=== PATIENT | female | born 1935 | race Caucasian/White ===

== ENCOUNTER → 2016-10-20 | Outpatient (CLI) | payer MEDICARE ==
[~2016-10-20] MED LIST: /WARF25TA PO; ACET50TA PO; ALEN70TA39 PO; ASPI1TAB PO; ASPIRIN PO; AZAT5TAB PO; BACT800T5 PO; BISA5TAB7 PO; CALC25TA PO; DOCU100C PO; ELIQ5TAB PO; FOLI1TAB2 PO; FURO40TA2 PO; METH2.5TA PO; METO25TAB PO; METOPROLOL PO; MILKSUS PO; PANT40TA2 PO; PERCOCET PO; POTA10CA PO; PRED20TA PO; PRED5TA PO; SIMV20TA2 PO; TYLE325T5 PO; VITA400T2 PO; VITAMIN D PO
--- NOTE | 2016-10-20 15:25 | REPMRS ---
Patient History The patient states she has not had a clinical breast exam in over a year. Patient is postmenopausal and has history of squamous cells skin cancer at age 74. Family history of ovarian cancer in sister at age 50 or over and breast cancer in mother at age 50 or over. Benign excisional biopsy of both breasts. Digital Woman Screen Mammo: October 20, 2016 - Exam #: [id number] Bilateral CC and MLO view(s) were taken. Technologist: Sarah Obsorne, Technologist Prior study comparison: February 17, 2015, digital woman screen mammo performed at [facility]. January 11, 2014, digital woman screen mammo performed at [facility]. FINDINGS: There are scattered fibroglandular densities. There has been no change in the appearance of the mammogram from the prior studies. There is a mild amount of residual fibroglandular tissue which is fairly symmetric. There is no interval development of dominant mass, architectural distortion, or clustered microcalcification suggestive of malignancy. There are bilateral benign arterial calcifications noted. Scattered lymph nodes are seen in the axillae. There are scattered, small, benign calcifications of doubtful clinical significance. No significant changes when compared with prior studies. ASSESSMENT: BI-RADS/ACR category 2 mammogram. Benign finding(s). Recommendation Routine screening mammogram in 1 year (for women over age 40). This mammogram was interpreted with the aid of an FDA-approved computer-aided dectection system. A. Negative x-ray reports should not delay biopsy if a dominant or clinically suspicious mass is present. B. Four to eight percent of cancers are not identified by mammography. C. Adenosis and dense breast may obscure an underlying neoplasm. Electronically Signed By: Carlyle Yost MD 10/20/16 [id number]
== END ==
LOC: M WHC 14:28
PROVIDERS: ATTEND Nurse Practitioner Family
DX: Z12.31 Encounter for screening mammogram for malignant neoplasm of breast (principal); Z78.0 Asymptomatic menopausal state; R92.8 Other abnormal and inconclusive findings on diagnostic imaging of breast

== ENCOUNTER 2017-02-22 09:49 | Inpatient (IN) | payer MEDICARE ==
[~2017-02-22] VITALS: Ht 172.7 cm; Wt 100.5 kg
[2017-02-22] MEDS: predniSONE 5 MG TAB NG SCH (09:00)
[2017-02-22] MEDS: azaTHIOprine 50 MG TAB (J7500) PO SCH (09:00)
[~2017-02-22 09:49] MED LIST changes: +AZAT50TA2 PO; -AZAT5TAB PO; -DOCU100C PO; +DOCU100C16 PO; -FOLI1TAB2 PO; +FOLI1TAB4 PO; +FUROSEMIDE 20 MG TAB PO SCH
[2017-02-22] MEDS ORDERED: FURO20TA2 PO (10:10)
[2017-02-22] MEDS ORDERED: PRED5TA PO (10:10)
[2017-02-22] MEDS ORDERED: HYDR200T3 PO (10:10)
[2017-02-22 11:00] LABS: BASO % 0.2 % (0.0-1.0); EOS # 0.1 K/mm3 (0.0-0.50); EOS % 0.4 % (0.0-3.0); LARGE UNSTAINED CELL # 0.1 K/mm3 (0.0-0.4); LARGE UNSTAINED CELL % 0.5 % (0.0-4.0); LYMPH # 0.3 K/mm3 (1.5-4.5); LYMPH % 1.4 % (24.0-44.0); MEAN CORPUSCULAR HEMOGLOBIN 27.1 pg (27.0-33.0); MEAN CORPUSCULAR HGB CONC 32.3 g/dl (32.0-36.5); MEAN CORPUSCULAR VOLUME 83.9 fl (80.0-96.0); MONO # 0.7 K/mm3 (0.0-0.8); MONO % 3.9 % (0.0-5.0); NEUTROPHILS # 15.7 K/mm3 (1.8-7.7); NEUTROPHILS % 93.5 % (36.0-66.0); PLATELET COUNT, AUTOMATED 432 k/mm3 (150-450); RED CELL DISTRIBUTION WIDTH 14.8 % (11.5-14.5); WHITE BLOOD COUNT 16.8 K/mm3 (4.0-10.0)
[2017-02-22] MEDS ORDERED: MORPHINE 2 MG/ML 1ML SYRINGE IV ONE (11:00)
[2017-02-22] MEDS ORDERED: ONDANSETRON 4MG/2ML VIAL (J2405) IV ONE (11:00)
[2017-02-22 11:02] LABS: INR 1.18
[2017-02-22] MEDS ORDERED: SODIUM CHLORIDE 0.9% 1000 ML IV ONE (11:15)
[2017-02-22 11:29] LABS: ALBUMIN 3.5 GM/DL (3.2-5.2); ALBUMIN/GLOBULIN RATIO 0.95 (1.00-1.93); ALKALINE PHOSPHATASE 58 U/L (45-117); ALT/SGPT 16 U/L (12-78); ANION GAP 17 MEQ/L (8-16); AST/SGOT 16 U/L (15-37); BILIRUBIN,DIRECT 0.2 MG/DL (0.0-0.2); BILIRUBIN,TOTAL 0.9 MG/DL (0.2-1.0); BLOOD UREA NITROGEN 25 MG/DL (7-18); CALCIUM LEVEL 9.3 MG/DL (8.8-10.2); CARBON DIOXIDE LEVEL 21 MEQ/L (21-32); CHLORIDE LEVEL 100 MEQ/L (98-107); CREATININE FOR GFR 1.56 MG/DL (0.55-1.02); GLOMERULAR FILTRATION RATE 33.7 (>32); GLUCOSE, FASTING 282 MG/DL (83-110); POTASSIUM SERUM 3.9 MEQ/L (3.5-5.1); SODIUM LEVEL 138 MEQ/L (136-145); TOTAL PROTEIN 7.2 GM/DL (6.4-8.2)
--- NOTE | 2017-02-22 11:37 | REP ---
AP PORTABLE CHEST: 02/22/2017 COMPARISON: 10/28/2015, 10/22/2015 chest x-ray. CLINICAL HISTORY: Chest pain. Lungs are hypoinflated compared to previous studies. There is some minor subsegmental atelectatic change and linear atelectasis in the bases. No effusion, gross infiltrate, cardiomegaly or edema. The aorta is tortuous, ectatic and that exaggerated by portable technique and low level of inflation but grossly unchanged. Allowing for this factors, airway intact. There is no abnormal widening the mediastinum. Bones show degenerative changes shoulders and spine. There is no free air under the diaphragms. IMPRESSION: 1. Hypoinflated chest with some basilar subsegmental atelectatic change and underlying fibrosis with COPD and pulmonary artery hypertension. 2. Tortuous calcified aorta and some degenerative changes of the spine and shoulders. Signed by Carlyle Yost MD 02/22/2017 06:58 P
--- NOTE | 2017-02-22 12:37 | REP ---
ABDOMEN, FLAT UPRIGHT PA CHEST, THREE VIEWS: HISTORY: Bowel obstruction. Air is present in small and large intestine. There are several dilated loops of intestine. Several air fluid levels are present. There is no pneumoperitoneum. An increase in interstitial markings is present in the lower lobes consistent with chronic interstitial change. The heart is upper limits of normal in size. IMPRESSION: Findings consistent with ileus or small bowel obstruction. A repeat examination is recommended for further evaluation. Signed by Zaki Hernandez MD 02/22/2017 12:47 P
[2017-02-22] MEDS ORDERED: NS 1,000 ML IV SCH (12:55)
--- NOTE | 2017-02-22 13:23 | REP ---
CT ABDOMEN PELVIS WITHOUT CONTRAST: 02/22/2017 CLINICAL HISTORY: Pain and bloating, ileus versus small bowel obstruction on radiographs today. COMPARISON: Acute abdominal series today, CT abdomen pelvis 12/30/2011. TECHNIQUE. Noncontrast exam with coronal and sagittal reconstructions after scanning through the abdomen and pelvis. FINDINGS: CT ABDOMEN: There is minor dependent atelectatic changes, deep sulcus right lower lung zone without definite effusion, infiltrate, nodule or mass. The heart size mildly prominent with left atrial enlargement. No pericardial thickening or effusion. I see no definite hiatal hernia. No hepatosplenomegaly but there is ascites about the liver and spleen coursing into the peroneal gutters into the pelvis. It is mild to moderate in overall volume. It also enters and/or leaves the mesentery and bowel loops in the mid abdomen. There is a noncalcified gallstone visible in the gallbladder up to 2.1 cm. There are dilated small bowel loops fluid-filled and with air-fluid levels. Transition in the mid to abdomen upper pelvis region of the distal and mid ileum of more normal caliber or collapsed. There is stool and gas scattered in the right transverse colon with the left colon collapsed and small caliber. No inflammatory changes are seen about those loops. Lung window review of all CT slices shows no perforation or free air. There are a few air-fluid levels in some of these dilated loops. Bone windows show degenerative disc and facet changes lower lumbar spine without compression deformity. The visualized ribs are grossly intact. CT PELVIS: Bony hips show degenerative changes in the pelvis, SI joints, sacrum, ischia and lumbosacral junction show mild degenerative change without destructive lesion. Kidneys show no stone, hydronephrosis or solid mass on the left. There is an upper pole cyst at 2.6 cm on the left. The right kidney shows nephrolithiasis with stones in the lower pole and multiple stones of pelvis with a length up to 3 cm. This does not cause hydronephrosis and there is no hydroureter or ureteral stone on either side. Bladder partially filled. There is no wall thickening, stone or mass. Uterus diminutive and without mass. Small amount of free fluid in the posterior cul-de-sac in deep pelvis. Terminal ileum is collapsed and I do not see inflammatory changes about the cecum but a loop of the terminal ileum does show inflammatory change along its distal course before the cecum. It is narrowed in caliber. The aorta has atherosclerotic calcifications as do the iliac vessels. No ventral or inguinal hernia nor pathologic inguinal adenopathy. IMPRESSION: 1. Evidence of small bowel obstruction mid to distal small bowel involving least to the mid ileum by CT. The distal ileum and terminal ileum do show some inflammatory change, mostly about terminal ileum but not into the ileocecal valve. This may reflect some ileitis. 2. The gallbladder shows noncalcified stone, up to 2.1 cm. No abnormality of the solid organs in the upper abdomen. 3. Small amount of ascites diffusely throughout the abdomen and pelvis. 4. Nephrolithiasis in the right kidney without hydronephrosis or hydroureter on either side and no left-sided stones. No bladder stone. Signed by Carlyle Yost MD 02/22/2017 07:00 P
[2017-02-22] MEDS ORDERED: CALC600T31 PO (13:37)
[2017-02-22] MEDS ORDERED: ELIQ5TAB PO (13:37)
[2017-02-22] MEDS ORDERED: PANT40TA2 PO (13:37)
[2017-02-22] MEDS ORDERED: CYAN1000VL IM (13:37)
[2017-02-22] MEDS ORDERED: AZAT50TA2 PO (13:37)
[2017-02-22] MEDS ORDERED: METO25TA4 PO (13:37)
[2017-02-22] MEDS ORDERED: NS 1,000 ML IV ONE (14:15)
[2017-02-22] MEDS ORDERED: HEPARIN DRIP 25,000 UNITS in APPROPRIATE DILUENT 1 EA IV SCH (14:29)
[2017-02-22] MEDS ORDERED: HEPARIN SOD (PORCINE) 5000 UNITS/ML VIAL IV PRN (14:30)
[2017-02-22] MEDS ORDERED: METOPROLOL 5 MG/5 ML VIAL IV SCH (15:00)
--- NOTE | 2017-02-22 15:14 | CR.PDOC ---
[facility] Consultation Consultation CONSULTATION REPORT FOR: Dr Mills REASON FOR CONSULTATION: Medical Management DATE OF VISIT: 02/22/17 ATTENDING: Dr. Reyes PCP: Dr Ham HPI: 80year old F with a past medical history significant for PE, HTN, HLD, inflammatory myopathy who states she has had a 1 week h/o abdominal pain and distention. Decreased po intake, no BM for past 1 week, gradual worsening pain, Nausea and vomiting since last PM. States has felt chilled, no known fever. Denies any Headache, Chest Pain, Shortness of breath, cough, palpitations. Pt was found to have SBO in ED, Dr Mills managing. Medical service consulted to assist with medical management. PMHx: inflammatory myopathy. Follows in [facility] Croft HTN HLD H/O PE on Eliquis. GERD Vitamin B12 deficiency Osteoporosis PSHX: Rt TKA ESWL hammertoe surgeries skin lesion excision SOCHX: Resides in: [place] lives with Marital Status: Kids: 7 Employment: retired Tobacco use: denies ETOH: denies Illicit Drugs: Denies Advanced directives: Pt states DNR. No copy available at this time. FAMHX: Mother: Breast CA Father: dementia Siblings: 1 sister Cancer Children: Alive, well Unexpected deaths due to medical reasons: None. ROS: As noted in HPI, otherwise 11pt ROS of systems reviewed and remarkable for dysuria. No frequency, urgency, hematuria. PE: GEN: 82yoF, appears stated age. Pt reports pain with movement on stretcher, appears in pain. NGT in place. Alert and oriented x 3. HEENT: Normocephalic, atraumatic. Pupils are equal, round, and reactive to light. Extraocular movements are intact. No nystagmus appreciated. Sclera are nonicteric. Conjunctiva without injection. Nose midline. Nasal turbinates without bogginess. EACs both patent BL. No facial asymmetry.Dry mucous membranes. Pharynx dry appearing. Neck supple, trachea midline. No lymphadenopathy or thyromegaly appreciated. CHEST: Regular rate and rhythm, +S1, +S2 LUNGS: Decreased BS bilaterally. No wheezes, rales, or rhonchi appreciated. Breathing appears symmetric and easy. Patient is speaking in full sentences. No accessory muscle use. ABD: Round, firm and distended, TTP most pronounced RUQ but is diffusely TTP, Bowel sounds hypoactive throughout. EXT: Pulses 2+ bilaterally dorsalis pedis and radial. No lower extremity edema appreciated. SKIN: [place], dry, warm. Capillary refill <2sec. No rashes. NEURO: Alert and oriented x 3. Cranial nerves III-XII are intact. No focal deficits appreciated. CXR 1. Hypoinflated chest with some basilar subsegmental atelectatic change and underlying fibrosis with COPD and pulmonary artery hypertension. 2. Tortuous calcified aorta and some degenerative changes of the spine and shoulders. AXR Findings consistent with ileus or small bowel obstruction. A repeat examination is recommended for further evaluation. CT A/P 1. Evidence of small bowel obstruction mid to distal small bowel involving least to the mid ileum by CT. The distal ileum and terminal ileum do show some inflammatory change, mostly about terminal ileum but not into the ileocecal valve. This may reflect some ileitis. 2. The gallbladder shows noncalcified stone, up to 2.1 cm. No abnormality of the solid organs in the upper abdomen. 3. Small amount of ascites diffusely throughout the abdomen and pelvis. 4. Nephrolithiasis in the right kidney without hydronephrosis or hydroureter on either side and no left-sided stones. No bladder stone. A&P: 80year old F with a past medical history significant for PE, HTN, HLD, inflammatory myopathy who states she has had a 1 week h/o abdominal pain and distention. Decreased po intake, no BM for past 1 week, gradual worsening pain, Nausea and vomiting since last PM. States has felt chilled, no known fever. Pt is discussed with Dr Krause and will be followed by Dr Reyes 1. Abdominal pain/SBO. NPO/NGT in place. Management as per Dr Mills. LA noted to be 6.0. Repeat in 4 hours. IVF as per General Surgery. Pain control/antibiotics as per General surgery. 2. NYLA. Baseline noted to be 0.75-0.80. SCr noted to be 1.56. IVF bolus x 2 liters in ED and cont'd at 100cc/hr. Monitor labs. 3. HTN. Hold po meds. IV Lopressor 5 mg Q6 ordered with hold parameters for BP and HR. Lasix po on hold. ASA 81 mg on hold. 4. HLD. Pt NPO. No meds as outpt. 5. Inflammatory myopathy. Imuran/Plaquenil on hold. Continue with po prednisone via NGT. 6. H/O PE. Hold Eliquis. Last dose last PM confirmed with Pt. Initiate Heparin Gtt at 1300 units per hour then per protocol. Monitor PTT. PLt WNL. 7. GERD. Continue IV Protonix. 8. Vitamin B 12 def. Supplement weekly. 9. osteoporosis. Fosamax weekly. DVT prophylaxis. as above Pt states she is DNR, and affirms this today. Copy not available at this time and is requested. Thank you for your consultation. We will continue to follow along with you. Vital Signs/I&O Vital Signs Date Time Temp Pulse Resp B/P (MAP) Pulse Ox O2 Delivery O2 Flow Rate FiO2 02/22/17 13:44 163/89 (113) 02/22/17 13:34 138 92 02/22/17 11:53 20 02/22/17 10:02 96.2 Room Air Laboratory Data Labs 24H Laboratory Tests 2 02/22/17 10:41: White Blood Count 16.8H, Red Blood Count 5.17, Hemoglobin 14.0, Hematocrit 43.4 , Mean Corpuscular Volume 83.9, Mean Corpuscular Hemoglobin 27.1, Mean Corpuscular Hemoglobin Concent 32.3, Red Cell Distribution Width 14.8H, Platelet Count 432, Neutrophils (%) (Auto) 93.5H, Lymphocytes (%) (Auto) 1.4L, Monocytes (%) (Auto) 3.9, Eosinophils (%) (Auto) 0.4, Basophils (%) (Auto) 0.2, Neutrophils # (Auto) 15.7H, Lymphocytes # (Auto) 0.3L, Monocytes # (Auto) 0.7, Eosinophils # (Auto) 0.1, Basophils # (Auto) 0.0, Large Unclassified Cells % 0.5 , Large Unclassified Cells # 0.1, Prothrombin Time 15.2H, Prothromb Time International Ratio 1.18, Anion Gap 17H, Glomerular Filtration Rate 33.7, Calcium Level 9.3, Aspartate Amino Transf (AST/SGOT) 16, Alanine Aminotransferase (ALT/SGPT) 16, Alkaline Phosphatase 58, Total Bilirubin 0.9, Direct Bilirubin 0.2, Total Creatine Kinase 41, Creatine Kinase MB 1.0, Creatine Kinase MB Relative Index 2.43, Troponin I < 0.02, B-Type Natriuretic Peptide 370H, Total Protein 7.2, Albumin 3.5, Albumin/Globulin Ratio 0.95L, Lipase 116, Thyroid Stimulating Hormone (TSH) 4.860H 02/22/17 13:19: Lactic Acid Level 6.0*H CBC/BMP Laboratory Tests 02/22/17 10:41 Red Blood Count 5.17, Mean Corpuscular Volume 83.9, Mean Corpuscular Hemoglobin 27.1, Mean Corpuscular Hemoglobin Concent 32.3, Red Cell Distribution Width 14.8 H, Neutrophils (%) (Auto) 93.5 H, Lymphocytes (%) (Auto) 1.4 L, Monocytes ( %) (Auto) 3.9, Eosinophils (%) (Auto) 0.4, Basophils (%) (Auto) 0.2, Neutrophils # (Auto) 15.7 H, Lymphocytes # (Auto) 0.3 L, Monocytes # (Auto) 0.7 , Eosinophils # (Auto) 0.1, Basophils # (Auto) 0.0 Allergies Coded Allergies: No Known Allergies (Unverified , 03/22/13) Home Medications Scheduled Alendronate Sodium (Alendronate Sodium) 70 Mg Tab, 70 MG PO QWEEK, (Reported) FRIDAYS Apixaban Base (Eliquis) 5 Mg Tab, 5 MG PO BID, (Reported) Aspirin (Aspirin 81) 81 Mg Tab, 81 MG PO DAILY, (Reported) Azathioprine (Azathioprine) 50 Mg Tab, 100 MG PO DAILY, (Reported) Calcium (Calcium) 600 Mg Tab, 600 MG PO BID, (Reported) Cholecalciferol (Vitamin D) 400 Unit Tab, 400 UNIT PO DAILY, (Reported) Cyanocobalamin (Cyanocobalamin) 1,000 Mcg/1 Ml Inj, 1,000 MCG IM QWEEK, ( Reported) FILLED 01/27/17. DIRECTIONS ARE 1QD FOR 1 WEEK, THEN QWEEK FOR 1 MONTH, THEN QMONTH Furosemide (Furosemide) 20 Mg Tab, 20 MG PO DAILY, (Reported) Hydroxychloroquine Sulfate (Hydroxychloroquine Sulfat) 200 Mg Tab, 200 MG PO BID , (Reported) Metoprolol Tartrate (Metoprolol Tartrate) 25 Mg Tab, 25 MG PO DAILY, (Reported) Pantoprazole Sodium (Pantoprazole Sodium) 40 Mg Tab, 40 MG PO DAILY, (Reported) Prednisone (Prednisone) 5 Mg Tab, 5 MG PO DAILY, (Reported) Scheduled PRN Acetaminophen (Tylenol) 325 Mg Tab, 650 MG PO Q4H PRN for PAIN / FEVER, ( Reported) Milk Of Magnesia (Milk of Magnesia) 1,200 Mg/15 Ml Jada, 30 ML PO DAILY PRN for CONSTIPATION, (Reported) Seda Langford Feb 22, 2017 15:14
[2017-02-22] MEDS ORDERED: LevoFLOXacin IV 500 MG in APPROPRIATE DILUENT 1 EA IV SCH (15:45)
[2017-02-22] MEDS ORDERED: PIPERACILLIN/TAZOBACTAM SOD 3.375 GM in D5W MINI-BAG PLUS 50 ML IV SCH (15:45)
[2017-02-22] MEDS ORDERED: LevoFLOXacin IV 750 MG in APPROPRIATE DILUENT 1 EA IV SCH (16:00)
[2017-02-22] MEDS: PIPERACILLIN/TAZOBACTAM SOD 2.25 GM in D5W MINI-BAG PLUS 50 ML IV SCH ×2 (17:00→22:36)
[2017-02-22] MEDS ORDERED: BUPIVACAINE/EPIN 0.25% 30 ML VIAL As Ordered ONE (18:31)
[2017-02-22] MEDS ORDERED: KETOROLAC 30 MG/ML VIAL (J1885) IV PRN (19:00)
[2017-02-22] MEDS ORDERED: MOM 30ML SUSPENSION UDC PO PRN (19:00)
[2017-02-22] MEDS ORDERED: MORPHINE 2 MG/ML 1ML SYRINGE IV PRN (19:00)
[2017-02-22] MEDS ORDERED: SUCCINYLCHOLINE 100 MG/5 ML SYRINGE (J0330) As Ordered ONE (19:37)
[2017-02-22] MEDS ORDERED: ETOMIDATE INJ 20MG/10ML VIAL As Ordered ONE (19:37)
[2017-02-22] MEDS ORDERED: fentaNYL 250 MCG/5 ML INJECTION (J3010) As Ordered ONE (19:37)
[2017-02-22] MEDS ORDERED: HYDROCORTISONE 100 MG/2 ML VIAL (J1720) As Ordered ONE (19:37)
[2017-02-22] MEDS ORDERED: VECURONIUM BROMIDE 10 MG VIAL As Ordered ONE ×2 (19:37→19:38)
[2017-02-22] MEDS ORDERED: NEOSTIGMINE 1MG/ML 5 ML SYRINGE (J2710) As Ordered ONE (19:38)
[2017-02-22] MEDS ORDERED: LIDOCAINE 2% INJ 100 MG/5 ML SDV (FOR ANES.) As Ordered ONE (19:38)
[2017-02-22] MEDS ORDERED: PHENYLephrine HCL 500 MCG/5 ML (100MCG/ML) SYRINGE (J2370) As Ordered ONE (19:38)
[2017-02-22] MEDS ORDERED: GLYCOPYRROLATE INJ 0.2 MG/ML 2 ML VIAL As Ordered ONE (19:38)
[2017-02-22] MEDS ORDERED: PROPOFOL 200 MG/20 ML VIAL As Ordered ONE (19:38)
[2017-02-22] MEDS ORDERED: ONDANSETRON 4MG/2ML VIAL (J2405) As Ordered ONE ×2 (19:57→21:06)
[2017-02-22] MEDS ORDERED: SEVOFLURANE INHAL SOLN 250 ML BTL As Ordered ONE (20:20)
[2017-02-22] MEDS: HYDROXYCHLOROQUINE 200 MG TAB PO SCH (21:00)
[2017-02-22] MEDS: SENOKOT S TAB PO SCH (21:00)
[2017-02-22] MEDS ORDERED: KETOROLAC 30 MG/ML VIAL (J1885) As Ordered ONE (21:11)
[2017-02-22] MEDS ORDERED: HEPARIN SOD (PORCINE) 5000 UNITS/ML VIAL SQ SCH (21:15)
[2017-02-22] MEDS ORDERED: HYDROmorphone HCL 1 MG/ML SYRINGE (J1170) IV PRN (21:30)
[2017-02-22] MEDS ORDERED: ONDANSETRON 4MG/2ML VIAL (J2405) IV PRN (21:30)
[2017-02-22] MEDS ORDERED: LR 1,000 ML IV SCH (21:30)
[2017-02-22] MEDS ORDERED: METOCLOPRAMIDE INJ 10MG/2ML VIAL (J2765) IV PRN (21:30)
[2017-02-22] MEDS: fentaNYL 100 MCG/2 ML INJECTION (J3010) IV PRN ×2 (21:34→21:40)
[2017-02-22] MEDS ORDERED: fentaNYL 100 MCG/2 ML INJECTION (J3010) As Ordered ONE (21:35)
[2017-02-22 21:45] VITALS: BP 147/77
[2017-02-22 21:51] VITALS: BP 139/70
[2017-02-22 21:56] VITALS: BP 149/67
[2017-02-22 22:01] VITALS: BP 135/63
[2017-02-22] MEDS: PANTOPRAZOLE 40MG INJ (PROTONIX) (C9113) IV SCH (22:34)
[2017-02-22] MEDS: LR 1,000 ML IV SCH (22:34)
[2017-02-22 23:00] VITALS: BP 144/64
[2017-02-22] MEDS ORDERED: HEPARIN SOD (PORCINE) 5000 UNITS/ML VIAL SQ ONE (23:00)
[2017-02-22 23:44] VITALS: O2SAT 99
[2017-02-23] VITALS (7 sets, daily range): BP systolic 113–134; BP diastolic 56–88
[2017-02-23] MEDS: PIPERACILLIN/TAZOBACTAM SOD 2.25 GM in D5W MINI-BAG PLUS 50 ML IV SCH ×3 (04:43→17:56)
[2017-02-23 05:11] LABS: BASO % 0.1 % (0.0-1.0); EOS % 0.3 % (0.0-3.0); LARGE UNSTAINED CELL # 0.2 K/mm3 (0.0-0.4); LARGE UNSTAINED CELL % 1.3 % (0.0-4.0); LYMPH # 0.5 K/mm3 (1.5-4.5); LYMPH % 2.7 % (24.0-44.0); MEAN CORPUSCULAR HEMOGLOBIN 26.7 pg (27.0-33.0); MEAN CORPUSCULAR HGB CONC 31.4 g/dl (32.0-36.5); MONO # 0.5 K/mm3 (0.0-0.8); MONO % 4.1 % (0.0-5.0); NEUTROPHILS # 12.2 K/mm3 (1.8-7.7); NEUTROPHILS % 91.5 % (36.0-66.0); RED CELL DISTRIBUTION WIDTH 14.9 % (11.5-14.5); WHITE BLOOD COUNT 13.4 K/mm3 (4.0-10.0)
[2017-02-23 05:29] LABS: PLATELET COUNT, AUTOMATED 326 k/mm3 (150-450)
[2017-02-23 05:41] LABS: ALBUMIN/GLOBULIN RATIO 0.77 (1.00-1.93); BILIRUBIN,TOTAL 1.2 MG/DL (0.2-1.0); CREATININE FOR GFR 1.32 MG/DL (0.55-1.02); GLOMERULAR FILTRATION RATE 40.9 (>32); POTASSIUM SERUM 4.4 MEQ/L (3.5-5.1)
[2017-02-23 06:05] LABS: ALBUMIN 2.4 GM/DL (3.2-5.2); CALCIUM LEVEL 7.8 MG/DL (8.8-10.2); TOTAL PROTEIN 5.5 GM/DL (6.4-8.2)
[2017-02-23] MEDS: LR 1,000 ML IV SCH (06:10)
[2017-02-23] MEDS: D5W/0.45% SODIUM CHLORIDE 1,000 ML IV SCH ×2 (09:06→17:56)
[2017-02-23] MEDS: PANTOPRAZOLE 40MG INJ (PROTONIX) (C9113) IV SCH ×2 (09:06→20:52)
[2017-02-23] MEDS: APIXABAN 5 MG TAB (ELIQUIS) PO SCH ×2 (09:07→20:51)
[2017-02-23] MEDS: predniSONE 5 MG TAB NG SCH (09:07)
[2017-02-23] MEDS: SENOKOT S TAB PO SCH ×2 (09:08→20:51)
[2017-02-23] MEDS: HYDROXYCHLOROQUINE 200 MG TAB PO SCH ×2 (09:08→20:51)
[2017-02-23] MEDS: azaTHIOprine 50 MG TAB (J7500) PO SCH (09:08)
[2017-02-23] MEDS: METOPROLOL TART 25 MG TABLET PO SCH (09:27)
--- NOTE | 2017-02-23 11:40 | HPE ---
DATE OF ADMISSION: 02/22/2017 CHIEF COMPLAINT: Abdominal pain. HISTORY OF PRESENT ILLNESS: The patient is a 82-year-old female who presents with 3-day history of increasing lower abdominal pains. She had nausea and vomiting at home and has been unable to tolerate any food for the last 24 hours. She cannot remember her last bowel movement but thinks it has been over a week and denies any recent flatus. Her abdominal pain has been getting worse for the past 3 days. She is also becoming more distended. She is at the point where even touching the bed causes her significant tenderness. She denies any chest pain. No headache or fevers. She does have a significant history of PE, hypertension, hyperlipidemia, inflammatory myopathy for which she is taking care of outpatient. No other acute problems at this time. PAST MEDICAL HISTORY: Inflammatory myopathy, hypertension, hyperlipidemia, PE, gastroesophageal reflux disease, vitamin B12 deficiency, osteoporosis, aortic regurgitation. PAST SURGICAL HISTORY: Right total knee replacement, multiple hammertoe surgeries, skin lesion excisions and tubal ligation, appendectomy and bilateral breast biopsies. ALLERGIES: None. HOME MEDICATIONS: Please see medical record, including Eliquis. SOCIAL HISTORY: Denies drug, alcohol, tobacco abuse. FAMILY HISTORY: Noncontributory. REVIEW OF SYSTEMS: Per positives and negatives as stated in history of present illness. PHYSICAL EXAMINATION: GENERAL: The patient is awake and alert. Appears to be in significant abdominal pain. VITAL SIGNS: Temperature 96.2, pulse 120s to 150s, respirations 20, blood pressure 157/93, pulse oximetry 98% on room air. HEENT: Pupils are equal, round and reactive to light and accommodation. HEART: S1, S2. Tachycardic. LUNGS: Clear to auscultation bilaterally. ABDOMEN: Soft, distended, extremely tender to palpation with generalized guarding and rebound. EXTREMITIES: No clubbing, cyanosis or edema. LABORATORY DATA: White count 16.8, hemoglobin 14, platelets 432, potassium 3.9, creatinine 1.56, lactic acid is 6 and repeat was 2.2. Total bilirubin 0.9, BNP 370, TSH 4.86. IMAGING: CT of the abdomen and pelvis shows small bowel obstruction, mid to distal small bowel involving the mid ileum, distal ileum, and terminal ileum do show some inflammatory changes but it does not appear to be involving the ileocecal valve. Gallbladder does show a noncalcified stone up to 2.1 cm, diffuse ascites throughout the abdomen and pelvis. ASSESSMENT AND PLAN: The patient is an 82-year-old female with signs and symptoms consistent with acute abdomen, likely secondary to internal hernia resulting in a small bowel obstruction. Recommendation at this time is to proceed with diagnostic laparoscopy and likely laparotomy with a small bowel resection. Risks and benefits of procedure not limited to but including bleeding, infection, hernia formation, damage to surrounding structures, possible need for small bowel resection were all discussed in detail with the patient and the patient's . Informed consent was obtained and she will be taken to the operating room urgently for procedure. Postoperatively, she will continue with IV fluid, antibiotics, nasogastric tube, and Logan catheter. Once she has signs of return of bowel function, the nasogastric tube will be removed. Once her urine output is adequate, her Logan catheter will be removed. She will be up ambulating immediately after surgery. Once she is tolerating diet and having bowel movements, she will be discharged home, likely within the next 5-7 days.
--- NOTE | 2017-02-23 12:14 | IPNPDOC ---
Text Note Date of Service The patient was seen on 02/23/17. NOTE Subjective: Patient seen and examined at bedside. No acute event overnight. Patient is still in atrial fibrillation. Patient denies any flatus. Admits to feeling tired sitting and wants to lay down. Admits to thirsty. Admits to abdominal pain from surgery. Admits to burping and nauseous. Denies any chest pain, sob, vomiting, diarrhea, blood in urine or stool. Denies any other current new complaints. Objective: Vitals: (See below) General: Patient is a pleasant elderly female, sitting up comfortably in chair, AAOx3, not in apparent distress, with head elevated at 90 degrees HEENT: Normal cephalic atraumatic, extraocular motion intact, pupil equal round and reactive to light, mucosal membrane moist, neck supple, no neck lymphadenopathy Cardio: Irregularly irregular, No murmur/rubs/gallops Pulm: Clear to auscultations bilaterally, no wheezing, rales, or rhonchi. Abdomen: hypoactive bowel sound, soft, none tender, none distended, no peritoneal signs, no ecchymosis, no masses that were palpable, dressing were dry clean and intact, LETICIA drain in place produced sanguineous drainage. Ext: No edema, clubbing, or cyanosis Skin: Warm and dry Neuro: Cranial Nerve 2 through 12 intact, No focal neurological deficit Labs ( See below) Most significantly: Hgb 10.8 from 14, Cr. 1.3 Images/Procedures: No new images Assessment and Plan: 1. Abdominal pain/SBO s/p lap convert to open small bowel resection and reanastomosis with Dr. Mills POD #1 - Bowel regimen per surgery - CLD, NGT to clamp - IVF D5 NS 100 mlh - abx Zosyn - Pain control per surgery - Restarted patient on PO meds, if unable to tolerate will consider to switch to IV 2. Afib and PE - On Eliquis - Hold ASA for now, patient still has moderate LETICIA drain 3. NYLA. - Improved with IVF 4. Anemia - Likely related to surgery and dilution from fluid - Monitor LETICIA drain and H/H 5. HTN. - Restarted PO meds Metoprolol Tartrate 25 mg with hold parameters - Hold ASA for now 6. HLD. - Not on statin at home, unclear why, no acute reason for statin at this point 7. Inflammatory myopathy with dermatomyositis. -Imuran/Plaquenil on hold. -Continue PO prednisone 7. GERD. Continue IV Protonix. 8. Vitamin B 12 def. Supplement weekly. 9. Osteoporosis. Fosamax weekly. DVT prophylaxis. On Eliquis Fluid, Electrolytes, Nutrition: D5 NS, CLD Code: DNR, however patient will need to bring paperwork from home Disposition: Following surgery. VS,Fishbone, I+O VS, Fishbone, I+O Laboratory Tests 02/23/17 04:49 Red Blood Count 4.06, Mean Corpuscular Volume 85.0, Mean Corpuscular Hemoglobin 26.7 L, Mean Corpuscular Hemoglobin Concent 31.4 L, Red Cell Distribution Width 14.9 H, Neutrophils (%) (Auto) 91.5 H, Lymphocytes (%) (Auto) 2.7 L, Monocytes ( %) (Auto) 4.1, Eosinophils (%) (Auto) 0.3, Basophils (%) (Auto) 0.1, Neutrophils # (Auto) 12.2 H, Lymphocytes # (Auto) 0.5 L, Monocytes # (Auto) 0.5 , Eosinophils # (Auto) 0.0, Basophils # (Auto) 0.0, Calcium Level 7.8 #L, Aspartate Amino Transf (AST/SGOT) 10 L, Alanine Aminotransferase (ALT/SGPT) 11 L , Alkaline Phosphatase 52, Total Bilirubin 1.2 H, Total Protein 5.5 #L, Albumin 2.4 #L Vital Signs Date Time Temp Pulse Resp B/P (MAP) Pulse Ox O2 Delivery O2 Flow Rate FiO2 02/23/17 09:27 132 134/58 02/23/17 09:09 26 95 Room Air 02/23/17 08:00 98.8 02/23/17 04:00 1.0 I&O- Last 24 Hours up to 6 AM 02/23/17 06:00 Intake Total 4250 ml Output Total 1080 ml Balance 3170 ml GME ATTESTATION GME ATTESTATION My preceptor for this patient encounter was physically present in the building during the encounter and was fully available. As needed, all aspects of the patient interview, examination, medical decision making process, and medical care plan development were reviewed and approved by the preceptor. Preceptor is aware and concurs with the plan as stated in the body of this note and will attest to such by his/her cosignature. ATTENDING NOTE I, Yael Marrero, have both independently examined this patient as well as reviewed the documentation. I have discussed in detail with the resident the findings and plan of treatment as documented in the residents documentation. I will continue to follow the patient and offer further guidance to the patients care as necessary during this hospital stay. ANTHONY CORNEJO DO Feb 23, 2017 12:14 YAEL MARRERO MD Feb 26, 2017 17:31
--- NOTE | 2017-02-23 19:52 | RO ---
DATE OF PROCEDURE: 02/22/2017 PREOPERATIVE DIAGNOSIS: Acute abdomen. POSTOPERATIVE DIAGNOSIS: Acute abdomen with internal hernia and gangrenous small bowel, secondary to adhesions. PROCEDURE: Diagnostic laparoscopy converted to exploratory laparotomy with release of internal hernia, small bowel resection and primary anastomosis with abdominal washout. SURGEON: Dr. Mills [employer]OCK CR[employer] MACHINE OPERATOR: Dr. Butler ANESTHESIA: General ESTIMATED BLOOD LOSS: 10. COMPLICATIONS: None. INDICATIONS FOR PROCEDURE: The patient 82-year-old female presents with 3-day history of increasing abdominal pain. She had lactic acidosis upon admission as well as a leukocytosis and severe signs of peritonitis. Recommendation was to proceed with diagnostic laparoscopy and possible laparotomy. Risks and procedure not limited but including bleeding, infection, hernia formation, damage to surrounding structures, possible bowel resection or ostomy formation and possible need for further surgery. Risks and benefits were discussed in detail with the patient and the patient's . Informed stent was obtained and procedure was planned urgently. PROCEDURE: The patient brought back to operating room three after sufficient sedation. The abdomen was sterilely prepped and draped. A Logan catheter was placed. Next, time-out was done to confirm proper patient, proper procedure. Following that 5 mm incision made in left upper quadrant Veress needle was inserted and was insufflated 15 mmHg. Next, a Veress needle was removed 5 mm Optiview port was used to gain access to the abdomen. Once the abdomen was entered, there is a necrotic bowel identified in the lower midabdomen. Her previous midline laparotomy incision was completely free of any adhesions. Therefore, the camera was removed and the procedure was converted over to open. Her previous midline laparotomy incision was reopened using a 15 blade scalpel followed by electrocautery. Once the abdomen was entered the omentum was elevated up towards to the superior abdomen. There is a loop of small bowel that was all necrotic and gangrenous no perforation yet. But this was all twisted underneath a tight band. The band was easily released and the bowel was delivered out of the abdomen. The segment of small intestine that was necrotic had a sharp demarcation on both ends. Next, electrocautery was used to create a wound on the mesentery at the both ends were there was healthy bowel. This was resected using a RAYMOND 100 stapler. Once both of the end of the bowel were transected the mesentery was transected using the LigaSure. Once all the small necrotic bowel was removed the two ends of the small bowel were brought back together. The side to side anastomosis was then created, 3-0 silk sutures were placed about 6 cm apart to hold the two loops of intestine next to each other. Small enterotomies were then created where the staple lines were RAYMOND 100 stapler was then used to create a [id number]-[id number] anastomosis. Once that was done the two enterotomies were created were also excised using the RAYMOND 100 stapler. Anastomosis was oversewn and using #3-0 silk sutures and the abdomen was then irrigated. The mesentery was brought back together with #0 Vicryl running suture, a #19-[place] drain was then placed in over top of the anastomosis and brought out through this incision and the right lower quadrant, tied in place with silk suture. The abdomen was irrigated one more time. A running looped PDS was then used to close the fascia and the peritoneum. Once this was completed the skin was brought together with jarocho. The abdomen was cleaned and dried, 4x4s and tape were applied thus ending procedure. The patient tolerated procedure well. No problems with vitals throughout the case she was able to be extubated in the case was sent to postanesthesia care unit (PACU) in stable condition.
[2017-02-23] MEDS: ACETAMINOPHEN TAB 650MG DOSE (2X325MG) PO PRN (20:57)
[2017-02-24] VITALS (7 sets, daily range): BP systolic 103–152; BP diastolic 58–96
[2017-02-24] MEDS: PIPERACILLIN/TAZOBACTAM SOD 2.25 GM in D5W MINI-BAG PLUS 50 ML IV SCH ×5 (00:15→22:55)
[2017-02-24] MEDS: D5W/0.45% SODIUM CHLORIDE 1,000 ML IV SCH (04:31)
[2017-02-24 05:34] LABS: BASO % 0.2 % (0.0-1.0); EOS % 0.4 % (0.0-3.0); LARGE UNSTAINED CELL # 0.1 K/mm3 (0.0-0.4); LARGE UNSTAINED CELL % 0.7 % (0.0-4.0); LYMPH # 0.5 K/mm3 (1.5-4.5); MEAN CORPUSCULAR HEMOGLOBIN 27.3 pg (27.0-33.0); MEAN CORPUSCULAR HGB CONC 32.8 g/dl (32.0-36.5); MEAN CORPUSCULAR VOLUME 83.2 fl (80.0-96.0); MONO # 0.3 K/mm3 (0.0-0.8); MONO % 3.7 % (0.0-5.0); NEUTROPHILS # 7.7 K/mm3 (1.8-7.7); PLATELET COUNT, AUTOMATED 311 k/mm3 (150-450); RED CELL DISTRIBUTION WIDTH 14.8 % (11.5-14.5); WHITE BLOOD COUNT 8.6 K/mm3 (4.0-10.0)
[2017-02-24 05:52] LABS: ALBUMIN 2.2 GM/DL (3.2-5.2); ALBUMIN/GLOBULIN RATIO 0.63 (1.00-1.93); ALKALINE PHOSPHATASE 48 U/L (45-117); ALT/SGPT 11 U/L (12-78); ANION GAP 8 MEQ/L (8-16); AST/SGOT 9 U/L (15-37); BILIRUBIN,TOTAL 0.9 MG/DL (0.2-1.0); BLOOD UREA NITROGEN 17 MG/DL (7-18); CARBON DIOXIDE LEVEL 26 MEQ/L (21-32); CHLORIDE LEVEL 105 MEQ/L (98-107); CREATININE FOR GFR 0.92 MG/DL (0.55-1.02); GLOMERULAR FILTRATION RATE > 60.0 (>32); GLUCOSE, FASTING 133 MG/DL (83-110); MAGNESIUM LEVEL 2.1 MG/DL (1.8-2.4); POTASSIUM SERUM 3.6 MEQ/L (3.5-5.1); SODIUM LEVEL 139 MEQ/L (136-145); TOTAL PROTEIN 5.7 GM/DL (6.4-8.2)
[2017-02-24] MEDS: PANTOPRAZOLE 40MG INJ (PROTONIX) (C9113) IV SCH ×2 (08:24→21:43)
[2017-02-24] MEDS: azaTHIOprine 50 MG TAB (J7500) PO SCH (08:25)
[2017-02-24] MEDS: ACETAMINOPHEN TAB 650MG DOSE (2X325MG) PO PRN (08:25)
[2017-02-24] MEDS: APIXABAN 5 MG TAB (ELIQUIS) PO SCH ×2 (08:25→21:43)
[2017-02-24] MEDS: HYDROXYCHLOROQUINE 200 MG TAB PO SCH ×2 (08:25→21:43)
[2017-02-24] MEDS: SENOKOT S TAB PO SCH ×2 (08:25→21:43)
[2017-02-24] MEDS: predniSONE 5 MG TAB PO SCH (08:26)
[2017-02-24] MEDS: METOPROLOL TART 25 MG TABLET PO SCH (08:26)
[2017-02-24] MEDS ORDERED: POTASSIUM CHLORIDE 10 MEQ SR TABLET PO ONE (09:15)
--- NOTE | 2017-02-24 11:25 | IPNPDOC ---
Text Note Date of Service The patient was seen on 02/24/17. NOTE Subjective: Patient seen and examined at bedside in ICU. No acute event overnight. Patient is still in atrial fibrillation. Admits to less pain in abdomen and feeling more comfortable. However, still has not passed flatus. Denies any chest pain, sob, vomiting, diarrhea, blood in urine or stool. Denies any other current new complaints. Objective: Vitals: (See below) General: Patient is a pleasant elderly female, sitting up comfortably in bed, AAOx3, not in apparent distress, with head elevated at 30degrees HEENT: Normal cephalic atraumatic, extraocular motion intact, pupil equal round and reactive to light, mucosal membrane moist, neck supple, no neck lymphadenopathy Cardio: Irregularly irregular, No murmur/rubs/gallops Pulm: Clear to auscultations bilaterally, no wheezing, rales, or rhonchi. Abdomen: hypoactive bowel sound, soft, milder tenderness in lower quadrants b/l , none distended, no peritoneal signs, no ecchymosis, no masses that were palpable, dressing were dry clean and intact, LETICIA drain in place produced sanguineous drainage. Ext: No edema, clubbing, or cyanosis Skin: Warm and dry Neuro: Cranial Nerve 2 through 12 intact, No focal neurological deficit Labs ( See below) Most significantly: Hgb 9.5 continue to trend down. Images/Procedures: No new images Assessment and Plan: 1. Abdominal pain/SBO s/p lap convert to open small bowel resection and reanastomosis with Dr. Mills POD #2 - Bowel regimen per surgery - CLD, NGT to clamp, GS considering removing NGT today. - IVF DC'd - abx Zosyn - Pain control per surgery - Restarted patient on PO meds, if unable to tolerate will consider to switch to IV 2. Afib and PE - On Eliquis - Hold ASA for now, patient still has moderate LETICIA drain 3. NYLA. - Improved with IVF 4. Anemia - Likely related to surgery and dilution from fluid - Monitor LETICIA drain and H/H 5. HTN. - Restarted PO meds Metoprolol Tartrate 25 mg with hold parameters - Hold ASA for now 6. HLD. - Not on statin at home, unclear why, no acute reason for statin at this point 7. Inflammatory myopathy with dermatomyositis. -Imuran/Plaquenil on hold. -Continue PO prednisone 7. GERD. Continue IV Protonix. 8. Vitamin B 12 def. Supplement weekly. 9. Osteoporosis. Fosamax weekly. DVT prophylaxis. On Eliquis Fluid, Electrolytes, Nutrition: CLD Code: DNR, however patient will need to bring paperwork from home Disposition: Following surgery. VS,Fishbone, I+O VS, Fishbone, I+O Laboratory Tests 02/24/17 05:12 Red Blood Count 3.49 L, Mean Corpuscular Volume 83.2, Mean Corpuscular Hemoglobin 27.3, Mean Corpuscular Hemoglobin Concent 32.8, Red Cell Distribution Width 14.8 H, Neutrophils (%) (Auto) 90.0 H, Lymphocytes (%) (Auto ) 5.0 L, Monocytes (%) (Auto) 3.7, Eosinophils (%) (Auto) 0.4, Basophils (%) ( Auto) 0.2, Neutrophils # (Auto) 7.7, Lymphocytes # (Auto) 0.5 L, Monocytes # ( Auto) 0.3, Eosinophils # (Auto) 0.0, Basophils # (Auto) 0.0, Calcium Level 8.0 L , Aspartate Amino Transf (AST/SGOT) 9 L, Alanine Aminotransferase (ALT/SGPT) 11 L, Alkaline Phosphatase 48, Total Bilirubin 0.9, Total Protein 5.7 L, Albumin 2.2 L Vital Signs Date Time Temp Pulse Resp B/P (MAP) Pulse Ox O2 Delivery O2 Flow Rate FiO2 02/24/17 08:26 102 131/64 02/24/17 08:00 97.2 20 95 Room Air 02/23/17 04:00 1.0 I&O- Last 24 Hours up to 6 AM 02/24/17 06:00 Intake Total 4660 ml Output Total 3075 ml Balance 1585 ml GME ATTESTATION GME ATTESTATION My preceptor for this patient encounter was physically present in the building during the encounter and was fully available. As needed, all aspects of the patient interview, examination, medical decision making process, and medical care plan development were reviewed and approved by the preceptor. Preceptor is aware and concurs with the plan as stated in the body of this note and will attest to such by his/her cosignature. ATTENDING NOTE I, Yael Marrero, have both independently examined this patient as well as reviewed the documentation. I have discussed in detail with the resident the findings and plan of treatment as documented in the residents documentation. I will continue to follow the patient and offer further guidance to the patients care as necessary during this hospital stay. ANTHONY CORNEJO DO Feb 24, 2017 11:25 YAEL MARRERO MD Feb 26, 2017 17:33
[2017-02-24] MEDS: ONDANSETRON 4MG/2ML VIAL (J2405) IV PRN (19:31)
--- NOTE | 2017-02-24 21:23 | ECGEPIP ---
Stationary ECG Study 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
[2017-02-25] VITALS: BP 151/77
[2017-02-25] MEDS ORDERED: METOPROLOL TART 12.5 MG PER 1/2 TAB PO ONE (01:15)
[2017-02-25 04:00] VITALS: BP 132/65
[2017-02-25 04:24] LABS: BASO % 0.2 % (0.0-1.0); EOS # 0.1 K/mm3 (0.0-0.50); EOS % 0.6 % (0.0-3.0); LARGE UNSTAINED CELL # 0.1 K/mm3 (0.0-0.4); LARGE UNSTAINED CELL % 1.1 % (0.0-4.0); LYMPH # 0.6 K/mm3 (1.5-4.5); LYMPH % 4.5 % (24.0-44.0); MEAN CORPUSCULAR HEMOGLOBIN 26.3 pg (27.0-33.0); MEAN CORPUSCULAR HGB CONC 31.6 g/dl (32.0-36.5); MEAN CORPUSCULAR VOLUME 83.1 fl (80.0-96.0); MONO # 0.4 K/mm3 (0.0-0.8); MONO % 3.9 % (0.0-5.0); NEUTROPHILS % 89.7 % (36.0-66.0); RED CELL DISTRIBUTION WIDTH 14.8 % (11.5-14.5)
[2017-02-25 04:44] LABS: ALBUMIN 2.3 GM/DL (3.2-5.2); ALBUMIN/GLOBULIN RATIO 0.72 (1.00-1.93); ALKALINE PHOSPHATASE 52 U/L (45-117); ALT/SGPT 10 U/L (12-78); ANION GAP 7 MEQ/L (8-16); AST/SGOT 9 U/L (15-37); BILIRUBIN,TOTAL 0.8 MG/DL (0.2-1.0); BLOOD UREA NITROGEN 15 MG/DL (7-18); CALCIUM LEVEL 8.1 MG/DL (8.8-10.2); CARBON DIOXIDE LEVEL 26 MEQ/L (21-32); CHLORIDE LEVEL 104 MEQ/L (98-107); CREATININE FOR GFR 0.78 MG/DL (0.55-1.02); GLOMERULAR FILTRATION RATE > 60.0 (>32); GLUCOSE, FASTING 142 MG/DL (83-110); MAGNESIUM LEVEL 2.2 MG/DL (1.8-2.4); POTASSIUM SERUM 4.3 MEQ/L (3.5-5.1); SODIUM LEVEL 137 MEQ/L (136-145); TOTAL PROTEIN 5.5 GM/DL (6.4-8.2)
[2017-02-25 05:00] LABS: PLATELET COUNT, AUTOMATED 439 k/mm3 (150-450)
[2017-02-25] MEDS: PIPERACILLIN/TAZOBACTAM SOD 2.25 GM in D5W MINI-BAG PLUS 50 ML IV SCH ×4 (05:01→22:05)
[2017-02-25] MEDS: METOPROLOL TART 25 MG TABLET PO SCH ×4 (06:00→23:14)
[2017-02-25 08:00] VITALS: BP 124/67
[2017-02-25] MEDS: ACETAMINOPHEN TAB 650MG DOSE (2X325MG) PO PRN (08:22)
[2017-02-25] MEDS: ONDANSETRON 4MG/2ML VIAL (J2405) IV PRN (08:22)
[2017-02-25] MEDS: HYDROXYCHLOROQUINE 200 MG TAB PO SCH ×2 (09:28→20:23)
[2017-02-25] MEDS: APIXABAN 5 MG TAB (ELIQUIS) PO SCH ×2 (09:28→20:23)
[2017-02-25] MEDS: azaTHIOprine 50 MG TAB (J7500) PO SCH (09:28)
[2017-02-25] MEDS: PANTOPRAZOLE 40MG INJ (PROTONIX) (C9113) IV SCH ×2 (09:28→20:22)
[2017-02-25] MEDS: predniSONE 5 MG TAB PO SCH (09:29)
[2017-02-25] MEDS: SENOKOT S TAB PO SCH ×2 (09:29→20:22)
[2017-02-25] MEDS: METOCLOPRAMIDE 5 MG TAB PO SCH ×3 (11:14→23:14)
[2017-02-25 11:52] VITALS: BP 119/87
[2017-02-25] MEDS: NORCO, ANEXSIA 5/325MG TABLET (HYDROcodone/ACETAMINOPHEN) PO PRN (14:21)
--- NOTE | 2017-02-25 14:51 | IPNPDOC ---
Text Note Date of Service The patient was seen on 02/25/17. NOTE Subjective: Patient seen and examined at bedside in ICU. No acute event overnight. Patient is still in atrial fibrillation had RVR overnight. Admits to less pain in abdomen and feeling more comfortable. Denies flatus or BM. Denies any chest pain , sob, vomiting, diarrhea, blood in urine or stool. Denies any other current new complaints. Objective: Vitals: (See below) General: Patient is a pleasant elderly female, sitting up comfortably in bed, AAOx3, not in apparent distress, with head elevated at 30degrees HEENT: Normal cephalic atraumatic, extraocular motion intact, pupil equal round and reactive to light, mucosal membrane moist, neck supple, no neck lymphadenopathy Cardio: Irregularly irregular, No murmur/rubs/gallops Pulm: Clear to auscultations bilaterally, no wheezing, rales, or rhonchi. Abdomen: hypoactive bowel sound, soft, moderate tenderness to palpation more on the LLQ, none distended, no peritoneal signs, no ecchymosis, no masses that were palpable, dressing were dry clean and intact, LETICIA drain in place produced serous drainage. Ext: No edema, clubbing, or cyanosis Skin: Warm and dry Neuro: Cranial Nerve 2 through 12 intact, No focal neurological deficit Labs ( See below) Most significantly: Images/Procedures: No new images Assessment and Plan: 1. Abdominal pain/SBO s/p lap convert to open small bowel resection and reanastomosis with Dr. Mills POD #3 - Bowel regimen per surgery - CLD, NGT to clamp, GS considering removing NGT today. - IVF DC'd - abx Zosyn day 4 - Pain control per surgery 2. Afib and PE - On Eliquis - Hold ASA for now, patient still has moderate LETICIA drain 3. NYLA. - resolved 4. Anemia - Likely related to surgery and dilution from fluid - Monitor LETICIA drain and H/H 5. HTN. - Restarted PO meds Metoprolol Tartrate 25 mg q6H with hold parameters - Hold ASA for now 6. HLD. - Not on statin at home, unclear why, no acute reason for statin at this point 7. Inflammatory myopathy with dermatomyositis. -Imuran/Plaquenil on hold. -Continue PO prednisone 7. GERD. Continue IV Protonix. 8. Vitamin B 12 def. Supplement weekly. 9. Osteoporosis. Fosamax weekly. DVT prophylaxis. On Eliquis Fluid, Electrolytes, Nutrition: CLD Code: DNR, however patient will need to bring paperwork from home Disposition: Following surgery. VS,Fishbone, I+O VS, Fishbone, I+O Laboratory Tests 02/25/17 04:12 Red Blood Count 4.00, Mean Corpuscular Volume 83.1, Mean Corpuscular Hemoglobin 26.3 L, Mean Corpuscular Hemoglobin Concent 31.6 L, Red Cell Distribution Width 14.8 H, Neutrophils (%) (Auto) 89.7 H, Lymphocytes (%) (Auto) 4.5 L, Monocytes ( %) (Auto) 3.9, Eosinophils (%) (Auto) 0.6, Basophils (%) (Auto) 0.2, Neutrophils # (Auto) 9.0 H, Lymphocytes # (Auto) 0.6 L, Monocytes # (Auto) 0.4, Eosinophils # (Auto) 0.1, Basophils # (Auto) 0.0, Calcium Level 8.1 L, Aspartate Amino Transf (AST/SGOT) 9 L, Alanine Aminotransferase (ALT/SGPT) 10 L , Alkaline Phosphatase 52, Total Bilirubin 0.8, Total Protein 5.5 L, Albumin 2.3 L Vital Signs Date Time Temp Pulse Resp B/P (MAP) Pulse Ox O2 Delivery O2 Flow Rate FiO2 02/25/17 14:21 103 20 97 Room Air 02/25/17 11:52 97.5 119/87 (98) 02/23/17 04:00 1.0 I&O- Last 24 Hours up to 6 AM 02/25/17 06:00 Intake Total 1220 ml Output Total 2175 ml Balance -955 ml GME ATTESTATION GME ATTESTATION My preceptor for this patient encounter was physically present in the building during the encounter and was fully available. As needed, all aspects of the patient interview, examination, medical decision making process, and medical care plan development were reviewed and approved by the preceptor. Preceptor is aware and concurs with the plan as stated in the body of this note and will attest to such by his/her cosignature. ATTENDING NOTE I, Yael Marrero, have both independently examined this patient as well as reviewed the documentation. I have discussed in detail with the resident the findings and plan of treatment as documented in the residents documentation. I will continue to follow the patient and offer further guidance to the patients care as necessary during this hospital stay. ANTHONY CORNEJO DO Feb 25, 2017 14:51 YAEL MARRERO MD Feb 26, 2017 17:36
[2017-02-25 16:00] VITALS: BP 137/60
[2017-02-25 20:00] VITALS: BP 124/58
[2017-02-26] VITALS: BP 115/67
[2017-02-26] MEDS: NORCO, ANEXSIA 5/325MG TABLET (HYDROcodone/ACETAMINOPHEN) PO PRN ×2 (02:43→20:28)
[2017-02-26 04:00] VITALS: BP 116/56
[2017-02-26] MEDS: PIPERACILLIN/TAZOBACTAM SOD 2.25 GM in D5W MINI-BAG PLUS 50 ML IV SCH ×4 (04:18→22:58)
[2017-02-26 04:50] LABS: BASO % 0.2 % (0.0-1.0); EOS % 0.4 % (0.0-3.0); LARGE UNSTAINED CELL # 0.2 K/mm3 (0.0-0.4); LARGE UNSTAINED CELL % 1.9 % (0.0-4.0); LYMPH # 0.5 K/mm3 (1.5-4.5); LYMPH % 5.3 % (24.0-44.0); MEAN CORPUSCULAR HEMOGLOBIN 26.8 pg (27.0-33.0); MEAN CORPUSCULAR HGB CONC 31.7 g/dl (32.0-36.5); MEAN CORPUSCULAR VOLUME 84.4 fl (80.0-96.0); MONO # 0.5 K/mm3 (0.0-0.8); MONO % 5.2 % (0.0-5.0); NEUTROPHILS # 8.2 K/mm3 (1.8-7.7); PLATELET COUNT, AUTOMATED 477 k/mm3 (150-450); RED CELL DISTRIBUTION WIDTH 14.7 % (11.5-14.5); WHITE BLOOD COUNT 9.4 K/mm3 (4.0-10.0)
[2017-02-26 05:08] LABS: ALBUMIN 2.2 GM/DL (3.2-5.2); ALBUMIN/GLOBULIN RATIO 0.73 (1.00-1.93); ALKALINE PHOSPHATASE 46 U/L (45-117); ALT/SGPT 9 U/L (12-78); ANION GAP 11 MEQ/L (8-16); AST/SGOT 10 U/L (15-37); BILIRUBIN,TOTAL 0.7 MG/DL (0.2-1.0); BLOOD UREA NITROGEN 17 MG/DL (7-18); CALCIUM LEVEL 8.1 MG/DL (8.8-10.2); CARBON DIOXIDE LEVEL 25 MEQ/L (21-32); CHLORIDE LEVEL 103 MEQ/L (98-107); CREATININE FOR GFR 0.77 MG/DL (0.55-1.02); GLOMERULAR FILTRATION RATE > 60.0 (>32); GLUCOSE, FASTING 118 MG/DL (83-110); MAGNESIUM LEVEL 2.4 MG/DL (1.8-2.4); POTASSIUM SERUM 4.3 MEQ/L (3.5-5.1); SODIUM LEVEL 139 MEQ/L (136-145); TOTAL PROTEIN 5.2 GM/DL (6.4-8.2)
[2017-02-26] MEDS: METOCLOPRAMIDE 5 MG TAB PO SCH ×4 (05:26→23:01)
[2017-02-26] MEDS: METOPROLOL TART 25 MG TABLET PO SCH ×4 (05:28→23:01)
[2017-02-26 08:00] VITALS: BP 130/71
[2017-02-26] MEDS: PANTOPRAZOLE 40MG INJ (PROTONIX) (C9113) IV SCH ×2 (08:35→20:26)
[2017-02-26] MEDS: SENOKOT S TAB PO SCH ×2 (08:35→20:26)
[2017-02-26] MEDS: predniSONE 5 MG TAB PO SCH (08:35)
[2017-02-26] MEDS: HYDROXYCHLOROQUINE 200 MG TAB PO SCH ×2 (08:36→20:26)
[2017-02-26] MEDS: APIXABAN 5 MG TAB (ELIQUIS) PO SCH ×2 (08:36→20:26)
[2017-02-26] MEDS: azaTHIOprine 50 MG TAB (J7500) PO SCH (08:36)
--- NOTE | 2017-02-26 10:45 | REP ---
CHEST PA AND LATERAL: 02/26/2017. Comparison: AP supine chest 02/22/2017, portable chest 10/28/2015, two-view chest 10/22/2015. Clinical history: Abnormal breath sounds. Findings: Lungs slightly better inflated than on the supine exam. There is bibasilar fibrotic change with some minor blunting posterior CP angles similar to the 2013 study. This suggest some scarring. There is underlying COPD with pulmonary artery hypertension. No dense consolidation or gross effusion. Tortuous calcified aorta, unchanged. Airway intact. Mediastinal hilar contours stable. I see no dense consolidation with air bronchograms. There is no pneumothorax. Colon and small bowel loops with gas throughout the upper abdomen. Impression: 1. Bibasilar fibrotic changes. Some superimposed concurrent subsegmental atelectasis or infiltrate would be difficult to exclude, but no dense consolidation with air bronchograms or visible effusion. The minor blunting of CP angles posteriorly is unchanged since a prior chest x-ray in 2016 suggesting some scar. 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 3. No gross cardiomegaly or temi edema. 4. Tortuous calcified aorta, unchanged. Signed by Carlyle Yost MD 02/26/2017 07:54 P
[2017-02-26] MEDS: NS 1,000 ML IV SCH (11:41)
[2017-02-26 11:49] VITALS: BP 134/68
--- NOTE | 2017-02-26 12:16 | IPNPDOC ---
Text Note Date of Service The patient was seen on 02/26/17. NOTE Subjective: Patient seen and examined at bedside in ICU. No acute event overnight. Admits to less pain in abdomen and feeling more comfortable. Denies flatus or BM. Denies any chest pain, sob, vomiting, diarrhea, blood in urine or stool. Denies any other current new complaints. Objective: Vitals: (See below) General: Patient is a pleasant elderly female, sitting up comfortably in bed, AAOx3, not in apparent distress, with head elevated at 30degrees HEENT: Normal cephalic atraumatic, extraocular motion intact, pupil equal round and reactive to light, mucosal membrane moist, neck supple, no neck lymphadenopathy Cardio: Irregularly irregular, No murmur/rubs/gallops Pulm: slight rales b/l Abdomen: hypoactive bowel sound, soft, moderate tenderness to palpation more on the LLQ, none distended, no peritoneal signs, no ecchymosis, no masses that were palpable, dressing were dry clean and intact, LETICIA drain in place produced serous drainage. Ext: No edema, clubbing, or cyanosis Skin: Warm and dry Neuro: Cranial Nerve 2 through 12 intact, No focal neurological deficit Labs ( See below) Most significantly: Images/Procedures: No new images Assessment and Plan: 1. Abdominal pain/SBO s/p lap convert to open small bowel resection and reanastomosis with Dr. Mills POD #4 - Bowel regimen per surgery - CLD - IVF restarted at 60 mlh due to patient has not had a BM - abx Zosyn day 5 - Pain control per surgery 2. Atelectasis on CXR - Encouraged incentive spirometry 3. Afib and PE - On Eliquis - Hold ASA for now 4. NYLA. - resolved 5. Anemia - Likely related to surgery and dilution from fluid - Monitor LETICIA drain and H/H 6. HTN. - Restarted PO meds Metoprolol Tartrate 25 mg q6H with hold parameters - Hold ASA for now 7. HLD. - Not on statin at home, unclear why, no acute reason for statin at this point 8. Inflammatory myopathy with dermatomyositis. -Imuran/Plaquenil on hold. -Continue PO prednisone 9. GERD. Continue IV Protonix consider to switch to PO once patient diet advanced 10. Vitamin B 12 def. Supplement weekly. 11. Osteoporosis. Fosamax weekly. DVT prophylaxis. On Eliquis Fluid, Electrolytes, Nutrition: NS 60 mlh, CLD Code: DNR, however patient will need to bring paperwork from home Disposition: Following surgery. VS,Fishbone, I+O VS, Fishbone, I+O Laboratory Tests 02/26/17 04:22 Red Blood Count 3.78 L, Mean Corpuscular Volume 84.4, Mean Corpuscular Hemoglobin 26.8 L, Mean Corpuscular Hemoglobin Concent 31.7 L, Red Cell Distribution Width 14.7 H, Neutrophils (%) (Auto) 87.0 H, Lymphocytes (%) (Auto ) 5.3 L, Monocytes (%) (Auto) 5.2 H, Eosinophils (%) (Auto) 0.4, Basophils (%) ( Auto) 0.2, Neutrophils # (Auto) 8.2 H, Lymphocytes # (Auto) 0.5 L, Monocytes # ( Auto) 0.5, Eosinophils # (Auto) 0.0, Basophils # (Auto) 0.0, Calcium Level 8.1 L , Aspartate Amino Transf (AST/SGOT) 10 L, Alanine Aminotransferase (ALT/SGPT) 9 L, Alkaline Phosphatase 46, Total Bilirubin 0.7, Total Protein 5.2 L, Albumin 2.2 L Vital Signs Date Time Temp Pulse Resp B/P (MAP) Pulse Ox O2 Delivery O2 Flow Rate FiO2 02/26/17 11:49 98.5 78 14 134/68 (90) 96 Room Air 02/23/17 04:00 1.0 I&O- Last 24 Hours up to 6 AM 02/26/17 06:00 Intake Total 960 ml Output Total 2660 ml Balance -1700 ml GME ATTESTATION E ATTESTATION My preceptor for this patient encounter was physically present in the building during the encounter and was fully available. As needed, all aspects of the patient interview, examination, medical decision making process, and medical care plan development were reviewed and approved by the preceptor. Preceptor is aware and concurs with the plan as stated in the body of this note and will attest to such by his/her cosignature. ATTENDING NOTE I, Yael Marrero, have both independently examined this patient as well as reviewed the documentation. I have discussed in detail with the resident the findings and plan of treatment as documented in the residents documentation. I will continue to follow the patient and offer further guidance to the patients care as necessary during this hospital stay. ANTHONY CORNEJO DO Feb 26, 2017 12:16 YAEL MARRERO MD Feb 26, 2017 17:37
[2017-02-26 16:10] VITALS: BP 128/68
[2017-02-26 20:00] VITALS: BP 131/68
[2017-02-27] VITALS: BP 119/58
[2017-02-27 04:00] VITALS: BP 96/54
[2017-02-27] MEDS: PIPERACILLIN/TAZOBACTAM SOD 2.25 GM in D5W MINI-BAG PLUS 50 ML IV SCH ×4 (04:11→23:01)
[2017-02-27] MEDS: NS 1,000 ML IV SCH (04:13)
[2017-02-27] MEDS: NORCO, ANEXSIA 5/325MG TABLET (HYDROcodone/ACETAMINOPHEN) PO PRN (04:17)
[2017-02-27 04:49] LABS: BASO % 0.3 % (0.0-1.0); EOS # 0.1 K/mm3 (0.0-0.50); EOS % 1.3 % (0.0-3.0); LARGE UNSTAINED CELL # 0.2 K/mm3 (0.0-0.4); LARGE UNSTAINED CELL % 2.1 % (0.0-4.0); LYMPH # 0.9 K/mm3 (1.5-4.5); LYMPH % 10.3 % (24.0-44.0); MEAN CORPUSCULAR HEMOGLOBIN 26.3 pg (27.0-33.0); MEAN CORPUSCULAR HGB CONC 31.2 g/dl (32.0-36.5); MEAN CORPUSCULAR VOLUME 84.4 fl (80.0-96.0); MONO # 0.5 K/mm3 (0.0-0.8); MONO % 6.7 % (0.0-5.0); NEUTROPHILS # 5.9 K/mm3 (1.8-7.7); NEUTROPHILS % 79.2 % (36.0-66.0); PLATELET COUNT, AUTOMATED 521 k/mm3 (150-450); WHITE BLOOD COUNT 7.4 K/mm3 (4.0-10.0)
[2017-02-27 05:10] LABS: ALBUMIN 2.3 GM/DL (3.2-5.2); ALBUMIN/GLOBULIN RATIO 0.82 (1.00-1.93); ALKALINE PHOSPHATASE 42 U/L (45-117); ALT/SGPT 10 U/L (12-78); ANION GAP 8 MEQ/L (8-16); AST/SGOT 10 U/L (15-37); BILIRUBIN,TOTAL 0.7 MG/DL (0.2-1.0); BLOOD UREA NITROGEN 15 MG/DL (7-18); CALCIUM LEVEL 7.9 MG/DL (8.8-10.2); CARBON DIOXIDE LEVEL 27 MEQ/L (21-32); CHLORIDE LEVEL 104 MEQ/L (98-107); GLOMERULAR FILTRATION RATE > 60.0 (>32); GLUCOSE, FASTING 109 MG/DL (83-110); MAGNESIUM LEVEL 2.2 MG/DL (1.8-2.4); SODIUM LEVEL 139 MEQ/L (136-145); TOTAL PROTEIN 5.1 GM/DL (6.4-8.2)
[2017-02-27] MEDS: METOPROLOL TART 25 MG TABLET PO SCH ×2 (05:26→12:43)
[2017-02-27] MEDS: METOCLOPRAMIDE 5 MG TAB PO SCH ×3 (05:26→17:56)
[2017-02-27 08:17] VITALS: BP 114/55
[2017-02-27] MEDS: predniSONE 5 MG TAB PO SCH (09:27)
[2017-02-27] MEDS: SENOKOT S TAB PO SCH ×2 (09:27→20:26)
[2017-02-27] MEDS: azaTHIOprine 50 MG TAB (J7500) PO SCH (09:27)
[2017-02-27] MEDS: APIXABAN 5 MG TAB (ELIQUIS) PO SCH ×2 (09:27→20:27)
[2017-02-27] MEDS: PANTOPRAZOLE 40MG INJ (PROTONIX) (C9113) IV SCH (09:27)
[2017-02-27] MEDS: HYDROXYCHLOROQUINE 200 MG TAB PO SCH ×2 (09:27→20:27)
[2017-02-27 10:25] VITALS: BP 133/60
--- NOTE | 2017-02-27 12:41 | IPNPDOC ---
Text Note Date of Service The patient was seen on 02/27/17. NOTE Subjective: Patient is an 82 year old female with a PMHx of Inflammatory myopathy , HTN, DLP, Hx of PE / DVT, B12 deficiency, Osteoporosis, AR and GERD who presented to the ER with complaints of abdominal pain. She was found to have a SBO on imaging and taken to the OR that night. Patient was seen and examined at the bedside. She notes that there is mild abdominal pain. No nausea and vomiting. She does note that she has passed flatus , but no bowel movements. Objective: Vitals (See below) General: Lying in bed, no acute distress, comfortable, AAOx3 HEENT: NC, AT CVS: RRR, +S1S2 Lungs: Fair air entry b/l, -w/r/r Abdomen: Soft, ND, Mild tenderness at R and LLQ, +BSx4 Extremities: - Edema, - Calf tenderness Assessment and plan: 1. s/p Abdominal pain 2/2 small bowel obstruction - s/p Exploratory laparotomy and removal of adhesions and small bowel resection - POD#5 - She notes improvement in abdominal pain and passing flatus - Physical with bowel sounds present - s/p NG tube - Diet has been advanced - c/w Zosyn (Day #6); s/p IV fluids - Pain control and Diet as per surgery 2. Atelectasis - CXR 8/5: bibasilar fibrotic changes and superimposed concurrent atelectasis - c/w Incentive spirometry 3. Atrial fibrillation - Has had episodes of uncontrolled atrial fibrillation throughout hospitalization - Rate control with metoprolol tartrate has been adjusted; will switch to metoprolol succinate BID - c/w Anticoagulation with Eliquis 4. Hx of PE 5. s/p NYLA 6. Normocytic anemia - Hg remains stable 7. HTN - BP well controlled - c/w Metoprolol; will adjust today 8. DLP - Not currently on medications 9. Inflammatory myopathy and dermatomyositis - c/w Prednisone 5mg PO - Imuran / Plaquenil on hold; will restart as an outpatient 10. Vitamin B12 deficiency - c/w supplement 11. Osteoporosis 12. GERD - c/w Protonix; will switch to PO 13. DVT prophylaxis - on full anticoagulation with Eliquis Disposition: - Will start physical therapy - c/w advancing diet as per surgery - Downgrade to medical surgical floor Alexa AVENDAÑO, I+O VS, Fishbone, I+O Laboratory Tests 02/27/17 04:21 Red Blood Count 3.75 L, Mean Corpuscular Volume 84.4, Mean Corpuscular Hemoglobin 26.3 L, Mean Corpuscular Hemoglobin Concent 31.2 L, Red Cell Distribution Width 15.0 H, Neutrophils (%) (Auto) 79.2 H, Lymphocytes (%) (Auto ) 10.3 L, Monocytes (%) (Auto) 6.7 H, Eosinophils (%) (Auto) 1.3, Basophils (%) (Auto) 0.3, Neutrophils # (Auto) 5.9, Lymphocytes # (Auto) 0.9 L, Monocytes # ( Auto) 0.5, Eosinophils # (Auto) 0.1, Basophils # (Auto) 0.0, Calcium Level 7.9 L , Aspartate Amino Transf (AST/SGOT) 10 L, Alanine Aminotransferase (ALT/SGPT) 10 L, Alkaline Phosphatase 42 L, Total Bilirubin 0.7, Total Protein 5.1 L, Albumin 2.3 L Vital Signs Date Time Temp Pulse Resp B/P (MAP) Pulse Ox O2 Delivery O2 Flow Rate FiO2 02/27/17 10:25 97.6 75 18 133/60 (84) 99 Room Air 02/27/17 04:17 1.0 I&O- Last 24 Hours up to 6 AM 02/27/17 06:00 Intake Total 1809 ml Output Total 2640 ml Balance -831 ml TANISHA MARRERO MD Feb 27, 2017 12:41
[2017-02-27 14:00] VITALS: BP 113/57
[2017-02-27] MEDS ORDERED: METOPROLOL TART 25 MG TABLET PO ONE ×2 (14:00→16:00)
[2017-02-27] MEDS: METOPROLOL SUCC (TopROL XL) 50MG **XL** TAB PO SCH (20:27)
[2017-02-27 22:00] VITALS: BP 124/58
[2017-02-28] MEDS: METOCLOPRAMIDE 5 MG TAB PO SCH ×5 (00:33→23:59)
[2017-02-28 06:00] VITALS: BP 135/60
[2017-02-28 06:15] LABS: BASO % 0.3 % (0.0-1.0); EOS # 0.1 K/mm3 (0.0-0.50); LARGE UNSTAINED CELL # 0.1 K/mm3 (0.0-0.4); LYMPH # 0.7 K/mm3 (1.5-4.5); LYMPH % 8.8 % (24.0-44.0); MEAN CORPUSCULAR HEMOGLOBIN 26.1 pg (27.0-33.0); MEAN CORPUSCULAR HGB CONC 31.3 g/dl (32.0-36.5); MEAN CORPUSCULAR VOLUME 83.4 fl (80.0-96.0); MONO # 0.5 K/mm3 (0.0-0.8); MONO % 7.8 % (0.0-5.0); NEUTROPHILS # 5.5 K/mm3 (1.8-7.7); NEUTROPHILS % 81.1 % (36.0-66.0); PLATELET COUNT, AUTOMATED 463 k/mm3 (150-450); RED CELL DISTRIBUTION WIDTH 15.1 % (11.5-14.5); WHITE BLOOD COUNT 6.8 K/mm3 (4.0-10.0)
[2017-02-28 06:18] LABS: ALBUMIN 2.2 GM/DL (3.2-5.2); ALBUMIN/GLOBULIN RATIO 0.81 (1.00-1.93); ALKALINE PHOSPHATASE 37 U/L (45-117); ALT/SGPT 11 U/L (12-78); ANION GAP 10 MEQ/L (8-16); AST/SGOT 12 U/L (15-37); BILIRUBIN,TOTAL 0.6 MG/DL (0.2-1.0); BLOOD UREA NITROGEN 14 MG/DL (7-18); CALCIUM LEVEL 8.2 MG/DL (8.8-10.2); CARBON DIOXIDE LEVEL 26 MEQ/L (21-32); CHLORIDE LEVEL 104 MEQ/L (98-107); CREATININE FOR GFR 0.79 MG/DL (0.55-1.02); GLOMERULAR FILTRATION RATE > 60.0 (>32); GLUCOSE, FASTING 107 MG/DL (83-110); MAGNESIUM LEVEL 2.1 MG/DL (1.8-2.4); POTASSIUM SERUM 3.7 MEQ/L (3.5-5.1); SODIUM LEVEL 140 MEQ/L (136-145); TOTAL PROTEIN 4.9 GM/DL (6.4-8.2)
[2017-02-28] MEDS: PIPERACILLIN/TAZOBACTAM SOD 2.25 GM in D5W MINI-BAG PLUS 50 ML IV SCH ×2 (06:20→10:25)
[2017-02-28] MEDS: HYDROXYCHLOROQUINE 200 MG TAB PO SCH ×2 (10:20→20:18)
[2017-02-28] MEDS: predniSONE 5 MG TAB PO SCH (10:21)
[2017-02-28] MEDS: APIXABAN 5 MG TAB (ELIQUIS) PO SCH ×2 (10:21→20:18)
[2017-02-28] MEDS: azaTHIOprine 50 MG TAB (J7500) PO SCH (10:21)
[2017-02-28] MEDS: PANTOPRAZOLE 40MG TAB (PROTONIX) PO SCH (10:21)
[2017-02-28] MEDS: SENOKOT S TAB PO SCH ×2 (10:21→20:18)
[2017-02-28] MEDS: METOPROLOL SUCC (TopROL XL) 50MG **XL** TAB PO SCH ×2 (10:26→20:18)
--- NOTE | 2017-02-28 13:00 | IPNPDOC ---
Text Note Date of Service The patient was seen on 02/28/17. NOTE Subjective: Patient is an 82 year old female with a PMHx of Inflammatory myopathy , HTN, DLP, Hx of PE / DVT, B12 deficiency, Osteoporosis, AR and GERD who presented to the ER with complaints of abdominal pain. She was found to have a SBO on imaging and taken to the OR that night. Patient was seen and examined at the bedside. She is now outside the ICU / PCU. She is on medical surgical floor. She continues to work with physical therapy. She notes that she has passed flatus, still no bowel movements. Objective: Vitals (See below) General: Lying in bed, no acute distress, comfortable, AAOx3 HEENT: NC, AT CVS: RRR, +S1S2 Lungs: Fair air entry b/l, -w/r/r Abdomen: Soft, ND, Mild tenderness at R and LLQ, +BSx4 Extremities: - Edema, - Calf tenderness Assessment and plan: 1. s/p Abdominal pain 2/2 small bowel obstruction - s/p Exploratory laparotomy and removal of adhesions and small bowel resection - POD#5 - She notes improvement in abdominal pain and passing flatus - Physical with bowel sounds present - s/p NG tube - Diet has been advanced - s/p Zosyn (Completed 7 days of antibiotics; End 02/28/17); - s/p IV fluids - Diet fully advanced to Regular - Pain control as per surgery 2. Atelectasis - CXR 8/: bibasilar fibrotic changes and superimposed concurrent atelectasis - c/w Incentive spirometry 3. Atrial fibrillation - Has had episodes of uncontrolled atrial fibrillation throughout hospitalization - c/w rate control with Metoprolol succinate 50 BID - c/w Anticoagulation with Eliquis 4. Hx of PE 5. s/p NYLA 6. Normocytic anemia - Hg remains stable 7. HTN - BP well controlled - c/w Metoprolol succinate 8. DLP - Not currently on medications 9. Inflammatory myopathy and dermatomyositis - c/w Prednisone 5mg PO - Imuran / Plaquenil on hold; will restart as an outpatient 10. Vitamin B12 deficiency - c/w supplement 11. Osteoporosis 12. GERD - c/w Protonix; will switch to PO 13. DVT prophylaxis - on full anticoagulation with Eliquis Disposition: - c/w Physical therapy; noted to be safe with previous situation; home with services - Diet fully advance; awaiting surgical clearance for discharge VS,Fishbone, I+O VS, Fishbone, I+O Laboratory Tests 02/28/17 05:41 Red Blood Count 3.44 L, Mean Corpuscular Volume 83.4, Mean Corpuscular Hemoglobin 26.1 L, Mean Corpuscular Hemoglobin Concent 31.3 L, Red Cell Distribution Width 15.1 H, Neutrophils (%) (Auto) 81.1 H, Lymphocytes (%) (Auto ) 8.8 L, Monocytes (%) (Auto) 7.8 H, Eosinophils (%) (Auto) 1.0, Basophils (%) ( Auto) 0.3, Neutrophils # (Auto) 5.5, Lymphocytes # (Auto) 0.7 L, Monocytes # ( Auto) 0.5, Eosinophils # (Auto) 0.1, Basophils # (Auto) 0.0, Calcium Level 8.2 L , Aspartate Amino Transf (AST/SGOT) 12 L, Alanine Aminotransferase (ALT/SGPT) 11 L, Alkaline Phosphatase 37 L, Total Bilirubin 0.6, Total Protein 4.9 L, Albumin 2.2 L Vital Signs Date Time Temp Pulse Resp B/P (MAP) Pulse Ox O2 Delivery O2 Flow Rate FiO2 02/28/17 10:26 88 118/63 02/28/17 06:00 98.1 17 97 Room Air 02/27/17 04:17 1.0 I&O- Last 24 Hours up to 6 AM 02/28/17 06:00 Intake Total 1730 ml Output Total 3385 ml Balance -1655 ml TANISHA MARRERO MD Feb 28, 2017 13:00
[2017-02-28 13:33] LABS: MEAN CORPUSCULAR HEMOGLOBIN 25.7 pg (27.0-33.0); MEAN CORPUSCULAR HGB CONC 30.6 g/dl (32.0-36.5); MEAN CORPUSCULAR VOLUME 84.1 fl (80.0-96.0); RED CELL DISTRIBUTION WIDTH 15.1 % (11.5-14.5); WHITE BLOOD COUNT 8.7 K/mm3 (4.0-10.0)
[2017-02-28 14:00] VITALS: BP 122/71
[2017-02-28 22:00] VITALS: BP 113/56
[2017-03-01] MEDS: METOCLOPRAMIDE 5 MG TAB PO SCH (05:42)
[2017-03-01 06:00] VITALS: BP 109/60
[2017-03-01 06:41] LABS: BASO % 0.5 % (0.0-1.0); EOS # 0.1 K/mm3 (0.0-0.50); EOS % 1.3 % (0.0-3.0); LARGE UNSTAINED CELL # 0.1 K/mm3 (0.0-0.4); LARGE UNSTAINED CELL % 1.1 % (0.0-4.0); LYMPH # 0.7 K/mm3 (1.5-4.5); LYMPH % 10.3 % (24.0-44.0); MEAN CORPUSCULAR HEMOGLOBIN 26.5 pg (27.0-33.0); MEAN CORPUSCULAR HGB CONC 31.6 g/dl (32.0-36.5); MEAN CORPUSCULAR VOLUME 83.8 fl (80.0-96.0); MONO # 0.5 K/mm3 (0.0-0.8); MONO % 7.7 % (0.0-5.0); NEUTROPHILS # 4.6 K/mm3 (1.8-7.7); NEUTROPHILS % 78.9 % (36.0-66.0); PLATELET COUNT, AUTOMATED 472 k/mm3 (150-450); RED CELL DISTRIBUTION WIDTH 15.3 % (11.5-14.5); WHITE BLOOD COUNT 5.8 K/mm3 (4.0-10.0)
[2017-03-01 06:49] LABS: ALBUMIN 2.2 GM/DL (3.2-5.2); ALBUMIN/GLOBULIN RATIO 0.79 (1.00-1.93); ALKALINE PHOSPHATASE 41 U/L (45-117); ALT/SGPT 13 U/L (12-78); ANION GAP 5 MEQ/L (8-16); AST/SGOT 12 U/L (15-37); BILIRUBIN,TOTAL 0.5 MG/DL (0.2-1.0); BLOOD UREA NITROGEN 12 MG/DL (7-18); CALCIUM LEVEL 8.2 MG/DL (8.8-10.2); CARBON DIOXIDE LEVEL 28 MEQ/L (21-32); CHLORIDE LEVEL 105 MEQ/L (98-107); GLOMERULAR FILTRATION RATE > 60.0 (>32); GLUCOSE, FASTING 108 MG/DL (83-110); POTASSIUM SERUM 3.7 MEQ/L (3.5-5.1); SODIUM LEVEL 138 MEQ/L (136-145)
[2017-03-01] MEDS ORDERED: MOM 30ML SUSPENSION UDC PO SCH (09:00)
[2017-03-01] MEDS: PANTOPRAZOLE 40MG TAB (PROTONIX) PO SCH (09:06)
[2017-03-01] MEDS: APIXABAN 5 MG TAB (ELIQUIS) PO SCH (09:06)
[2017-03-01 09:07] VITALS: BP 115/64
[2017-03-01] MEDS: HYDROXYCHLOROQUINE 200 MG TAB PO SCH (09:07)
[2017-03-01] MEDS: METOPROLOL SUCC (TopROL XL) 50MG **XL** TAB PO SCH (09:07)
[2017-03-01] MEDS: SENOKOT S TAB PO SCH (09:07)
[2017-03-01] MEDS: azaTHIOprine 50 MG TAB (J7500) PO SCH (09:07)
[2017-03-01] MEDS: predniSONE 5 MG TAB PO SCH (09:07)
[2017-03-01] MEDS ORDERED: MAGNESIUM CITRATE 300 ML BTL PO ONE (13:00)
[2017-03-01 14:00] VITALS: BP 109/57
--- NOTE | 2017-03-03 19:13 | DSES ---
DATE OF ADMISSION: 02/22/2017 DATE OF DISCHARGE: 03/01/2017 ADMISSION DIAGNOSIS: Small bowel obstruction. DISCHARGE DIAGNOSIS: Small bowel obstruction. HOSPITAL COURSE: The patient is a 82-year-old female presented on 02/22/2017 with sharp abdominal pains and abdominal distension. She had signs of bowel obstruction in the emergency room. However, on exam she also had elevated lactic acid leukocytosis and peritoneal abdomen. There is concern for strangulated possible ischemic bowel. Therefore, recommendation was to take her to the operating room for urgent surgery. She was brought to OR, she had a diagnostic laparoscopy completed, which did confirm the diagnosis of ischemic bowel, which was then converted to a small exploratory laparotomy with release of an internal hernia and small bowel resection. She has tolerated procedure well. She was kept in the ICU for cardiac monitoring for the next 48 hours due to tachycardia, but it was all supraventricular tachycardia. She improved slowly from a bowel standpoint. She was passing flatus, had the NG tube removed right away, was tolerating a diet by postop day #3, however, it took her awhile to have a bowel movement. Her labs were abdomen vitals were stable throughout her admission. No problems with fevers, chest pain, shortness of breath, by the afternoon of March 01, she finally had to large bowel movements and she felt well enough to be discharged home. Physical therapy worked with her throughout her stay and agreed that she was stable to return home so in the afternoon of the she was discharged home. She did not have any more pain, so she was not sent home with any new medications. She did have jarocho in place and will follow up me in the office in 2 weeks to have those jarocho removed. Otherwise, she is discharged home and will call my office if she has any problems or questions once leaving the facility.
[2017-05-23] MEDS ORDERED: TYLE325C PO (11:27)
== END 2017-03-01 17:28 | disposition home or self-care (01) | DRG 329 ==
LOC: EDBD 09:49 → M ED 11:08 → M ED INP 18:15 → M ICU 21:48 → M MSPAV 02-27 10:26
PROVIDERS: ADMIT Surgery; ATTEND Surgery
PROC: 0DN80ZZ Release Small Intestine, Open Approach (ICD-10-PCS; 2017-02-22)
PROC: 0DB80ZZ Excision of Small Intestine, Open Approach (ICD-10-PCS; principal; 2017-02-22 18:15)
DX: K55.059 Acute (reversible) ischemia of intestine, part and extent unspecified (principal); K65.9 Peritonitis, unspecified; K45.1 Other specified abdominal hernia with gangrene; N17.9 Acute kidney failure, unspecified; I47.1 Supraventricular tachycardia; Q25.46 Tortuous aortic arch; R18.8 Other ascites; E87.2 Acidosis; Z86.711 Personal history of pulmonary embolism; K21.9 Gastro-esophageal reflux disease without esophagitis; E53.8 Deficiency of other specified B group vitamins; M81.0 Age-related osteoporosis without current pathological fracture; G72.49 Other inflammatory and immune myopathies, not elsewhere classified; J44.9 Chronic obstructive pulmonary disease, unspecified; J84.10 Pulmonary fibrosis, unspecified; I27.2 Other secondary pulmonary hypertension; K80.20 Calculus of gallbladder without cholecystitis without obstruction; N20.0 Calculus of kidney; E78.5 Hyperlipidemia, unspecified; I35.0 Nonrheumatic aortic (valve) stenosis; I48.91 Unspecified atrial fibrillation; Z79.01 Long term (current) use of anticoagulants; D64.9 Anemia, unspecified; Z53.31 Laparoscopic surgical procedure converted to open procedure

== ENCOUNTER 2017-04-21 15:40 | Inpatient (IN) | payer MEDICARE ==
[~2017-04-21] VITALS: Ht 172.7 cm; Wt 92.3 kg
[~2017-04-21 15:40] MED LIST changes: +CALC600T31 PO; +CYAN1000VL IM; +FURO20TA2 PO; -FUROSEMIDE 20 MG TAB PO SCH; +HYDR200T3 PO; +METO25TA4 PO
[2017-04-21] MEDS ORDERED: METO-346 (15:52)
[2017-04-21] MEDS ORDERED: MORPHINE 2 MG/ML 1ML SYRINGE IV ONE (17:15)
[2017-04-21] MEDS ORDERED: NS 500 ML IV ONE (17:15)
[2017-04-21 17:27] LABS: MEAN CORPUSCULAR HEMOGLOBIN 22.4 pg (27.0-33.0); MEAN CORPUSCULAR HGB CONC 29.5 g/dl (32.0-36.5); PLATELET COUNT, AUTOMATED 364 10^3/uL (150-450); RED CELL DISTRIBUTION WIDTH 16.4 % (11.5-14.5); WHITE BLOOD COUNT 3.6 10^3/uL (4.0-10.0)
[2017-04-21 17:33] LABS: ADD MANUAL DIFFER YES; DIFF SLIDE NUMBER 319
[2017-04-21 17:34] LABS: ALBUMIN 3.8 GM/DL (3.2-5.2); ALBUMIN/GLOBULIN RATIO 1.27 (1.00-1.93); ALKALINE PHOSPHATASE 47 U/L (45-117); ALT/SGPT 13 U/L (12-78); ANION GAP 9 MEQ/L (8-16); AST/SGOT 10 U/L (15-37); BILIRUBIN,DIRECT 0.2 MG/DL (0.0-0.2); BILIRUBIN,TOTAL 0.7 MG/DL (0.2-1.0); BLOOD UREA NITROGEN 20 MG/DL (7-18); CALCIUM LEVEL 9.5 MG/DL (8.8-10.2); CARBON DIOXIDE LEVEL 23 MEQ/L (21-32); CHLORIDE LEVEL 106 MEQ/L (98-107); CREATININE FOR GFR 1.14 MG/DL (0.55-1.02); GLOMERULAR FILTRATION RATE 48.5 (>32); GLUCOSE, FASTING 128 MG/DL (83-110); POTASSIUM SERUM 4.2 MEQ/L (3.5-5.1); SODIUM LEVEL 138 MEQ/L (136-145); TOTAL PROTEIN 6.8 GM/DL (6.4-8.2)
[2017-04-21 17:42] LABS: INR 1.2
[2017-04-21 18:02] LABS: ERYTHROCYTE SEDIMENTATION RATE 34 mm/hr (0-30)
[2017-04-21 18:56] LABS: BASOPHILS 1 % (0-4); HYPOCHROMASIA 1+; POIKILOCYTOSIS 1+; POLYCHROMASIA 1+
[2017-04-21 18:57] LABS: OVALOCYTES 1+; PLATELET CLUMPS SMALL AMT
[2017-04-21] MEDS ORDERED: APIXABAN 5 MG TAB (ELIQUIS) PO SCH (21:00)
[2017-04-21] MEDS ORDERED: ALEV220T26 PO (21:38)
[2017-04-21] MEDS ORDERED: ASPI81TAEC PO (21:39)
[2017-04-21] MEDS ORDERED: MOM 30ML SUSPENSION UDC PO PRN (22:30)
[2017-04-21] MEDS ORDERED: ACETAMINOPHEN TAB 650MG DOSE (2X325MG) PO PRN (22:45)
[2017-04-21] MEDS ORDERED: ONDANSETRON 4MG/2ML VIAL (J2405) IV PRN (22:45)
[2017-04-21] MEDS ORDERED: MORPHINE 2 MG/ML 1ML SYRINGE IV PRN (22:45)
[2017-04-21] MEDS ORDERED: PERCOCET 5MG/325MG TAB PO PRN (22:45)
[2017-04-21 22:53] LABS: REASON FOR REVIEW COMPREHENSIVE REVIEW; RETIC HEMOGLOBIN EQUIVALENT 20.7 pg (24-36); RETICULOCYTE % 1.7 % (0.5-1.5)
[2017-04-21 23:08] LABS: PERCENT SATURATION 4.4 % (13.2-45.0)
[2017-04-21 23:13] LABS: FOLATE 11.7 NG/ML (>5.4)
[2017-04-22] VITALS (15 sets, daily range): BP systolic 100–136; BP diastolic 48–70
--- NOTE | 2017-04-22 03:03 | HPE ---
DATE OF ADMISSION: 04/21/2017 PRIMARY CARE PROVIDER: Dr. Bhandari. GENERAL SURGERY: Dr. Mills. MARINE FIRE FIGHTER: Dr. Otto. CHIEF COMPLAINT: Shortness of breath, dyspnea on exertion, and back pain. HISTORY OF PRESENT ILLNESS: This is an 82-year-old female patient with underlying medical history of pulmonary embolism 2 years ago requiring lifelong anticoagulation given patient has inflammatory myopathy, hypertension, dyslipidemia, inflammatory myopathy, was seen February 2017 with incarcerated small bowel obstruction secondary to incarcerated internal hernia with small bowel resection. Patient was subsequently discharged. Ever since discharge, patient has reported that she has been having thoracic and lumbar back pain that is sharp, initially was intermittent then gradually became persistent. Over the last 4 days has been persistent, about 8/10, worsening with movement, improved with rest. Patient also developed for the past 2-3 weeks with progressively worsening dyspnea on exertion. Denies any lower extremity swelling and also reported generalized weakness, fatigue. Patient denies any melena, nausea, vomiting. Does make about 2-3 stools, is on stool softeners, 2-3 bowel movements a day. Denies any melena or any bowel changes. Denies any abdominal pain, chest pain, pressure or discomfort. Denies any change in urination. Patient has never had a colonoscopy. ALLERGIES: No known drug allergies. PAST MEDICAL HISTORY: 1. Inflammatory myopathy. 2. Hypertension. 3. Dyslipidemia. 4. History of pulmonary embolism (PE) on Eliquis. 5. Gastroesophageal reflux disease (GERD). 6. Vitamin B12 deficiency. 7. Osteoporosis. PAST SURGICAL HISTORY: 1. Right total knee replacement. 2. Hammer toe surgery. 3. Skin excision. 4. Appendectomy. 5. Recently had incarcerated internal hernia with small bowel resection. SOCIAL HISTORY: Patient lives with in [place]. Denies smoking or illicit drug use or alcohol drinking. Is currently retired. FAMILY HISTORY: Mother with breast cancer and sister with multiple other types of cancer. REVIEW OF SYSTEMS: Reported dyspnea on exertion, thoracic and lumbar back pain, generalized weakness, poor oral intake. All other review of systems are negative. HOME MEDICATIONS: - alendronate 70 mg on Tuesday - Eliquis 5 mg by mouth twice a day - aspirin 81 mg by mouth daily - azathioprine 100 mg by mouth daily - calcium 600 mg by mouth twice a day - vitamin D 400 units by mouth daily - vitamin B12 1000 mcg intramuscularly (IM) once a month - Lasix 20 mg by mouth daily - hydroxychloroquine 200 mg by mouth twice a day - metformin 25 mg by mouth daily - milk of magnesia 30 mL by mouth daily as needed - naproxen 440 mg by mouth twice a day as needed - Protonix 40 mg by mouth daily - prednisone 2.5 mg by mouth daily PHYSICAL EXAMINATION: VITAL SIGNS: Temperature 98.6, pulse 58, respirations 16, blood pressure 111/57, pulse oximetry 98% on room air. GENERAL: Patient alert and oriented times three in no acute distress. HEENT: Normocephalic, atraumatic. PULMONARY: Bilaterally clear to auscultation. CARDIAC: Regular rate and rhythm. Normal S1, S2. No murmurs detected. BACK: No point tenderness. No radiculopathy. ABDOMEN: Soft, nontender. Positive bowel sounds. Fecal occult positive, brown stool. EXTREMITIES: No edema bilateral lower extremities. NEUROLOGIC: No focal deficits. LABORATORY: WBC 3.6, hemoglobin and hematocrit 7.2/24.4, platelets 364. Chemistry: Sodium 138, potassium 4.2, chloride 106, bicarbonate 23, BUN 20, creatinine 1.14, lactic acid 2.2. Cardiac enzymes negative times one. EKG is atrial fibrillation with no ST segment changes. ASSESSMENT AND PLAN: This is an 82-year-old female patient with underlying medical history of pulmonary embolism on Eliquis, hypertension, dyslipidemia, inflammatory myopathy, recently operated for incarcerated small bowel obstruction secondary to incarcerated internal hernia with small bowel resection by Dr. Mills presented with progressively worsening dyspnea on exertion and also worsening back pain, thoracic and lumbar since the surgery. Patient stated that she never had back pain prior to the surgery. 1. Dyspnea on exertion. Likely secondary to anemia with symptomatic anemia secondary to gastrointestinal (GI) bleed, likely slow bleed. Patient currently is hemodynamically stable. Followup orthostatic vital signs. Intravenous (IV) fluids. Transfuse packed red blood cells (PRBCs). Fecal occult positive. Will consult surgery in the morning. Protonix twice a day. Patient does require anticoagulation given patient needs lifelong anticoagulation for pulmonary embolism (PE) secondary to underlying rheumatologic inflammatory disease. If patient's condition worsens, will consider putting the patient on heparin drip instead of Eliquis. Holding aspirin. Transfuse as needed. Monitor patient's hemoglobin and hematocrit. Anemia workup as ordered. 2. Elevation of creatinine. Patient mildly dehydrated. Likely secondary to GI bleed versus poor oral intake. IV fluids for hydration. Followup blood urea nitrogen (BUN), creatinine. Holding Lasix. 3. Back pain. Patient reported has no numbness or tingling sensation, no radiculopathy. Will get MRI of thoracic and lumbar spine given patient's CT scan has been negative. 4. Hypertension. Patient currently is normotensive. Lasix has been on hold. Continue beta blockers. 5. Dyslipidemia. Outpatient followup. 6. Gastroesophageal reflux disease (GERD). Continue proton pump inhibitor (PPI). 7. Osteoporosis. Outpatient followup. 8. Inflammatory myopathy. Outpatient followup with rheumatology. Patient on chronic steroids, prednisone 2.5, as well as azathioprine and hydroxychloroquine, which were also continued. 9. Recently operated for internal hernia with incarcerated small bowel with resection. Patient reported not doing well after surgery. Will consult general surgery in the morning for further recommendations. CT scan of the abdomen appreciated with some focal small bowel wall thickening. Will place the patient on clear liquid diet for now until evaluated by general surgery. 10. Deep venous thrombosis (DVT) prophylaxis. Continue Eliquis. If patient's hemoglobin and hematocrit worsens, will switch it to heparin drip. Serial hemoglobin and hematocrit. DISPOSITION: Pending workup for dyspnea on exertion and anemia and surgical consultation and workup for back pain. Pain regimen as ordered. Patient reported pain much better after morphine has been given.
[2017-04-22 03:35] LABS: MEAN CORPUSCULAR HEMOGLOBIN 23.1 pg (27.0-33.0); MEAN CORPUSCULAR HGB CONC 29.6 g/dl (32.0-36.5); MEAN CORPUSCULAR VOLUME 78.2 fl (80.0-96.0); RED CELL DISTRIBUTION WIDTH 16.3 % (11.5-14.5); WHITE BLOOD COUNT 3.6 10^3/uL (4.0-10.0)
[2017-04-22 03:39] LABS: INR 1.4
[2017-04-22 03:43] LABS: ANION GAP 8 MEQ/L (8-16); BLOOD UREA NITROGEN 20 MG/DL (7-18); CALCIUM LEVEL 8.5 MG/DL (8.8-10.2); CARBON DIOXIDE LEVEL 25 MEQ/L (21-32); CHLORIDE LEVEL 108 MEQ/L (98-107); CREATININE FOR GFR 0.84 MG/DL (0.55-1.02); GLOMERULAR FILTRATION RATE > 60.0 (>32); GLUCOSE, FASTING 97 MG/DL (83-110); MAGNESIUM LEVEL 2.3 MG/DL (1.8-2.4); POTASSIUM SERUM 3.8 MEQ/L (3.5-5.1); SODIUM LEVEL 141 MEQ/L (136-145)
--- NOTE | 2017-04-22 04:47 | IPNPDOC ---
Text Note Date of Service The patient was seen on 04/22/17. NOTE Informed by nursing staff patient hgb did not respond to transfusion. no further episode of bleed reported overnight. orthostatic neg. given PE years ago and patient's hgb did not improve with transfusion, would hold Eliquis temporarily in anticipation of possible endoscopy. But patient would need to be back on anticoagulation as soon as possible given history of PE with underlying chronic inflammatory condition. Restart anticoagulation once, hh stable. VS,Fishbone, I+O VS, Fishbone, I+O Laboratory Tests 04/21/17 16:14 Red Blood Count 3.21 L, Mean Corpuscular Volume 76.0 L, Mean Corpuscular Hemoglobin 22.4 L, Mean Corpuscular Hemoglobin Concent 29.5 L, Red Cell Distribution Width 16.4 H, Lymphocytes # (Auto) 04/22/17 03:02 Red Blood Count 3.07 L, Mean Corpuscular Volume 78.2 L, Mean Corpuscular Hemoglobin 23.1 L, Mean Corpuscular Hemoglobin Concent 29.6 L, Red Cell Distribution Width 16.3 H, Calcium Level 8.5 L Vital Signs Date Time Temp Pulse Resp B/P (MAP) Pulse Ox O2 Delivery O2 Flow Rate FiO2 04/22/17 03:00 59 115/65 (82) 04/22/17 02:00 96.9 18 97 Room Air CHRIS CASTRO MD Apr 22, 2017 04:47
[2017-04-22] MEDS ORDERED: ISOVUE-370 76% 100ML VIAL (Q9967) ONE (07:39)
[2017-04-22] MEDS: PANTOPRAZOLE 40MG INJ (PROTONIX) (C9113) IV SCH ×2 (09:00→21:10)
[2017-04-22] MEDS: METOPROLOL TART 25 MG TABLET PO SCH (09:00)
[2017-04-22] MEDS: predniSONE 2.5 MG TAB PO SCH (09:46)
[2017-04-22] MEDS: SENOKOT S TAB PO SCH ×2 (09:46→21:10)
[2017-04-22] MEDS: azaTHIOprine 50 MG TAB (J7500) PO SCH (09:46)
[2017-04-22] MEDS: HYDROXYCHLOROQUINE 200 MG TAB PO SCH ×2 (09:46→21:10)
[2017-04-22] MEDS: VITAMIN D (CHOLECALCIFEROL) 400 INTERNATIONAL UNITS TAB PO SCH (09:46)
[2017-04-22] MEDS ORDERED: PROTHROMBIN COMPLEX CONCEN IV ONE (10:15)
[2017-04-22] MEDS ORDERED: FLUID PLACE HOLDER IV ONE (10:15)
[2017-04-22] MEDS ORDERED: BUPIVACAINE HCL 0.5% 30 ML VIAL As Ordered ONE (10:48)
[2017-04-22] MEDS ORDERED: LIDOCAINE 1% SDV INJ 30 ML VIAL As Ordered ONE (10:48)
[2017-04-22] MEDS ORDERED: ISOVUE-300 61% 50ML VIAL (Q9967) As Ordered ONE (10:48)
[2017-04-22] MEDS ORDERED: HEPARIN SOD (PORCINE) 5000 UNITS/ML VIAL As Ordered ONE (10:48)
--- NOTE | 2017-04-22 11:13 | REP ---
Bilateral lower extremity Duplex Doppler venous ultrasound: Real time compression and duplex Doppler interrogation of the bilateral lower extremity deep venous system is performed. Bilaterally, the common femoral, superficial femoral and popliteal veins are fully compressible with transducer pressure and demonstrate normal spontaneous and phasic flow, without evidence of deep venous thrombosis. Impression: No evidence of deep venous thrombosis of the bilateral lower extremity femoral popliteal venous system. Signed by Nba Reed MD 04/22/2017 11:04 A
[2017-04-22] MEDS ORDERED: LIDOCAINE 2% INJ 100 MG/5 ML SDV (FOR ANES.) As Ordered ONE (11:32)
[2017-04-22] MEDS ORDERED: PROPOFOL 200 MG/20 ML VIAL As Ordered ONE (11:32)
[2017-04-22] MEDS ORDERED: LR 1,000 ML IV SCH (12:15)
[2017-04-22] MEDS ORDERED: NORCO, ANEXSIA 5/325MG TABLET (HYDROcodone/ACETAMINOPHEN) PO PRN (12:15)
[2017-04-22] MEDS ORDERED: ONDANSETRON 4MG/2ML VIAL (J2405) IV PRN (12:15)
--- NOTE | 2017-04-22 16:47 | REPUSA ---
CLINICAL HISTORY: Central back pain. TECHNIQUE: Multiple axial, coronal, sagittal CT images were obtained through the abdomen and pelvis with IV contrast material. FINDINGS: The liver is of uniform attenuation without mass or defect. The gallbladder contains what appears to be a large cluster of gallstones measuring approximately 1.5 cm. Correlation with a right upper lakisha drant ultrasound is recommended. The gallbladder is underdistended. There is no intrahepatic or ext rahepatic biliary ductal dilatation. The spleen is normal. The pancreas is of normal contour and at tenuation characteristics. There is no evidence of adrenal mass. Note is made of numerous calculi in the right renal pelvis, 30 to 40 small calculi are present, most of which measure between 2 and 3 mm, but some measure up to 5 to 6 mm. There is mild right hydronephrosis present. Several cysts are present in the left kidney, the largest measures 2.5 cm, located in the superior pole. Note is made of fluid-filled, mildly thick-walled loops of jejunum compatible with jejunitis. Infect ious and inflammatory etiologies are considered. There is evidence of surgical anastomosis in the di stal ileum. No evidence for small or large bowel obstruction. There is no evidence of abdominal asc ites or lymphadenopathy. The appendix is not identified with certainty. The uterus and ovaries appear atrophic. There is no evidence of intrinsic or extrinsic bladder mass. There is no pelvic ascites or lymphaden opathy. The bony structures are free of lytic or blastic lesions. IMPRESSION: The gallbladder contains what appears to be a large cluster of gallstones measuring approximately 1.5 cm. Correlation with a right upper quadrant ultrasound is recommended. Note is made of numerous calculi in the right renal pelvis, 30 to 40 small calculi are present, most of which measure between 2 and 3 mm, but some measure up to 5 to 6 mm. There is mild right hydronephr osis present. Several cysts are present in the left kidney, the largest measures 2.5 cm, located in the superior po le. Note is made of fluid-filled, mildly thick-walled loops of jejunum compatible with jejunitis. Infec tious and inflammatory etiologies are considered. There is evidence of surgical anastomosis in the d istal ileum. Thank you for your kind referral of this patient. We appreciate the opportunity to participate in thi s patient's care.
--- NOTE | 2017-04-22 16:51 | REPUSA ---
CLINICAL HISTORY: Central back pain. TECHNIQUE: Multiple axial, coronal, sagittal CT images were obtained through the chest with IV contr ast material. FINDINGS: There is no evidence of pleural or parenchymal mass. There are no pleural effusions. There is no ev idence of hilar or mediastinal lymphadenopathy. Specifically, there is no evidence for paratracheal and supraclavicular adenopathy. There is no evidence for a chest or abdominal wall nodule or mass. The heart is moderately enlarged. There are increased peripheral interstitial lung markings with bib asilar predominance, compatible with early pulmonary fibrosis. Note is made of several small bilateral thyroid lobe nodules. Correlation with thyroid ultrasound is recommended The bony structures are free of lytic or blastic lesions. IMPRESSION: 1. The heart is moderately enlarged. 2. There are increased peripheral interstitial lung markings with bibasilar predominance, compatible with early pulmonary fibrosis. 3. Note is made of several small bilateral thyroid lobe nodules. Correlation with thyroid ultrasoun d is recommended. Thank you for your kind referral of this patient. We appreciate the opportunity to participate in thi s patient's care.
--- NOTE | 2017-04-22 17:32 | CR.PDOC ---
[facility] Consultation Consultation DATE OF CONSULTATION: Apr 21, 2017 at 15:40 DATE OF CONSULTATION: Apr 21, 2017 at 15:40 PRIMARY CARE PHYSICIAN: Dr. Bhandari REFERRING PROVIDER: Dr. Holder ATTENDING PHYSICIAN: Dr. Kitchen REASON FOR CONSULTATION/CHIEF COMPLAINT: GI bleed. HISTORY OF PRESENT ILLNESS: This is an 82-year-old female patient with underlying medical history of pulmonary embolism 2 years ago requiring lifelong anticoagulation given patient has inflammatory myopathy, hypertension, dyslipidemia, inflammatory myopathy, was seen February 2017 with incarcerated small bowel obstruction secondary to incarcerated internal hernia with small bowel resection. Patient presents to the ED because of recently worsened back pain, with dyspnea on exertion. Lab work revealed that patient was severely anemic, fecal occult was positive for blood. Patient denies any melena, bright red bloody stool. Patient denies vomiting blood. Patient admits to lightheadedness, dizziness but denies syncope. Patient denies any change in urination. Patient's last bowel movement was 10 PM the night before and she remembers a normal brown in color ALLERGIES: Please see below. HOME MEDICATIONS: Please see below. PAST MEDICAL HISTORY: 1. Inflammatory myopathy. 2. Hypertension. 3. Dyslipidemia. 4. History of pulmonary embolism (PE) on Eliquis. 5. Gastroesophageal reflux disease (GERD). 6. Vitamin B12 deficiency. 7. Osteoporosis. PAST SURGICAL HISTORY: 1. Right total knee replacement. 2. Hammer toe surgery. 3. Skin excision. 4. Appendectomy. 5. Recently had incarcerated internal hernia with small bowel resection SOCIAL HISTORY: Patient lives with in [place]. Denies smoking or illicit drug use or alcohol drinking. Is currently retired. FAMILY HISTORY: Mother with breast cancer and sister with multiple other types of cancer. REVIEW OF SYSTEMS: CONSTITUTIONAL: Denies fevers, denies chills, admits to dizziness, admits to lightheadedness, admits to being pale CARDIOVASCULAR: Chest palpitation, denies tachycardia,. RESPIRATORY: Denies difficulty breathing, denies any shortness of breath. GENITOURINARY: Denies any blood in the urine,. MUSCULOSKELETAL: Denies any muscular skeletal pain. GASTROINTESTINAL: Denies bright red blood in stool, denies melena, denies coughing up blood. SKIN: No rashes. NEUROLOGICAL: No numbness or tingling. HEMATOLOGIC/LYMPHATIC: Denies any recent bleeding episodes PHYSICAL EXAMINATION: VITAL SIGNS: Please see below. GENERAL APPEARANCE: Alert female, resting comfortably in bed, RESPIRATORY: Lungs are clear to auscultate anterior, and bilateral. CARDIOVASCULAR: S1 and S2 present no murmurs rubs or gallops. ABDOMEN: Soft, no organomegaly noted, no tenderness to palpation. EXTREMITIES: No edema noted no deformities. LABORATORY DATA: Please see below. ASSESSMENT/PLAN: An 82-year-old woman who presents to the ED with back pain, CBC showed the patient was severely anemic. A subsequent fecal occult was positive. Patient was given 2 units of packed red blood cells.There is a possibility that patient has some type of gastritis, which could be caused by medication, or an ulcer, or perhaps her jejunal anastomosis from previous surgery. My recommendation is to stop patient's blood thinner until source in identified and treated. An EGD could be performed to look for patient's source of bleeding, but only if patient is off her eliquis two days prior to the study. A colonoscopy is also possible to look for a source of lower GI bleed. A small bowel follow-through could be performed if patient is still anemic on Tuesday. I am not concerned that patient is actively bleeding at this moment. I wait to see how patient responds to blood transfusion before initiating any studies. I would also recommend a work up for other possible causes of anemia. Vital Signs/I&O Vital Signs Date Time Temp Pulse Resp B/P (MAP) Pulse Ox O2 Delivery O2 Flow Rate FiO2 04/22/17 16:00 98.2 63 20 118/62 (80) 04/22/17 14:00 99 Room Air I&O- Last 24 Hours up to 6 AM 04/23/17 06:00 Intake Total 660 ml Output Total 320 ml Balance 340 ml Laboratory Data Labs 24H Laboratory Tests 2 04/21/17 17:29: Urine Appearance HAZY, Urine Color YELLOW, Urine pH 8.0, Urine Specific [place] 1.017, Urine Protein 1+H, Urine Glucose (UA) NEGATIVE, Urine Ketones NEGATIVE, Urine Urobilinogen 2.0H, Urine Bilirubin NEGATIVE, Urine Leukocyte Esterase NEGATIVE, Urine Blood NEGATIVE, Urine Nitrite NEGATIVE, Urine WBC (Auto) 3, Urine RBC (Auto) 4H, Urine Hyaline Casts (Auto) 0, Urine Bacteria (Auto) NEGATIVE, Urine Squamous Epithelial Cells 1, Urine Mucus (Auto) SMALL, Urine Sperm (Auto) 04/21/17 17:49: Total Creatine Kinase 109, Creatine Kinase MB 3.0, Creatine Kinase MB Relative Index 2.75, Troponin I < 0.02 04/21/17 23:55: Total Creatine Kinase 82, Creatine Kinase MB 2.9, Creatine Kinase MB Relative Index 3.53, Troponin I < 0.02 04/22/17 03:02: Prothrombin Time 17.5H, Prothromb Time International Ratio 1.40, Anion Gap 8, Glomerular Filtration Rate > 60.0, Blood Urea Nitrogen 20H, Creatinine 0.84, Sodium Level 141, Potassium Level 3.8, Chloride Level 108H, Carbon Dioxide Level 25, Calcium Level 8.5L, Magnesium Level 2.3 CBC/BMP Laboratory Tests 04/22/17 03:02 Red Blood Count 3.07 L, Mean Corpuscular Volume 78.2 L, Mean Corpuscular Hemoglobin 23.1 L, Mean Corpuscular Hemoglobin Concent 29.6 L, Red Cell Distribution Width 16.3 H, Calcium Level 8.5 L 04/22/17 08:54 04/22/17 16:06 Microbiology Microbiology 04/21/17 Urine Culture - Final, Complete Allergies Coded Allergies: No Known Allergies (Unverified , 03/22/13) Home Medications Scheduled Alendronate Sodium (Alendronate Sodium) 70 Mg Tab, 70 MG PO ASDIRECTED, ( Reported) TAKES ON TUESDAY MORNINGS Apixaban Base (Eliquis) 5 Mg Tab, 5 MG PO BID, (Reported) Aspirin (Aspirin EC) 81 Mg Tabec, 81 MG PO DAILY, (Reported) Azathioprine (Azathioprine) 50 Mg Tab, 100 MG PO DAILY, (Reported) Calcium (Calcium) 600 Mg Tab, 600 MG PO BID, (Reported) Cholecalciferol (Vitamin D) 400 Unit Tab, 400 UNIT PO DAILY, (Reported) Cyanocobalamin (Cyanocobalamin) 1,000 Mcg/1 Ml Inj, 1,000 MCG IM ASDIRECTED, ( Reported) TAKES ONCE A MONTH TYPICALLY AROUND THE Furosemide (Furosemide) 20 Mg Tab, 20 MG PO DAILY, (Reported) Hydroxychloroquine Sulfate (Hydroxychloroquine Sulfat) 200 Mg Tab, 200 MG PO BID , (Reported) Metoprolol Tartrate (Metoprolol Tartrate) 25 Mg Tab, 25 MG PO DAILY, (Reported) Pantoprazole Sodium (Pantoprazole Sodium) 40 Mg Tab, 40 MG PO DAILY, (Reported) Prednisone (Prednisone) 5 Mg Tab, 2.5 MG PO DAILY, (Reported) Scheduled PRN Milk Of Magnesia (Milk of Magnesia) 1,200 Mg/15 Ml Jada, 30 ML PO DAILY PRN for CONSTIPATION, (Reported) Naproxen Sodium (Aleve) 220 Mg Tab, 440 MG PO BID PRN for PAIN, (Reported) GME ATTESTATION GME ATTESTATION My preceptor for this patient encounter was physically present in the building during the encounter and was fully available. As needed, all aspects of the patient interview, examination, medical decision making process, and medical care plan development were reviewed and approved by the preceptor. Preceptor is aware and concurs with the plan as stated in the body of this note and will attest to such by his/her cosignature. ANTONIO HOLMAN DO Apr 22, 2017 17:32
[2017-04-22] MEDS: SUCRALFATE 1 GM TAB PO SCH ×2 (17:37→21:10)
--- NOTE | 2017-04-22 18:08 | IPNPDOC ---
Date Seen The patient was seen on 04/22/17. Progress Note SUBJECTIVE: Patient is a 82-year-old female admitted last evening for abdominal pain and symptomatic anemia. She is resting comfortably. Denies chest pain, palpitations, shortness of breath, productive sputum or cough. No abdominal pain. States she's not had a bowel movement since her admission last evening. We did repeat a rectal exam in the room to be sure to confirm guaiac positive findings, due to the fact we're unable to find any formal documentation. OBJECTIVE PHYSICAL EXAMINATION: VITAL SIGNS: Please see below. GENERAL: [No acute distress, alert, oriented, pleasant] HEENT: [PERRLA. Throat clear. Neck supple] CARDIOVASCULAR: [Regular rate and rhythm]. RESPIRATORY: [GERD auscultation bilaterally]. ABDOMINAL: [Soft, anteroseptal positive bowel sounds. Good rectal tone and guaiac positive Examination.] EXTREMITIES: [No edema, no calf tenderness] NEUROLOGICAL: [Grossly intact] PSYCHOLOGICAL: [Negative] LABORATORY DATA: Please see below. Duplex ultrasound bilateral lower extremities:No evidence of deep venous thrombosis of the bilateral lower extremity femoral popliteal venous system. DVT prophylaxis ordered?: [Yes] ASSESSMENT AND PLAN: This is a 82-year-old female with some somatic anemia seeping a third blood transfusion and history of pulmonary embolism with chronic anticoagulation with Eliquis (which is been placed on hold). PROBLEMS: 1. Symptomatic anemia with Dyspnea on exertion. Patient is receiving transfusion with third unit of packed red blood cells. Eliquis and aspirin is currently on hold. She has not responded as expected to the previous 2 units of packed red blood cells. If she should develop bleeding issues or the H&H not respond appropriately. We may want to consider Kcentra to reverse effects of eliquis. For now, she is hemodynamically stable. We'll plan on repeating H&H after third unit of packed red blood cells been given 2. Acute kidney injury with elevated creatinine Elevation of creatinine. Holding Lasix. 3. Back pain. Consider MRI of thoracic and lumbar spine given patient's CT scan has been negative. 4. Hypertension. Patient currently is normotensive. Lasix has been on hold. Continue beta blockers with hold parameters. 5. Dyslipidemia. Outpatient followup. 6. Gastroesophageal reflux disease (GERD). Continue proton pump inhibitor (PPI). 7. Osteoporosis. Outpatient followup. 8. Inflammatory myopathy. Outpatient followup with rheumatology. Patient on chronic steroids, prednisone 2.5, as well as azathioprine and hydroxychloroquine , which were also continued. 9. Recently operated for internal hernia with incarcerated small bowel with resection. Patient reported not doing well after surgery. Will consult general surgery in the morning for further recommendations. CT scan of the abdomen appreciated with some focal small bowel wall thickening. Will place the patient on clear liquid diet for now until evaluated by general surgery. 10. Deep venous thrombosis (DVT) prophylaxis. Teds and sequentials for now I' d like to wait another 24 hours before deciding to continue with any anticoagulation. In the meantime requested vascular surgery to see the patient is agreeable to place an IVC filter. Ultrasound of lower extremities is negative for DVT. DISPOSITION: [Anticipate that she'll be here greater than 2 midnights. Appreciate input from vascular surgery and Gen. surgery]. VS, I&O, 24H, Fishbone Vital Signs/I&O Vital Signs Date Time Temp Pulse Resp B/P (MAP) Pulse Ox O2 Delivery O2 Flow Rate FiO2 04/22/17 16:00 98.2 63 20 118/62 (80) 04/22/17 14:00 99 Room Air I&O- Last 24 Hours up to 6 AM 04/23/17 06:00 Intake Total 1060 ml Output Total 320 ml Balance 740 ml Laboratory Data 24H LABS Laboratory Tests 2 04/21/17 23:55: Total Creatine Kinase 82, Creatine Kinase MB 2.9, Creatine Kinase MB Relative Index 3.53, Troponin I < 0.02 04/22/17 03:02: Prothrombin Time 17.5H, Prothromb Time International Ratio 1.40, Anion Gap 8, Glomerular Filtration Rate > 60.0, Blood Urea Nitrogen 20H, Creatinine 0.84, Sodium Level 141, Potassium Level 3.8, Chloride Level 108H, Carbon Dioxide Level 25, Calcium Level 8.5L, Magnesium Level 2.3 CBC/BMP Laboratory Tests 04/22/17 03:02 Red Blood Count 3.07 L, Mean Corpuscular Volume 78.2 L, Mean Corpuscular Hemoglobin 23.1 L, Mean Corpuscular Hemoglobin Concent 29.6 L, Red Cell Distribution Width 16.3 H, Calcium Level 8.5 L 04/22/17 08:54 04/22/17 16:06 Microbiology Microbiology 04/21/17 Urine Culture - Final, Complete SAMSON FRASER DO Apr 22, 2017 18:08
[2017-04-23] VITALS (8 sets, daily range): BP systolic 107–134; BP diastolic 54–64
[2017-04-23 05:11] LABS: MEAN CORPUSCULAR HEMOGLOBIN 24.1 pg (27.0-33.0); MEAN CORPUSCULAR VOLUME 77.9 fl (80.0-96.0); RED CELL DISTRIBUTION WIDTH 16.3 % (11.5-14.5); WHITE BLOOD COUNT 3.6 10^3/uL (4.0-10.0)
[2017-04-23 05:20] LABS: INR 1.15
[2017-04-23 05:29] LABS: ANION GAP 7 MEQ/L (8-16); BLOOD UREA NITROGEN 15 MG/DL (7-18); CALCIUM LEVEL 8.3 MG/DL (8.8-10.2); CARBON DIOXIDE LEVEL 25 MEQ/L (21-32); CHLORIDE LEVEL 109 MEQ/L (98-107); CREATININE FOR GFR 0.78 MG/DL (0.55-1.02); GLOMERULAR FILTRATION RATE > 60.0 (>32); GLUCOSE, FASTING 104 MG/DL (83-110); MAGNESIUM LEVEL 2.1 MG/DL (1.8-2.4); POTASSIUM SERUM 3.8 MEQ/L (3.5-5.1); SODIUM LEVEL 141 MEQ/L (136-145)
--- NOTE | 2017-04-23 07:58 | ECGEPIP ---
Stationary ECG Study [facility] - ED Test Date: 2017-04-21 Pat Name: PEDRO DE LA O Department: Room: - Gender: F Director Of Instructional Technology: : 1935 Requested By: SAMSON TELLO PA-C. Order Number: [id number] Reading MD: Vernon Fields Measurements Intervals [place] Rate: 71 P: [place]: 0 QRS: 12 QRSD: 93 T: 17 QT: 454 QTc: 495 Interpretive Statements ATRIAL FIBRILLATION PROLONGED QT INTERVAL NSTTW ABNORMALITIES RATE CHANGE COMPARED TO 02/22/17 Electronically Signed On 04-23-2017 7:58:16 EDT by Vernon Fields
[2017-04-23] MEDS: PANTOPRAZOLE 40MG INJ (PROTONIX) (C9113) IV SCH ×2 (08:02→20:44)
[2017-04-23] MEDS: SENOKOT S TAB PO SCH ×2 (08:02→20:43)
[2017-04-23] MEDS: azaTHIOprine 50 MG TAB (J7500) PO SCH (08:02)
[2017-04-23] MEDS: HYDROXYCHLOROQUINE 200 MG TAB PO SCH ×2 (08:02→20:44)
[2017-04-23] MEDS: VITAMIN D (CHOLECALCIFEROL) 400 INTERNATIONAL UNITS TAB PO SCH (08:02)
[2017-04-23] MEDS: predniSONE 2.5 MG TAB PO SCH (08:02)
[2017-04-23] MEDS: SUCRALFATE 1 GM TAB PO SCH ×4 (08:03→20:44)
[2017-04-23] MEDS: METOPROLOL TART 25 MG TABLET PO SCH (08:03)
--- NOTE | 2017-04-23 10:11 | IPNPDOC ---
Date Seen The patient was seen on 04/23/17. Progress Note SUBJECTIVE: Patient is a 82-year-old female seen at bedside, resting comfortably , eating breakfast. She denies lightheadedness, dizziness, shortness of breath, chest pain, palpitations, nausea, vomiting and she's not noticed any blood in her stool. OBJECTIVE PHYSICAL EXAMINATION: VITAL SIGNS: Please see below. GENERAL: No acute distress, alert, oriented 3 and pleasant HEENT: PERRLA. Throat clear. Neck supple, no adenopathy CARDIOVASCULAR: Regular rate and rhythm. RESPIRATORY: Clear to auscultation bilaterally. ABDOMINAL: Soft, nontender, nondistended positive bowel sounds, masses or rebound EXTREMITIES: No edema, no calf tenderness NEUROLOGICAL: Cranial nerves II 12 grossly intact PSYCHOLOGICAL: Negative LABORATORY DATA: Please see below. DVT prophylaxis ordered?: Yes ASSESSMENT AND PLAN: This is a 82-year-old female resting comfortably. Her H&H appears to be stable for the time being. She's not required any further blood transfusions.. PROBLEMS: 1. Symptomatic anemia with Dyspnea on exertion. H&H currently stable, does not appear to have bright red blood per rectum. Is not required any further blood transfusions. Eliquis, currently on hold. Appreciate input from Gen. surgery since this is likely bleeding from a GI source. 2. Acute kidney injury with elevated creatinine Elevation of creatinine on admission which is since resolved. We'll likely resume Lasix tomorrow. 3. Back pain. MRI of the thoracic lumbar spine is pending. 4. Hypertension. Patient currently is normotensive. Lasix has been on hold until tomorrow. Continue beta blockers with hold parameters. 5. Dyslipidemia. Outpatient followup. 6. Gastroesophageal reflux disease (GERD). Continue proton pump inhibitor (PPI). 7. Osteoporosis. Outpatient followup. 8. Inflammatory myopathy. Outpatient followup with rheumatology. Patient on chronic steroids, prednisone 2.5, as well as azathioprine and hydroxychloroquine , which were also continued. 9. Recently operated for internal hernia with incarcerated small bowel with resection. Patient reported not doing well after surgery. Will consult general surgery in the morning for further recommendations. CT scan of the abdomen appreciated with some focal small bowel wall thickening. She's doing better today and her diet has been advanced. 10. Deep venous thrombosis (DVT) prophylaxis. Teds and sequentials for now I' d like to wait another 24 hours before deciding to continue with any anticoagulation. In the meantime requested vascular surgery to see the patient is agreeable to place an IVC filter. Ultrasound of lower extremities is negative for DVT. DISPOSITION: Anticipate that she'll be here greater than 2 midnights. Appreciate input from vascular surgery and Gen. surgery. VS, I&O, 24H, Fishbone Vital Signs/I&O Vital Signs Date Time Temp Pulse Resp B/P (MAP) Pulse Ox O2 Delivery O2 Flow Rate FiO2 04/23/17 08:03 59 107/57 04/23/17 08:00 Room Air 04/23/17 08:00 98.4 18 98 I&O- Last 24 Hours up to 6 AM 04/24/17 05:59 Intake Total 240 ml Balance 240 ml Laboratory Data 24H LABS Laboratory Tests 2 04/23/17 05:00: Prothrombin Time 14.9H, Prothromb Time International Ratio 1.15, Anion Gap 7L, Glomerular Filtration Rate > 60.0, Blood Urea Nitrogen 15, Creatinine 0.78, Sodium Level 141, Potassium Level 3.8, Chloride Level 109H, Carbon Dioxide Level 25, Calcium Level 8.3L, Magnesium Level 2.1 CBC/BMP Laboratory Tests 04/22/17 16:06 04/22/17 19:46 04/23/17 02:49 04/23/17 05:00 Red Blood Count 3.44 L, Mean Corpuscular Volume 77.9 L, Mean Corpuscular Hemoglobin 24.1 L, Mean Corpuscular Hemoglobin Concent 31.0 L, Red Cell Distribution Width 16.3 H, Calcium Level 8.3 L 04/23/17 08:23 Microbiology Microbiology 04/21/17 Urine Culture - Final, Complete SAMSON FRASER DO Apr 23, 2017 10:11
--- NOTE | 2017-04-23 13:43 | REP ---
MRI THORACIC SPINE WITHOUT CONTRAST: HISTORY: Back pain. A small central disc protrusion is present at the T3-4 level. There is minimal effacement of the thecal sac without spinal cord compression. The T3 neural foramen are patent. A small right paracentral disc protrusion is present at the T7-8 level. There is minimal effacement of the thecal sac without spinal cord compression. The T7 neural foramina are patent. There is no other disc bulge or herniation. The remaining neural foramina are patent. The spinal cord is normal in signal intensity. There is loss of height of several mid and lower thoracic intervertebral discs consistent with disc degeneration. Increased signal intensity on T2-weighted images is present in the end plates of several mid and lower thoracic vertebral bodies. This represents degenerative change. Impression: Small disc protrusions at the T3-4 and T7-8 levels without spinal cord compression. Signed by Zaki Hernandez MD 04/23/2017 03:09 P
[2017-04-24] VITALS: BP 110/54
[2017-04-24 04:00] VITALS: BP 124/58
[2017-04-24 05:05] LABS: MEAN CORPUSCULAR HEMOGLOBIN 24.4 pg (27.0-33.0); MEAN CORPUSCULAR HGB CONC 30.5 g/dl (32.0-36.5); MEAN CORPUSCULAR VOLUME 79.9 fl (80.0-96.0); RED CELL DISTRIBUTION WIDTH 16.9 % (11.5-14.5); WHITE BLOOD COUNT 3.9 10^3/uL (4.0-10.0)
[2017-04-24 05:23] LABS: INR 1.07
[2017-04-24 05:34] LABS: ANION GAP 7 MEQ/L (8-16); BLOOD UREA NITROGEN 17 MG/DL (7-18); CALCIUM LEVEL 8.3 MG/DL (8.8-10.2); CARBON DIOXIDE LEVEL 25 MEQ/L (21-32); CHLORIDE LEVEL 110 MEQ/L (98-107); CREATININE FOR GFR 0.82 MG/DL (0.55-1.02); GLOMERULAR FILTRATION RATE > 60.0 (>32); GLUCOSE, FASTING 105 MG/DL (83-110); MAGNESIUM LEVEL 2.3 MG/DL (1.8-2.4); POTASSIUM SERUM 3.7 MEQ/L (3.5-5.1); SODIUM LEVEL 142 MEQ/L (136-145)
[2017-04-24 08:00] VITALS: BP 111/59
[2017-04-24] MEDS: SUCRALFATE 1 GM TAB PO SCH ×4 (08:20→21:49)
[2017-04-24] MEDS: VITAMIN D (CHOLECALCIFEROL) 400 INTERNATIONAL UNITS TAB PO SCH (08:20)
[2017-04-24] MEDS: HYDROXYCHLOROQUINE 200 MG TAB PO SCH ×2 (08:20→21:49)
[2017-04-24] MEDS: PANTOPRAZOLE 40MG INJ (PROTONIX) (C9113) IV SCH ×2 (08:20→21:49)
[2017-04-24] MEDS: azaTHIOprine 50 MG TAB (J7500) PO SCH (08:20)
[2017-04-24] MEDS: SENOKOT S TAB PO SCH ×2 (08:20→21:49)
[2017-04-24] MEDS: predniSONE 2.5 MG TAB PO SCH (08:20)
[2017-04-24] MEDS: METOPROLOL TART 25 MG TABLET PO SCH (08:21)
--- NOTE | 2017-04-24 08:50 | REP ---
MR LUMBAR SPINE WITHOUT CONTRAST: HISTORY: Back pain. A rudimentary disc is present at the S1-2 level. Decreased signal intensity on T2-weighted images is present in the lumbar intervertebral discs. The L3-4 through L5-S1 intervertebral discs are decreased in height. These findings are consistent with disc degeneration. A small central disc protrusion is present at the L1-2 level. There is minimal compression of the thecal sac. The L1 nerves exit the neural foramina without compression. There is no disc bulge or herniation at the L2-3 level. There is hypertrophy of the posterior articulating facets. The L2 nerves exit the neural foramina without compression. A diffuse disc bulge is present at the L3-4 level. There is hypertrophy of the ligamenta flava and posterior articulating facets. These findings produce minimal central canal stenosis. The L3 nerves exit the neural foramina without compression. A diffuse disc bulge is present at the L4-5 level. There is hypertrophy of the ligamenta flava and posterior articulating facets. There are 4 mm of grade 1 spondylolisthesis of L4 on 5. These findings produce moderate central canal stenosis. The L4 nerves exit the neural foramina without compression. A diffuse disc bulge is present at the L5-S1 level. There is hypertrophy of the ligamenta flava and posterior articulating facets. These findings produce minimal central canal stenosis. The L5 nerves exit the neural foramina without compression. The conus medullaris is normal in appearance terminating at the level of the L1-2 intervertebral disc. Normal signal intensity is present in the lumbar vertebral bodies. IMPRESSION: 1. Small central disc protrusion at the L1-2 level with minimal thecal sac compression. 2. Minimal central canal stenosis at the L3-4 and L5-S1 levels secondary to disc bulge, ligamentous and facet hypertrophy. 3. Moderate central canal stenosis at the L4-5 level secondary to disc bulge, ligamentous and facet hypertrophy and grade 1 spondylolisthesis. Signed by Zaki Hernandez MD 04/24/2017 09:06 A
[2017-04-24 11:45] VITALS: BP 139/65
[2017-04-24] MEDS ORDERED: SLF 3 ML SYR IV PRN (11:45)
[2017-04-24 14:00] VITALS: BP 112/68
--- NOTE | 2017-04-24 14:46 | IPNPDOC ---
Date Seen The patient was seen on 04/24/17. Progress Note SUBJECTIVE: Patient is a 82-year-old female seen at bedside, resting comfortably , eating breakfast. She denies lightheadedness, dizziness, shortness of breath, chest pain, palpitations, nausea, vomiting and she's not noticed any blood in her stool. OBJECTIVE PHYSICAL EXAMINATION: VITAL SIGNS: Please see below. GENERAL: No acute distress, alert, oriented 3 and pleasant HEENT: PERRLA. Throat clear. Neck supple, no adenopathy CARDIOVASCULAR: Regular rate and rhythm. RESPIRATORY: Clear to auscultation bilaterally. ABDOMINAL: Soft, nontender, nondistended positive bowel sounds, masses or rebound EXTREMITIES: No edema, no calf tenderness NEUROLOGICAL: Cranial nerves II 12 grossly intact PSYCHOLOGICAL: Negative ASSESSMENT AND PLAN: AND PLAN: This is a 82-year-old female resting comfortably. Her H&H appears to be stable for the time being. She's not required any further blood transfusions. PROBLEMS: 1. Symptomatic anemia with Dyspnea on exertion. H&H currently stable, does not appear to have bright red blood per rectum. Is not required any further blood transfusions. Kiara, currently on hold. Appreciate input from Gen. surgery since this is likely bleeding from a GI source. 2. Acute kidney injury with elevated creatinine Elevation of creatinine on admission which is since resolved. ok to resume lasix. 3. Back pain. MRI LUMBAR spine: 1. Small central disc protrusion at the L1-2 level with minimal thecal sac compression. 2. Minimal central canal stenosis at the L3-4 and L5-S1 levels secondary to disc bulge, ligamentous and facet hypertrophy. 3. Moderate central canal stenosis at the L4-5 level secondary to disc bulge , ligamentous and facet hypertrophy and grade 1 spondylolisthesis. MRI THORACIC SPINE: Small disc protrusions at the T3-4 and T7-8 levels without spinal cord compression. continue with symptomatic therapy and outpatient follow up. 4. Hypertension. Patient currently is normotensive. Resume Lasix. Continue beta blockers with hold parameters.5. Dyslipidemia. Outpatient followup. 6. Gastroesophageal reflux disease (GERD). Continue proton pump inhibitor (PPI). 7. Osteoporosis. Outpatient followup. 8. Inflammatory myopathy. Outpatient followup with rheumatology. Patient on chronic steroids, prednisone 2.5, as well as azathioprine and hydroxychloroquine , which were also continued. 9. Recently operated for internal hernia with incarcerated small bowel with resection. Patient reported not doing well after surgery. Will consult general surgery in the morning for further recommendations. CT scan of the abdomen appreciated with some focal small bowel wall thickening. She's doing better today and her diet has been advanced. 10. Deep venous thrombosis (DVT) prophylaxis. Teds and sequentials for now I' d like to wait another 24 hours before deciding to continue with any anticoagulation. In the meantime requested vascular surgery to see the patient is agreeable to place an IVC filter. Ultrasound of lower extremities is negative for DVT. DISPOSITION: Anticipate that she'll be here greater than 2 midnights. Appreciate input Gen. surgery. VS, I&O, 24H, Fishbone Vital Signs/I&O Vital Signs Date Time Temp Pulse Resp B/P (MAP) Pulse Ox O2 Delivery O2 Flow Rate FiO2 04/24/17 11:45 97.9 59 16 139/65 (89) 97 Room Air I&O- Last 24 Hours up to 6 AM 04/25/17 06:00 Intake Total 360 ml Output Total 725 ml Balance -365 ml Laboratory Data 24H LABS Laboratory Tests 2 04/24/17 04:57: Prothrombin Time 14.0, Prothromb Time International Ratio 1.07, Anion Gap 7L, Glomerular Filtration Rate > 60.0, Blood Urea Nitrogen 17, Creatinine 0.82, Sodium Level 142, Potassium Level 3.7, Chloride Level 110H, Carbon Dioxide Level 25, Calcium Level 8.3L, Magnesium Level 2.3 CBC/BMP Laboratory Tests 04/23/17 20:01 04/24/17 02:31 04/24/17 04:57 Red Blood Count 3.49 L, Mean Corpuscular Volume 79.9 L, Mean Corpuscular Hemoglobin 24.4 L, Mean Corpuscular Hemoglobin Concent 30.5 L, Red Cell Distribution Width 16.9 H, Calcium Level 8.3 L 04/24/17 07:30 Microbiology Microbiology 04/21/17 Urine Culture - Final, Complete SAMSON FRASER DO Apr 24, 2017 14:45
[2017-04-24] MEDS: SLF 3 ML SYR IV SCH ×2 (16:08→21:50)
[2017-04-24] MEDS: FUROSEMIDE 20 MG TAB PO SCH (16:08)
[2017-04-24 22:00] VITALS: BP 132/63
[2017-04-25] MEDS: SLF 3 ML SYR IV SCH ×3 (05:46→20:56)
[2017-04-25 06:00] VITALS: BP_SYST 117; BP_SYST 121; BP_SYST 124; BP_SYST 125; BP_DIAS 56; BP_DIAS 59; BP_DIAS 62
[2017-04-25 07:24] LABS: MEAN CORPUSCULAR HEMOGLOBIN 24.2 pg (27.0-33.0); MEAN CORPUSCULAR HGB CONC 29.7 g/dl (32.0-36.5); MEAN CORPUSCULAR VOLUME 81.6 fl (80.0-96.0)
[2017-04-25 07:45] LABS: ANION GAP 6 MEQ/L (8-16); BLOOD UREA NITROGEN 15 MG/DL (7-18); CALCIUM LEVEL 8.8 MG/DL (8.8-10.2); CARBON DIOXIDE LEVEL 29 MEQ/L (21-32); CHLORIDE LEVEL 107 MEQ/L (98-107); CREATININE FOR GFR 0.86 MG/DL (0.55-1.02); GLOMERULAR FILTRATION RATE > 60.0 (>32); GLUCOSE, FASTING 99 MG/DL (83-110); MAGNESIUM LEVEL 2.3 MG/DL (1.8-2.4); POTASSIUM SERUM 3.7 MEQ/L (3.5-5.1); SODIUM LEVEL 142 MEQ/L (136-145)
[2017-04-25] MEDS: VITAMIN D (CHOLECALCIFEROL) 400 INTERNATIONAL UNITS TAB PO SCH (08:07)
[2017-04-25] MEDS: PANTOPRAZOLE 40MG INJ (PROTONIX) (C9113) IV SCH ×2 (08:07→20:55)
[2017-04-25] MEDS: azaTHIOprine 50 MG TAB (J7500) PO SCH (08:07)
[2017-04-25] MEDS: SENOKOT S TAB PO SCH ×2 (08:08→20:55)
[2017-04-25] MEDS: predniSONE 2.5 MG TAB PO SCH (08:08)
[2017-04-25] MEDS: SUCRALFATE 1 GM TAB PO SCH ×4 (08:08→20:55)
[2017-04-25] MEDS: HYDROXYCHLOROQUINE 200 MG TAB PO SCH ×2 (08:08→20:55)
[2017-04-25] MEDS: FUROSEMIDE 20 MG TAB PO SCH (08:10)
[2017-04-25] MEDS: METOPROLOL TART 25 MG TABLET PO SCH (08:10)
[2017-04-25 08:22] LABS: INR 1.02
--- NOTE | 2017-04-25 11:24 | IPNPDOC ---
Date Seen The patient was seen on 04/25/17. Progress Note SUBJECTIVE: This is an 82-year-old female patient with underlying medical history of pulmonary embolism 2 years ago requiring lifelong anticoagulation given patient has inflammatory myopathy, hypertension, dyslipidemia, inflammatory myopathy, was seen February 2017 with incarcerated small bowel obstruction secondary to incarcerated internal hernia with small bowel resection. Patient presents to the ED because of recently worsened back pain, with dyspnea on exertion. Lab work revealed that patient was severely anemic, fecal occult was positive for blood. Patient denies any melena, bright red bloody stool. Patient denies vomiting blood. Patient admits to lightheadedness, dizziness but denies syncope. Patient denies any change in urination. Patient's last bowel movement was 10 PM the night before and she remembers a normal brown in color. Pt received 2 units of blood on Tuesday. Since then her H&H has improved. Patient had an IVC filter placed on Tuesday. Patient did well over the weekend. Currently patient denies dizziness, lightheadedness, syncopal episode. Patient is on regular diet. Patient has no pain. She admits to bowel movements without any blood in the stool. Patient is ambulatory in her room OBJECTIVE PHYSICAL EXAMINATION: VITAL SIGNS: Please see below. GENERAL APPEARANCE: Alert female, resting comfortably in chair, reading book. Her color has improved initial presentation RESPIRATORY: Lungs are clear to auscultate anterior, and bilateral. CARDIOVASCULAR: S1 and S2 present no murmurs rubs or gallops. ABDOMEN: Soft, no organomegaly noted, no tenderness to palpation. EXTREMITIES: No edema noted no deformities. LABORATORY DATA: Please see below. LABORATORY DATA: Please see below. MICROBIOLOGY: Please see below. ASSESSMENT AND PLAN: An 82-year-old woman who presents to the ED with back pain , CBC showed the patient was severely anemic. A subsequent fecal occult was positive. Patient was given 3 units of packed red blood cells on Tuesday. Since then patient's labs have improved, and she does not appear as pale as she was on initial presentation. Management of the patient is up to 3 options, all of which were presented to her medicine team. Option 1: Make the patient nothing by mouth for the next 4-6 hours then do an upper GI study to identify the source of bleeding. Option 2: discharge the patient, and treat her empirically for an upper GI bleed. Option 3: Keep the patient overnight, make her nothing by mouth tomorrow morning, and she can be added onto the schedule for an upper GI study by surgery. All of these options were explained to medicine. Currently awaiting their plan. VS, I&O, 24H, Fishbone Vital Signs/I&O Vital Signs Date Time Temp Pulse Resp B/P (MAP) Pulse Ox O2 Delivery O2 Flow Rate FiO2 04/25/17 08:10 60 130/60 04/25/17 06:00 98.8 17 99 Room Air I&O- Last 24 Hours up to 6 AM 04/26/17 05:59 Intake Total 480 ml Balance 480 ml Laboratory Data 24H LABS Laboratory Tests 2 04/25/17 06:48: Prothrombin Time 13.5, Prothromb Time International Ratio 1.02, Anion Gap 6L, Glomerular Filtration Rate > 60.0, Blood Urea Nitrogen 15, Creatinine 0.86, Sodium Level 142, Potassium Level 3.7, Chloride Level 107, Carbon Dioxide Level 29, Calcium Level 8.8, Magnesium Level 2.3 CBC/BMP Laboratory Tests 04/25/17 06:48 Red Blood Count 3.80 L, Mean Corpuscular Volume 81.6, Mean Corpuscular Hemoglobin 24.2 L, Mean Corpuscular Hemoglobin Concent 29.7 L, Red Cell Distribution Width 18.0 H, Calcium Level 8.8 Microbiology Microbiology 04/21/17 Urine Culture - Final, Complete GME ATTESTATION GME ATTESTATION My preceptor for this patient encounter was physically present in the building during the encounter and was fully available. As needed, all aspects of the patient interview, examination, medical decision making process, and medical care plan development were reviewed and approved by the preceptor. Preceptor is aware and concurs with the plan as stated in the body of this note and will attest to such by his/her cosignature. ANTONIO HOLMAN DO Apr 25, 2017 11:24
[2017-04-25 14:53] VITALS: BP_SYST 108; BP_SYST 115; BP_SYST 117; BP_DIAS 56; BP_DIAS 58
--- NOTE | 2017-04-25 15:24 | IPN ---
DATE: 04/25/2017 ATTENDING PHYSICIAN: Dr. David Rojas has had no further rectal bleeding. Her INR is down. Plan is for an upper and lower endoscopy tomorrow. No abdominal pain. No rectal bleeding. Her hemoglobin has been stable. PHYSICAL EXAMINATION: 115/58, pulse is 63, respiratory rate 18, 97% oxygen saturation. GENERAL APPEARANCE: She is resting comfortably, no distress. No jugular venous distention (JVD). LUNGS: Fibrotic rales. HEART: Regular rhythm, 1/6 systolic ejection murmur. ABDOMEN: Soft, nontender. EXTREMITIES: No peripheral edema. LABORATORY DATA: INR is 1.0. Electrolytes unremarkable. Hemoglobin is stable at 9.2. IMPRESSION: 1. Anemia, probably GI source. Eliquis is on hold. Hemoglobin and hematocrit are stable. Has been seen by Dr. Holder's resident. The plan is for endoscopy tomorrow. 2. Acute kidney injury, creatinine is at baseline. 3. Back pain. This is improved today. 4. Hypertension. Blood pressure is well controlled. The rest of her medical problems are stable, as listed yesterday on Dr. Hernandez's note. Dr. Balderas will assume her care in the morning.
[2017-04-25 22:00] VITALS: BP 127/62
[2017-04-26] MEDS: SLF 3 ML SYR IV SCH ×3 (05:19→21:27)
[2017-04-26 06:00] VITALS: BP 111/56
[2017-04-26 07:29] LABS: MEAN CORPUSCULAR HEMOGLOBIN 24.4 pg (27.0-33.0); MEAN CORPUSCULAR HGB CONC 29.9 g/dl (32.0-36.5); MEAN CORPUSCULAR VOLUME 81.4 fl (80.0-96.0); RED CELL DISTRIBUTION WIDTH 18.7 % (11.5-14.5); WHITE BLOOD COUNT 4.1 10^3/uL (4.0-10.0)
[2017-04-26 07:31] LABS: INR 0.95
--- NOTE | 2017-04-26 07:56 | IPNPDOC ---
Date Seen The patient was seen on 04/26/17. Progress Note SUBJECTIVE: This is an 82-year-old female patient with underlying medical history of pulmonary embolism 2 years ago requiring lifelong anticoagulation given patient has inflammatory myopathy, hypertension, dyslipidemia, inflammatory myopathy, was seen February 2017 with incarcerated small bowel obstruction secondary to incarcerated internal hernia with small bowel resection. Patient presents to the ED because of recently worsened back pain, with dyspnea on exertion. Lab work revealed that patient was severely anemic, fecal occult was positive for blood. Patient denies any melena, bright red bloody stool. Patient denies vomiting blood. Patient admits to lightheadedness, dizziness but denies syncope. Patient denies any change in urination. Patient's last bowel movement was 10 PM the night before and she remembers a normal brown in color. This morning pt is doing well. She had no issues overnight. She denies dizziness , lightheadedness, syncopal episode. She was made NPO after midnight with anticipation for her upcoming upper EGD today to discover her source of bleeding. OBJECTIVE PHYSICAL EXAMINATION: VITAL SIGNS: Please see below. GENERAL APPEARANCE: Alert female, resting comfortably in chair, RESPIRATORY: Lungs are clear to auscultate anterior, and bilateral. CARDIOVASCULAR: S1 and S2 present no murmurs rubs or gallops. ABDOMEN: Soft, no organomegaly noted, no tenderness to palpation. EXTREMITIES: No edema noted no deformities. LABORATORY DATA: Please see below. LABORATORY DATA: Please see below. MICROBIOLOGY: Please see below. ASSESSMENT AND PLAN: An 82-year-old woman who presents to the ED with back pain , CBC showed the patient was severely anemic. A subsequent fecal occult was positive. Patient was given 3 units of packed red blood cells on Tuesday. Since then her H and H have stabilized. She denies any more episodes of bleeding. She denies dizziness, lightheadedness and syncope or near syncopal episodes. Her blood thinners will be restarted today and she will be monitored for 24 hrs to ensure that she is not going to have any additional bleeding episodes. After that she will be discharge with instructions to follow up with Dr. Holder in one week for an out patient EGD. VS, I&O, 24H, Fishbone Vital Signs/I&O Vital Signs Date Time Temp Pulse Resp B/P (MAP) Pulse Ox O2 Delivery O2 Flow Rate FiO2 04/26/17 06:00 98.7 81 17 111/56 (74) 98 Room Air Laboratory Data 24H LABS Laboratory Tests 2 04/26/17 07:15: Prothrombin Time 12.8, Prothromb Time International Ratio 0.95 CBC/BMP Laboratory Tests 04/26/17 07:15 Red Blood Count 3.61 L, Mean Corpuscular Volume 81.4, Mean Corpuscular Hemoglobin 24.4 L, Mean Corpuscular Hemoglobin Concent 29.9 L, Red Cell Distribution Width 18.7 H Microbiology Microbiology 04/21/17 Urine Culture - Final, Complete GME ATTESTATION GME ATTESTATION My preceptor for this patient encounter was physically present in the building during the encounter and was fully available. As needed, all aspects of the patient interview, examination, medical decision making process, and medical care plan development were reviewed and approved by the preceptor. Preceptor is aware and concurs with the plan as stated in the body of this note and will attest to such by his/her cosignature. ANTONIO HOLMAN DO Apr 26, 2017 07:56
[2017-04-26] MEDS: SUCRALFATE 1 GM TAB PO SCH ×4 (07:57→20:18)
[2017-04-26 07:59] LABS: ANION GAP 4 MEQ/L (8-16); BLOOD UREA NITROGEN 20 MG/DL (7-18); CALCIUM LEVEL 8.7 MG/DL (8.8-10.2); CARBON DIOXIDE LEVEL 30 MEQ/L (21-32); CHLORIDE LEVEL 107 MEQ/L (98-107); CREATININE FOR GFR 0.86 MG/DL (0.55-1.02); GLOMERULAR FILTRATION RATE > 60.0 (>32); GLUCOSE, FASTING 102 MG/DL (83-110); MAGNESIUM LEVEL 2.3 MG/DL (1.8-2.4); POTASSIUM SERUM 3.7 MEQ/L (3.5-5.1); SODIUM LEVEL 141 MEQ/L (136-145)
[2017-04-26 08:26] VITALS: BP 130/78
[2017-04-26] MEDS: METOPROLOL TART 25 MG TABLET PO SCH (09:00)
[2017-04-26] MEDS: VITAMIN D (CHOLECALCIFEROL) 400 INTERNATIONAL UNITS TAB PO SCH (09:32)
[2017-04-26] MEDS: FUROSEMIDE 20 MG TAB PO SCH (09:33)
[2017-04-26] MEDS: azaTHIOprine 50 MG TAB (J7500) PO SCH (09:33)
[2017-04-26] MEDS: predniSONE 2.5 MG TAB PO SCH (09:33)
[2017-04-26] MEDS: PANTOPRAZOLE 40MG INJ (PROTONIX) (C9113) IV SCH ×2 (09:33→20:18)
[2017-04-26] MEDS: HYDROXYCHLOROQUINE 200 MG TAB PO SCH ×2 (09:33→20:18)
[2017-04-26] MEDS: SENOKOT S TAB PO SCH ×2 (09:33→20:17)
[2017-04-26] MEDS: APIXABAN 5 MG TAB (ELIQUIS) PO SCH ×2 (12:39→20:18)
[2017-04-26 14:30] VITALS: BP 126/60
--- NOTE | 2017-04-26 15:26 | IPNPDOC ---
Subjective Date Seen The patient was seen on 04/26/17. Subjective Chief Complaint/HPI Patient seen and examined at the bedside. States that she is feeling well today , denies any acute complaints of chest pain, shortness of breath, abdominal pain , or any episodes of bright red blood per rectum or dark colored stools. Objective Physical Examination General Exam: Positive: Alert, Cooperative, No Acute Distress ENT Exam: Positive: Atraumatic, Mucous membr. moist/pink Neck Exam: Negative: JVD Chest Exam: Positive: Clear to auscultation, Normal air movement Heart Exam: Positive: Rate Normal, Normal S1, Normal S2 Abdomen Exam: Positive: Soft, Negative: Tenderness Extremity Exam: Negative: Tenderness, Swelling Psych Exam: Positive: Oriented x 3 Assessment /Plan Plan/VTE VTE Prophylaxis Ordered?: Yes Plan Symptomatic Anemia with Dyspnea on exertion Likely 2/2 Occult GI Bleeding s/p Blood Transfusion of 3 Units on 04/22 Hgb has since remained stable No episodes of blood per rectum, dark colored stools The patient's Eliquis has been restarted We did discuss the need for an EGD at some point with the patient, and Surgery-- who has recommended that the patient follow up as an outpatient for an EGD We will monitor the patient for another 24 hrs, as she has been restarted on AC therapy--risks, benefits, and alternative options discussed regarding restarting AC Peripheral Smear, Iron Studies notable Iron Deficiency--the patient has been started on Ferrous Sulfate We will cont to monitor CBC Acute kidney injury 2/2 above, resolved s/p Blood Transfusion, IVF Hydration Hypertension, stable Cont Current Regimen Gastroesophageal reflux disease (GERD) Continue PPI, Carafate Inflammatory myopathy Cont prednisone 2.5, as well as azathioprine and hydroxychloroquine, Outpatient followup with rheumatology Recent Internal hernia with Incarcerated Small Bowel with Resection. Gen Surgery on board--input appreciated Deep venous thrombosis (DVT) prophylaxis Eliquis restarted DISPOSITION: Anticipate D/C in the AM if hemodynamically stable following restart of AC therapy. VS, I&O, 24H, Fishbone Vital Signs/I&O Vital Signs Date Time Temp Pulse Resp B/P (MAP) Pulse Ox O2 Delivery O2 Flow Rate FiO2 04/26/17 14:30 97.5 64 18 126/60 (82) 96 Room Air I&O- Last 24 Hours up to 6 AM 04/27/17 06:00 Intake Total 300 ml Balance 300 ml Laboratory Data 24H LABS Laboratory Tests 2 04/26/17 07:15: Prothrombin Time 12.8, Prothromb Time International Ratio 0.95, Anion Gap 4L, Glomerular Filtration Rate > 60.0, Blood Urea Nitrogen 20H, Creatinine 0.86, Sodium Level 141, Potassium Level 3.7, Chloride Level 107, Carbon Dioxide Level 30, Calcium Level 8.7L, Magnesium Level 2.3 CBC/BMP Laboratory Tests 04/26/17 07:15 Red Blood Count 3.61 L, Mean Corpuscular Volume 81.4, Mean Corpuscular Hemoglobin 24.4 L, Mean Corpuscular Hemoglobin Concent 29.9 L, Red Cell Distribution Width 18.7 H, Calcium Level 8.7 L Microbiology Microbiology 04/21/17 Urine Culture - Final, Complete TIMOTEO HOUSER MD Apr 26, 2017 15:26
[2017-04-26] MEDS: FERROUS SULFATE 325MG TAB PO SCH (15:59)
[2017-04-26 22:00] VITALS: BP 118/61
[2017-04-27] MEDS: SLF 3 ML SYR IV SCH (05:11)
[2017-04-27 06:00] VITALS: BP 105/54
[2017-04-27 06:22] LABS: MEAN CORPUSCULAR HEMOGLOBIN 24.6 pg (27.0-33.0); MEAN CORPUSCULAR HGB CONC 30.6 g/dl (32.0-36.5); MEAN CORPUSCULAR VOLUME 80.4 fl (80.0-96.0); RED CELL DISTRIBUTION WIDTH 19.1 % (11.5-14.5); WHITE BLOOD COUNT 3.8 10^3/uL (4.0-10.0)
[2017-04-27 06:34] LABS: INR 1.28
[2017-04-27 06:37] LABS: ANION GAP 5 MEQ/L (8-16); BLOOD UREA NITROGEN 19 MG/DL (7-18); CARBON DIOXIDE LEVEL 28 MEQ/L (21-32); CHLORIDE LEVEL 108 MEQ/L (98-107); CREATININE FOR GFR 0.71 MG/DL (0.55-1.02); GLOMERULAR FILTRATION RATE > 60.0 (>32); GLUCOSE, FASTING 96 MG/DL (83-110); MAGNESIUM LEVEL 2.3 MG/DL (1.8-2.4); POTASSIUM SERUM 3.6 MEQ/L (3.5-5.1); SODIUM LEVEL 141 MEQ/L (136-145)
[2017-04-27] MEDS: SUCRALFATE 1 GM TAB PO SCH ×2 (08:29→12:02)
[2017-04-27 08:51] VITALS: BP 120/55
[2017-04-27] MEDS ORDERED: PANTOPRAZOLE 40MG TAB (PROTONIX) PO SCH (09:00)
[2017-04-27 10:53] VITALS: BP 120/55
[2017-04-27] MEDS: VITAMIN D (CHOLECALCIFEROL) 400 INTERNATIONAL UNITS TAB PO SCH (10:53)
[2017-04-27] MEDS: azaTHIOprine 50 MG TAB (J7500) PO SCH (10:53)
[2017-04-27] MEDS: METOPROLOL TART 25 MG TABLET PO SCH (10:53)
[2017-04-27] MEDS: FERROUS SULFATE 325MG TAB PO SCH (10:54)
[2017-04-27] MEDS: APIXABAN 5 MG TAB (ELIQUIS) PO SCH (10:54)
[2017-04-27] MEDS: HYDROXYCHLOROQUINE 200 MG TAB PO SCH (10:54)
[2017-04-27] MEDS: FUROSEMIDE 20 MG TAB PO SCH (10:54)
[2017-04-27] MEDS: SENOKOT S TAB PO SCH (10:54)
[2017-04-27] MEDS: predniSONE 2.5 MG TAB PO SCH (10:54)
[2017-04-27] MEDS ORDERED: SUCR1TA PO (11:48)
[2017-04-27] MEDS ORDERED: PANT40TA2 PO (11:48)
[2017-04-27] MEDS ORDERED: FERR1TAB8 PO (11:48)
--- NOTE | 2017-05-01 13:02 | DS.PDOC ---
Discharge Summary General Date of Admission Apr 21, 2017 at 22:35 Date of Discharge 04/27/17 Specialist/Consultants Involve: Gallo Singh,Lisandro Becerra Discharge Summary PROCEDURES PERFORMED DURING STAY: None. ADMITTING/DISCHARGE DIAGNOSES: 1. . Symptomatic anemia 2/2 Occult GI Bleed 2. . Hypertension 3. . History of Inflammatory myopathy COMPLICATIONS/CHIEF COMPLAINT: Gi Bleed,Low Back Pain. HISTORY OF PRESENT ILLNESS: . 82-year-old female with past medical history of pulmonary embolism 2 years prior requiring lifelong anticoagulation given underlying inflammatory myopathy , hypertension, dyslipidemia, GERD, and osteoporosis presented to the ER with a chief complaint of progressively worsening dyspnea on exertion over the previous 2-3 weeks. Patient denied any fevers, chills, chest pain, palpitations , melena, abdominal pain, or any nausea/vomiting/diarrhea. She reported a generalized weakness, that has been progressively worsening. In the ER, the patient was noted to have a hemoglobin of 7.2. Her baseline appears to be closer to 9-10. The patient was otherwise noted to be hemodynamically stable. The patient was admitted to the hospital service for further evaluation and management. During hospitalization, the patient was provided with 3 units of packed red blood cell transfusion. Given the patient's recent operation for internal hernia with incarcerated small bowel with resection, surgery was consulted. There were no recommendations made for any acute intervention by surgery. The patient's hemoglobin remained stable. The patient did not have any episodes of blood per rectum or dark color stools. We did discuss the need for an EGD at some point with the patient. Surgery has recommended that the patient follow up as an outpatient for an EGD as she has remained stable her. The patient was restarted on Elqiuis for PE/DVT prophylaxis given her history. The risks, benefits, and alternative options were discussed regarding restarting antibiotics with the patient. She verbalized understanding of the same. The patient was monitored for 24 hours after restarting anticoagulation. The patient 's hemoglobin and hemodynamic status remained stable. At this time, the patient states that she is feeling well and is eager to return home. I've advised the patient to follow-up with her PCP within 7 days. In addition, the patient has been advised to follow-up with surgery as an outpatient for an EGD. I have consulted the patient to return to the ER for any acute emergencies, including dark color stools, bright red blood per rectum, or worsening of symptoms. DISCHARGE MEDICATIONS: Please see below. ALLERGIES: Please see below. PHYSICAL EXAMINATION ON DISCHARGE: VITAL SIGNS: Please see below. General Exam: Positive: Alert, Cooperative, No Acute Distress ENT Exam: Positive: Atraumatic, Mucous membr. moist/pink Neck Exam: Negative: JVD Chest Exam: Positive: Clear to auscultation, Normal air movement Heart Exam: Positive: Rate Normal, Normal S1, Normal S2 Abdomen Exam: Positive: Soft, Negative: Tenderness Extremity Exam: Negative: Tenderness, Swelling Psych Exam: Positive: Oriented x 3 LABORATORY DATA: Please see below. IMAGING: CLINICAL HISTORY: Central back pain. TECHNIQUE: Multiple axial, coronal, sagittal CT images were obtained through the chest with IV contrast material. FINDINGS: There is no evidence of pleural or parenchymal mass. There are no pleural effusions. There is no evidence of hilar or mediastinal lymphadenopathy. Specifically, there is no evidence for paratracheal and supraclavicular adenopathy. There is no evidence for a chest or abdominal wall nodule or mass. The heart is moderately enlarged. There are increased peripheral interstitial lung markings with bibasilar predominance, compatible with early pulmonary fibrosis. Note is made of several small bilateral thyroid lobe nodules. Correlation with thyroid ultrasound is recommended The bony structures are free of lytic or blastic lesions. IMPRESSION: 1. The heart is moderately enlarged. 2. There are increased peripheral interstitial lung markings with bibasilar predominance, compatible with early pulmonary fibrosis. 3. Note is made of several small bilateral thyroid lobe nodules. Correlation with thyroid ultrasound is recommended. MR LUMBAR SPINE WITHOUT CONTRAST: HISTORY: Back pain. A rudimentary disc is present at the S1-2 level. Decreased signal intensity on T2-weighted images is present in the lumbar intervertebral discs. The L3-4 through L5-S1 intervertebral discs are decreased in height. These findings are consistent with disc degeneration. A small central disc protrusion is present at the L1-2 level. There is minimal compression of the thecal sac. The L1 nerves exit the neural foramina without compression. There is no disc bulge or herniation at the L2-3 level. There is hypertrophy of the posterior articulating facets. The L2 nerves exit the neural foramina without compression. A diffuse disc bulge is present at the L3-4 level. There is hypertrophy of the ligamenta flava and posterior articulating facets. These findings produce minimal central canal stenosis. The L3 nerves exit the neural foramina without compression. A diffuse disc bulge is present at the L4-5 level. There is hypertrophy of the ligamenta flava and posterior articulating facets. There are 4 mm of grade 1 spondylolisthesis of L4 on 5. These findings produce moderate central canal stenosis. The L4 nerves exit the neural foramina without compression. A diffuse disc bulge is present at the L5-S1 level. There is hypertrophy of the ligamenta flava and posterior articulating facets. These findings produce minimal central canal stenosis. The L5 nerves exit the neural foramina without compression. The conus medullaris is normal in appearance terminating at the level of the L1- 2 intervertebral disc. Normal signal intensity is present in the lumbar vertebral bodies. IMPRESSION: 1. Small central disc protrusion at the L1-2 level with minimal thecal sac compression. 2. Minimal central canal stenosis at the L3-4 and L5-S1 levels secondary to disc bulge, ligamentous and facet hypertrophy. 3. Moderate central canal stenosis at the L4-5 level secondary to disc bulge, ligamentous and facet hypertrophy and grade 1 spondylolisthesis. MRI THORACIC SPINE WITHOUT CONTRAST: HISTORY: Back pain. A small central disc protrusion is present at the T3-4 level. There is minimal effacement of the thecal sac without spinal cord compression. The T3 neural foramen are patent. A small right paracentral disc protrusion is present at the T7-8 level. There is minimal effacement of the thecal sac without spinal cord compression. The T7 neural foramina are patent. There is no other disc bulge or herniation. The remaining neural foramina are patent. The spinal cord is normal in signal intensity. There is loss of height of several mid and lower thoracic intervertebral discs consistent with disc degeneration. Increased signal intensity on T2-weighted images is present in the end plates of several mid and lower thoracic vertebral bodies. This represents degenerative change. Impression: Small disc protrusions at the T3-4 and T7-8 levels without spinal cord compression. Bilateral lower extremity Duplex Doppler venous ultrasound: Real time compression and duplex Doppler interrogation of the bilateral lower extremity deep venous system is performed. Bilaterally, the common femoral, superficial femoral and popliteal veins are fully compressible with transducer pressure and demonstrate normal spontaneous and phasic flow, without evidence of deep venous thrombosis. Impression: No evidence of deep venous thrombosis of the bilateral lower extremity femoral popliteal venous system. CLINICAL HISTORY: Central back pain. TECHNIQUE: Multiple axial, coronal, sagittal CT images were obtained through the abdomen and pelvis with IV contrast material. FINDINGS: The liver is of uniform attenuation without mass or defect. The gallbladder contains what appears to be a large cluster of gallstones measuring approximately 1.5 cm. Correlation with a right upper quadrant ultrasound is recommended. The gallbladder is underdistended. There is no intrahepatic or extrahepatic biliary ductal dilatation. The spleen is normal. The pancreas is of normal contour and attenuation characteristics. There is no evidence of adrenal mass. Note is made of numerous calculi in the right renal pelvis, 30 to 40 small calculi are present, most of which measure between 2 and 3 mm, but some measure up to 5 to 6 mm. There is mild right hydronephrosis present. Several cysts are present in the left kidney, the largest measures 2.5 cm, located in the superior pole. Note is made of fluid-filled, mildly thick-walled loops of jejunum compatible with jejunitis. Infectious and inflammatory etiologies are considered. There is evidence of surgical anastomosis in the distal ileum. No evidence for small or large bowel obstruction. There is no evidence of abdominal ascites or lymphadenopathy. The appendix is not identified with certainty. The uterus and ovaries appear atrophic. There is no evidence of intrinsic or extrinsic bladder mass. There is no pelvic ascites or lymphadenopathy. The bony structures are free of lytic or blastic lesions. IMPRESSION: The gallbladder contains what appears to be a large cluster of gallstones measuring approximately 1.5 cm. Correlation with a right upper quadrant ultrasound is recommended. Note is made of numerous calculi in the right renal pelvis, 30 to 40 small calculi are present, most of which measure between 2 and 3 mm, but some measure up to 5 to 6 mm. There is mild right hydronephrosis present. Several cysts are present in the left kidney, the largest measures 2.5 cm, located in the superior pole. Note is made of fluid-filled, mildly thick-walled loops of jejunum compatible with jejunitis. Infectious and inflammatory etiologies are considered. There is evidence of surgical anastomosis in the distal ileum. PROGNOSIS: ACTIVITY: As tolerated. DIET: . 2 g sodium diet DISCHARGE PLAN: DISPOSITION: 01 Home, Self-Care. DISCHARGE INSTRUCTIONS: 1. . Follow with PCP within 7 days 2. . Follow-up with surgery as an outpatient to obtain EGD 3. . Return to the ER for any acute emergencies ITEMS TO FOLLOWUP ON ON OUTPATIENT: Several small bilateral thyroid lobe nodules noted on Imaging. F/U as an outpatient for thyroid ultrasound recommended DISCHARGE CONDITION: Stable. TIME SPENT ON DISCHARGE: Greater than 30 minutes. Vital Signs/I&Os Vital Signs Date Time Temp Pulse Resp B/P (MAP) Pulse Ox O2 Delivery O2 Flow Rate FiO2 04/27/17 10:53 65 120/55 04/27/17 08:51 95.5 17 100 Room Air Microbiology Microbiology 04/21/17 Urine Culture - Final, Complete Discharge Medications Scheduled Alendronate Sodium (Alendronate Sodium) 70 Mg Tab, 70 MG PO ASDIRECTED, ( Reported) TAKES ON TUESDAY MORNINGS Apixaban Base (Eliquis) 5 Mg Tab, 5 MG PO BID, (Reported) Aspirin (Aspirin EC) 81 Mg Tabec, 81 MG PO DAILY, (Reported) Azathioprine (Azathioprine) 50 Mg Tab, 100 MG PO DAILY, (Reported) Calcium (Calcium) 600 Mg Tab, 600 MG PO BID, (Reported) Cholecalciferol (Vitamin D) 400 Unit Tab, 400 UNIT PO DAILY, (Reported) Cyanocobalamin (Cyanocobalamin) 1,000 Mcg/1 Ml Inj, 1,000 MCG IM ASDIRECTED, ( Reported) TAKES ONCE A MONTH TYPICALLY AROUND THE 15 Ferrous Sulfate (Ferrous Sulfate) 325 Mg Tab, 325 MG PO DAILY Furosemide (Furosemide) 20 Mg Tab, 20 MG PO DAILY, (Reported) Hydroxychloroquine Sulfate (Hydroxychloroquine Sulfat) 200 Mg Tab, 200 MG PO BID , (Reported) Metoprolol Tartrate (Metoprolol Tartrate) 25 Mg Tab, 25 MG PO DAILY, (Reported) Pantoprazole Sodium (Pantoprazole Sodium) 40 Mg Tab, 40 MG PO BID Prednisone (Prednisone) 5 Mg Tab, 2.5 MG PO DAILY, (Reported) Sucralfate (Carafate) 1 Gm Tab, 1 GM PO ACHS Scheduled PRN Milk Of Magnesia (Milk of Magnesia) 1,200 Mg/15 Ml Jada, 30 ML PO DAILY PRN for CONSTIPATION, (Reported) Allergies Coded Allergies: No Known Allergies (Unverified , 03/22/13) TIMOTEO HOUSER MD May 01, 2017 13:01
--- NOTE | 2017-05-04 10:08 | REPKIM ---
DATE OF PROCEDURE: 04/22/2017 PREPROCEDURE DIAGNOSES: Gastrointestinal bleeding. History of pulmonary embolus. Small bowel obstruction. POSTPROCEDURE DIAGNOSES: Gastrointestinal bleeding. History of pulmonary embolus. Small bowel obstruction. PROCEDURE: Ultrasound and fluoroscopic guided inferior vena cava filter placement. SURGEON: Dr. Facundo Wu. MILL ROLL REWINDER: ANESTHESIA: Local MAC. ESTIMATED BLOOD LOSS: 10 mL. IV FLUID: 200 mL. FLUOR TIME: 45 seconds. CONTRAST: None. COMPLICATIONS None. DRAINS: None. SPECIMENS: None. IMPLANTS: Rock inferior vena cava filter. INDICATION: The patient is an 82-year-old female with a previous history of pulmonary embolus who was on anticoagulation and has developed a gastrointestinal bleed and needs to cease use of her anticoagulation and is at high risk for recurrent deep venous thrombosis and pulmonary embolus. The patient will undergo placement of an inferior vena cava filter. Risks, benefits and alternative treatment options were discussed with the patient. DESCRIPTION OF PROCEDURE: The patient was taken to the operating room and placed supine on the operating room table and then prepped and draped in the standard surgical fashion. Ultrasound was used to guide cannulation of the right common femoral vein after anesthetizing the overlying field with 1% lidocaine. Real-time concurrent ultrasound visualization of the entry of the needle into the right common femoral vein was performed with a hard copy image preserve. The micropuncture wire was then advanced into the micropuncture sheath which was upsized to a micropuncture sheath. A sheath was then placed in the inferior vena cava selectively after which the filter ws deployed at the lumbar 3/lumbar 4 level with no venogram performed due to the patient's renal status and risk for renal contrast nephropathy. The sheath was removed and manual compression applied at the right femoral entry site. Dressings were then applied. The patient tolerated the procedure well. All instrument sponge and needle counts were correct at the end of the case. There were no complications. Dr. Wu ws present for and directed the entire case. TE patient was transferred to the recovery room and subsequently to the floor in stable condition. RADIOLOGIC SUPERVISION INTERPRETATION: Ultrasound was used to cannulate the right common femoral vein, which was easily compressible, widely patent and free of thrombus. A hard copy image was preserved with real-time concurrent visualization of the entry of the needle into the right common femoral vein. The filter was then placed at the lumbar 3/lumbar 4 level under fluoroscopic guidance with no venogram performed due to concerns for contrast nephropathy.
[2017-05-08] MEDS ORDERED: CYANOCOBALAMIN 1,000 MCG/ML VIAL (J3420) IM SCH (09:00)
[2017-05-23] MEDS ORDERED: TYLE325C PO (11:27)
== END 2017-04-27 12:26 | disposition home or self-care (01) | DRG 357 ==
LOC: M ED 15:40 → M ED INP 22:35 → M ICU 04-22 12:20 → M MSPAV 04-24 11:44
PROVIDERS: ADMIT Hospitalist; ATTEND Internal Medicine
PROC: 30233N1 Transfusion of Nonautologous Red Blood Cells into Peripheral Vein, Percutaneous Approach (ICD-10-PCS; 2017-04-22)
PROC: 06V03DZ Restriction of Inferior Vena Cava with Intraluminal Device, Percutaneous Approach (ICD-10-PCS; principal; 2017-04-22 10:10)
DX: K92.2 Gastrointestinal hemorrhage, unspecified (principal); N17.9 Acute kidney failure, unspecified; I10 Essential (primary) hypertension; Z86.711 Personal history of pulmonary embolism; Z79.01 Long term (current) use of anticoagulants; K21.9 Gastro-esophageal reflux disease without esophagitis; E78.5 Hyperlipidemia, unspecified; G72.49 Other inflammatory and immune myopathies, not elsewhere classified; M54.5 Low back pain; E04.1 Nontoxic single thyroid nodule; J84.10 Pulmonary fibrosis, unspecified; K80.20 Calculus of gallbladder without cholecystitis without obstruction; Z79.82 Long term (current) use of aspirin; Z79.899 Other long term (current) drug therapy; E86.0 Dehydration; M81.0 Age-related osteoporosis without current pathological fracture; Z96.651 Presence of right artificial knee joint; E53.8 Deficiency of other specified B group vitamins; D64.9 Anemia, unspecified

== ENCOUNTER 2019-11-19 19:16 | Inpatient (IN) | payer MEDICARE ==
[~2019-11-19] VITALS: Ht 172.7 cm; Wt 101.2 kg
[~2019-11-19 19:16] MED LIST changes: -/WARF25TA PO; -ACET50TA PO; -ALEN70TA39 PO; +ALEN70TA74 PO; +ALEV220T26 PO; -ASPI1TAB PO; +ASPI81TA26 PO; +ASPI81TAEC PO; +COUM1TAB18 PO; +FERR1TAB8 PO; +FOLI1TAB11 PO; -FOLI1TAB4 PO; +KLOR10TA76 PO; +MAPA500T17 PO; +METH2.5T48 PO; -METH2.5TA PO; +METO-346; +METO1TAB63 PO; -METO25TAB PO; +MILK120011 PO; -MILKSUS PO; +OXYC1TAB23 PO; -PANT40TA2 PO; +PANT40TA3 PO; -PERCOCET PO; -POTA10CA PO; +SUCR1TA PO; +TYLE325C PO
[2019-11-19] MEDS ORDERED: MORPHINE 2 MG/ML 1ML VIAL (J2270) IV ONE (19:30)
--- NOTE | 2019-11-19 19:52 | REPVR ---
PROCEDURE INFORMATION: Exam: CT Cervical Spine Without Contrast Exam date and time: 11/19/2019 7:44 PM Age: 84 years old Clinical indication: Injury or trauma; Fall; Initial encounter; Blunt trauma; Additional info: Fall injury; On thinners TECHNIQUE: Imaging protocol: Computed tomography images of the cervical spine without contrast. Radiation optimization: All CT scans at this facility use at least one of these dose optimization techniques: automated exposure control; mA and/or kV adjustment per patient size (includes targeted exams where dose is matched to clinical indication); or iterative reconstruction. COMPARISON: No relevant prior studies available. FINDINGS: No traumatic segmental malalignment of cervical spine or craniocervical junction. Vertebral body height is maintained at all levels. No acute fracture. No destructive or blastic cervical spine osseous lesion. Intervertebral disc height is decreased at multiple levels, with typical degenerative pattern and associated endplate, articular pillar and uncovertebral spurs. Prevertebral soft tissues demonstrate no asymmetry. No concerning abnormality of the imaged lung apices. IMPRESSION: No acute fracture or traumatic subluxation of the cervical spine. Multilevel degenerative disc and articular pillar arthropathy without high-grade osseous spinal canal stenosis. Electronically signed by: John Yu On 11/19/2019 19:52:07 PM
--- NOTE | 2019-11-19 19:54 | REPVR ---
PROCEDURE INFORMATION: Exam: CT Head Without Contrast Exam date and time: 11/19/2019 7:44 PM Age: 84 years old Clinical indication: Pain; Headache; Additional info: Fall injury; On thinners TECHNIQUE: Imaging protocol: Computed tomography of the head without contrast. Radiation optimization: All CT scans at this facility use at least one of these dose optimization techniques: automated exposure control; mA and/or kV adjustment per patient size (includes targeted exams where dose is matched to clinical indication); or iterative reconstruction. COMPARISON: CT Head without contrast 11/13/2015 9:04 AM FINDINGS: Brain: No intracranial mass, focal mass effect or midline shift. No acute intracranial hemorrhage. Mild decreased attenuation in periventricular/centrum semiovale white matter. No focal effacement of cortical sulci to indicate acute cortical infarct. Ventricles: Prominent ventricles and CSF spaces suggest parenchymal volume loss. Bones/joints: No calvarial fracture or destructive process. Sinuses: Frontal, sphenoid and ethmoid sinus opacification. No obvious fracture Mastoid air cells: Mastoid air cells are normally aerated. Orbits: Visualized globes and orbits are unremarkable. Soft tissues: No focal extracranial soft tissue swelling. IMPRESSION: 1. No acute intracranial abnormality. 2. Atrophy and chronic microangiopathic change in supratentorial white matter. 3. Paranasal sinus opacification without evidence of acute facial fracture Electronically signed by: John Yu On 11/19/2019 19:53:58 PM
[2019-11-19 20:36] LABS: BASO % 0.5 % (0.0-1.0); EOS % 0.2 % (0.0-3.0); HEMATOCRIT 41.9 % (36.0-47.0); HEMOGLOBIN 13.8 g/dl (12.0-15.5); LYMPH # 0.3 10^3/uL (1.5-5.0); LYMPH % 5.2 % (24.0-44.0); MEAN CORPUSCULAR HEMOGLOBIN 31.9 pg (27.0-33.0); MEAN CORPUSCULAR HGB CONC 32.9 g/dl (32.0-36.5); MEAN CORPUSCULAR VOLUME 96.8 fl (80.0-96.0); MONO # 0.5 10^3/uL (0.0-0.8); NEUTROPHILS # 5.5 10^3/uL (1.5-8.5); NEUTROPHILS % 84.6 % (36.0-66.0); PLATELET COUNT, AUTOMATED 226 10^3/uL (150-450); RED BLOOD COUNT 4.33 10^6/uL (4.00-5.40); WHITE BLOOD COUNT 6.5 10^3/uL (4.0-10.0)
[2019-11-19] MEDS: MORPHINE 4 MG/ML 1ML VIAL/SYRINGE (J2270) IV PRN ×2 (20:41→22:27)
[2019-11-19 20:46] LABS: INR 1.46; PROTHROMBIN TIME 17.4 SECONDS (11.8-14.0)
[2019-11-19 20:47] LABS: PARTIAL THROMBOPLASTIN TIME 28.3 SECONDS (25.0-38.4)
[2019-11-19] MEDS: AMIODARONE 200 MG TAB (PACERONE) PO SCH (21:00)
[2019-11-19] MEDS: diltiaZEM **CD** 180 MG CAP PO SCH (21:00)
[2019-11-19 21:09] LABS: CALCIUM LEVEL 9.2 MG/DL (8.8-10.2); CK-MB VALUE MASS 5.9 NG/ML (<3.6); CREATININE FOR GFR 0.99 MG/DL (0.55-1.30); GLOMERULAR FILTRATION RATE 56.8 (>32); MB/CK RELATIVE INDEX 3.49 (< OR =4); POTASSIUM SERUM 4.1 MEQ/L (3.5-5.1); TROPONIN I 0.02 NG/ML (< 0.10)
[2019-11-19] MEDS ORDERED: ACETAMINOPHEN *IV* 1,000 MG in IV 1 EA IV ONE (21:30)
[2019-11-19] MEDS ORDERED: CALCTAB6 PO (22:08)
[2019-11-19] MEDS ORDERED: FERR325T3 PO (22:09)
[2019-11-19] MEDS ORDERED: METO1TAB32 PO (22:12)
[2019-11-19] MEDS ORDERED: PANT20TA2 PO (22:13)
[2019-11-19] MEDS ORDERED: VITA-158 PO (22:14)
[2019-11-19] MEDS ORDERED: VITA250T4 PO (22:18)
[2019-11-19] MEDS ORDERED: LEVO50TA45 PO (22:18)
[2019-11-19] MEDS ORDERED: DILT180C43 PO (22:18)
[2019-11-19] MEDS ORDERED: AMIO200T PO (22:18)
[2019-11-19] MEDS ORDERED: POTA10TA17 PO (22:18)
--- NOTE | 2019-11-19 22:31 | ECGEPIP ---
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
--- NOTE | 2019-11-19 23:07 | HPEPDOC ---
General Date of Admission Nov 19, 2019 at 20:43 Date of Service: Nov 19, 2019 Primary Care Physician: Meg Ham Attending Physician: KATELIN AGARWAL MD Chief Complaint The patient is a 84-year-old female admitted with a reason for visit of Hip Fracture,Left. History of Present Illness HPI: This is an 84-year-old female with extensive past medical history as listed below, chronically on Eliquis for paroxysmal A. fib and history of PE, presenting after sustaining a mechanical fall. She reports she was reaching for the door but overshot and lost her balance; denies any other symptoms prior to the fall. She hit the left side of her head and body on the floor. Denies any loss of consciousness or any bleeding. Her only complaint is severe pain in the left hip, which was found to have intertrochanteric fracture on imaging. Remaining imaging was negative for any other fracture or dislocation or bleed. She is otherwise hemodynamically stable and will be admitted for medical management and ultimate surgical repair for fracture. ER has spoken with orthopedic surgeon Dr. Holden who plans to take her to the OR after withholding her Eliquis for a few days. PMH: Paroxysmal A. 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 Admits pain left hip from fall Neurologic: Denies new numbness/tingling PHYSICAL: General exam: A&O x3, NAD, resting comfortably HEENT: NCAT, EOMI, supple neck, MMM Cardiac: regular rhythm, slow rate, normal S1 & S2, 2/6 systolic murmur, trace LE edema b/l Respiratory: CTAB, good air exchange, no w/r/r Abdomen: soft, NT, ND, normoactive bowel sounds, healed scar Extremity: 2+ radial pulses, no calf tenderness Skin: [place], warm, dry, no visible rash Msk: strength 5/5 x3, minimal mvmt in LLE due to hip pain, left leg shorter by few inches Neuro: normal speech, no focal deficits, sensation intact throughout Psych: Normal mood and affect LABORATORY DATA, MICROBIOLOGY: Please see below. ASSESSMENT AND PLAN: 84-yo F chronically on Eliquis for PAF & PE presenting after a mechanical fall when she overreached for the door and lost balance, found to have a left hip fracture. Hemodynamically stable and pending surgical repair later this week. 1. Left hip fracture - s/p mechanical fall - Ortho Constulted, Dr. Holden to take pt to OR in few days after withholding Eliquis - pain control, bedrest, fall risk precautions. Eliquis on hold - PT/OT when able 2. Bradycardia - noted to be in 40s-50s, asymptomatic - monitor as she receives narcotics. On tele - hold parameters on home meds 3. Elevated BNP - in 900s, trace edema on exam, otherwise appears euvolemic - no documented hx of CHF - monitor vol status, echo pending For the remainder of her chronic medical conditions listed above, home meds are resumed except Eliquis pending surgery. DVT prophylaxis: mechanical CODE STATUS: discussed in depth, pt unsure and would like time to consider. In the event that she is unable to make decisions, she would like her to. DISPOSITION: admit to hospital, pending Ortho eval, surgery later in the week. Home Medications Scheduled Alendronate Sodium (Alendronate Sodium) 70 Mg Tab, 70 MG PO ASDIRECTED, (Reported) TAKES ON TUESDAY MORNINGS Amiodarone HCl (Amiodarone HCl) 200 Mg Tablet, 200 MG PO BID, (Reported) Apixaban (Eliquis) 5 Mg Tab, 5 MG PO BID, (Reported) Ascorbic Acid (Vitamin C) 250 Mg Tablet, 250 MG PO QPM, (Reported) Azathioprine (Azathioprine) 50 Mg Tab, 100 MG PO DAILY, (Reported) Calcium Carbonate/Vitamin D3 (Calcium 600-Vit D3 400 Tablet) 1 Each Tablet, 1 TAB PO BID, (Reported) Diltiazem HCl (Diltiazem 24Hr ER) 180 Mg Cap.er.24h, 180 MG PO QPM, (Reported) Ferrous Sulfate (Ferrous Sulfate) 325 Mg Tablet.dr, 325 MG PO DAILY, (Reported) Furosemide (Furosemide) 20 Mg Tab, 20 MG PO DAILY, (Reported) Hydroxychloroquine Sulfate (Hydroxychloroquine Sulfate) 200 Mg Tab, 200 MG PO BID, (Reported) Levothyroxine Sodium (Levoxyl) 50 Mcg Tablet, 50 MCG PO DAILY, (Reported) Metoprolol Succinate (Metoprolol Succinate) 25 Mg Tab.er.24h, 25 MG PO DAILY, (Reported) Pantoprazole Sodium (Pantoprazole Sodium) 20 Mg Tablet.dr, 20 MG PO DAILY, (Reported) Potassium Chloride (Potassium Chloride) 10 Meq Tab.er.prt, 10 MEQ PO DAILY, (Reported) Prednisone (Prednisone) 5 Mg Tab, 2.5 MG PO DAILY, (Reported) Allergies Coded Allergies: No Known Allergies (Unverified , 03/22/13) A-FIB/CHADSVASC A-FIB History Current/History of A-Fib/PAF?: Yes Current PO Anticoag Therapy: Yes Vital Signs Vital Signs Date Time Temp Pulse Resp B/P (MAP) Pulse Ox O2 Delivery O2 Flow Rate FiO2 11/19/19 22:27 18 97 Room Air 11/19/19 22:00 47 131/57 (81) 11/19/19 19:37 96.8 Laboratory Data Labs 24H Laboratory Tests 2 11/19/19 20:29: Immature Granulocyte % (Auto) 1.5, Neutrophils (%) (Auto) 84.6H, Lymphocytes (%) (Auto) 5.2L, Monocytes (%) (Auto) 8.0H, Eosinophils (%) (Auto) 0.2, Basophils (%) (Auto) 0.5, Neutrophils # (Auto) 5.5, Lymphocytes # (Auto) 0.3L, Monocytes # (Auto) 0.5, Eosinophils # (Auto) 0.0, Basophils # (Auto) 0.0, Nucleated Red Blood Cells % (auto) 0.0, Prothrombin Time 17.4H, Prothromb Time International Ratio 1.46, Activated Partial Thromboplast Time 28.3, Anion Gap 7L, Glomerular Filtration Rate 56.8, Calcium Level 9.2, Total Creatine Kinase 169, Creatine Kinase MB 5.9H, Creatine Kinase MB Relative Index 3.49, Troponin I 0.02, SE-Fyw-V-Type Natriuretic Peptide 901H CBC/BMP Laboratory Tests 11/19/19 20:29 Plan / VTE VTE Prophylaxis Ordered?: Yes GME ATTESTATION GME ATTESTATION My faculty preceptor for this patient encounter was physically present during the encounter and was fully available. All aspects of the patient interview, examination, medical decision making process, and medical care plan development were reviewed and approved by the faculty preceptor. The faculty preceptor is aware and concurs with the plan as stated in the body of this note and will attest to such by his/her cosignature. ATTENDING NOTE TIME OF SERVICE 905PM I reviewed 's H&P and agree with the findings with the following additions: CC: Fall Ms Puentes is a w a PMH of Chronic HTN, dyslipidemia, dermatomyositis, SBO requiring resection, PE, GERD, B12 Deficiency and osteoporosis who is admitted for management of a left hip fx. 1. Fall The patient reports feeling weaker than usual being less active this winter and didnt have her cane when she had the fall. Its possible that the fall was due to deconditioning. It is less likely that it was due to dermatomyositis flare bc she denies having any muscle pain. Other possible causes include: arrhythmia, or orthostats. Plan: Admit to medical floor/ fall precautions / PT eval 2. Left hip Fracture in a patient with pre-existing Osteoporosis Her risk factors for osteoporosis include age >60, and chronic steroid use She developed this fx despite chronically taking Alendronate Plan: f/u w for surgery in a few days / pain meds / PT consult / since she has had what appears to be alendronate failure? she will a repeat DEXA Scan, and will likely need to be upgraded to a RANKL inhibitor such as denosumab, if her T score is < -3 she will also need to be started on Terapiratide; the day time team can call Endocrinology in the morning to discuss the timing of the new DEXA scan, and whether the patient should follow up with them office on an outpatient basis / in the meanwhile we will check her TSH to ensure that her levothyroxine is optimally dosed, her magnesium because low levels of Mg inhibit optimal calcium absorption and vitamin D / we will c/w her current dose of Oscal-D 3. Preoperative Assessment Plan: Her revised Cardiac Index to asses risk of MACE from surgery score is 0, because she is >65 yrs of age we also checked her pro-BNP which was 901 therefore the only other perioperative testing she will need is to be on telemetry and have her troponin checked daily. Otherwise it is reasonable to proceed with surgery. We will hold her apixaban for at least 24-36 hours prior to surgery. / Her alendronate should be held only on the morning of surgery. / Since she is on low dose prednisone (<10 mg/d), stress dosing of glucocorticoids is not required and it is ok for her to take her usual glucocorticoid dose on the morning of surgery. / There is no need to withhold hydroxychloroquine prior to surgery because it is a non-biologic DMARD. / We will ask the day time team to consult Rheumatology at [facility] to discuss whether the patients azathioprine should be held (because it is also an immunomodulating medication and can affect wound he aling) and if so, for how many days prior to her procedure. 4. Asymptomatic bradycardia likely 2/2 CCB - Plan: telemetry & f/u TSH 5. Paroxysmal A. fib. EKG showed a fib w Hr of 53, and SV PACs - Plan: telemetry / c/w diltiazem & amiodarone / Eliquis on hold 6. History of PEs - Plan: Eliqus on hold / SCDs 7. Dermatomyositis / Inflammatory Myopathy - Plan: Plaquenil & prednisone w PPI 8. Hypothyroidism Plan: Levothyroxine 9. Chronic HTN Plan: diltiazem, furosemide, metoprolol DISPO: will likely need more than 2 midnight's stay prior to transfer to ARU for rehab TICO DEE DO Nov 19, 2019 23:07 KATELIN AGARWAL MD Nov 20, 2019 00:38
[2019-11-19 23:57] VITALS: BP 107/71
[2019-11-20] MEDS: CALCIUM/VITAMIN D 500 MG TAB PO SCH ×3 (00:12→21:17)
[2019-11-20] MEDS: LIDOCAINE 5% (LIDODERM) PATCH TD SCH ×2 (00:12→21:17)
[2019-11-20] MEDS: MORPHINE 2 MG/ML 1ML VIAL (J2270) IV PRN ×7 (00:12→22:30)
[2019-11-20 00:59] LABS: THYROID STIMULATING HORMONE 6.72 uIU/ML (0.358-3.740)
[2019-11-20] MEDS: HYDROXYCHLOROQUINE 200 MG TAB PO SCH ×3 (01:25→21:17)
[2019-11-20] MEDS: ASCORBIC ACID 250 MG TAB PO SCH ×2 (01:26→21:17)
--- NOTE | 2019-11-20 04:28 | REP ---
Clinical: Preoperative assessment. Hip fracture . Comparison: 02/26/2017 . Findings: The mediastinum and cardiac silhouette are stable and within normal limits for portable technique. The lung simon are clear without acute consolidation, effusion, or pneumothorax. Skeletal structures are intact. Impression: No acute cardiopulmonary process appreciated. Electronically Signed by Dexter Stiles MD 11/20/2019 04:19 A
--- NOTE | 2019-11-20 04:30 | REP ---
Clinical: Fall. Technique: AP and cross-table lateral views of the left hip. Findings: There is a displaced angulated intertrochanteric fracture of the left proximal femur/hip. Overlying soft tissue swelling. Impression: Intertrochanteric fracture of the left proximal femur. Electronically Signed by Dexter Stiles MD 11/20/2019 04:21 A
[2019-11-20] MEDS: LEVOTHYROXINE 50MCG TABLET (0.05MG) PO SCH (05:30)
[2019-11-20 06:00] VITALS: BP 112/70
[2019-11-20 06:46] LABS: ALBUMIN 3.1 GM/DL (3.2-5.2); ALT/SGPT 18 U/L (12-78); BILIRUBIN,TOTAL 0.9 MG/DL (0.2-1.0); BLOOD UREA NITROGEN 23 MG/DL (7-18); CALCIUM LEVEL 8.2 MG/DL (8.8-10.2); CARBON DIOXIDE LEVEL 28 MEQ/L (21-32); CHLORIDE LEVEL 106 MEQ/L (98-107); CREATININE FOR GFR 0.87 MG/DL (0.55-1.30); GLOMERULAR FILTRATION RATE > 60.0 (>32); GLUCOSE, FASTING 118 MG/DL (70-100); MAGNESIUM LEVEL 2.3 MG/DL (1.8-2.4); POTASSIUM SERUM 4.3 MEQ/L (3.5-5.1); SODIUM LEVEL 138 MEQ/L (136-145)
[2019-11-20 06:50] LABS: CK-MB VALUE MASS 4.2 NG/ML (<3.6); CPK CREATINE PHOSPHOKINASE 135 U/L (26-192); MB/CK RELATIVE INDEX 3.11 (< OR =4); TROPONIN I < 0.02 NG/ML (< 0.10)
[2019-11-20 07:08] LABS: HEMATOCRIT 36.3 % (36.0-47.0); HEMOGLOBIN 12.3 g/dl (12.0-15.5); MEAN CORPUSCULAR HEMOGLOBIN 33.1 pg (27.0-33.0); MEAN CORPUSCULAR HGB CONC 33.9 g/dl (32.0-36.5); MEAN CORPUSCULAR VOLUME 97.6 fl (80.0-96.0); PLATELET COUNT, AUTOMATED 186 10^3/uL (150-450); RED BLOOD COUNT 3.72 10^6/uL (4.00-5.40); WHITE BLOOD COUNT 7.2 10^3/uL (4.0-10.0)
[2019-11-20] MEDS: AMIODARONE 200 MG TAB (PACERONE) PO SCH ×2 (09:00→21:18)
[2019-11-20] MEDS ORDERED: predniSONE 2.5 MG TAB PO SCH (09:00)
[2019-11-20] MEDS: METOPROLOL SUCC *XL* 25MG TAB (TopROL *XL*) PO SCH (09:00)
[2019-11-20 09:05] LABS: TOTAL 25(OH) VITAMIN D 29.9 NG/ML (30.0-100.0)
[2019-11-20] MEDS: PANTOPRAZOLE 20 MG TAB PO SCH (09:38)
[2019-11-20] MEDS: POTASSIUM CHLORIDE 10 MEQ SR TABLET PO SCH (09:38)
[2019-11-20] MEDS: FERROUS SULFATE 325MG TAB PO SCH (09:38)
[2019-11-20] MEDS: FUROSEMIDE 20 MG TAB PO SCH (09:38)
[2019-11-20] MEDS: **NOTE PATIENT COMMENT** MISC XX SCH (09:39)
[2019-11-20] MEDS: MOM 30ML SUSPENSION UDC PO SCH (09:40)
[2019-11-20] MEDS: MIRALAX *UNIT DOSE* 17GM PACKET PO SCH (09:40)
[2019-11-20 12:38] LABS: FREE T4 1.94 NG/DL (0.76-1.46)
[2019-11-20] MEDS: ACETAMINOPHEN 650MG ER TAB (TYLENOL ARTHRITIS) PO PRN ×2 (12:58→21:28)
[2019-11-20] MEDS ORDERED: ANEXSIA, NORCO 7.5MG/325MG TABLET(HYDROCODONE/APAP) PO ONE (13:30)
--- NOTE | 2019-11-20 13:34 | IPNPDOC ---
Date Seen The patient was seen on 11/20/19. Progress Note Preoperative Medical Clearance: -Due to chronic prednisone use, will need to assess Hypothalamus-Pituitary- Adrenal [place] by stopping prednisone for 24hrs, and checking AM serum cortisol: if<5 impaired and will need perioperative HC, if>10 No impairment, no need for perioperative HC, 5-10, empiric HC or corticotrophin (ACTH stimulation) test if time permits.If am cortisol is 5-10, pt is to take usual morning steroid dose. Give 50 mg hydrocortisone intravenously just before the procedure and 25 mg of hydrocortisone every eight hours for 24 hours. Resume usual dose thereafter. -Due to h/o RA, r/o atlanto-axial instability. CT cervical spine was negative. VS, I&O, 24H, Fishbone Vital Signs/I&O Vital Signs Date Time Temp Pulse Resp B/P (MAP) Pulse Ox O2 Delivery O2 Flow Rate FiO2 11/20/19 13:08 16 99 Room Air 11/20/19 12:58 98.5 53 112/70 I&O- Last 24 Hours up to 6 AM 11/20/19 05:59 Intake Total 200 ml Output Total 0 ml Balance 200 ml Laboratory Data 24H LABS Laboratory Tests 2 11/19/19 20:29: Immature Granulocyte % (Auto) 1.5, Neutrophils (%) (Auto) 84.6H, Lymphocytes (%) (Auto) 5.2L, Monocytes (%) (Auto) 8.0H, Eosinophils (%) (Auto) 0.2, Basophils (%) (Auto) 0.5, Neutrophils # (Auto) 5.5, Lymphocytes # (Auto) 0.3L, Monocytes # (Auto) 0.5, Eosinophils # (Auto) 0.0, Basophils # (Auto) 0.0, Nucleated Red Blood Cells % (auto) 0.0, Prothrombin Time 17.4H, Prothromb Time International Ratio 1.46, Activated Partial Thromboplast Time 28.3, Anion Gap 7L, Glomerular Filtration Rate 56.8, Calcium Level 9.2, Magnesium Level 2.0, Total Creatine Kinase 169, Creatine Kinase MB 5.9H, Creatine Kinase MB Relative Index 3.49, Troponin I 0.02, HU-Bdi-G-Type Natriuretic Peptide 901H, 25-Hydroxy Vitamin D Total 29.9L, Thyroid Stimulating Hormone (TSH) 6.720H, Free Thyroxine 1.94H 11/20/19 05:57: Nucleated Red Blood Cells % (auto) 0.0, Anion Gap 4L, Glomerular Filtration Rate > 60.0, Calcium Level 8.2L, Magnesium Level 2.3, Total Creatine Kinase 135, Creatine Kinase MB 4.2H, Creatine Kinase MB Relative Index 3.11, Troponin I < 0.02, Total Bilirubin 0.9, Aspartate Amino Transf (AST/SGOT) 15, Alanine Aminotransferase (ALT/SGPT) 18, Alkaline Phosphatase 52, Total Protein 6.0L, Albumin 3.1L, Albumin/Globulin Ratio 1.07 CBC/BMP Laboratory Tests 11/19/19 20:29 11/20/19 05:57 MARYAM WYATT MD Nov 20, 2019 13:34
[2019-11-20 14:00] VITALS: BP 135/59
--- NOTE | 2019-11-20 14:41 | HPE ---
DATE: 11/19/2019 CHIEF COMPLAINT: Left intertrochanteric hip fracture. HISTORY OF PRESENT ILLNESS: This is an 84-year-old female who was at home. She sustained a slip and fall, ground-level fall on the left hip fracture. She is seen at [facility] by the emergency department and consulted to myself. She is admitted under the hospitalist service. She is pending an echocardiogram to rule out congestive heart failure. She is on she states rivaroxaban for paroxysmal atrial fibrillation (AFib) as well as history of pulmonary embolism (PE). However, the chart the chart in consult from Dr. Choudhury states the patient on Eliquis. Regardless, the patient had stated that she did not take her evening dose of her anticoagulant on 11/19/2019. PAST MEDICAL HISTORY: 1. Paroxysmal atrial fibrillation. 2. History of PE. 3. Rheumatoid arthritis. 4. Iron deficiency anemia. 5. Hypothyroidism. 6. Hypertension. 7. Gastroesophageal reflux disease (GERD). 8. Osteoporosis. 9. Gangrenous small bowel and abdominal adhesions, as well as history of kidney stones. PAST SURGICAL HISTORY: 1. Appendectomy. 2. Tubal ligation. 4. Right knee replacement. 5. Ex lap with release of internal hernia, small bowel resection and anastomosis 2016. 6. Extracorporeal shock wave lithotripsy (ESWL) and J stent for kidney stones. MEDICATIONS: - alendronate - amiodarone - apixaban - Xarelto - vitamin C - azathioprine - calcium/vitamin D - diltiazem - ferrous sulfate - furosemide - hydroxychloroquine - levothyroxine - metoprolol - pantoprazole - potassium chloride - prednisone NO KNOWN DRUG ALLERGIES. SOCIAL HISTORY: Denies alcohol, drugs or tobacco. Lives at home with her . PHYSICAL EXAMINATION: Vital Signs: 99% on room air. Respiratory rate 16. Blood pressure 112/70. Pulse rate 53 on room air. She is alert and times three. She has a pleasant affect. She is in bit of pain currently, but they are administering her pain medications. Left lower extremity is intact. Pain at her left hip and groin area. No obvious abrasions or open injuries. She is able can wiggle her toes, dorsiflex, plantarflex the foot. Normal sensation throughout the foot in the superficial and deep peroneal nerves as well as saphenous, sural and tibial. The foot is warm and well-perfused with tibialis posterior pulse. Laboratory examination reveals hemoglobin 12.3, down from 13.8 on admission. INR is 1.46, PT 17.4, and APTT 28.3. Radiographic examination reveals a reverse oblique intertrochanteric fracture of the left hip. ASSESSMENT AND PLAN: This 84-year-old female with rheumatoid arthritis, on anticoagulation, has a left hip intertrochanteric fracture. This could be a atypical femur fracture given the fact that she is on bisphosphonate medication. She has been seen and assessed by the hospitalist service. We are awaiting an echocardiogram to help decide on the specific type of anesthetic. The anticoagulant should likely be held for least 36-48 hours before proceeding with surgery and up to 72 hours before receiving a spinal anesthetic. So for now, the patient will be ALYSSA pending the echocardiogram. Likely, I plan to perform her surgery Tuesday as I am on-call that day. We discussed the pros, cons, risks, and benefits of both nonsurgical management as well as surgical fixation in the form of open reduction, internal fixation (intramedullary nailing). Specific risks of nonoperative care include ulcers, blood clots, pneumonia, , and other risks. Specific surgical risks include but are not limited to infection pain, stiffness bleeding, neurovascular injury, delayed mal or nonunion, which may be increased due to her history of bisphosphonate use and possible atypical femur fracture, as well as damage to surrounding structures, anesthetic risks, venous thromboembolism (VTE)/blood and and other risks. She wished to go ahead, signed the consent form for surgery as well as possible need for blood products. Risk of transfusion include but are not limited to infection with bacteria viruses as well as fever and transfusion related reactions. She signed the consent form to go ahead with that as well.
--- NOTE | 2019-11-20 17:06 | IPN ---
DATE: 11/20/2019 The patient has no new complaints. Complains of hip pain 3/10 while she is sitting down, comfortable, receives pain medications, does not want any additional. No nausea or vomiting. No overt bleeding. Patient has ecchymosis left upper arm. No other issues per nursing. Temperature 98.5, pulse 53, respiratory rate 18, blood pressure 112/70, 99% on room air. Generally, awake, alert, oriented times three, answering questions appropriately. No jugular venous distention (JVD). No thyromegaly. Lungs are clear to auscultation. No wheezing, rales or rhonchi. Heart: S1, S2, irregularly irregular. Abdomen is soft, nontender, nondistended. Positive bowel sounds. Extremities: No cyanosis, clubbing. Trace pitting edema. Patient has left lower extremity slightly shorter than the right. Laboratory data, microbiology have been reviewed, imaging studies. ASSESSMENT AND PLAN: An 84-year-old with history of chronic atrial fibrillation, on Eliquis, had mechanical fall sustaining a left hip fracture. CURRENT ISSUES: Left hip fracture. Eliquis has been held.Pain management.Bowel regimen. Orthopedic surgery has been consulted, not cleared for surgery today due to recent Eliquis use and will need to optimize for surgery. in light of chronic prednisone use, will need to check HPA axis by withholding prednisone for 24hrs,and checking AM cortisol. may need empiric HC perioperatively. Asymptomatic bradycardia on telemetry. Holding parameters on her home medications. History of pulmonary embolism (PE), on chronic Eliquis. Eliquis held for surgery. will check LE for DVT. Due to increased risk of PE, may need IVC filter placed if positive. Rheumatoid arthritis. No acute decompensation. Hypothyroidism, on Synthroid. Hypertension, stable, with blood pressure 112/70. Currently on metoprolol 25 mg daily with holding parameters for bradycardia and hypotension. MTDD
[2019-11-20] MEDS: diltiaZEM **CD** 180 MG CAP PO SCH (21:18)
[2019-11-20 22:00] VITALS: BP 132/61
--- NOTE | 2019-11-20 22:50 | ECHO ---
DATE OF PROCEDURE: 11/20/2019 REFERRING PHYSICIAN: Dr. Izzy Pederson INDICATION: Heart murmur, unspecified. HEIGHT: 173 cm WEIGHT: 92 kg 2D MEASUREMENTS: Left atrium: 4.7 cm Aortic root: 3.7 cm Ventricular septum: 1.18 cm Posterior wall: 1.20 cm Left ventricle diastole: 2.8 cm Aortic annulus: 2.2 cm DOPPLER MEASUREMENTS: Mild aortic regurgitation. No aortic stenosis. Aortic valve velocity: 166 cm/s LVOT velocity: 124 cm/s LVOT VTI: 27.3 cm Mild mitral regurgitation. No mitral stenosis. Mitral E velocity: 75.0 cm/s Mitral A velocity: 84.4 cm/s Mitral deceleration time: 140 ms Very mild tricuspid regurgitation. Estimated right ventricle systolic pressure: 37-32 mmHg, assuming a right atrial pressure of 5-10 mmHg Pulmonary valve assessment technically difficult. MITRAL ANNULAR TISSUE DOPPLER: E prime septal: 5.0 cm/s E prime lateral: 6.2 cm/s DESCRIPTION: Rhythm was sinus. This was a technically difficult echocardiogram. No subcostal views available. The study was performed with the patient supine because of hip fracture. No pericardial effusion. CONCLUSIONS: 1. Moderate aortic valve sclerosis of a three-cuspid aortic valve. No aortic stenosis. Mild aortic regurgitation. 2. Severe mitral annular calcification. Mild mitral regurgitation. No mitral stenosis. 3. Normal left ventricle internal dimensions. Normal regional left ventricle (LV) wall motion and wall thickening. Normal LV systolic function. Left ventricular ejection fraction (LVEF) 65-70% by visual estimate. Grade 1 LV diastolic dysfunction. Presence of mitral inflow L-wave suggestive of elevated mean left atrial pressure. 4. Severe left atrial dilatation. 5. Technically difficult echocardiogram.
[2019-11-21] MEDS: LEVOTHYROXINE 50MCG TABLET (0.05MG) PO SCH (05:29)
[2019-11-21 06:00] VITALS: BP 134/63
[2019-11-21] MEDS: MORPHINE 2 MG/ML 1ML VIAL (J2270) IV PRN ×3 (06:21→12:02)
[2019-11-21] MEDS: MIRALAX *UNIT DOSE* 17GM PACKET PO SCH (09:43)
[2019-11-21] MEDS: MOM 30ML SUSPENSION UDC PO SCH (09:43)
[2019-11-21] MEDS: POTASSIUM CHLORIDE 10 MEQ SR TABLET PO SCH (09:44)
[2019-11-21] MEDS: CALCIUM/VITAMIN D 500 MG TAB PO SCH (09:44)
[2019-11-21] MEDS: azaTHIOprine 50 MG TAB (J7500) PO SCH (09:44)
[2019-11-21] MEDS: FERROUS SULFATE 325MG TAB PO SCH (09:44)
[2019-11-21] MEDS: PANTOPRAZOLE 20 MG TAB PO SCH (09:44)
[2019-11-21] MEDS: FUROSEMIDE 20 MG TAB PO SCH (09:44)
[2019-11-21] MEDS: HYDROXYCHLOROQUINE 200 MG TAB PO SCH (09:44)
[2019-11-21] MEDS: METOPROLOL SUCC *XL* 25MG TAB (TopROL *XL*) PO SCH (09:45)
[2019-11-21] MEDS: **NOTE PATIENT COMMENT** MISC XX SCH (09:45)
[2019-11-21] MEDS: AMIODARONE 200 MG TAB (PACERONE) PO SCH (09:45)
[2019-11-21] MEDS: D5W/0.45% SODIUM CHLORIDE 1,000 ML IV SCH (11:08)
[2019-11-21] MEDS: ACETAMINOPHEN 650MG ER TAB (TYLENOL ARTHRITIS) PO PRN (11:09)
[2019-11-21 14:00] VITALS: BP 134/59
--- NOTE | 2019-11-21 15:57 | IPNPDOC ---
Subjective Date Seen The patient was seen on 11/21/19. Subjective Chief Complaint/HPI Patient complaining of pain at the left hip, scheduled for surgery tomorrow General: Denies: ROS Unobtainable, Chills, Night Sweats, Fatigue, Malaise, Normal Appetite, Other Symptoms Constitutional: Denies: Chills, Fever, Malaise, Night Sweats, Weakness, Fatigue, Weight Loss, Lethargy, Other Cardiovascular: Denies: Chest Pain, Palpitations, Orthopnea, Paroxysmal Noc. Dyspnea, Edema, Lt Headedness, Other Symptoms Gastrointestinal: Denies: Nausea, Vomiting, Abdominal Pain, Diarrhea, Constipation, Melena, Hematochezia, Other Symptoms Genitourinary: Denies: Dysuria, Frequency, Incontinence, Hematuria, Retention, Other Symptoms Hematologic: Denies: Bruising, Bleeding Excessively, Petecchia, Purpura, Enlarged Lymph Nodes, Other Hematologic Musculoskeletal: Reports: Other Symptoms (left leg pain) Neurological: Denies: Weakness, Numbness, Incoordination, Change in speech, Confusion, Seizures, Other Symptoms Objective Physical Examination General Exam: Positive: Alert, Cooperative Eye Exam: Positive: PERRLA, Conjunctiva & lids normal Neck Exam: Positive: Supple, JVD Chest Exam: Positive: Clear to auscultation, Normal air movement Heart Exam: Positive: Rate Normal, Normal S1, Normal S2 Abdomen Exam: Positive: Normal bowel sounds Extremity Exam: Positive: Other (. Positive tenderness at the left hip on palpation. Distal pulses equal bilaterally) Skin Exam: Positive: Nl turgor and temperature Assessment /Plan Problems (1) Hip fracture, left Status: Acute Problem Text: Patient admitted with left hip fracture scheduled for ORIF for surgery tomorrow morning Anticoagulation with eliquiss has been stopped Patient also has been ordered to receive Solu-Medrol 125 mg IV push 1 hour before surgery as a stress dose Continue pain management with morphine sulfate Further, as per orthopedics Plan/VTE VTE Prophylaxis Ordered?: Yes VS, I&O, 24H, [place] Vital Signs/I&O Vital Signs Date Time Temp Pulse Resp B/P (MAP) Pulse Ox O2 Delivery O2 Flow Rate FiO2 11/21/19 14:00 98.8 61 17 134/59 (84) 98 Room Air I&O- Last 24 Hours up to 6 AM 11/21/19 05:59 Intake Total 650 ml Output Total 850 ml Balance -200 ml Laboratory Data 24H LABS Laboratory Tests 2 11/21/19 05:35: Cortisol AM Sample 5.5 NITIN MOORE MD Nov 21, 2019 15:57
[2019-11-21] MEDS ORDERED: LIDOCAINE 2% 100MG/5ML SDV (FOR ANES.) As Ordered ONE (16:20)
[2019-11-21] MEDS ORDERED: propofoL 200 MG/20 ML VIAL As Ordered ONE (16:20)
[2019-11-21] MEDS ORDERED: fentaNYL 100 MCG/2 ML INJECTION (J3010) As Ordered ONE (16:29)
[2019-11-21] MEDS ORDERED: methylPREDNISolone INJ 125 MG/2 ML VIAL (J2930) IV ONE (16:30)
[2019-11-21] MEDS ORDERED: dexameTHASONE 4 MG/ML 1ML VIAL (J1100 PER 1MG) As Ordered ONE (16:30)
[2019-11-21] MEDS ORDERED: ONDANSETRON 4MG/2ML VIAL As Ordered ONE ×2 (16:30→20:49)
[2019-11-21] MEDS ORDERED: ceFAZolin 2 GM/D5W 50 ML IV BAG (J0690 PER 500MG) As Ordered ONE (17:39)
[2019-11-21] MEDS ORDERED: ROCURONIUM BROMIDE 50 MG/5 ML VIAL As Ordered ONE (17:49)
[2019-11-21] MEDS ORDERED: ACETAMINOPHEN 1000MG 100ML IV BTL (OFIRMEV) (J0131 PER 10MG) As Ordered ONE (19:09)
[2019-11-21] MEDS ORDERED: SUGAMMADEX SODIUM 500 MG/5 ML VIAL (BRIDION) As Ordered ONE (19:21)
[2019-11-21] MEDS ORDERED: ONDANSETRON 4MG/2ML VIAL IV PRN (20:15)
[2019-11-21] MEDS ORDERED: fentaNYL 100 MCG/2 ML INJECTION (J3010) IV PRN (20:15)
[2019-11-21] MEDS ORDERED: oxyCODONE 5MG TAB PO PRN (20:15)
[2019-11-21] MEDS ORDERED: LR 1,000 ML IV SCH (20:15)
[2019-11-21] MEDS: diltiaZEM **CD** 180 MG CAP PO SCH (21:00)
[2019-11-21] MEDS ORDERED: oxyCODONE 5MG TAB As Ordered ONE (21:18)
[2019-11-21 21:30] VITALS: BP 138/61
[2019-11-21 22:00] VITALS: BP 137/61
[2019-11-21 22:30] VITALS: BP 134/63
--- NOTE | 2019-11-21 22:44 | REP ---
LEFT FEMUR, SEVEN VIEWS: HISTORY: Intraoperative imaging. 2 minutes 27 seconds of fluoroscopy time is reported. FINDINGS: A sequence of seven last image hold fluoroscopically obtained spot radiographs of the femur document open reduction, internal fixation procedure. Electronically Signed by Serafin Nieto MD 11/22/2019 07:04 A
[2019-11-22] VITALS (7 sets, daily range): BP systolic 120–132; BP diastolic 54–65
[2019-11-22] MEDS: HYDROXYCHLOROQUINE 200 MG TAB PO SCH ×3 (00:46→20:25)
[2019-11-22] MEDS: CALCIUM/VITAMIN D 500 MG TAB PO SCH ×3 (00:46→20:25)
[2019-11-22] MEDS: ASCORBIC ACID 250 MG TAB PO SCH ×2 (00:46→20:25)
[2019-11-22] MEDS: AMIODARONE 200 MG TAB (PACERONE) PO SCH ×3 (00:47→20:25)
[2019-11-22] MEDS: ceFAZolin SOD 1 GM in D5W MINI-BAG PLUS 50 ML IV SCH ×3 (01:33→18:01)
[2019-11-22] MEDS: D5W/0.45% SODIUM CHLORIDE 1,000 ML IV SCH ×3 (01:34→20:24)
[2019-11-22] MEDS: LIDOCAINE 5% (LIDODERM) PATCH TD SCH ×2 (01:40→20:24)
--- NOTE | 2019-11-22 02:35 | RO ---
DATE OF PROCEDURE: 11/21/2019 PREOPERATIVE DIAGNOSIS: Left intertrochanteric reverse obliquity femur fracture. POSTOPERATIVE DIAGNOSIS: Left intertrochanteric reverse obliquity femur fracture. PROCEDURE: Left intramedullary nailing of the femur with open reduction, internal fixation. SURGEON: Bertram Schwarz MD SCANNING COORDINATOR: None. ANESTHESIA: General. INDICATIONS: 84-year-old female that had a fall and suffered an unstable left hip fracture. We discussed operative versus nonoperative intervention and the risks and benefits of both, including, but not limited to, infection, damage to surrounding structures, incomplete relief, malunion, nonunion, and need for further surgery, and patient wished to proceed with operative intervention. Due to the patient being on Eliquis, she was delayed by 2 days in order to decrease her perioperative risk. BLOOD LOSS: 200 mL. COMPLICATIONS: None. IMPLANTS: TFN Synthes 380 nail with 85 mm helical blade with one distal interlocking screw. OPERATIVE DESCRIPTION: Patient was brought back to the operating room (OR) in the supine position. Underwent general anesthesia, at which point they were placed onto the traction table. We then had time-out, confirming site, side, and surgery. Once all in agreement, we took preoperative x-rays under initial traction. We were happy with our preliminary reduction. We then prepped and draped the left hip in the usual fashion and had a repeat time-out, confirming site, side, and surgery. We then made a stab incision just proximal to the greater trochanter. We established our starting point and used our entry reamer and passed our guidewire, at which point we then made an incision just distal to the vastus ridge and carefully dissected down to the iliotibial (IT) band. Split the IT band in line with its fibers and did a subvastus approach to the proximal femur, at which point we then used an alligator to create a path both from the superficial and deep portions of the femur and passed cerclage wires around the fracture site and tensioned them down in order to improve our reduction. At this point, we were happy with this. We locked it in tension. We then sequentially reamed the femur up to a 12.5 and placed a 380, 11 mm nail down the femur, at which point we then placed our K wire for our helical blade. We were happy with our center-center position in subchondral bone. Measured it to be 85 mm with helical blade. We then drilled and placed the helical blade in place and removed the K wire. Confirmed on AP and lateral positioning. We then locked the nail in place proximally, at which point we then crimped our cerclage wire and cut off the end. We then did perfect [place] technique of the distal femur and placed one cortical screw in static mode, at which point we took our final films in AP and lateral. We were happy with our fracture reduction and fixation. We irrigated the wounds thoroughly. Closed the IT band with #0 Vicryl, subcutaneous tissue with #2-0 Vicryl, and jarocho for the skin. Placed a dressing of gauze, Tegaderm overtop, at which point patient was awakened and taken to postanesthesia care unit (PACU) in stable condition. POSTOPERATIVE PLAN: Patient will be given Surgical Care Improvement Project (SCIP) antibiotic prophylaxis, be started weightbearing as tolerated, and be started on her Eliquis postoperative day #1.
[2019-11-22] MEDS ORDERED: ceFAZolin SOD 2 GM in IV 1 EA IV ONE (06:00)
[2019-11-22] MEDS: LEVOTHYROXINE 50MCG TABLET (0.05MG) PO SCH (06:30)
[2019-11-22] MEDS ORDERED: methylPREDNISolone INJ 125 MG/2 ML VIAL (J2930) IV ONE (07:00)
[2019-11-22] MEDS: FUROSEMIDE 20 MG TAB PO SCH (09:00)
[2019-11-22] MEDS: METOPROLOL SUCC *XL* 25MG TAB (TopROL *XL*) PO SCH (09:00)
[2019-11-22] MEDS: MIRALAX *UNIT DOSE* 17GM PACKET PO SCH (09:07)
[2019-11-22] MEDS: MOM 30ML SUSPENSION UDC PO SCH (09:10)
[2019-11-22] MEDS: azaTHIOprine 50 MG TAB (J7500) PO SCH (09:11)
[2019-11-22] MEDS: POTASSIUM CHLORIDE 10 MEQ SR TABLET PO SCH (09:11)
[2019-11-22] MEDS: APIXABAN 5 MG TAB (ELIQUIS) PO SCH ×2 (09:11→20:25)
[2019-11-22] MEDS: predniSONE 2.5 MG TAB PO SCH (09:11)
[2019-11-22] MEDS: PANTOPRAZOLE 20 MG TAB PO SCH (09:11)
[2019-11-22] MEDS: FERROUS SULFATE 325MG TAB PO SCH (09:12)
[2019-11-22] MEDS: **NOTE PATIENT COMMENT** MISC XX SCH (09:14)
--- NOTE | 2019-11-22 10:56 | IPNPDOC ---
Subjective Date Seen The patient was seen on 11/22/19. Subjective Chief Complaint/HPI Patient is pain-free comfortable, status post ORIF surgery last night General: Denies: ROS Unobtainable, Chills, Night Sweats, Fatigue, Malaise, Normal Appetite, Other Symptoms Constitutional: Denies: Chills, Fever, Malaise, Night Sweats, Weakness, Fatigue, Weight Loss, Lethargy, Other Skin: Denies: Rash, Lesions, Jaundice, Bruising, Itching, Dry, Breakdown, Nail Changes, Other Pulmonary: Denies: Dyspnea, Cough, Pleuritic Chest Pain, Other Symptoms Cardiovascular: Denies: Chest Pain, Palpitations, Orthopnea, Paroxysmal Noc. Dyspnea, Edema, Lt Headedness, Other Symptoms Gastrointestinal: Denies: Nausea, Vomiting, Abdominal Pain, Diarrhea, Constipation, Melena, Hematochezia, Other Symptoms Genitourinary: Denies: Dysuria, Frequency, Incontinence, Hematuria, Retention, Other Symptoms Musculoskeletal: Denies: Neck Pain, Back Pain, Shoulder Pain, Arm Pain, Hand Pain, Leg Pain, Foot Pain, Joint Pain, Muscle Pain, Spasms, Other Symptoms Neurological: Denies: Weakness, Numbness, Incoordination, Change in speech, Confusion, Seizures, Other Symptoms Objective Physical Examination General Exam: Positive: Alert, Cooperative Eye Exam: Positive: PERRLA, Conjunctiva & lids normal Neck Exam: Positive: Supple, JVD Chest Exam: Positive: Clear to auscultation, Normal air movement Heart Exam: Positive: Rate Normal, Normal S1, Normal S2 Abdomen Exam: Positive: Normal bowel sounds Extremity Exam: Positive: Other (. Positive tenderness at the left hip on palpation. Distal pulses equal bilaterally) Skin Exam: Positive: Nl turgor and temperature Assessment /Plan Problems (1) Hip fracture, left Status: Acute Problem Text: Status post ORIF of left hip done last night Pain is under well control Physical therapy has been called Patient will possibly need placement and rehabilitation facility Continue home meds Further, as per orthopedics Plan/VTE VTE Prophylaxis Ordered?: Yes VS, I&O, 24H, Fishbone Vital Signs/I&O Vital Signs Date Time Temp Pulse Resp B/P (MAP) Pulse Ox O2 Delivery O2 Flow Rate FiO2 11/22/19 09:00 68 92/62 11/22/19 06:00 97.8 18 96 Nasal Cannula 2.0 I&O- Last 24 Hours up to 6 AM 11/22/19 06:00 Intake Total 1611 ml Output Total 1650 ml Balance -39 ml NITIN MOORE MD Nov 22, 2019 10:56
[2019-11-22] MEDS: diltiaZEM **CD** 180 MG CAP PO SCH (20:28)
[2019-11-22] MEDS: oxyCODONE 5MG TAB PO PRN (23:01)
[2019-11-23 02:00] VITALS: BP 115/50
[2019-11-23] MEDS: LEVOTHYROXINE 50MCG TABLET (0.05MG) PO SCH (05:53)
[2019-11-23 06:00] VITALS: BP 130/55
[2019-11-23] MEDS: oxyCODONE 5MG TAB PO PRN ×2 (06:27→20:05)
[2019-11-23 08:16] LABS: BASO % 0.1 % (0.0-1.0); EOS % 0.1 % (0.0-3.0); HEMATOCRIT 26.2 % (36.0-47.0); HEMOGLOBIN 8.5 g/dl (12.0-15.5); LYMPH # 0.4 10^3/uL (1.5-5.0); MEAN CORPUSCULAR HEMOGLOBIN 32.3 pg (27.0-33.0); MEAN CORPUSCULAR HGB CONC 32.4 g/dl (32.0-36.5); MEAN CORPUSCULAR VOLUME 99.6 fl (80.0-96.0); MONO # 1.4 10^3/uL (0.0-0.8); MONO % 14.1 % (0.0-5.0); NEUTROPHILS # 7.6 10^3/uL (1.5-8.5); NEUTROPHILS % 79.4 % (36.0-66.0); PLATELET COUNT, AUTOMATED 192 10^3/uL (150-450); RED BLOOD COUNT 2.63 10^6/uL (4.00-5.40); WHITE BLOOD COUNT 9.6 10^3/uL (4.0-10.0)
[2019-11-23 08:48] LABS: ALBUMIN 2.8 GM/DL (3.2-5.2); ALT/SGPT 18 U/L (12-78); BILIRUBIN,TOTAL 0.9 MG/DL (0.2-1.0); BLOOD UREA NITROGEN 22 MG/DL (7-18); CALCIUM LEVEL 7.8 MG/DL (8.8-10.2); CARBON DIOXIDE LEVEL 28 MEQ/L (21-32); CHLORIDE LEVEL 101 MEQ/L (98-107); CREATININE FOR GFR 0.93 MG/DL (0.55-1.30); GLOMERULAR FILTRATION RATE > 60.0 (>32); GLUCOSE, FASTING 141 MG/DL (70-100); POTASSIUM SERUM 4.8 MEQ/L (3.5-5.1); SODIUM LEVEL 135 MEQ/L (136-145); TOTAL PROTEIN 5.6 GM/DL (6.4-8.2)
[2019-11-23] MEDS: **NOTE PATIENT COMMENT** MISC XX SCH (09:27)
[2019-11-23] MEDS: predniSONE 2.5 MG TAB PO SCH (09:27)
[2019-11-23] MEDS: METOPROLOL SUCC *XL* 25MG TAB (TopROL *XL*) PO SCH (09:28)
[2019-11-23] MEDS: HYDROXYCHLOROQUINE 200 MG TAB PO SCH ×2 (09:28→20:04)
[2019-11-23] MEDS: POTASSIUM CHLORIDE 10 MEQ SR TABLET PO SCH (09:28)
[2019-11-23] MEDS: PANTOPRAZOLE 20 MG TAB PO SCH (09:28)
[2019-11-23] MEDS: APIXABAN 5 MG TAB (ELIQUIS) PO SCH ×2 (09:28→20:03)
[2019-11-23] MEDS: FERROUS SULFATE 325MG TAB PO SCH (09:28)
[2019-11-23] MEDS: FUROSEMIDE 20 MG TAB PO SCH (09:28)
[2019-11-23] MEDS: CALCIUM/VITAMIN D 500 MG TAB PO SCH ×2 (09:28→20:03)
[2019-11-23] MEDS: AMIODARONE 200 MG TAB (PACERONE) PO SCH ×2 (09:28→20:05)
[2019-11-23] MEDS: azaTHIOprine 50 MG TAB (J7500) PO SCH (09:29)
[2019-11-23] MEDS: MOM 30ML SUSPENSION UDC PO SCH (09:29)
[2019-11-23] MEDS: MIRALAX *UNIT DOSE* 17GM PACKET PO SCH (09:29)
--- NOTE | 2019-11-23 11:39 | IPNPDOC ---
Subjective Date Seen The patient was seen on 11/23/19. Subjective Chief Complaint/HPI Patient is comfortable in no distress. He is a little gloomy today, but otherwise no medical complaints. General: Denies: ROS Unobtainable, Chills, Night Sweats, Fatigue, Malaise, Normal Appetite, Other Symptoms Constitutional: Denies: Chills, Fever, Malaise, Night Sweats, Weakness, Fatigue, Weight Loss, Lethargy, Other Pulmonary: Denies: Dyspnea, Cough, Pleuritic Chest Pain, Other Symptoms Cardiovascular: Denies: Chest Pain, Palpitations, Orthopnea, Paroxysmal Noc. Dyspnea, Edema, Lt Headedness, Other Symptoms Gastrointestinal: Denies: Nausea, Vomiting, Abdominal Pain, Diarrhea, Constipation, Melena, Hematochezia, Other Symptoms Hematologic: Denies: Bruising, Bleeding Excessively, Petecchia, Purpura, Enl arged Lymph Nodes, Other Hematologic Endocrine: Denies: Polydipsia, Polyphagia, Polyuria, Heat Intolerance, Cold Intolerance, Other Endocrine Sx Musculoskeletal: Denies: Neck Pain, Back Pain, Shoulder Pain, Arm Pain, Hand Pain, Leg Pain, Foot Pain, Joint Pain, Muscle Pain, Spasms, Other Symptoms Neurological: Denies: Weakness, Numbness, Incoordination, Change in speech, Confusion, Seizures, Other Symptoms Objective Physical Examination General Exam: Positive: Alert, Cooperative Eye Exam: Positive: PERRLA, Conjunctiva & lids normal Neck Exam: Positive: Supple, JVD Chest Exam: Positive: Clear to auscultation, Normal air movement Heart Exam: Positive: Rate Normal, Normal S1, Normal S2 Abdomen Exam: Positive: Normal bowel sounds Extremity Exam: Positive: Other (. Mild tenderness at left hip) Skin Exam: Positive: Nl turgor and temperature Assessment /Plan Problems (1) Hip fracture, left Status: Acute Problem Text: Status post ORIF of left hip done last night Pain is under well control with current medications Is ago therapy is in progress Awaiting placement in a rehabilitation facility Continue home meds 's charge planning as per orthopedic Plan/VTE VTE Prophylaxis Ordered?: Yes VS, I&O, 24H, Fishbone Vital Signs/I&O Vital Signs Date Time Temp Pulse Resp B/P (MAP) Pulse Ox O2 Delivery O2 Flow Rate FiO2 11/23/19 09:28 69 131/56 11/23/19 06:57 18 95 Room Air 11/23/19 06:00 98.7 11/22/19 14:00 2.0 I&O- Last 24 Hours up to 6 AM 11/23/19 06:00 Intake Total 2570 ml Output Total 1250 ml Balance 1320 ml Laboratory Data 24H LABS Laboratory Tests 2 11/23/19 07:31: Anion Gap 6L, Glomerular Filtration Rate > 60.0, Calcium Level 7.8L, Total Bilirubin 0.9, Aspartate Amino Transf (AST/SGOT) 11, Alanine Aminotransferase (ALT/SGPT) 18, Alkaline Phosphatase 48, Total Protein 5.6L, Albumin 2.8L, Albumin/Globulin Ratio 1.00 11/23/19 07:32: Immature Granulocyte % (Auto) 2.3, Neutrophils (%) (Auto) 79.4H, Lymphocytes (%) (Auto) 4.0L, Monocytes (%) (Auto) 14.1H, Eosinophils (%) (Auto) 0.1, Basophils (%) (Auto) 0.1, Neutrophils # (Auto) 7.6, Lymphocytes # (Auto) 0.4L, Monocytes # (Auto) 1.4H, Eosinophils # (Auto) 0.0, Basophils # (Auto) 0.0, Nucleated Red Blood Cells % (auto) 1.0H CBC/BMP Laboratory Tests 11/23/19 07:31 11/23/19 07:32 NITIN MOORE MD November 23, 2019 11:39
[2019-11-23] MEDS: D5W/0.45% SODIUM CHLORIDE 1,000 ML IV SCH ×2 (13:38→20:05)
[2019-11-23 14:00] VITALS: BP 132/53
[2019-11-23] MEDS ORDERED: ONDANSETRON 4MG/2ML VIAL IV PRN (18:00)
[2019-11-23] MEDS ORDERED: ONDANSETRON 4MG/2ML VIAL As Ordered ONE (18:02)
[2019-11-23] MEDS: ASCORBIC ACID 250 MG TAB PO SCH (20:04)
[2019-11-23] MEDS: diltiaZEM **CD** 180 MG CAP PO SCH (20:05)
[2019-11-23] MEDS: LIDOCAINE 5% (LIDODERM) PATCH TD SCH (20:05)
[2019-11-23 22:00] VITALS: BP 139/54
[2019-11-24] VITALS (9 sets, daily range): BP systolic 117–124; BP diastolic 47–62
[2019-11-24] MEDS: LEVOTHYROXINE 50MCG TABLET (0.05MG) PO SCH (05:29)
[2019-11-24 06:55] LABS: BASO % 0.3 % (0.0-1.0); EOS # 0.1 10^3/uL (0.0-0.5); EOS % 0.7 % (0.0-3.0); HEMOGLOBIN 7.3 g/dl (12.0-15.5); LYMPH # 0.6 10^3/uL (1.5-5.0); LYMPH % 8.1 % (24.0-44.0); MEAN CORPUSCULAR HGB CONC 31.7 g/dl (32.0-36.5); MEAN CORPUSCULAR VOLUME 100.9 fl (80.0-96.0); MONO # 0.9 10^3/uL (0.0-0.8); MONO % 12.8 % (0.0-5.0); NEUTROPHILS # 5.6 10^3/uL (1.5-8.5); NEUTROPHILS % 75.9 % (36.0-66.0); PLATELET COUNT, AUTOMATED 175 10^3/uL (150-450); RED BLOOD COUNT 2.28 10^6/uL (4.00-5.40); WHITE BLOOD COUNT 7.3 10^3/uL (4.0-10.0)
[2019-11-24 07:12] LABS: ALBUMIN 2.4 GM/DL (3.2-5.2); ALT/SGPT 12 U/L (12-78); BILIRUBIN,TOTAL 1.2 MG/DL (0.2-1.0); BLOOD UREA NITROGEN 20 MG/DL (7-18); CALCIUM LEVEL 7.7 MG/DL (8.8-10.2); CARBON DIOXIDE LEVEL 27 MEQ/L (21-32); CHLORIDE LEVEL 101 MEQ/L (98-107); CREATININE FOR GFR 0.81 MG/DL (0.55-1.30); GLOMERULAR FILTRATION RATE > 60.0 (>32); GLUCOSE, FASTING 113 MG/DL (70-100); POTASSIUM SERUM 4.6 MEQ/L (3.5-5.1); SODIUM LEVEL 133 MEQ/L (136-145); TOTAL PROTEIN 5.3 GM/DL (6.4-8.2)
[2019-11-24] MEDS: azaTHIOprine 50 MG TAB (J7500) PO SCH (10:48)
[2019-11-24] MEDS: MOM 30ML SUSPENSION UDC PO SCH (10:48)
[2019-11-24] MEDS: HYDROXYCHLOROQUINE 200 MG TAB PO SCH ×2 (10:48→21:55)
[2019-11-24] MEDS: MIRALAX *UNIT DOSE* 17GM PACKET PO SCH (10:48)
[2019-11-24] MEDS: PANTOPRAZOLE 20 MG TAB PO SCH (10:48)
[2019-11-24] MEDS: APIXABAN 5 MG TAB (ELIQUIS) PO SCH ×2 (10:48→21:54)
[2019-11-24] MEDS: predniSONE 2.5 MG TAB PO SCH (10:48)
[2019-11-24] MEDS: D5W/0.45% SODIUM CHLORIDE 1,000 ML IV SCH (10:49)
[2019-11-24] MEDS: CALCIUM/VITAMIN D 500 MG TAB PO SCH ×2 (10:49→21:54)
[2019-11-24] MEDS: POTASSIUM CHLORIDE 10 MEQ SR TABLET PO SCH (10:49)
[2019-11-24] MEDS: FERROUS SULFATE 325MG TAB PO SCH (10:49)
[2019-11-24] MEDS: FUROSEMIDE 20 MG TAB PO SCH (10:49)
[2019-11-24] MEDS: METOPROLOL SUCC *XL* 25MG TAB (TopROL *XL*) PO SCH (10:51)
[2019-11-24] MEDS: AMIODARONE 200 MG TAB (PACERONE) PO SCH ×2 (10:51→21:54)
[2019-11-24] MEDS: **NOTE PATIENT COMMENT** MISC XX SCH (10:52)
--- NOTE | 2019-11-24 11:23 | IPNPDOC ---
Subjective Date Seen The patient was seen on 11/24/19. Subjective Chief Complaint/HPI Patient is comfortable in no distress. Offers no new complaints. Pain is much under control General: Denies: ROS Unobtainable, Chills, Night Sweats, Fatigue, Malaise, Normal Appetite, Other Symptoms Skin: Denies: Rash, Lesions, Jaundice, Bruising, Itching, Dry, Breakdown, Nail Changes, Other Pulmonary: Denies: Dyspnea, Cough, Pleuritic Chest Pain, Other Symptoms Cardiovascular: Denies: Chest Pain, Palpitations, Orthopnea, Paroxysmal Noc. Dyspnea, Edema, Lt Headedness, Other Symptoms Gastrointestinal: Denies: Nausea, Vomiting, Abdominal Pain, Diarrhea, Constipation, Melena, Hematochezia, Other Symptoms Hematologic: Denies: Bruising, Bleeding Excessively, Petecchia, Purpura, Enlarged Lymph Nodes, Other Hematologic Endocrine: Denies: Polydipsia, Polyphagia, Polyuria, Heat Intolerance, Cold Intolerance, Other Endocrine Sx Musculoskeletal: Reports: Leg Pain Objective Physical Examination Neck Exam: Positive: Supple, JVD Chest Exam: Positive: Clear to auscultation, Normal air movement Heart Exam: Positive: Rate Normal, Normal S1, Normal S2 Abdomen Exam: Positive: Normal bowel sounds Extremity Exam: Positive: Other (. Mild tenderness at left hip) Skin Exam: Positive: Nl turgor and temperature Assessment /Plan Problems (1) Hip fracture, left Status: Acute Problem Text: Status post ORIF of left hip done last night Pain is under well control with current medications Physical therapy is in the progress Possible discharge to rehabilitation unit Continue home meds Possible discharged to acute rehabilitation unit in a.m. (2) Acute blood loss anemia Status: Acute Problem Text: Most likely postsurgical blood loss Patient's hemoglobin today is 7.3 and hematocrit 23 , We'll transfuse 1 unit of PRBC today and monitor H&H Lab work is within normal limit tomorrow, then can be discharged to acute rehabilitation unit Plan/VTE VTE Prophylaxis Ordered?: Yes VS, I&O, 24H, Fishbone Vital Signs/I&O Vital Signs Date Time Temp Pulse Resp B/P (MAP) Pulse Ox O2 Delivery O2 Flow Rate FiO2 11/24/19 10:51 67 130/49 11/24/19 06:00 99.3 17 95 Room Air 11/22/19 14:00 2.0 I&O- Last 24 Hours up to 6 AM0 11/24/19 06:00 Intake Total 2020 ml Output Total 650 ml Balance 1370 ml Laboratory Data 24H LABS Laboratory Tests 2 11/24/19 05:52: Immature Granulocyte % (Auto) 2.2, Neutrophils (%) (Auto) 75.9H, Lymphocytes (%) (Auto) 8.1L, Monocytes (%) (Auto) 12.8H, Eosinophils (%) (Auto) 0.7, Basophils (%) (Auto) 0.3, Neutrophils # (Auto) 5.6, Lymphocytes # (Auto) 0.6L, Monocytes # (Auto) 0.9H, Eosinophils # (Auto) 0.1, Basophils # (Auto) 0.0, Nucleated Red Blood Cells % (auto) 1.8H, Anion Gap 5L, Glomerular Filtration Rate > 60.0, Calcium Level 7.7L, Total Bilirubin 1.2H, Aspartate Amino Transf (AST/SGOT) 9, Alanine Aminotransferase (ALT/SGPT) 12, Alkaline Phosphatase 45, Total Protein 5.3L, Albumin 2.4L, Albumin/Globulin Ratio 0.83L CBC/BMP Laboratory Tests 11/24/19 05:52 NITIN MOORE MD November 24, 2019 11:23
[2019-11-24] MEDS: oxyCODONE 5MG TAB PO PRN (16:47)
[2019-11-24] MEDS: ASCORBIC ACID 250 MG TAB PO SCH (21:54)
[2019-11-24] MEDS: diltiaZEM **CD** 180 MG CAP PO SCH (21:55)
[2019-11-24] MEDS: LIDOCAINE 5% (LIDODERM) PATCH TD SCH (21:55)
[2019-11-25] MEDS: LEVOTHYROXINE 50MCG TABLET (0.05MG) PO SCH (05:12)
[2019-11-25] MEDS: D5W/0.45% SODIUM CHLORIDE 1,000 ML IV SCH (05:12)
[2019-11-25 05:38] VITALS: BP 116/54
[2019-11-25 06:12] LABS: HEMOGLOBIN 8.3 g/dl (12.0-15.5); MEAN CORPUSCULAR HEMOGLOBIN 33.1 pg (27.0-33.0); MEAN CORPUSCULAR HGB CONC 33.2 g/dl (32.0-36.5); MEAN CORPUSCULAR VOLUME 99.6 fl (80.0-96.0); PLATELET COUNT, AUTOMATED 171 10^3/uL (150-450); RED BLOOD COUNT 2.51 10^6/uL (4.00-5.40); WHITE BLOOD COUNT 6.5 10^3/uL (4.0-10.0)
[2019-11-25] MEDS: APIXABAN 5 MG TAB (ELIQUIS) PO SCH (07:45)
[2019-11-25] MEDS: MOM 30ML SUSPENSION UDC PO SCH (07:45)
[2019-11-25] MEDS: HYDROXYCHLOROQUINE 200 MG TAB PO SCH (07:45)
[2019-11-25] MEDS: MIRALAX *UNIT DOSE* 17GM PACKET PO SCH (07:45)
[2019-11-25] MEDS: FERROUS SULFATE 325MG TAB PO SCH (07:46)
[2019-11-25] MEDS: AMIODARONE 200 MG TAB (PACERONE) PO SCH (07:47)
[2019-11-25] MEDS: oxyCODONE 5MG TAB PO PRN ×2 (07:47→14:13)
[2019-11-25] MEDS: CALCIUM/VITAMIN D 500 MG TAB PO SCH (07:47)
[2019-11-25 07:48] VITALS: BP 116/54
[2019-11-25] MEDS: METOPROLOL SUCC *XL* 25MG TAB (TopROL *XL*) PO SCH (07:48)
[2019-11-25] MEDS: POTASSIUM CHLORIDE 10 MEQ SR TABLET PO SCH (07:48)
[2019-11-25] MEDS: PANTOPRAZOLE 20 MG TAB PO SCH (07:48)
[2019-11-25] MEDS: predniSONE 2.5 MG TAB PO SCH (07:48)
[2019-11-25] MEDS: FUROSEMIDE 20 MG TAB PO SCH (07:48)
[2019-11-25] MEDS: azaTHIOprine 50 MG TAB (J7500) PO SCH (07:49)
[2019-11-25] MEDS: **NOTE PATIENT COMMENT** MISC XX SCH (07:49)
[2019-11-25 11:28] LABS: BLOOD UREA NITROGEN 16 MG/DL (7-18); CALCIUM LEVEL 7.8 MG/DL (8.8-10.2); CARBON DIOXIDE LEVEL 26 MEQ/L (21-32); CHLORIDE LEVEL 105 MEQ/L (98-107); CREATININE FOR GFR 0.73 MG/DL (0.55-1.30); GLOMERULAR FILTRATION RATE > 60.0 (>32); GLUCOSE, FASTING 108 MG/DL (70-100); POTASSIUM SERUM 4.4 MEQ/L (3.5-5.1); SODIUM LEVEL 138 MEQ/L (136-145)
[2019-11-25] MEDS ORDERED: PEG1POW PO (12:49)
[2019-11-25] MEDS ORDERED: LIDO5TD TD (12:49)
[2019-11-25] MEDS ORDERED: MOM30SS2 PO (12:49)
[2019-11-25] MEDS ORDERED: ACE65ERTAB PO (12:49)
[2019-11-25] MEDS ORDERED: OXYC-517 PO (12:49)
--- NOTE | 2019-11-25 12:56 | DS.PDOC ---
Discharge Summary General Date of Admission Nov 19, 2019 at 20:43 Date of Discharge 11/25/19 Discharge Summary PROCEDURES PERFORMED DURING STAY: None. ADMITTING DIAGNOSES: 1. Left hip fracture. DISCHARGE DIAGNOSES: 1. Left hip fracture, status post ORIF left hip, acute blood loss anemia secondary to surgery. COMPLICATIONS/CHIEF COMPLAINT: Hip Fracture,Left. HISTORY OF PRESENT ILLNESS: This is an 84-year-old female with extensive past medical history as listed below, chronically on Eliquis for paroxysmal A. fib and history of PE, presenting after sustaining a mechanical fall. She reports she was reaching for the door but overshot and lost her balance; denies any other symptoms prior to the fall. She hit the left side of her head and body on the floor. Denies any loss of consciousness or any bleeding. Her only complaint is severe pain in the left hip, which was found to have intertrochanteric fracture on imaging. Remaining imaging was negative for any other fracture or dislocation or bleed. She is otherwise hemodynamically stable and will be admitted for medical management and ultimate surgical repair for fracture. ER has spoken with orthopedic surgeon Dr. Holden who plans to take her to the OR after withholding her Eliquis for a few days.. HOSPITAL COURSE: This lady 84 years old white female was admitted with the diagnoses of left a fracture. Patient was admitted to medical floor, started on pain management as well as kept nothing by mouth. Patient was seen by Dr. Holden and admitted for surgical intervention. Patient had a ORIF of left hip done without any complications . She was continued on pain management and physical therapy was started. Patient was found to have a hemoglobin of 7.3, up. Hence, she received transfusion of 1 unit of PRBC and she maintained her hemoglobin after worse and no more further transfusion was needed. Patient will be restarted on her home medication including eliquis. Patient will be transferred to acute rehabilitation unit for physical therapy and then possibly will go home. Advised to follow-up with orthopedic surgery in 1 week. Further, as per the ARU pre sales technical consultant . DISCHARGE MEDICATIONS: Please see below. ALLERGIES: Please see below. PHYSICAL EXAMINATION ON DISCHARGE: VITAL SIGNS: Please see below. GENERAL: Within normal limits HEENT: Nichelle extraocular muscles intact NECK: [Supple CARDIOVASCULAR EXAMINATION: , S1, S2, regular RESPIRATORY EXAMINATION: Clear to A&P ABDOMINAL EXAMINATION: Benign EXTREMITIES: No clubbing, cyanosis, edema SKIN: Normal NEUROLOGICAL EXAMINATION: . No focal motor sensory deficit PSYCHIATRIC EXAMINATION: Normal LABORATORY DATA: Please see below. IMAGING: Left hip (X-ray:Impression: Intertrochanteric fracture of the left proximal femur. PROGNOSIS: Good ACTIVITY: As tolerated. DIET: As tolerated DISCHARGE PLAN: Discharged to acute rehabilitation unit DISPOSITION: . Discharged to acute rehabilitation unit DISCHARGE INSTRUCTIONS: 1. As per discharge instructions. ITEMS TO FOLLOWUP ON ON OUTPATIENT: 1. Follow with also in one week. DISCHARGE CONDITION: Stable. TIME SPENT ON DISCHARGE: 34 minutes. Vital Signs/I&Os Vital Signs Date Time Temp Pulse Resp B/P (MAP) Pulse Ox O2 Delivery O2 Flow Rate FiO2 11/25/19 08:17 18 Room Air 11/25/19 07:48 61 116/54 11/25/19 05:38 98.5 98 11/24/19 12:52 91.0 I&O- Last 24 Hours up to 6 AM 11/25/19 06:00 Intake Total 2112 ml Output Total 2000 ml Balance 112 ml Laboratory Data Labs 24H Laboratory Tests 2 11/25/19 05:57: Nucleated Red Blood Cells % (auto) 2.8H, Anion Gap 7L, Glomerular Filtration Rate > 60.0, Calcium Level 7.8L CBC/BMP Laboratory Tests 11/25/19 05:57 Discharge Medications Scheduled Alendronate Sodium (Alendronate Sodium) 70 Mg Tab, 70 MG PO ASDIRECTED, (Reported) TAKES ON TUESDAY MORNINGS Amiodarone HCl (Amiodarone HCl) 200 Mg Tablet, 200 MG PO BID, (Reported) Apixaban (Eliquis) 5 Mg Tab, 5 MG PO BID, (Reported) Ascorbic Acid (Vitamin C) 250 Mg Tablet, 250 MG PO QPM, (Reported) Azathioprine (Azathioprine) 50 Mg Tab, 100 MG PO DAILY, (Reported) Calcium Carbonate/Vitamin D3 (Calcium 600-Vit D3 400 Tablet) 1 Each Tablet, 1 TAB PO BID, (Reported) Diltiazem HCl (Diltiazem 24Hr ER) 180 Mg Cap.er.24h, 180 MG PO QPM, (Reported) Ferrous Sulfate (Ferrous Sulfate) 325 Mg Tablet.dr, 325 MG PO DAILY, (Reported) Furosemide (Furosemide) 20 Mg Tab, 20 MG PO DAILY, (Reported) Hydroxychloroquine Sulfate (Hydroxychloroquine Sulfate) 200 Mg Tab, 200 MG PO BID, (Reported) Levothyroxine Sodium (Levoxyl) 50 Mcg Tablet, 50 MCG PO DAILY, (Reported) Lidocaine (Lidocaine) 5% Adh..patch, 2 PATCH TD DAILY@2100 Magnesium Hydroxide (Milk of Magnesia) 400 Mg/5 Ml Oral.susp, 30 ML PO DAILY Metoprolol Succinate (Metoprolol Succinate) 25 Mg Tab.er.24h, 25 MG PO DAILY, (Reported) Pantoprazole Sodium (Pantoprazole Sodium) 20 Mg Tablet.dr, 20 MG PO DAILY, (Reported) Polyethylene Glycol 3350 (Polyethylene Glycol 3350) 17 Gm Powd.pack, 1 PKT PO DAILY Potassium Chloride (Potassium Chloride) 10 Meq Tab.er.prt, 10 MEQ PO DAILY, (R eported) Prednisone (Prednisone) 5 Mg Tab, 2.5 MG PO DAILY, (Reported) Scheduled PRN Acetaminophen (Acetaminophen ER) 650 Mg Tablet.er, 1,300 MG PO Q8HP PRN for PAIN Oxycodone HCl (Oxycodone HCl) 5 Mg Tablet, 10 MG PO Q6HP PRN for SEVERE PAIN (PS 8-10) Allergies Coded Allergies: No Known Allergies (Unverified , 03/22/13) NITIN MOORE MD November 25, 2019 12:56
[2019-11-25 14:00] VITALS: BP 109/50
== END 2019-11-25 15:50 | disposition home or self-care (01) | DRG 481 ==
LOC: EDBD 19:16 → M ED 19:16 → M ED INP 20:43 → ENRESERV 21:22 → M MSPAV 23:52 → M MS5PR 11-24 14:40
PROVIDERS: ADMIT Internal Medicine; ATTEND Internal Medicine
PROC: 0QS706Z Reposition Left Upper Femur with Intramedullary Internal Fixation Device, Open Approach (ICD-10-PCS; principal; 2019-11-21 16:35)
PROC: 30233N1 Transfusion of Nonautologous Red Blood Cells into Peripheral Vein, Percutaneous Approach (ICD-10-PCS; 2019-11-24)
DX: S72.142A Displaced intertrochanteric fracture of left femur, initial encounter for closed fracture (principal); D62 Acute posthemorrhagic anemia; I48.0 Paroxysmal atrial fibrillation; I10 Essential (primary) hypertension; Z79.01 Long term (current) use of anticoagulants; Z86.711 Personal history of pulmonary embolism; Z79.899 Other long term (current) drug therapy; K21.9 Gastro-esophageal reflux disease without esophagitis; E03.9 Hypothyroidism, unspecified; D50.9 Iron deficiency anemia, unspecified; M81.0 Age-related osteoporosis without current pathological fracture; M06.9 Rheumatoid arthritis, unspecified; Z96.651 Presence of right artificial knee joint; W18.30XA Fall on same level, unspecified, initial encounter; Y92.009 Unspecified place in unspecified non-institutional (private) residence as the place of occurrence of the external cause

== ENCOUNTER 2019-11-23 16:56 | Inpatient (IN) | payer MEDICARE ==
[~2019-11-23] VITALS: Ht 172.7 cm; Wt 94.5 kg
[~2019-11-23 16:56] MED LIST changes: +AMIO200T PO; +CALCTAB6 PO; +DILT180C43 PO; +FERR325T3 PO; +LEVO50TA45 PO; +METO1TAB32 PO; +PANT20TA2 PO; +POTA10TA17 PO; +VITA-158 PO; +VITA250T4 PO
[2019-11-23] MEDS ORDERED: BISACODYL 10 MG SUPP PR PRN (17:15)
[2019-11-23] MEDS: **NOTE PATIENT COMMENT** MISC XX SCH (21:00)
[2019-11-25] MEDS ORDERED: FERROUS SULFATE 325MG TAB PO SCH (09:00)
[2019-11-25] MEDS ORDERED: FUROSEMIDE 20 MG TAB PO SCH (09:00)
[2019-11-25] MEDS ORDERED: azaTHIOprine 50 MG TAB (J7500) PO SCH (09:00)
[2019-11-25] MEDS ORDERED: ACE65ERTAB PO (12:49)
[2019-11-25] MEDS ORDERED: LIDO5TD TD (12:49)
[2019-11-25] MEDS ORDERED: PEG1POW PO (12:49)
[2019-11-25] MEDS ORDERED: OXYC-517 PO (12:49)
[2019-11-25] MEDS ORDERED: MOM30SS2 PO (12:49)
[2019-11-25 17:10] VITALS: BP 103/53
[2019-11-25 20:00] VITALS: BP 151/68
[2019-11-25] MEDS: diltiaZEM **CD** 180 MG CAP PO SCH (21:22)
[2019-11-25] MEDS: CALCIUM/VITAMIN D 500 MG TAB PO SCH (21:22)
[2019-11-25] MEDS: APIXABAN 5 MG TAB (ELIQUIS) PO SCH (21:23)
[2019-11-25] MEDS: PANTOPRAZOLE 40MG TAB (PROTONIX) PO SCH (21:23)
[2019-11-25] MEDS: ACETAMINOPHEN 500 MG TAB PO SCH (21:23)
[2019-11-25] MEDS: DOCUSATE SODIUM 100 MG CAP PO SCH (21:23)
[2019-11-25] MEDS: AMIODARONE 200 MG TAB (PACERONE) PO SCH (21:24)
[2019-11-25] MEDS: ASCORBIC ACID 250 MG TAB PO SCH (21:24)
[2019-11-25] MEDS: SENNA 8.6 MG TAB (SENOKOT) PO SCH (21:24)
[2019-11-25] MEDS: HYDROXYCHLOROQUINE 200 MG TAB PO SCH (21:39)
[2019-11-25] MEDS: REMEDY PHYTOPLEX Z-GUARD PASTE 113GM TUBE (FROM STOREROOM PRODUCT) TOP SCH (21:39)
[2019-11-26] VITALS (9 sets, daily range): BP systolic 118–138; BP diastolic 58–65
[2019-11-26 06:42] LABS: BASO % 0.3 % (0.0-1.0); EOS % 0.1 % (0.0-3.0); HEMATOCRIT 26.6 % (36.0-47.0); HEMOGLOBIN 8.7 g/dl (12.0-15.5); LYMPH # 0.4 10^3/uL (1.5-5.0); LYMPH % 6.5 % (24.0-44.0); MEAN CORPUSCULAR HEMOGLOBIN 32.8 pg (27.0-33.0); MEAN CORPUSCULAR HGB CONC 32.7 g/dl (32.0-36.5); MEAN CORPUSCULAR VOLUME 100.4 fl (80.0-96.0); MONO # 0.8 10^3/uL (0.0-0.8); MONO % 11.3 % (0.0-5.0); NEUTROPHILS # 5.3 10^3/uL (1.5-8.5); PLATELET COUNT, AUTOMATED 199 10^3/uL (150-450); RED BLOOD COUNT 2.65 10^6/uL (4.00-5.40); WHITE BLOOD COUNT 6.7 10^3/uL (4.0-10.0)
[2019-11-26] MEDS: LEVOTHYROXINE 50MCG TABLET (0.05MG) PO SCH (06:46)
[2019-11-26 07:16] LABS: ALBUMIN 2.5 GM/DL (3.2-5.2); ALT/SGPT 10 U/L (12-78); BILIRUBIN,TOTAL 2.2 MG/DL (0.2-1.0); BLOOD UREA NITROGEN 19 MG/DL (7-18); CALCIUM LEVEL 7.6 MG/DL (8.8-10.2); CARBON DIOXIDE LEVEL 27 MEQ/L (21-32); CHLORIDE LEVEL 104 MEQ/L (98-107); CREATININE FOR GFR 0.89 MG/DL (0.55-1.30); GLOMERULAR FILTRATION RATE > 60.0 (>32); GLUCOSE, FASTING 107 MG/DL (70-100); POTASSIUM SERUM 4.6 MEQ/L (3.5-5.1); SODIUM LEVEL 138 MEQ/L (136-145); TOTAL PROTEIN 5.2 GM/DL (6.4-8.2)
[2019-11-26] MEDS: PANTOPRAZOLE 40MG TAB (PROTONIX) PO SCH ×6 (07:20→21:09)
[2019-11-26] MEDS: AMIODARONE 200 MG TAB (PACERONE) PO SCH ×6 (07:20→21:10)
[2019-11-26] MEDS: CALCIUM/VITAMIN D 500 MG TAB PO SCH ×6 (07:20→21:10)
[2019-11-26] MEDS: DOCUSATE SODIUM 100 MG CAP PO SCH ×6 (07:20→21:10)
[2019-11-26] MEDS: APIXABAN 5 MG TAB (ELIQUIS) PO SCH ×6 (07:20→21:09)
[2019-11-26] MEDS: ASCORBIC ACID 250 MG TAB PO SCH ×3 (07:21→21:10)
[2019-11-26] MEDS: REMEDY PHYTOPLEX Z-GUARD PASTE 113GM TUBE (FROM STOREROOM PRODUCT) TOP SCH ×9 (07:21→21:11)
[2019-11-26] MEDS: ACETAMINOPHEN 500 MG TAB PO SCH ×9 (07:21→21:09)
[2019-11-26] MEDS: diltiaZEM **CD** 180 MG CAP PO SCH ×3 (07:21→21:00)
[2019-11-26] MEDS: SENNA 8.6 MG TAB (SENOKOT) PO SCH ×3 (07:21→21:09)
[2019-11-26] MEDS: **NOTE PATIENT COMMENT** MISC XX SCH ×3 (07:22→21:00)
[2019-11-26] MEDS: predniSONE 2.5 MG TAB PO SCH (07:41)
[2019-11-26] MEDS: METOPROLOL SUCC *XL* 25MG TAB (TopROL *XL*) PO SCH (07:41)
[2019-11-26] MEDS: FUROSEMIDE 20 MG TAB PO SCH (07:41)
[2019-11-26] MEDS: azaTHIOprine 50 MG TAB (J7500) PO SCH (07:41)
[2019-11-26] MEDS: FERROUS SULFATE 325MG TAB PO SCH (07:42)
[2019-11-26] MEDS: POTASSIUM CHLORIDE 10 MEQ SR TABLET PO SCH (07:42)
[2019-11-26] MEDS: HYDROXYCHLOROQUINE 200 MG TAB PO SCH ×2 (07:42→21:09)
[2019-11-26] MEDS: LIDOCAINE 5% (LIDODERM) PATCH TD SCH (07:43)
[2019-11-26] MEDS: ONDANSETRON 4 MG ORAL DISINTEGRATING TAB PO PRN (10:31)
[2019-11-26] MEDS ORDERED: oxyCODONE 5MG TAB PO ONE (11:15)
--- NOTE | 2019-11-26 12:24 | HPEPDOC ---
Sign Writer Hand Note DATE OF ADMISSION:11-25-19 DATE OF SERVICE: 11-26-19 TIME OF ADMISSION: Please refer to physician's admission order. SOURCE OF ADMISSION INFORMATION: [facility] record and patient CHIEF COMPLAINT: hip fracture HISTORY OF PRESENT ILLNESS: 84F pmh Afib on eliquis, hx of PE, RA, hypothyroidism, iron deficiency anemia, kidney stones, GERD who had a mechanical fall at home without pre-syncopal symptoms and presented to [facility] ED on 2o with difficulty walking and left hip pain. Xrays showed, Intertrochanteric fracture of the left proximal femur. Cer vical Xray did not show any fractures or traumatic subluxation. ECHO was ordered revealing Left ventricular ejection fraction (LVEF) 65-70% by visual estimate. Grade 1 LV diastolic dysfunction. She was evaluated by orthopedics who performed an ORIF on 11-22-19 following temporary discontinuation of Eliquis with post-op anemia requiring one blood transfusion. She was made WBAT, evaluated by therapy where she was noted to have impairments in mobility and ADLs and deemed medically appropriate for discharge to ARU on 11-25-19. REVIEW OF SYSTEMS: The following is a completed review of systems and has been reviewed. Review of systems otherwise unremarkable. PAIN: Patient self reports left hip pain EYES: No recent vision changes EARS, NOSE, & THROAT: No throat pain, or dysphagia, or rhinorrhea CARDIOVASCULAR: Denies chest pain or palpitations PULMONARY: Denies shortness of breath GASTROINTESTINAL: Denies constipation/diarrhea GENITOURINARY: denies dysuria MUSCULOSKELETAL: left hip fracture NEUROLOGICAL:denies paresthesias or tremor HEMATOLOGICAL: +easy bruising SKIN: left hip incision PSYCHIATRIC: Unremarkable All other review of systems found to be negative. PAST MEDICAL HISTORY: as per HPI PAST SURGICAL HISTORY: Appendectomy, tubal ligation, right TKR, ex-lap with internal hernia release and small bowel resection 2017, extracorporeal shock wave lithotripsy and J stent for kidney stones, gangrenous small bowel with abdominal adhesions ALLERGIES: Please see below. MEDICATIONS: Please see below. FAMILY HISTORY: Stroke, cancer SOCIAL HISTORY: No etoh/smoking/illicit drugs DIET:regular, fluid restrict PHYSICAL EXAMINATION: VITAL SIGNS: Please see below. GENERAL: Pleasant and cooperative. No acute distress. HEENT: PERRL. Extraocular movements intact. Clear conjunctiva CARDIOVASCULAR: Regular rate and rhythm. No murmurs, rubs, or gallops LUNGS: Clear to auscultation bilaterally. No wheezes. No rhonchi ABDOMEN: Soft, nontender, nondistended. Positive bowel sounds. Normal active [place] wel sounds NEUROLOGICAL: Alert and oriented times three. Cranial nerves II through XII grossly intact. Sensation grossly intact to light touch throughout all 4limbs including EXTREMITIES: 5\5 strength bilateral upper extremities. 5\5 strength right lower extremity 5/5 strength in left lower ankle DF/PF/EHL (limited due to recent surgery. no notable edema bilat SKIN: sacrum without erythema, left hip incision with serous drainage and dimitris- incision ecchymosis LABORATORY DATA: Please see below. IMAGING:Imaging documentation personally reviewed by record FUNCTIONAL STATUS: Premorbid: Modified Independent with all activities of daily life as well as mobility On Admission: Min-Total assist for bed mobility, functional transfers, ambulation, toileting, dressing GOALS: Mod-I for functional transfers, ambulating household distances, dressing, toileting, bathing ASSESSMENT:84-year-old F with past medical history of Afib and PE who presents status post left hip fracture PLAN: 1. Rehab- PT/OT advance gait an ADL training, strengthen/stretch/maintain ROM all 4 limbs 2. Neuro: no known hx 3. Cardiac: chronic diastolic CHF, c/u fluid restriction, Lasix, daily weights, monitor for fluid overload -Afib and hx of PE on eliquis, c/u diltiazem, amiodarone, metoprolol- medicine consulted to assist in overall management 4. Resp: encourage incentive spirometry, monitor for infection 5. Rheum: rheumatoid arthritis, c/u Plaquenil, prednisone, and Imuran 6. Heme: post-op anemia s/p 1 transfusion on acute care, will transfuse one more unit today given fatigue and poor endurance, repeat H/H tomorrow -oral iron 7. Ortho: s/p left hip fracture WBAT, ortho consulted -Oscal for osteoporosis 8. Endo: hypothyroidism c/u Synthroid 9. GI ppx: Protonix, will order FOBT 10. DVT ppx: teds and on eliquis 11. : monitor PVRs 12. Pain: Tylenol, oxycodone prn, Lidoderm patch to left hip 13. Dispo: TBD POST ADMISSION PHYSICIAN EVALUATION: Medical and functional status: Description of medical status, medical assessment: As above. Rehabilitation diagnosis and current and prior cold morbid medical conditions as above. Risk of complications and plans to mitigate them as above. Description of functional status current status is as above. Prior status as above. Status compared to preadmission: There are no clinically significant differences between the patient's current status and the information described on the preadmission screening document. Treatment plan anticipated: Treatment plan is as described above. Required disciplines including physical therapy, occupational therapy, others as noted above. Intensity of services: 3 hours a day, 6 days a week. Special considerations: There are no specific special or safety considerations that would likely preclude immediate implementation of an intensive rehabilitation program or subsequently influence the plan of care. ATTESTATION: Considering all the information above, it is my best judgment that this patient requires intensive rehabilitation therapy as described above and an inpatient hospital environment due to the complexity of nursing, medical, and rehabilitation needs required by the patient. Furthermore, this patient can reasonably be expected to participate in an benefit from an inpatient rehabilitation stay with an interdisciplinary team approach to the delivery of rehabilitation care under the direction and supervision of rehabilitation physician. PROGNOSIS: good ESTIMATED LENGTH OF STAY:18-21 days. PROJECTED DISCHARGE DESTINATION: Home with family support and any durable medical equipment required to increase functional safety and mobility. TIME SPENT COUNSELING AND COORDINATING INITIAL CARE: Greater than 70 minutes. Vital Signs Vital Sign - Last 24 Hours 11/25/19 11/25/19 11/25/19 11/25/19 17:10 18:12 20:00 21:22 Temp 98.8 98.2 Pulse 59 68 68 Resp 18 20 22 B/P (MAP) 103/53 (70) 151/68 (95) 153/68 Pulse Ox 99 99 O2 Delivery Room Air Room Air Room Air 11/26/19 11/26/19 11/26/19 06:00 07:41 11:41 Temp 98.1 Pulse 57 66 Resp 18 18 B/P (MAP) 124/59 (80) 118/67 Pulse Ox 95 O2 Delivery Room Air Laboratory Data CBC/BMP Laboratory Tests 11/26/19 05:57 Labs 24H Laboratory Tests 2 11/26/19 05:57: Immature Granulocyte % (Auto) 2.8, Neutrophils (%) (Auto) 79.0H, Lymphocytes (%) (Auto) 6.5L, Monocytes (%) (Auto) 11.3H, Eosinophils (%) (Auto) 0.1, Basophils (%) (Auto) 0.3, Neutrophils # (Auto) 5.3, Lymphocytes # (Auto) 0.4L, Monocytes # (Auto) 0.8, Eosinophils # (Auto) 0.0, Basophils # (Auto) 0.0, Nucleated Red Blood Cells % (auto) 1.8H, Anion Gap 7L, Glomerular Filtration Rate > 60.0, Calcium Level 7.6L, Total Bilirubin 2.2#H, Aspartate Amino Transf (AST/SGOT) 15, Alanine Aminotransferase (ALT/SGPT) 10L, Alkaline Phosphatase 55, Total Protein 5.2L, Albumin 2.5L, Albumin/Globulin Ratio 0.93L Home Medications Scheduled Alendronate Sodium (Alendronate Sodium) 70 Mg Tab, 70 MG PO ASDIRECTED, (Reported) TAKES ON TUESDAY MORNINGS Amiodarone HCl (Amiodarone HCl) 200 Mg Tablet, 200 MG PO BID, (Reported) Apixaban (Eliquis) 5 Mg Tab, 5 MG PO BID, (Reported) Ascorbic Acid (Vitamin C) 250 Mg Tablet, 250 MG PO QPM, (Reported) Azathioprine (Azathioprine) 50 Mg Tab, 100 MG PO DAILY, (Reported) Calcium Carbonate/Vitamin D3 (Calcium 600-Vit D3 400 Tablet) 1 Each Tablet, 1 TAB PO BID, (Reported) Diltiazem HCl (Diltiazem 24Hr ER) 180 Mg Cap.er.24h, 180 MG PO QPM, (Reported) Ferrous Sulfate (Ferrous Sulfate) 325 Mg Tablet.dr, 325 MG PO DAILY, (Reported) Furosemide (Furosemide) 20 Mg Tab, 20 MG PO DAILY, (Reported) Hydroxychloroquine Sulfate (Hydroxychloroquine Sulfate) 200 Mg Tab, 200 MG PO BID, (Reported) Levothyroxine Sodium (Levoxyl) 50 Mcg Tablet, 50 MCG PO DAILY, (Reported) Lidocaine (Lidocaine) 5% Adh..patch, 2 PATCH TD DAILY@2100 Magnesium Hydroxide (Milk of Magnesia) 400 Mg/5 Ml Oral.susp, 30 ML PO DAILY Metoprolol Succinate (Metoprolol Succinate) 25 Mg Tab.er.24h, 25 MG PO DAILY, (Reported) Pantoprazole Sodium (Pantoprazole Sodium) 20 Mg Tablet.dr, 20 MG PO DAILY, (Reported) Polyethylene Glycol 3350 (Polyethylene Glycol 3350) 17 Gm Powd.pack, 1 PKT PO DAILY Potassium Chloride (Potassium Chloride) 10 Meq Tab.er.prt, 10 MEQ PO DAILY, (Reported) Prednisone (Prednisone) 5 Mg Tab, 2.5 MG PO DAILY, (Reported) Scheduled PRN Acetaminophen (Acetaminophen ER) 650 Mg Tablet.er, 1,300 MG PO Q8HP PRN for PAIN Oxycodone HCl (Oxycodone HCl) 5 Mg Tablet, 10 MG PO Q6HP PRN for SEVERE PAIN (PS 8-10) Allergies Coded Allergies: No Known Allergies (Unverified , 03/22/13) A-FIB/CHADSVASC A-FIB History Current/History of A-Fib/PAF?: Yes Current PO Anticoag Therapy: Yes CARI KIRBY MD November 26, 2019 12:24
[2019-11-26] MEDS ORDERED: ACETAMINOPHEN TAB 650MG DOSE (2X325MG) PO ONE (13:30)
[2019-11-26] MEDS ORDERED: diphenhydrAMINE 25MG CAP PO ONE (13:30)
[2019-11-26] MEDS ORDERED: FUROSEMIDE 20MG/2ML VIAL (J1940) IV ONE (16:00)
--- NOTE | 2019-11-26 16:25 | CR ---
DATE OF CONSULTATION: 11/26/2019 REFERRING PHYSICIAN: Dr. Heidi Bustos for medical management of chronic illness. HISTORY OF PRESENTING ILLNESS: 84-year-old female admitted 11/19/2019 to 11/25/2019 to medical-surgical floor after mechanical fall sustaining a left hip fracture but had been on Eliquis for paroxysmal atrial fibrillation (AFib). After a few days of holding Eliquis the patient underwent open reduction, internal fixation (ORIF) of the left hip with acute blood loss secondary to surgery receiving 1 unit red blood cell (RBC) transfusion. Patient had resulted in increased hemoglobin to 8.3, hematocrit of 25 and was subsequently transferred to acute rehabilitation unit (ARU). Patient had no current overnight symptoms prior the episode. Hospitalist was called to consult for management of chronic issues. Patient otherwise denies fever, chills, chest pain, pressure or tightness, shortness of breath, nausea or vomiting, diarrhea. Complains of 4/10 pain when she starts to ambulate that increased to 7/10 pain improved with tramadol. No other issues. PAST MEDICAL HISTORY: 1. Paroxysmal atrial fibrillation. 2. History of pulmonary embolism (PE) on chronic Eliquis. 3. Rheumatoid arthritis (RA). 4. Iron deficiency anemia. 5. Hypothyroidism. 6. Hypertension. 7. Reflux. 8. Osteoporosis. 9. Gangrenous small bowel and abdominal adhesions. 10. History of kidney stones. PAST SURGICAL HISTORY: 1. Appendectomy. 2. Left hip ORIF. 3. Tubal ligation. 4. Right knee replacement. 5. Ex lap with release of internal hernia, bowel resection and anastomosis. 6. Extracorporeal shock wave lithotripsy (ESWL) and J stent for kidney stones. FAMILY HISTORY: Father with stroke. Two sisters with lung cancer. SOCIAL HISTORY: No alcohol, drug or tobacco use. 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 REVIEW OF SYSTEMS: Per HPI. 12 point system otherwise negative. HOSPITALIST MEDICATIONS: - lidocaine - metoprolol - prednisone - potassium - azathioprine - ferrous sulfate - Lasix - levothyroxine - hydroxychloroquine - Protonix - Colace - Senna-S - acetaminophen - apixaban - ascorbic acid - calcium - vitamin D - diltiazem - bisacodyl - MagOx - oxycodone PHYSICAL EXAMINATION: Vital Signs: Temperature 98.1, pulse 67, respiratory rate 18, blood pressure 124/59, 85% on room air. Generally, awake, alert and times three. Answering questions appropriately. Lungs are clear to auscultation. No wheezing, rales or rhonchi. Heart: S1, S2, irregularly irregular. Abdomen is soft, nontender, nondistended. Positive bowel sounds. Extremities: No cyanosis, clubbing or pitting edema. Patient has left hip post-op changes. 11/26/2019 white count 6.7, hemoglobin 8.7, hematocrit 26, platelet count 199. Sodium 138, potassium 4.6, chloride 104, bicarbonate 27, BUN 19, creatinine 0.89, glucose of 107, calcium 7.6, albumin of 2.5. ASSESSMENT AND PLAN: 84-year-old female with history of rheumatoid arthritis, paroxysmal atrial fibrillation had a mechanical fall, left hip fracture, after being off Eliquis for a few days patient underwent open reduction, internal fixation. CURRENT ISSUES: 1. Left hip ORIF status post mechanical fall. Post-op management and followup orthopedic surgery. Activity as tolerated. Fall precautions and walk with a walker. Physical therapy (PT) and occupational therapy (OT) and acute rehab. 2. Currently on Eliquis for deep venous thrombosis (DVT) prophylaxis and history of pulmonary embolism (PE). 3. Atrial fibrillation, rate controlled currently. Patient back on metoprolol and Cardizem and Eliquis for CVA prophylaxis. On chronic amiodarone. Pain controlled on oxycodone. 3. Rheumatoid arthritis. Resumed on home dose of azathioprine and hydroxychloroquine. Patient did not experience any adrenal insufficiency during this recent admission. Blood pressure is adequate. 4. Hypothyroidism. Continued on Synthroid. MTDD
[2019-11-27 06:00] VITALS: BP 147/74
[2019-11-27] MEDS: LEVOTHYROXINE 50MCG TABLET (0.05MG) PO SCH (06:19)
[2019-11-27] MEDS: oxyCODONE 5MG TAB PO PRN ×2 (06:19→21:35)
[2019-11-27 06:38] LABS: BASO % 0.3 % (0.0-1.0); EOS % 0.4 % (0.0-3.0); HEMATOCRIT 29.8 % (36.0-47.0); LYMPH # 0.5 10^3/uL (1.5-5.0); LYMPH % 6.3 % (24.0-44.0); MEAN CORPUSCULAR HEMOGLOBIN 32.8 pg (27.0-33.0); MEAN CORPUSCULAR HGB CONC 33.6 g/dl (32.0-36.5); MEAN CORPUSCULAR VOLUME 97.7 fl (80.0-96.0); MONO # 0.9 10^3/uL (0.0-0.8); NEUTROPHILS # 5.6 10^3/uL (1.5-8.5); NEUTROPHILS % 77.2 % (36.0-66.0); PLATELET COUNT, AUTOMATED 262 10^3/uL (150-450); RED BLOOD COUNT 3.05 10^6/uL (4.00-5.40); WHITE BLOOD COUNT 7.2 10^3/uL (4.0-10.0)
[2019-11-27] MEDS: azaTHIOprine 50 MG TAB (J7500) PO SCH (09:46)
[2019-11-27] MEDS: PANTOPRAZOLE 40MG TAB (PROTONIX) PO SCH ×2 (09:46→21:35)
[2019-11-27] MEDS: HYDROXYCHLOROQUINE 200 MG TAB PO SCH ×2 (09:46→21:36)
[2019-11-27] MEDS: LIDOCAINE 5% (LIDODERM) PATCH TD SCH ×2 (09:46→14:06)
[2019-11-27] MEDS: DOCUSATE SODIUM 100 MG CAP PO SCH ×2 (09:47→21:35)
[2019-11-27] MEDS: FUROSEMIDE 20 MG TAB PO SCH (09:47)
[2019-11-27] MEDS: CALCIUM/VITAMIN D 500 MG TAB PO SCH ×2 (09:47→21:35)
[2019-11-27] MEDS: APIXABAN 5 MG TAB (ELIQUIS) PO SCH ×2 (09:47→21:35)
[2019-11-27] MEDS: AMIODARONE 200 MG TAB (PACERONE) PO SCH ×2 (09:47→21:36)
[2019-11-27] MEDS: ACETAMINOPHEN 500 MG TAB PO SCH ×3 (09:47→21:35)
[2019-11-27] MEDS: POTASSIUM CHLORIDE 10 MEQ SR TABLET PO SCH (09:47)
[2019-11-27] MEDS: predniSONE 2.5 MG TAB PO SCH (09:47)
[2019-11-27] MEDS: FERROUS SULFATE 325MG TAB PO SCH (09:48)
[2019-11-27] MEDS: METOPROLOL SUCC *XL* 25MG TAB (TopROL *XL*) PO SCH (09:48)
[2019-11-27] MEDS: REMEDY PHYTOPLEX Z-GUARD PASTE 113GM TUBE (FROM STOREROOM PRODUCT) TOP SCH ×3 (09:48→21:00)
--- NOTE | 2019-11-27 12:23 | IPNPDOC ---
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 She has improved energy since the b lood transfusion and denies any new difficulty breathing. REVIEW OF SYSTEMS: The following is a completed review of systems and has been reviewed. Review of systems otherwise unremarkable. PAIN: Patient self reports left hip pain EYES: No recent vision changes EARS, NOSE, & THROAT: No throat pain, or dysphagia, or rhinorrhea CARDIOVASCULAR: Denies chest pain or palpitations PULMONARY: Denies shortness of breath GASTROINTESTINAL: Denies constipation/diarrhea GENITOURINARY: denies dysuria MUSCULOSKELETAL: left hip fracture NEUROLOGICAL:denies paresthesias or tremor HEMATOLOGICAL: +easy bruising SKIN: left hip incision PSYCHIATRIC: Unremarkable All other review of systems found to be negative. PHYSICAL EXAMINATION: VITAL SIGNS: Please see below. GENERAL: Pleasant and cooperative. No acute distress. HEENT: PERRL. Extraocular movements intact. Clear conjunctiva CARDIOVASCULAR: Regular rate and rhythm. No murmurs, rubs, or gallops LUNGS: Clear to auscultation bilaterally. No wheezes. No rhonchi ABDOMEN: Soft, nontender, nondistended. Positive bowel sounds. Normal active bowel sounds NEUROLOGICAL: Alert and oriented times three. Cranial nerves II through XII grossly intact. Sensation grossly intact to light touch throughout all 4limbs including EXTREMITIES: 5\5 strength bilateral upper extremities. 5\5 strength right lower extremity 5/5 strength in left lower ankle DF/PF/EHL (limited due to recent surgery. no notable edema bilat SKIN: sacrum without erythema, left hip incision with serous drainage and dimitris- incision ecchymosis ASSESSMENT:84-year-old F with past medical history of Afib and PE who presents status post left hip fracture PLAN: 1. Rehab- PT/OT advance gait an ADL training, strengthen/stretch/maintain ROM all 4 limbs, ambulating with RW 2. Neuro: no known hx 3. Cardiac: chronic diastolic CHF, c/u fluid restriction, Lasix, daily weights, monitor for fluid overload -Afib and hx of PE on eliquis, c/u diltiazem, amiodarone, metoprolol- medicine consulted to assist in overall management 4. Resp: encourage incentive spirometry, monitor for infection 5. Rheum: rheumatoid arthritis, c/u Plaquenil, prednisone, and Imuran 6. Heme: post-op anemia s/p 1 transfusion on acute care and received 1 more unit 11/26/19 with Hgb 10 today, patient reporting she has more energy today -oral iron 7. Ortho: s/p left hip fracture WBAT, ortho consulted -Oscal for osteoporosis 8. Endo: hypothyroidism c/u Synthroid 9. GI ppx: Protonix, ordered FOBT 10. DVT ppx: teds and on eliquis 11. : monitor PVRs 12. Pain: Tylenol, oxycodone prn, Lidoderm patch to left hip and low back 13. Dispo: TBD Allergies Coded Allergies: No Known Allergies (Unverified , 03/22/13) Vital Signs Vital Signs Date Time Temp Pulse Resp B/P (MAP) Pulse Ox O2 Delivery O2 Flow Rate FiO2 11/27/19 09:48 61 147/74 11/27/19 06:49 22 11/27/19 06:00 96.9 98 Room Air Laboratory Data CBC/BMP Laboratory Tests 11/27/19 06:18 Labs 24H Laboratory Tests 2 11/27/19 06:18: Immature Granulocyte % (Auto) 3.8H, Neutrophils (%) (Auto) 77.2H, Lymphocytes (%) (Auto) 6.3L, Monocytes (%) (Auto) 12.0H, Eosinophils (%) (Auto) 0.4, Basophils (%) (Auto) 0.3, Neutrophils # (Auto) 5.6, Lymphocytes # (Auto) 0.5L, Monocytes # (Auto) 0.9H, Eosinophils # (Auto) 0.0, Basophils # (Auto) 0.0, Nucleated Red Blood Cells % (auto) 1.8H Current Medications Current Medications Current Medications Medications (Trade) Dose Ordered Sig/Hernandez Route PRN Reason Start Time Stop Time Status Last Admin Dose Admin Acetaminophen (Tylenol Tab) 1,000 mg TID PO 11/23/19 21:00 11/27/19 09:47 Amiodarone HCl (Pacerone, Cordarone) 200 mg BID PO 11/23/19 21:00 11/27/19 09:47 Apixaban (Eliquis) 5 mg BID PO 11/23/19 21:00 11/27/19 09:47 Ascorbic Acid (Vitamin C) 250 mg QHS PO 11/23/19 21:00 11/26/19 21:10 Azathioprine (Imuran) 100 mg DAILY PO 11/25/19 09:00 11/25/19 17:37 DC Azathioprine (Imuran) 100 mg DAILY PO 11/26/19 09:00 11/27/19 09:46 Bisacodyl (Dulcolax Suppository) 10 mg DAILYPRN PRN WI CONSTIPATION 11/23/19 17:15 Calcium/Vitamin D (Oscal D) 500 mg BID PO 11/23/19 21:00 11/27/19 09:47 Diltiazem HCl (Cardizem Cd) 180 mg QHS PO 11/23/19 21:00 11/25/19 21:22 Docusate Sodium (Colace) 100 mg BID PO 11/23/19 21:00 11/27/19 09:47 Ferrous Sulfate (Ferrous Sulfate) 325 mg DAILY PO 11/25/19 09:00 11/25/19 17:38 DC Ferrous Sulfate (Ferrous Sulfate) 325 mg DAILY PO 11/26/19 09:00 11/27/19 09:48 Furosemide (Lasix) 20 mg DAILY PO 11/25/19 09:00 11/25/19 17:38 DC Furosemide (Lasix) 20 mg DAILY PO 11/26/19 09:00 11/27/19 09:47 Hydroxychloroquine Sulfate (Plaquenil) 200 mg BID PO 11/25/19 21:00 11/27/19 09:46 Levothyroxine Sodium (Synthroid) 50 mcg DAILY@06 PO 11/26/19 06:00 11/27/19 06:19 Lidocaine (Lidoderm Patch) 1 patch DAILY TD 11/26/19 09:00 11/27/19 09:46 Magnesium Hydroxide (Milk Of Magnesia) 30 ml DAILYPRN PRN PO CONSTIPATION 11/23/19 17:15 Metoprolol Succinate (TopROL XL) 25 mg DAILY PO 11/26/19 09:00 11/27/19 09:48 Non-Formulary Medication ( See Comment Field Below ) REMOVE LIDODERM PATCH DAILY@21 XX 11/23/19 21:00 11/26/19 21:00 Ondansetron HCl (Zofran Odt) 4 mg Q4HP PRN PO NAUSEA OR VOMITING 11/26/19 10:30 11/26/19 10:31 Oxycodone HCl (Roxicodone, Oxyir) 5 mg Q4HP PRN PO PAIN 11/23/19 17:15 11/27/19 06:19 Pantoprazole Sodium (Protonix) 40 mg BID PO 11/23/19 21:00 11/27/19 09:46 Potassium Chloride (Micro-K Extencaps) 10 meq DAILY PO 11/26/19 09:00 11/27/19 09:47 Prednisone (Deltasone) 2.5 mg DAILY PO 11/26/19 09:00 11/27/19 09:47 Senna (Senokot) 1 tab QHS PO 11/23/19 21:00 11/26/19 21:09 CARI KIRBY MD November 27, 2019 12:23
[2019-11-27 14:00] VITALS: BP 143/64
[2019-11-27] MEDS ORDERED: oxyCODONE 5MG TAB PO ONE (17:00)
[2019-11-27] MEDS: diltiaZEM **CD** 180 MG CAP PO SCH (21:00)
[2019-11-27 21:33] VITALS: BP 124/61
[2019-11-27] MEDS: SENNA 8.6 MG TAB (SENOKOT) PO SCH (21:35)
[2019-11-27] MEDS: ASCORBIC ACID 250 MG TAB PO SCH (21:36)
[2019-11-27] MEDS: **NOTE PATIENT COMMENT** MISC XX SCH (21:37)
[2019-11-28] MEDS: LEVOTHYROXINE 50MCG TABLET (0.05MG) PO SCH (05:30)
[2019-11-28] MEDS: oxyCODONE 5MG TAB PO PRN ×4 (05:31→21:14)
[2019-11-28 06:10] VITALS: BP 124/60
[2019-11-28 06:45] LABS: BASO % 0.3 % (0.0-1.0); EOS % 0.5 % (0.0-3.0); HEMATOCRIT 31.2 % (36.0-47.0); LYMPH # 0.5 10^3/uL (1.5-5.0); MEAN CORPUSCULAR HEMOGLOBIN 32.2 pg (27.0-33.0); MEAN CORPUSCULAR HGB CONC 32.1 g/dl (32.0-36.5); MEAN CORPUSCULAR VOLUME 100.3 fl (80.0-96.0); MONO # 0.8 10^3/uL (0.0-0.8); MONO % 10.8 % (0.0-5.0); NEUTROPHILS # 5.9 10^3/uL (1.5-8.5); NEUTROPHILS % 77.2 % (36.0-66.0); PLATELET COUNT, AUTOMATED 299 10^3/uL (150-450); RED BLOOD COUNT 3.11 10^6/uL (4.00-5.40); WHITE BLOOD COUNT 7.6 10^3/uL (4.0-10.0)
[2019-11-28 07:12] LABS: GLOMERULAR FILTRATION RATE 56.1 (>32); POTASSIUM SERUM 3.9 MEQ/L (3.5-5.1)
[2019-11-28] MEDS: PANTOPRAZOLE 40MG TAB (PROTONIX) PO SCH ×2 (09:04→21:12)
[2019-11-28] MEDS: AMIODARONE 200 MG TAB (PACERONE) PO SCH ×2 (09:04→21:12)
[2019-11-28] MEDS: APIXABAN 5 MG TAB (ELIQUIS) PO SCH ×2 (09:04→21:15)
[2019-11-28] MEDS: predniSONE 2.5 MG TAB PO SCH (09:04)
[2019-11-28] MEDS: azaTHIOprine 50 MG TAB (J7500) PO SCH (09:04)
[2019-11-28] MEDS: LIDOCAINE 5% (LIDODERM) PATCH TD SCH (09:04)
[2019-11-28] MEDS: HYDROXYCHLOROQUINE 200 MG TAB PO SCH ×2 (09:05→21:15)
[2019-11-28] MEDS: FUROSEMIDE 20 MG TAB PO SCH (09:05)
[2019-11-28] MEDS: ACETAMINOPHEN 500 MG TAB PO SCH ×3 (09:05→21:14)
[2019-11-28] MEDS: CALCIUM/VITAMIN D 500 MG TAB PO SCH ×2 (09:05→21:15)
[2019-11-28] MEDS: FERROUS SULFATE 325MG TAB PO SCH (09:05)
[2019-11-28] MEDS: REMEDY PHYTOPLEX Z-GUARD PASTE 113GM TUBE (FROM STOREROOM PRODUCT) TOP SCH ×3 (09:06→21:00)
[2019-11-28] MEDS: DOCUSATE SODIUM 100 MG CAP PO SCH ×2 (09:06→21:15)
[2019-11-28] MEDS: METOPROLOL SUCC *XL* 25MG TAB (TopROL *XL*) PO SCH (09:06)
[2019-11-28] MEDS: POTASSIUM CHLORIDE 10 MEQ SR TABLET PO SCH (09:08)
--- NOTE | 2019-11-28 11:11 | IPNPDOC ---
Text Note Date of Service The patient was seen on 11/28/19. NOTE Subjective: Patient is an 84-year-old female with PMHx HTN, A. fib (on Eliquis), PE (on Eliquis), RA, Hypothyroidism, Iron deficiency anemia, Hx of gangrenous small bowel / abdominal adhesions, Hx of Nephrolithiasis, Osteoporosis, GERD, who presented to the hospital after sustaining a mechanical fall resulting in a left hip fracture. Patient was admitted to [facility] from 11/19/2019 to 11/25/2019. Patient ultimately went for ORIF on 11/20. Patient's hospital stay was completed with acute blood loss anemia for which she has received 1 unit PRBC. Patient was ultimately transitioned to acute rehabilitation unit on 11/25, where she continues to work with physical therapy and occupational therapy. Patient was seen and examined at the bedside. Patient was seen sitting in chair. She denies any nausea, vomiting, chest pain, shortness of breath, palpitations. She denies any constipation, diarrhea, or urinary discomfort. Objective: Vitals (See below) General: Lying in bed, no acute distress, comfortable, AAOx3 HEENT: NC, AT CVS: +S1S2 Lungs: Fair air entry b/l, -w/r/r Abdomen: Soft, ND, NT Extremities: - Edema, - Calf tenderness Assessment and plan: Left hip fracture - 2/2 mechanical fall; s/p ORIF (11/20) - Pain control, physical therapy at the direction of acute rehabilitation team - Orthopedic surgery on consultation Chronic Diastolic CHF - ECHO 11/18: 081 diastolic dysfunction, EF 65-70% - c/w Furosemide A. fib - c/w rate and rhythm control with Amiodarone / Diltiazem / Metoprolol - c/w full anticoagulation with Eliquis PE - c/w full anticoagulation with Eliquis RA - c/w Azathioprine and Hydroxychloroquine - c/w Prednisone Hypothyroidism - c/w Levothyroxine Iron deficiency anemia - c/w Ferrous sulfate Hx of gangrenous small bowel / abdominal adhesions Hx of Nephrolithiasis Osteoporosis GERD - c/w Protonix DVT prophylaxis - c/w full anticoagulation with Eliquis Disposition: - c/w PT and OT as per ARU VS,Martinezbone, I+O VS, Fishbone, I+O Laboratory Tests 11/28/19 06:08 Vital Signs Date Time Temp Pulse Resp B/P (MAP) Pulse Ox O2 Delivery O2 Flow Rate FiO2 11/28/19 10:14 16 11/28/19 09:06 60 124/60 11/28/19 06:10 97.0 99 Room Air I&O- Last 24 Hours up to 6 AM 11/28/19 06:00 Intake Total 510 ml Output Total 675 ml Balance -165 ml TANISHA MARRERO MD November 28, 2019 11:11
[2019-11-28 14:00] VITALS: BP 146/60
--- NOTE | 2019-11-28 15:43 | IPNPDOC ---
PM&R Progress Note DATE OF SERVICE: November 28, 2019 Sample Hand Progress Note Subjective: Patient reporting her her back hurts and it feels like the time she had zoster which was recently, describing the pain and sharp. She would like to try gabap entin. She also reports feeling constipated. REVIEW OF SYSTEMS: The following is a completed review of systems and has been reviewed. Review of systems otherwise unremarkable. PAIN: Patient self reports left hip pain and low back pain EYES: No recent vision changes EARS, NOSE, & THROAT: No throat pain, or dysphagia, or rhinorrhea CARDIOVASCULAR: Denies chest pain or palpitations PULMONARY: Denies shortness of breath GASTROINTESTINAL: +constipation GENITOURINARY: denies dysuria MUSCULOSKELETAL: left hip fracture NEUROLOGICAL:denies paresthesias or tremor HEMATOLOGICAL: +easy bruising SKIN: left hip incision PSYCHIATRIC: Unremarkable All other review of systems found to be negative. PHYSICAL EXAMINATION: VITAL SIGNS: Please see below. GENERAL: Pleasant and cooperative. No acute distress. HEENT: PERRL. Extraocular movements intact. Clear conjunctiva CARDIOVASCULAR: Regular rate and rhythm. No murmurs, rubs, or gallops LUNGS: Clear to auscultation bilaterally. No wheezes. No rhonchi ABDOMEN: Soft, nontender, nondistended. Positive bowel sounds. Normal active bowel sounds NEUROLOGICAL: Alert and oriented times three. Cranial nerves II through XII grossly intact. Sensation grossly intact to light touch throughout all 4limbs including EXTREMITIES: 5\5 strength bilateral upper extremities. 5\5 strength right lower extremity 5/5 strength in left lower ankle DF/PF/EHL (limited due to recent surgery. no notable edema bilat SKIN: sacrum without erythema, left hip incision with serous drainage and diimtris- incision ecchymosis ASSESSMENT:84-year-old F with past medical history of Afib and PE who presents status post left hip fracture PLAN: 1. Rehab- PT/OT advance gait an ADL training, strengthen/stretch/maintain ROM all 4 limbs, ambulating with RW 2. Neuro: no known hx 3. Cardiac: chronic diastolic CHF, c/u fluid restriction, Lasix, daily weights, monitor for fluid overload -Afib and hx of PE on eliquis, c/u diltiazem, amiodarone, metoprolol- medicine consulted to assist in overall management 4. Resp: encourage incentive spirometry, monitor for infection 5. Rheum: rheumatoid arthritis, c/u Plaquenil, prednisone, and Imuran 6. Heme: post-op anemia s/p 1 transfusion on acute care and received 1 more unit 11/26/19 with Hgb stable around 10 -oral iron 7. Ortho: s/p left hip fracture WBAT, ortho consulted -Oscal for osteoporosis 8. Endo: hypothyroidism c/u Synthroid 9. GI ppx: Protonix, ordered FOBT -miralax added to bowel med regimen 10. DVT ppx: teds and on eliquis 11. : monitor PVRs 12. Pain: Tylenol, oxycodone prn, Lidoderm patch to left hip and low back -will trial gabapentin 200mg TID 13. Dispo: TBD Allergies Coded Allergies: No Known Allergies (Unverified , 03/22/13) Vital Signs Vital Signs Date Time Temp Pulse Resp B/P (MAP) Pulse Ox O2 Delivery O2 Flow Rate FiO2 11/28/19 14:00 97.6 62 16 146/60 (88) 98 Room Air Laboratory Data CBC/BMP Laboratory Tests 11/28/19 06:08 Labs 24H Laboratory Tests 2 11/28/19 06:08: Immature Granulocyte % (Auto) 4.2H, Neutrophils (%) (Auto) 77.2H, Lymphocytes (%) (Auto) 7.0L, Monocytes (%) (Auto) 10.8H, Eosinophils (%) (Auto) 0.5, Basophils (%) (Auto) 0.3, Neutrophils # (Auto) 5.9, Lymphocytes # (Auto) 0.5L, Monocytes # (Auto) 0.8, Eosinophils # (Auto) 0.0, Basophils # (Auto) 0.0, Nucleated Red Blood Cells % (auto) 1.3H, Anion Gap 6L, Glomerular Filtration Rate 56.1, Calcium Level 8.0L Current Medications Current Medications Current Medications Medications (Trade) Dose Ordered Sig/Hernandez Route PRN Reason Start Time Stop Time Status Last Admin Dose Admin Acetaminophen (Tylenol Tab) 1,000 mg TID PO 11/23/19 21:00 11/28/19 09:05 Amiodarone HCl (Pacerone, Cordarone) 200 mg BID PO 11/23/19 21:00 11/28/19 09:04 Apixaban (Eliquis) 5 mg BID PO 11/23/19 21:00 11/28/19 09:04 Ascorbic Acid (Vitamin C) 250 mg QHS PO 11/23/19 21:00 11/27/19 21:36 Azathioprine (Imuran) 100 mg DAILY PO 11/25/19 09:00 11/25/19 17:37 DC Azathioprine (Imuran) 100 mg DAILY PO 11/26/19 09:00 11/28/19 09:04 Bisacodyl (Dulcolax Suppository) 10 mg DAILYPRN PRN DC CONSTIPATION 11/23/19 17:15 Calcium/Vitamin D (Oscal D) 500 mg BID PO 11/23/19 21:00 11/28/19 09:05 Diltiazem HCl (Cardizem Cd) 180 mg QHS PO 11/23/19 21:00 11/25/19 21:22 Docusate Sodium (Colace) 100 mg BID PO 11/23/19 21:00 11/28/19 09:06 Ferrous Sulfate (Ferrous Sulfate) 325 mg DAILY PO 11/25/19 09:00 11/25/19 17:38 DC Ferrous Sulfate (Ferrous Sulfate) 325 mg DAILY PO 11/26/19 09:00 11/28/19 09:05 Furosemide (Lasix) 20 mg DAILY PO 11/25/19 09:00 11/25/19 17:38 DC Furosemide (Lasix) 20 mg DAILY PO 11/26/19 09:00 11/28/19 09:05 Gabapentin (Neurontin) 200 mg TID PO 11/28/19 21:00 UNV Hydroxychloroquine Sulfate (Plaquenil) 200 mg BID PO 11/25/19 21:00 11/28/19 09:05 Levothyroxine Sodium (Synthroid) 50 mcg DAILY@06 PO 11/26/19 06:00 11/28/19 05:30 Lidocaine (Lidoderm Patch) 1 patch DAILY TD 11/26/19 09:00 11/27/19 12:20 DC 11/27/19 09:46 Lidocaine (Lidoderm Patch) 2 patch DAILY TD 11/27/19 12:30 11/28/19 09:04 Magnesium Hydroxide (Milk Of Magnesia) 30 ml DAILYPRN PRN PO CONSTIPATION 11/23/19 17:15 Metoprolol Succinate (TopROL XL) 25 mg DAILY PO 11/26/19 09:00 11/28/19 09:06 Non-Formulary Medication ( See Comment Field Below ) REMOVE LIDODERM PATCH DAILY@21 XX 11/23/19 21:00 11/27/19 21:37 Ondansetron HCl (Zofran Odt) 4 mg Q4HP PRN PO NAUSEA OR VOMITING 11/26/19 10:30 11/26/19 10:31 Oxycodone HCl (Roxicodone, Oxyir) 5 mg Q4HP PRN PO PAIN 11/23/19 17:15 11/28/19 10:14 Pantoprazole Sodium (Protonix) 40 mg BID PO 11/23/19 21:00 11/28/19 09:04 Polyethylene Glycol (Miralax) 1 pkt DAILY PO 11/28/19 15:45 UNV Potassium Chloride (Micro-K Extencaps) 10 meq DAILY PO 11/26/19 09:00 11/28/19 09:08 Prednisone (Deltasone) 2.5 mg DAILY PO 11/26/19 09:00 11/28/19 09:04 Senna (Senokot) 1 tab QHS PO 11/23/19 21:00 11/27/19 21:35 CARI KIRBY MD November 28, 2019 15:43
[2019-11-28] MEDS: MIRALAX *UNIT DOSE* 17GM PACKET PO SCH (17:23)
[2019-11-28 20:00] VITALS: BP 116/57
[2019-11-28] MEDS: diltiaZEM **CD** 180 MG CAP PO SCH (21:12)
[2019-11-28] MEDS: **NOTE PATIENT COMMENT** MISC XX SCH (21:15)
[2019-11-28] MEDS: ASCORBIC ACID 250 MG TAB PO SCH (21:15)
[2019-11-28] MEDS: GABAPENTIN 100 MG CAP PO SCH (21:15)
[2019-11-28] MEDS: SENNA 8.6 MG TAB (SENOKOT) PO SCH (21:15)
[2019-11-29] MEDS: oxyCODONE 5MG TAB PO PRN (05:33)
[2019-11-29] MEDS: LEVOTHYROXINE 50MCG TABLET (0.05MG) PO SCH (05:33)
[2019-11-29 05:53] VITALS: BP 116/57
[2019-11-29] MEDS: LIDOCAINE 5% (LIDODERM) PATCH TD SCH (08:40)
[2019-11-29] MEDS: GABAPENTIN 100 MG CAP PO SCH ×3 (08:41→21:08)
[2019-11-29] MEDS: PANTOPRAZOLE 40MG TAB (PROTONIX) PO SCH ×2 (08:42→21:08)
[2019-11-29] MEDS: HYDROXYCHLOROQUINE 200 MG TAB PO SCH ×2 (08:42→21:07)
[2019-11-29] MEDS: FUROSEMIDE 20 MG TAB PO SCH (08:42)
[2019-11-29] MEDS: azaTHIOprine 50 MG TAB (J7500) PO SCH (08:42)
[2019-11-29] MEDS: ACETAMINOPHEN 500 MG TAB PO SCH ×3 (08:43→21:05)
[2019-11-29] MEDS: APIXABAN 5 MG TAB (ELIQUIS) PO SCH ×2 (08:43→21:06)
[2019-11-29] MEDS: METOPROLOL SUCC *XL* 25MG TAB (TopROL *XL*) PO SCH (08:43)
[2019-11-29] MEDS: predniSONE 2.5 MG TAB PO SCH (08:43)
[2019-11-29] MEDS: CALCIUM/VITAMIN D 500 MG TAB PO SCH ×2 (08:44→21:07)
[2019-11-29] MEDS: AMIODARONE 200 MG TAB (PACERONE) PO SCH ×2 (08:44→21:06)
[2019-11-29] MEDS: MIRALAX *UNIT DOSE* 17GM PACKET PO SCH (08:44)
[2019-11-29] MEDS: DOCUSATE SODIUM 100 MG CAP PO SCH ×2 (08:44→21:07)
[2019-11-29] MEDS: FERROUS SULFATE 325MG TAB PO SCH (08:44)
[2019-11-29] MEDS: POTASSIUM CHLORIDE 10 MEQ SR TABLET PO SCH (08:45)
[2019-11-29] MEDS: REMEDY PHYTOPLEX Z-GUARD PASTE 113GM TUBE (FROM STOREROOM PRODUCT) TOP SCH ×3 (08:52→21:08)
[2019-11-29] MEDS: oxyCODONE 5MG TAB PO SCH ×3 (13:23→21:06)
[2019-11-29] MEDS: DULoxetine 30 MG CAP (CYMBALTA) PO SCH (13:27)
[2019-11-29 14:00] VITALS: BP 108/54
--- NOTE | 2019-11-29 15:27 | REP ---
REASON: Back pain. The lateral view is a cross-table lateral view. There is posterior disc space narrowing at every level. Vertebral body height and alignment is within normal limits. There is a mild levoconvex curve which could be secondary to positioning. The pedicles appear intact bilaterally. There is an inferior vena cava filter seen the tip of which is at the superior endplate of L2. Since the lateral view is a cross-table lateral view, flexion and extension views could not be obtained appropriately. IMPRESSION: Chronic changes as described above with exam limitations. Electronically Signed by Suhail Horne DO 11/29/2019 04:29 P
[2019-11-29 20:00] VITALS: BP 124/57
[2019-11-29] MEDS: diltiaZEM **CD** 180 MG CAP PO SCH (21:00)
[2019-11-29] MEDS: SENNA 8.6 MG TAB (SENOKOT) PO SCH (21:05)
[2019-11-29] MEDS: ASCORBIC ACID 250 MG TAB PO SCH (21:06)
[2019-11-29] MEDS: **NOTE PATIENT COMMENT** MISC XX SCH (21:15)
[2019-11-30 06:00] VITALS: BP 134/66
[2019-11-30] MEDS: LEVOTHYROXINE 50MCG TABLET (0.05MG) PO SCH (06:44)
[2019-11-30 07:05] LABS: BASO % 0.5 % (0.0-1.0); EOS % 0.5 % (0.0-3.0); HEMATOCRIT 29.8 % (36.0-47.0); HEMOGLOBIN 9.7 g/dl (12.0-15.5); LYMPH # 0.4 10^3/uL (1.5-5.0); LYMPH % 6.8 % (24.0-44.0); MEAN CORPUSCULAR HEMOGLOBIN 32.8 pg (27.0-33.0); MEAN CORPUSCULAR HGB CONC 32.6 g/dl (32.0-36.5); MEAN CORPUSCULAR VOLUME 100.7 fl (80.0-96.0); MONO # 0.6 10^3/uL (0.0-0.8); MONO % 10.4 % (0.0-5.0); NEUTROPHILS # 4.6 10^3/uL (1.5-8.5); NEUTROPHILS % 79.2 % (36.0-66.0); PLATELET COUNT, AUTOMATED 289 10^3/uL (150-450); RED BLOOD COUNT 2.96 10^6/uL (4.00-5.40); WHITE BLOOD COUNT 5.9 10^3/uL (4.0-10.0)
[2019-11-30 07:32] LABS: BLOOD UREA NITROGEN 24 MG/DL (7-18); CALCIUM LEVEL 8.4 MG/DL (8.8-10.2); CARBON DIOXIDE LEVEL 24 MEQ/L (21-32); CHLORIDE LEVEL 103 MEQ/L (98-107); GLOMERULAR FILTRATION RATE > 60.0 (>32); GLUCOSE, FASTING 95 MG/DL (70-100); POTASSIUM SERUM 3.8 MEQ/L (3.5-5.1); SODIUM LEVEL 135 MEQ/L (136-145)
[2019-11-30] MEDS: METOPROLOL SUCC *XL* 25MG TAB (TopROL *XL*) PO SCH (09:00)
[2019-11-30] MEDS: LIDOCAINE 5% (LIDODERM) PATCH TD SCH (09:13)
[2019-11-30] MEDS: ACETAMINOPHEN 500 MG TAB PO SCH ×3 (09:14→21:03)
[2019-11-30] MEDS: CALCIUM/VITAMIN D 500 MG TAB PO SCH ×2 (09:14→21:02)
[2019-11-30] MEDS: FERROUS SULFATE 325MG TAB PO SCH (09:15)
[2019-11-30] MEDS: PANTOPRAZOLE 40MG TAB (PROTONIX) PO SCH ×2 (09:15→21:02)
[2019-11-30] MEDS: DOCUSATE SODIUM 100 MG CAP PO SCH ×2 (09:15→21:02)
[2019-11-30] MEDS: APIXABAN 5 MG TAB (ELIQUIS) PO SCH ×2 (09:15→21:02)
[2019-11-30] MEDS: FUROSEMIDE 20 MG TAB PO SCH (09:15)
[2019-11-30] MEDS: DULoxetine 30 MG CAP (CYMBALTA) PO SCH (09:15)
[2019-11-30] MEDS: predniSONE 2.5 MG TAB PO SCH (09:15)
[2019-11-30] MEDS: POTASSIUM CHLORIDE 10 MEQ SR TABLET PO SCH (09:15)
[2019-11-30] MEDS: MOM 30ML SUSPENSION UDC PO PRN (09:15)
[2019-11-30] MEDS: azaTHIOprine 50 MG TAB (J7500) PO SCH (09:16)
[2019-11-30] MEDS: GABAPENTIN 100 MG CAP PO SCH ×3 (09:16→21:02)
[2019-11-30] MEDS: AMIODARONE 200 MG TAB (PACERONE) PO SCH ×2 (09:16→21:02)
[2019-11-30] MEDS: HYDROXYCHLOROQUINE 200 MG TAB PO SCH ×2 (09:16→21:02)
[2019-11-30] MEDS: oxyCODONE 5MG TAB PO SCH ×2 (09:17→12:52)
[2019-11-30] MEDS: MIRALAX *UNIT DOSE* 17GM PACKET PO SCH (09:17)
[2019-11-30] MEDS: REMEDY PHYTOPLEX Z-GUARD PASTE 113GM TUBE (FROM STOREROOM PRODUCT) TOP SCH ×3 (09:18→21:03)
--- NOTE | 2019-11-30 09:48 | IPNPDOC ---
PM&R Progress Note DATE OF SERVICE: November 29, 2019 [place] Progress Note Subjective: Patient reporting her her back still hurts today and it feels like a burning pain in in her low back that does not shoot down the leg, worse with extension a nd moving. She denies loss of bowel/bladder function, no new weakness, not saddle region anesthesia. REVIEW OF SYSTEMS: The following is a completed review of systems and has been reviewed. Review of systems otherwise unremarkable. PAIN: Patient self reports left hip pain and low back pain EYES: No recent vision changes EARS, NOSE, & THROAT: No throat pain, or dysphagia, or rhinorrhea CARDIOVASCULAR: Denies chest pain or palpitations PULMONARY: Denies shortness of breath GASTROINTESTINAL: +constipation GENITOURINARY: denies dysuria MUSCULOSKELETAL: left hip fracture NEUROLOGICAL:denies paresthesias or tremor HEMATOLOGICAL: +easy bruising SKIN: left hip incision PSYCHIATRIC: Unremarkable All other review of systems found to be negative. PHYSICAL EXAMINATION: VITAL SIGNS: Please see below. GENERAL: Pleasant and cooperative. No acute distress. HEENT: PERRL. Extraocular movements intact. Clear conjunctiva CARDIOVASCULAR: Regular rate and rhythm. No murmurs, rubs, or gallops LUNGS: Clear to auscultation bilaterally. No wheezes. No rhonchi ABDOMEN: Soft, nontender, nondistended. Positive bowel sounds. Normal active bowel sounds NEUROLOGICAL: Alert and oriented times three. Cranial nerves II through XII grossly intact. Sensation grossly intact to light touch throughout all 4limbs i ncluding EXTREMITIES: 5\5 strength bilateral upper extremities. 5\5 strength right lower extremity 5/5 strength in left lower ankle DF/PF/EHL (limited due to recent surgery. mild edema bilat TTP of upper lumbar vertebrae , paraspinals non-TTP SKIN: sacrum without erythema, left hip incision with serous drainage and dimitris- incision ecchymosis, no rash noted on back ASSESSMENT:84-year-old F with past medical history of Afib and PE who presents status post left hip fracture PLAN: 1. Rehab- PT/OT advance gait an ADL training, strengthen/stretch/maintain ROM all 4 limbs, ambulating with RW 2. Neuro: no known hx 3. Cardiac: chronic diastolic CHF, c/u fluid restriction, Lasix, daily weights, monitor for fluid overload -Afib and hx of PE on eliquis, c/u diltiazem, amiodarone, metoprolol- medicine consulted to assist in overall management 4. Resp: encourage incentive spirometry, monitor for infection 5. Rheum: rheumatoid arthritis, c/u Plaquenil, prednisone, and Imuran 6. Heme: post-op anemia s/p 1 transfusion on acute care and received 1 more unit 11/26/19 with Hgb stable around 10 -oral iron 7. Ortho: s/p left hip fracture WBAT, ortho consulted -Oscal for osteoporosis -will order lumbar XR given focal tenderness of vertebrae on exam with neuropathic pain, no bowel/bladder loss of function, no saddle region anesthesia 8. Endo: hypothyroidism c/u Synthroid 9. GI ppx: Protonix, ordered FOBT -miralax added to bowel med regimen 10. DVT ppx: teds and on eliquis 11. : monitor PVRs 12. Pain: Tylenol, change oxycodone to standing, Lidoderm patch to left hip and low back -c/u gabapentin 200mg TID -start cymbalta 30mg dialy 13. Dispo: TBD Allergies Coded Allergies: No Known Allergies (Unverified , 03/22/13) Vital Signs Vital Signs Date Time Temp Pulse Resp B/P (MAP) Pulse Ox O2 Delivery O2 Flow Rate FiO2 11/30/19 09:17 18 11/30/19 09:00 53 134/66 11/30/19 06:00 98.1 97 Room Air Laboratory Data CBC/BMP Laboratory Tests 11/30/19 06:24 Labs 24H Laboratory Tests 2 11/30/19 06:24: Immature Granulocyte % (Auto) 2.6, Neutrophils (%) (Auto) 79.2H, Lymphocytes (%) (Auto) 6.8L, Monocytes (%) (Auto) 10.4H, Eosinophils (%) (Auto) 0.5, Basophils (%) (Auto) 0.5, Neutrophils # (Auto) 4.6, Lymphocytes # (Auto) 0.4L, Monocytes # (Auto) 0.6, Eosinophils # (Auto) 0.0, Basophils # (Auto) 0.0, Nucleated Red Blood Cells % (auto) 0.0, Anion Gap 8, Glomerular Filtration Rate > 60.0, Calcium Level 8.4L Current Medications Current Medications Current Medications Medications (Trade) Dose Ordered Sig/Hernandez Route PRN Reason Start Time Stop Time Status Last Admin Dose Admin Acetaminophen (Tylenol Tab) 1,000 mg TID PO 11/23/19 21:00 11/30/19 09:14 Amiodarone HCl (Pacerone, Cordarone) 200 mg BID PO 11/23/19 21:00 11/30/19 09:16 Apixaban (Eliquis) 5 mg BID PO 11/23/19 21:00 11/30/19 09:15 Ascorbic Acid (Vitamin C) 250 mg QHS PO 11/23/19 21:00 11/29/19 21:06 Azathioprine (Imuran) 100 mg DAILY PO 11/25/19 09:00 11/25/19 17:37 DC Azathioprine (Imuran) 100 mg DAILY PO 11/26/19 09:00 11/30/19 09:16 Bisacodyl (Dulcolax Suppository) [address] CONSTIPATION 11/23/19 17:15 Calcium/Vitamin D (Oscal D) 500 mg BID PO 11/23/19 21:00 11/30/19 09:14 Diltiazem HCl (Cardizem Cd) 180 mg QHS PO 11/23/19 21:00 11/28/19 21:12 Docusate Sodium (Colace) 100 mg BID PO 11/23/19 21:00 11/30/19 09:15 Duloxetine HCl (Cymbalta) 30 mg DAILY PO 11/29/19 13:00 11/30/19 09:15 Ferrous Sulfate (Ferrous Sulfate) 325 mg DAILY PO 11/25/19 09:00 11/25/19 17:38 DC Ferrous Sulfate (Ferrous Sulfate) 325 mg DAILY PO 11/26/19 09:00 11/30/19 09:15 Furosemide (Lasix) 20 mg DAILY PO 11/25/19 09:00 11/25/19 17:38 DC Furosemide (Lasix) 20 mg DAILY PO 11/26/19 09:00 11/30/19 09:15 Gabapentin (Neurontin) 200 mg TID PO 11/28/19 21:00 11/30/19 09:16 Hydroxychloroquine Sulfate (Plaquenil) 200 mg BID PO 11/25/19 21:00 11/30/19 09:16 Levothyroxine Sodium (Synthroid) 50 mcg DAILY@06 PO 11/26/19 06:00 11/30/19 06:44 Lidocaine (Lidoderm Patch) 1 patch DAILY TD 11/26/19 09:00 11/27/19 12:20 DC 11/27/19 09:46 Lidocaine (Lidoderm Patch) 2 patch DAILY TD 11/27/19 12:30 11/30/19 09:13 Magnesium Hydroxide (Milk Of Magnesia) 30 ml DAILYPRN PRN PO CONSTIPATION 11/23/19 17:15 11/30/19 09:15 Metoprolol Succinate (TopROL XL) 25 mg DAILY PO 11/26/19 09:00 11/29/19 08:43 Non-Formulary Medication ( See Comment Field Below ) REMOVE LIDODERM PATCH DAILY@21 XX 11/23/19 21:00 11/29/19 21:15 Ondansetron HCl (Zofran Odt) 4 mg Q4HP PRN PO NAUSEA OR VOMITING 11/26/19 10:30 11/26/19 10:31 Oxycodone HCl (Roxicodone, Oxyir) 5 mg 0800,1200,1600,2100 PO 11/29/19 12:00 11/30/19 09:17 Oxycodone HCl (Roxicodone, Oxyir) 5 mg Q4HP PRN PO PAIN 11/23/19 17:15 11/29/19 12:28 DC 11/29/19 05:33 Pantoprazole Sodium (Protonix) 40 mg BID PO 11/23/19 21:00 11/30/19 09:15 Polyethylene Glycol (Miralax) 1 pkt DAILY PO 11/28/19 09:00 11/30/19 09:17 Potassium Chloride (Micro-K Extencaps) 10 meq DAILY PO 11/26/19 09:00 11/30/19 09:15 Prednisone (Deltasone) 2.5 mg DAILY PO 11/26/19 09:00 11/30/19 09:15 Senna (Senokot) 1 tab QHS PO 11/23/19 21:00 11/29/19 21:05 CARI KIRBY MD November 30, 2019 09:48
--- NOTE | 2019-11-30 10:04 | IPNPDOC ---
Text Note Date of Service The patient was seen on 11/30/19. NOTE Subjective: Patient is an 84-year-old female with PMHx HTN, A. fib (on Eliquis), PE (on Eliquis), RA, Hypothyroidism, Iron deficiency anemia, Hx of gangrenous small bowel / abdominal adhesions, Hx of Nephrolithiasis, Osteoporosis, GERD, who presented to the hospital after sustaining a mechanical fall resulting in a left hip fracture. Patient was admitted to [facility] from 11/19/2019 to 11/25/2019. Patient ultimately went for ORIF on 11/20. Patient's hospital stay was completed with acute blood loss anemia for which she has received 1 unit PRBC. Patient was ultimately transitioned to acute rehabilitation unit on 11/25, where she continues to work with physical therapy and occupational therapy. Patient was seen and examined at the bedside. Patient reports that she feels exhausted after working with physical therapy earlier today. She denies any chest pain, shortness of breath, palpitations. Does not express any abdominal pain, diarrhea, or urinary discomfort. Objective: Vitals (See below) General: Lying in bed, does not appear to be in any distress, comfortable, awake, alert and oriented 3 HEENT: NC, AT CVS: +S1S2 Lungs: Fair air entry b/l, no appreciable wheezing, rhonchi or crackles Abdomen: Soft, nondistended and nontender Extremities: Some trace pitting edema is noted in the left lower extremity, - Calf tenderness Assessment and plan: Left hip fracture - 2/2 mechanical fall; s/p ORIF (11/20) - Pain control, physical therapy at the direction of acute rehabilitation team - Patient has been progressing with physical therapy - Orthopedic surgery on consultation Chronic Diastolic CHF - Trace lower extremity edema at the left side - ECHO 11/18: 081 diastolic dysfunction, EF 65-70% - c/w Furosemide A. fib - c/w rate and rhythm control with Amiodarone / Diltiazem / Metoprolol - c/w full anticoagulation with Eliquis PE - c/w full anticoagulation with Eliquis RA - c/w Azathioprine and Hydroxychloroquine - c/w Prednisone Hypothyroidism - c/w Levothyroxine Iron deficiency anemia - c/w Ferrous sulfate Hx of gangrenous small bowel / abdominal adhesions Hx of Nephrolithiasis Osteoporosis GERD - c/w Protonix DVT prophylaxis - c/w full anticoagulation with Eliquis Disposition: - c/w PT and OT as per ARU Alexa AVENDAÑO, I+O Alexa AVENDAÑO I+O Laboratory Tests 11/30/19 06:24 Vital Signs Date Time Temp Pulse Resp B/P (MAP) Pulse Ox O2 Delivery O2 Flow Rate FiO2 11/30/19 09:17 18 11/30/19 09:00 53 134/66 11/30/19 06:00 98.1 97 Room Air I&O- Last 24 Hours up to 6 AM 11/30/19 06:00 Intake Total 1000 ml Output Total 400 ml Balance 600 ml TANISHA MARRERO MD November 30, 2019 10:04
[2019-11-30 10:24] LABS: BILIRUBIN,TOTAL 1.9 MG/DL (0.2-1.0)
[2019-11-30] MEDS: ONDANSETRON 4 MG ORAL DISINTEGRATING TAB PO PRN (12:53)
[2019-11-30 14:00] VITALS: BP 143/64
[2019-11-30 20:00] VITALS: BP 135/63
[2019-11-30] MEDS: SENNA 8.6 MG TAB (SENOKOT) PO SCH (21:02)
[2019-11-30] MEDS: ASCORBIC ACID 250 MG TAB PO SCH (21:02)
[2019-11-30] MEDS: diltiaZEM **CD** 180 MG CAP PO SCH (21:02)
[2019-11-30] MEDS: **NOTE PATIENT COMMENT** MISC XX SCH (21:03)
[2019-12-01] MEDS: LEVOTHYROXINE 50MCG TABLET (0.05MG) PO SCH (05:07)
[2019-12-01 06:00] VITALS: BP 158/67
[2019-12-01] MEDS: LIDOCAINE 5% (LIDODERM) PATCH TD SCH (08:46)
[2019-12-01] MEDS: FERROUS SULFATE 325MG TAB PO SCH (08:46)
[2019-12-01] MEDS: FUROSEMIDE 20 MG TAB PO SCH (08:47)
[2019-12-01] MEDS: DULoxetine 30 MG CAP (CYMBALTA) PO SCH (08:47)
[2019-12-01] MEDS: POTASSIUM CHLORIDE 10 MEQ SR TABLET PO SCH (08:47)
[2019-12-01] MEDS: GABAPENTIN 100 MG CAP PO SCH ×3 (08:48→20:10)
[2019-12-01] MEDS: DOCUSATE SODIUM 100 MG CAP PO SCH ×2 (08:48→20:10)
[2019-12-01] MEDS: PANTOPRAZOLE 40MG TAB (PROTONIX) PO SCH ×2 (08:48→20:10)
[2019-12-01] MEDS: predniSONE 2.5 MG TAB PO SCH (08:48)
[2019-12-01] MEDS: azaTHIOprine 50 MG TAB (J7500) PO SCH (08:48)
[2019-12-01] MEDS: CALCIUM/VITAMIN D 500 MG TAB PO SCH ×2 (08:48→20:10)
[2019-12-01] MEDS: ACETAMINOPHEN 500 MG TAB PO SCH ×3 (08:49→20:11)
[2019-12-01] MEDS: APIXABAN 5 MG TAB (ELIQUIS) PO SCH ×2 (08:49→20:10)
[2019-12-01] MEDS: AMIODARONE 200 MG TAB (PACERONE) PO SCH ×2 (08:49→20:11)
[2019-12-01] MEDS: METOPROLOL SUCC *XL* 25MG TAB (TopROL *XL*) PO SCH (08:49)
[2019-12-01] MEDS: MIRALAX *UNIT DOSE* 17GM PACKET PO SCH (08:49)
[2019-12-01] MEDS: REMEDY PHYTOPLEX Z-GUARD PASTE 113GM TUBE (FROM STOREROOM PRODUCT) TOP SCH ×3 (08:50→20:14)
[2019-12-01] MEDS: HYDROXYCHLOROQUINE 200 MG TAB PO SCH ×2 (08:55→20:10)
[2019-12-01 14:00] VITALS: BP 130/62
[2019-12-01 20:08] VITALS: BP 133/88
[2019-12-01] MEDS: ASCORBIC ACID 250 MG TAB PO SCH (20:10)
[2019-12-01] MEDS: diltiaZEM **CD** 180 MG CAP PO SCH (20:10)
[2019-12-01] MEDS: SENNA 8.6 MG TAB (SENOKOT) PO SCH (20:11)
[2019-12-01] MEDS: **NOTE PATIENT COMMENT** MISC XX SCH (20:30)
[2019-12-02 05:13] VITALS: BP 120/58
[2019-12-02] MEDS: LEVOTHYROXINE 50MCG TABLET (0.05MG) PO SCH (06:02)
[2019-12-02] MEDS: CALCIUM/VITAMIN D 500 MG TAB PO SCH ×2 (08:47→20:41)
[2019-12-02] MEDS: AMIODARONE 200 MG TAB (PACERONE) PO SCH ×2 (08:47→20:41)
[2019-12-02] MEDS: DOCUSATE SODIUM 100 MG CAP PO SCH ×2 (08:47→20:40)
[2019-12-02] MEDS: azaTHIOprine 50 MG TAB (J7500) PO SCH (08:47)
[2019-12-02] MEDS: POTASSIUM CHLORIDE 10 MEQ SR TABLET PO SCH (08:48)
[2019-12-02] MEDS: METOPROLOL SUCC *XL* 25MG TAB (TopROL *XL*) PO SCH (08:48)
[2019-12-02] MEDS: FERROUS SULFATE 325MG TAB PO SCH (08:48)
[2019-12-02] MEDS: HYDROXYCHLOROQUINE 200 MG TAB PO SCH ×2 (08:48→20:40)
[2019-12-02] MEDS: FUROSEMIDE 20 MG TAB PO SCH (08:49)
[2019-12-02] MEDS: predniSONE 2.5 MG TAB PO SCH (08:49)
[2019-12-02] MEDS: PANTOPRAZOLE 40MG TAB (PROTONIX) PO SCH ×2 (08:49→20:40)
[2019-12-02] MEDS: GABAPENTIN 100 MG CAP PO SCH ×3 (08:49→20:41)
[2019-12-02] MEDS: APIXABAN 5 MG TAB (ELIQUIS) PO SCH ×2 (08:49→20:40)
[2019-12-02] MEDS: DULoxetine 30 MG CAP (CYMBALTA) PO SCH (08:49)
[2019-12-02] MEDS: LIDOCAINE 5% (LIDODERM) PATCH TD SCH (08:50)
[2019-12-02] MEDS: REMEDY PHYTOPLEX Z-GUARD PASTE 113GM TUBE (FROM STOREROOM PRODUCT) TOP SCH ×3 (08:50→20:41)
[2019-12-02] MEDS: ACETAMINOPHEN 500 MG TAB PO SCH ×3 (08:50→20:41)
[2019-12-02] MEDS: MIRALAX *UNIT DOSE* 17GM PACKET PO SCH (08:51)
[2019-12-02 14:00] VITALS: BP 129/63
[2019-12-02 20:40] VITALS: BP 124/58
[2019-12-02] MEDS: SENNA 8.6 MG TAB (SENOKOT) PO SCH (20:40)
[2019-12-02] MEDS: ASCORBIC ACID 250 MG TAB PO SCH (20:40)
[2019-12-02] MEDS: diltiaZEM **CD** 180 MG CAP PO SCH (20:41)
[2019-12-02] MEDS: **NOTE PATIENT COMMENT** MISC XX SCH (20:42)
[2019-12-03] MEDS: LevoFLOXacin 250 MG TABLET PO SCH (05:56)
[2019-12-03] MEDS: LEVOTHYROXINE 50MCG TABLET (0.05MG) PO SCH (05:56)
[2019-12-03 06:03] VITALS: BP 140/86
[2019-12-03 08:09] LABS: BASO % 0.3 % (0.0-1.0); EOS % 0.1 % (0.0-3.0); HEMATOCRIT 34.6 % (36.0-47.0); HEMOGLOBIN 10.9 g/dl (12.0-15.5); LYMPH # 0.3 10^3/uL (1.5-5.0); LYMPH % 3.7 % (24.0-44.0); MEAN CORPUSCULAR HGB CONC 31.5 g/dl (32.0-36.5); MEAN CORPUSCULAR VOLUME 104.8 fl (80.0-96.0); MONO # 0.6 10^3/uL (0.0-0.8); MONO % 7.7 % (0.0-5.0); NEUTROPHILS # 6.3 10^3/uL (1.5-8.5); NEUTROPHILS % 86.3 % (36.0-66.0); PLATELET COUNT, AUTOMATED 355 10^3/uL (150-450); WHITE BLOOD COUNT 7.3 10^3/uL (4.0-10.0)
[2019-12-03 08:44] LABS: ALBUMIN 2.9 GM/DL (3.2-5.2); ALT/SGPT 17 U/L (12-78); BILIRUBIN,TOTAL 1.9 MG/DL (0.2-1.0); BLOOD UREA NITROGEN 20 MG/DL (7-18); CALCIUM LEVEL 8.4 MG/DL (8.8-10.2); CARBON DIOXIDE LEVEL 28 MEQ/L (21-32); CHLORIDE LEVEL 102 MEQ/L (98-107); CREATININE FOR GFR 0.88 MG/DL (0.55-1.30); GLOMERULAR FILTRATION RATE > 60.0 (>32); GLUCOSE, FASTING 130 MG/DL (70-100); SODIUM LEVEL 136 MEQ/L (136-145); TOTAL PROTEIN 5.7 GM/DL (6.4-8.2)
[2019-12-03] MEDS: ACETAMINOPHEN 500 MG TAB PO SCH ×3 (09:08→22:16)
[2019-12-03] MEDS: DULoxetine 30 MG CAP (CYMBALTA) PO SCH (09:08)
[2019-12-03] MEDS: AMIODARONE 200 MG TAB (PACERONE) PO SCH ×2 (09:08→20:26)
[2019-12-03] MEDS: METOPROLOL SUCC *XL* 25MG TAB (TopROL *XL*) PO SCH (09:08)
[2019-12-03] MEDS: POTASSIUM CHLORIDE 10 MEQ SR TABLET PO SCH (09:08)
[2019-12-03] MEDS: MOM 30ML SUSPENSION UDC PO PRN (09:08)
[2019-12-03] MEDS: APIXABAN 5 MG TAB (ELIQUIS) PO SCH ×2 (09:08→20:26)
[2019-12-03] MEDS: predniSONE 2.5 MG TAB PO SCH (09:09)
[2019-12-03] MEDS: DOCUSATE SODIUM 100 MG CAP PO SCH ×3 (09:09→20:26)
[2019-12-03] MEDS: FERROUS SULFATE 325MG TAB PO SCH (09:09)
[2019-12-03] MEDS: GABAPENTIN 100 MG CAP PO SCH (09:09)
[2019-12-03] MEDS: HYDROXYCHLOROQUINE 200 MG TAB PO SCH ×2 (09:09→20:25)
[2019-12-03] MEDS: CALCIUM/VITAMIN D 500 MG TAB PO SCH ×2 (09:09→20:26)
[2019-12-03] MEDS: azaTHIOprine 50 MG TAB (J7500) PO SCH (09:10)
[2019-12-03] MEDS: MIRALAX *UNIT DOSE* 17GM PACKET PO SCH (09:10)
[2019-12-03] MEDS: LIDOCAINE 5% (LIDODERM) PATCH TD SCH (09:10)
[2019-12-03] MEDS: FUROSEMIDE 20 MG TAB PO SCH (09:10)
[2019-12-03] MEDS: PANTOPRAZOLE 40MG TAB (PROTONIX) PO SCH ×2 (09:10→20:26)
[2019-12-03] MEDS: REMEDY PHYTOPLEX Z-GUARD PASTE 113GM TUBE (FROM STOREROOM PRODUCT) TOP SCH ×3 (09:11→20:25)
[2019-12-03] MEDS ORDERED: FLEET ENEMA PR PRN (12:15)
[2019-12-03] MEDS: BISACODYL 5 MG TAB PO SCH (12:17)
[2019-12-03 14:00] VITALS: BP 140/81
--- NOTE | 2019-12-03 15:07 | IPNPDOC ---
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 She reports feeling constipated. REVIEW OF SYSTEMS: The following is a completed review of systems and has been reviewed. Review of systems otherwise unremarkable. PAIN: Patient self reports left hip pain and low back pain EYES: No recent vision changes EARS, NOSE, & THROAT: No throat pain, or dysphagia, or rhinorrhea CARDIOVASCULAR: Denies chest pain or palpitations PULMONARY: Denies shortness of breath GASTROINTESTINAL: +constipation GENITOURINARY: denies dysuria MUSCULOSKELETAL: left hip fracture NEUROLOGICAL:denies paresthesias or tremor HEMATOLOGICAL: +easy bruising SKIN: left hip incision PSYCHIATRIC: Unremarkable All other review of systems found to be negative. PHYSICAL EXAMINATION: VITAL SIGNS: Please see below. GENERAL: Pleasant and cooperative. No acute distress. HEENT: PERRL. Extraocular movements intact. Clear conjunctiva CARDIOVASCULAR: Regular rate and rhythm. No murmurs, rubs, or gallops LUNGS: Clear to auscultation bilaterally. No wheezes. No rhonchi ABDOMEN: Soft, nontender, nondistended. Positive bowel sounds. Normal active bowel sounds NEUROLOGICAL: Alert and oriented times three. Cranial nerves II through XII gr ossly intact. Sensation grossly intact to light touch throughout all 4limbs including EXTREMITIES: 5\5 strength bilateral upper extremities. 5\5 strength right lower extremity 5/5 strength in left lower ankle DF/PF/EHL (limited due to recent surgery. + edema bilat TTP of upper lumbar vertebrae , paraspinals non-TTP SKIN: sacrum without erythema, left hip incision with serous drainage and dimitris- incision ecchymosis, no rash noted on back ASSESSMENT:84-year-old F with past medical history of Afib and PE who presents status post left hip fracture PLAN: 1. Rehab- PT/OT advance gait an ADL training, strengthen/stretch/maintain ROM all 4 limbs, ambulating with RW 2. Neuro: no known hx 3. Cardiac: chronic diastolic CHF, c/u fluid restriction, Lasix (increase to 40mg daily due to worsening edema on exam), daily weights, monitor for fluid overload -Afib and hx of PE on eliquis, c/u diltiazem, amiodarone, metoprolol- medicine consulted to assist in overall management 4. Resp: encourage incentive spirometry, monitor for infection 5. Rheum: rheumatoid arthritis, c/u Plaquenil, prednisone, and Imuran 6. Heme: post-op anemia s/p 1 transfusion on acute care and received 1 more unit 11/26/19 with Hgb stable around 10 -oral iron 7. Ortho: s/p left hip fracture WBAT, ortho consulted -Oscal for osteoporosis -lumbar XR 11/29/19 no fractures no bowel/bladder loss of function, no saddle davi on anesthesia- 8. Endo: hypothyroidism c/u Synthroid 9. GI ppx: Protonix, ordered FOBT -miralax added to bowel med regimen, enema to be given today 10. DVT ppx: teds and on eliquis 11. : monitor PVRs -s/p 3 day course of Levaquin for +UA, however Ucx no growth 12. Pain: Tylenol, change oxycodone to prn, Lidoderm patch to left hip and low back -increase gabapentin to 300mg TID -c/u cymbalta 30mg dialy 13. Dispo: TBD Allergies Coded Allergies: No Known Allergies (Unverified , 03/22/13) Vital Signs Vital Signs Date Time Temp Pulse Resp B/P (MAP) Pulse Ox O2 Delivery O2 Flow Rate FiO2 12/03/19 14:00 98.3 56 20 140/81 (100) 98 Room Air Laboratory Data CBC/BMP Laboratory Tests 12/03/19 07:32 Labs 24H Laboratory Tests 2 12/02/19 16:00: Urine Color YELLOW, Urine Appearance CLEAR, Urine pH 6.0, Urine Specific [place] 1.012, Urine Protein NEGATIVE, Urine Glucose (UA) NEGATIVE, Urine Ketones TRACEH, Urine Blood 3+H, Urine Nitrite NEGATIVE, Urine Bilirubin NEGATIVE, Urine Urobilinogen 0.2, Urine Leukocyte Esterase TRACEH, Urine WBC (Auto) 5H, Urine RBC (Auto) TNTCH, Urine Hyaline Casts (Auto) 0, Urine Bacteria (Auto) 1+H, Urine Squamous Epithelial Cells 1, Urine Mucus (Auto) SMALL, Urine Sperm (Auto) 12/03/19 07:32: Immature Granulocyte % (Auto) 1.9, Neutrophils (%) (Auto) 86.3H, Lymphocytes (%) (Auto) 3.7L, Monocytes (%) (Auto) 7.7H, Eosinophils (%) (Auto) 0.1, Basophils (%) (Auto) 0.3, Neutrophils # (Auto) 6.3, Lymphocytes # (Auto) 0.3L, Monocytes # (Auto) 0.6, Eosinophils # (Auto) 0.0, Basophils # (Auto) 0.0, Nucleated Red Blood Cells % (auto) 0.0, Anion Gap 6L, Glomerular Filtration Rate > 60.0, Calcium Level 8.4L, Total Bilirubin 1.9H, Aspartate Amino Transf (AST/SGOT) 20, Alanine Aminotransferase (ALT/SGPT) 17, Alkaline Phosphatase 102, Total Protein 5.7L, Albumin 2.9L, Albumin/Globulin Ratio 1.04 Microbiology Microbiology 12/02/19 Urine Culture - Final, Complete 11/30/19 Urine Culture - Final, Complete Current Medications Current Medications Current Medications Medications (Trade) Dose Ordered Sig/Hernandez Route PRN Reason Start Time Stop Time Status Last Admin Dose Admin Acetaminophen (Tylenol Tab) 1,000 mg TID PO 11/23/19 21:00 12/03/19 09:08 Amiodarone HCl (Pacerone, Cordarone) 200 mg BID PO 11/23/19 21:00 12/03/19 09:08 Apixaban (Eliquis) 5 mg BID PO 11/23/19 21:00 12/03/19 09:08 Ascorbic Acid (Vitamin C) 250 mg QHS PO 11/23/19 21:00 12/02/19 20:40 Azathioprine (Imuran) 100 mg DAILY PO 11/25/19 09:00 11/25/19 17:37 DC Azathioprine (Imuran) 100 mg DAILY PO 11/26/19 09:00 12/03/19 09:10 Bisacodyl (Dulcolax Suppository) 10 mg DAILYPRN PRN [place] CONSTIPATION 11/23/19 17:15 11/30/19 21:02 Bisacodyl (Dulcolax Tab) 5 mg DAILY PO 12/03/19 09:00 12/03/19 12:17 Calcium/Vitamin D (Oscal D) 500 mg BID PO 11/23/19 21:00 12/03/19 09:09 Diltiazem HCl (Cardizem Cd) 180 mg QHS PO 11/23/19 21:00 12/02/19 20:41 Docusate Sodium (Colace) 100 mg BID PO 11/23/19 21:00 12/03/19 12:05 DC 12/03/19 09:09 Docusate Sodium (Colace) 200 mg TID PO 12/03/19 12:00 12/03/19 12:13 Duloxetine HCl (Cymbalta) 30 mg DAILY PO 11/29/19 13:00 12/03/19 09:08 Ferrous Sulfate (Ferrous Sulfate) 325 mg DAILY PO 11/25/19 09:00 11/25/19 17:38 DC Ferrous Sulfate (Ferrous Sulfate) 325 mg DAILY PO 11/26/19 09:00 12/03/19 09:09 Furosemide (Lasix) 20 mg DAILY PO 11/25/19 09:00 11/25/19 17:38 DC Furosemide (Lasix) 20 mg DAILY PO 11/26/19 09:00 12/03/19 09:10 Gabapentin (Neurontin) 200 mg TID PO 11/28/19 21:00 12/03/19 09:09 Hydroxychloroquine Sulfate (Plaquenil) 200 mg BID PO 11/25/19 21:00 12/03/19 09:09 Levofloxacin (Levaquin) 250 mg DAILY@0600 PO 12/03/19 06:00 12/03/19 05:56 Levothyroxine Sodium (Synthroid) 50 mcg DAILY@06 PO 11/26/19 06:00 12/03/19 05:56 Lidocaine (Lidoderm Patch) 1 patch DAILY TD 11/26/19 09:00 11/27/19 12:20 DC 11/27/19 09:46 Lidocaine (Lidoderm Patch) 2 patch DAILY TD 11/27/19 12:30 12/03/19 09:10 Magnesium Hydroxide (Milk Of Magnesia) 30 ml DAILYPRN PRN [place] CONSTIPATION 11/23/19 17:15 12/03/19 09:08 Metoprolol Succinate (TopROL XL) 25 mg DAILY PO 11/26/19 09:00 12/03/19 09:08 Non-Formulary Medication ( See Comment Field Below ) REMOVE LIDODERM PATCH DAILY@21 XX 11/23/19 21:00 12/02/19 20:42 Ondansetron HCl (Zofran Odt) 4 mg Q4HP PRN PO NAUSEA OR VOMITING 11/26/19 10:30 11/30/19 12:53 Oxycodone HCl (Roxicodone, Oxyir) 5 mg 0800,1200,1600,2100 PO 11/29/19 12:00 11/30/19 14:46 DC 11/30/19 12:52 Oxycodone HCl (Roxicodone, Oxyir) 5 mg Q4HP PRN PO PAIN 11/23/19 17:15 11/29/19 12:28 DC 11/29/19 05:33 Oxycodone HCl (Roxicodone, Oxyir) 5 mg Q4HP PRN PO PAIN 11/30/19 14:45 Pantoprazole Sodium (Protonix) 40 mg BID PO 11/23/19 21:00 12/03/19 09:10 Polyethylene Glycol (Miralax) 1 pkt DAILY PO 11/28/19 09:00 12/03/19 09:10 Potassium Chloride (Micro-K Extencaps) 10 meq DAILY PO 11/26/19 09:00 12/03/19 09:08 Prednisone (Deltasone) 2.5 mg DAILY PO 11/26/19 09:00 12/03/19 09:09 Senna (Senokot) 1 tab QHS PO 11/23/19 21:00 12/03/19 12:05 DC 12/02/19 20:40 Senna (Senokot) 2 tab QHS PO 12/03/19 21:00 Sodium Biphosphate/ Sodium Phosphate (Fleet Enema) 1 ea DAILYPRN PRN [place] CONSTIPATION 12/03/19 12:15 CARI KIRBY MD December 03, 2019 15:07
[2019-12-03] MEDS: GABAPENTIN 300 MG CAP PO SCH ×2 (16:25→20:25)
[2019-12-03 20:00] VITALS: BP 157/71
[2019-12-03] MEDS: diltiaZEM **CD** 180 MG CAP PO SCH (20:24)
[2019-12-03] MEDS: ASCORBIC ACID 250 MG TAB PO SCH (20:25)
[2019-12-03] MEDS: SENNA 8.6 MG TAB (SENOKOT) PO SCH (20:26)
[2019-12-03] MEDS: **NOTE PATIENT COMMENT** MISC XX SCH (20:27)
[2019-12-04] VITALS (7 sets, daily range): BP systolic 119–165; BP diastolic 58–81
[2019-12-04] MEDS: LEVOTHYROXINE 50MCG TABLET (0.05MG) PO SCH (05:36)
[2019-12-04] MEDS: LevoFLOXacin 250 MG TABLET PO SCH (05:36)
[2019-12-04] MEDS: predniSONE 2.5 MG TAB PO SCH (07:43)
[2019-12-04] MEDS: HYDROXYCHLOROQUINE 200 MG TAB PO SCH ×2 (07:43→19:54)
[2019-12-04] MEDS: BISACODYL 5 MG TAB PO SCH (07:43)
[2019-12-04] MEDS: GABAPENTIN 300 MG CAP PO SCH ×3 (07:43→19:56)
[2019-12-04] MEDS: azaTHIOprine 50 MG TAB (J7500) PO SCH (07:44)
[2019-12-04] MEDS: DOCUSATE SODIUM 100 MG CAP PO SCH ×3 (07:44→19:56)
[2019-12-04] MEDS: CALCIUM/VITAMIN D 500 MG TAB PO SCH ×2 (07:44→19:54)
[2019-12-04] MEDS: PANTOPRAZOLE 40MG TAB (PROTONIX) PO SCH ×2 (07:44→19:54)
[2019-12-04] MEDS: FERROUS SULFATE 325MG TAB PO SCH (07:44)
[2019-12-04] MEDS: DULoxetine 30 MG CAP (CYMBALTA) PO SCH (07:44)
[2019-12-04] MEDS: FUROSEMIDE 40 MG TAB PO SCH (07:45)
[2019-12-04] MEDS: METOPROLOL SUCC *XL* 25MG TAB (TopROL *XL*) PO SCH (07:45)
[2019-12-04] MEDS: APIXABAN 5 MG TAB (ELIQUIS) PO SCH ×2 (07:45→19:56)
[2019-12-04] MEDS: POTASSIUM CHLORIDE 10 MEQ SR TABLET PO SCH (07:45)
[2019-12-04] MEDS: AMIODARONE 200 MG TAB (PACERONE) PO SCH ×2 (07:45→21:18)
[2019-12-04] MEDS: LIDOCAINE 5% (LIDODERM) PATCH TD SCH (07:46)
[2019-12-04] MEDS: MIRALAX *UNIT DOSE* 17GM PACKET PO SCH (07:46)
[2019-12-04] MEDS: ACETAMINOPHEN 500 MG TAB PO SCH ×3 (07:46→21:40)
[2019-12-04] MEDS: REMEDY PHYTOPLEX Z-GUARD PASTE 113GM TUBE (FROM STOREROOM PRODUCT) TOP SCH ×3 (07:47→19:57)
[2019-12-04] MEDS: oxyCODONE 5MG TAB PO PRN (13:07)
--- NOTE | 2019-12-04 17:57 | IPNPDOC ---
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 She would like to continue taking gabapentin despite having a oven drier tender mouth. REVIEW OF SYSTEMS: The following is a completed review of systems and has been reviewed. Review of systems otherwise unremarkable. PAIN: Patient self reports left hip pain and low back pain EYES: No recent vision changes EARS, NOSE, & THROAT: No throat pain, or dysphagia, or rhinorrhea CARDIOVASCULAR: Denies chest pain or palpitations PULMONARY: Denies shortness of breath GASTROINTESTINAL: +constipation (improving) GENITOURINARY: denies dysuria MUSCULOSKELETAL: left hip fracture NEUROLOGICAL:denies paresthesias or tremor HEMATOLOGICAL: +easy bruising SKIN: left hip incision PSYCHIATRIC: Unremarkable All other review of systems found to be negative. PHYSICAL EXAMINATION: VITAL SIGNS: Please see below. GENERAL: Pleasant and cooperative. No acute distress. HEENT: PERRL. Extraocular movements intact. Clear conjunctiva CARDIOVASCULAR: Regular rate and rhythm. No murmurs, rubs, or gallops LUNGS: Clear to auscultation bilaterally. No wheezes. No rhonchi ABDOMEN: Soft, nontender, nondistended. Positive bowel sounds. Normal active bowel sounds NEUROLOGICAL: Alert and oriented times three. Cranial nerves II through XII grossly intact. Sensation grossly intact to light touch throughout all 4limbs including EXTREMITIES: 5\5 strength bilateral upper extremities. 5\5 strength right lower extremity 5/5 strength in left lower ankle DF/PF/EHL (limited due to recent surgery. + edema bilat TTP of upper lumbar vertebrae , paraspinals non-TTP SKIN: sacrum without erythema, left hip incision with serous drainage and dimitris- incision ecchymosis, no rash noted on back ASSESSMENT:84-year-old F with past medical history of Afib and PE who presents status post left hip fracture PLAN: 1. Rehab- PT/OT advance gait an ADL training, strengthen/stretch/maintain ROM all 4 limbs, ambulating with RW, however will consider training at wheelchair level as patient reporting more comfort at wheelchair level due to fear of fall ing 2. Neuro: no known hx 3. Cardiac: chronic diastolic CHF, c/u fluid restriction, Lasix (increased to 40mg daily due to worsening edema on exam), daily weights, monitor for fluid overload -Afib and hx of PE on eliquis, c/u diltiazem, amiodarone, metoprolol- medicine consulted to assist in overall management 4. Resp: encourage incentive spirometry, monitor for infection 5. Rheum: rheumatoid arthritis, c/u Plaquenil, prednisone, and Imuran 6. Heme: post-op anemia s/p 1 transfusion on acute care and received 1 more unit 11/26/19 with Hgb stable around 10 -oral iron 7. Ortho: s/p left hip fracture WBAT, ortho consulted -Oscal for osteoporosis -lumbar XR 11/29/19 no fractures no bowel/bladder loss of function, no saddle region anesthesia- -lowered to floor today in therapy stating her left knee buckled, denies new pain 8. Endo: hypothyroidism c/u Synthroid 9. GI ppx: Protonix, ordered FOBT -miralax added to bowel med regimen, constipation improving 10. DVT ppx: teds and on eliquis 11. : monitor PVRs -s/p 3 day course of Levaquin for +UA, however Ucx no growth 12. Pain: Tylenol, change oxycodone to prn, Lidoderm patch to left hip and low back -c/u gabapentin to 300mg TID -c/u cymbalta 30mg daily 13. Dispo: 12/12/19 to home, slowly progressing towards goals Allergies Coded Allergies: No Known Allergies (Unverified , 03/22/13) Vital Signs Vital Signs Date Time Temp Pulse Resp B/P (MAP) Pulse Ox O2 Delivery O2 Flow Rate FiO2 12/04/19 14:00 98.5 60 18 157/70 (99) 97 Room Air Microbiology Microbiology 12/02/19 Urine Culture - Final, Complete 11/30/19 Urine Culture - Final, Complete Current Medications Current Medications Current Medications Medications (Trade) Dose Ordered Sig/Hernandez Route PRN Reason Start Time Stop Time Status Last Admin Dose Admin Acetaminophen (Tylenol Tab) 1,000 mg TID PO 11/23/19 21:00 12/04/19 15:00 Amiodarone HCl (Pacerone, Cordarone) 200 mg BID PO 11/23/19 21:00 12/04/19 07:45 Apixaban (Eliquis) 5 mg BID PO 11/23/19 21:00 12/04/19 07:45 Ascorbic Acid (Vitamin C) 250 mg QHS PO 11/23/19 21:00 12/03/19 20:25 Azathioprine (Imuran) 100 mg DAILY PO 11/25/19 09:00 11/25/19 17:37 DC Azathioprine (Imuran) 100 mg DAILY PO 11/26/19 09:00 12/04/19 07:44 Bisacodyl (Dulcolax Suppository) 10 mg DAILYPRN PRN [place] CONSTIPATION 11/23/19 17:15 11/30/19 21:02 Bisacodyl (Dulcolax Tab) 5 mg DAILY PO 12/03/19 09:00 12/04/19 07:43 Calcium/Vitamin D (Oscal D) 500 mg BID PO 11/23/19 21:00 12/04/19 07:44 Diltiazem HCl (Cardizem Cd) 180 mg QHS PO 11/23/19 21:00 12/02/19 20:41 Docusate Sodium (Colace) 100 mg BID PO 11/23/19 21:00 12/03/19 12:05 DC 12/03/19 09:09 Docusate Sodium (Colace) 200 mg TID PO 12/03/19 12:00 12/04/19 15:00 Duloxetine HCl (Cymbalta) 30 mg DAILY PO 11/29/19 13:00 12/04/19 07:44 Ferrous Sulfate (Ferrous Sulfate) 325 mg DAILY PO 11/25/19 09:00 11/25/19 17:38 DC Ferrous Sulfate (Ferrous Sulfate) 325 mg DAILY PO 11/26/19 09:00 12/04/19 07:44 Furosemide (Lasix) 20 mg DAILY PO 11/25/19 09:00 11/25/19 17:38 DC Furosemide (Lasix) 20 mg DAILY PO 11/26/19 09:00 12/03/19 16:59 DC 12/03/19 09:10 Furosemide (Lasix) 40 mg DAILY PO 12/04/19 09:00 12/04/19 07:45 Gabapentin (Neurontin) 200 mg TID PO 11/28/19 21:00 12/03/19 15:50 DC 12/03/19 09:09 Gabapentin (Neurontin) 300 mg TID PO 12/03/19 16:00 12/04/19 15:00 Hydroxychloroquine Sulfate (Plaquenil) 200 mg BID PO 11/25/19 21:00 12/04/19 07:43 Levofloxacin (Levaquin) 250 mg DAILY@0600 PO 12/03/19 06:00 12/04/19 05:36 Levothyroxine Sodium (Synthroid) 50 mcg DAILY@06 PO 11/26/19 06:00 12/04/19 05:36 Lidocaine (Lidoderm Patch) 1 patch DAILY TD 11/26/19 09:00 11/27/19 12:20 DC 11/27/19 09:46 Lidocaine (Lidoderm Patch) 2 patch DAILY TD 11/27/19 12:30 12/04/19 07:46 Magnesium Hydroxide (Milk Of Magnesia) 30 ml DAILYPRN PRN PO CONSTIPATION 11/23/19 17:15 12/03/19 09:08 Metoprolol Succinate (TopROL XL) 25 mg DAILY PO 11/26/19 09:00 12/04/19 07:45 Non-Formulary Medication ( See Comment Field Below ) REMOVE LIDODERM PATCH DAILY@21 XX 11/23/19 21:00 12/03/19 20:27 Ondansetron HCl (Zofran Odt) 4 mg Q4HP PRN PO NAUSEA OR VOMITING 11/26/19 10:30 11/30/19 12:53 Oxycodone HCl (Roxicodone, Oxyir) 5 mg 0800,1200,1600,2100 PO 11/29/19 12:00 11/30/19 14:46 DC 11/30/19 12:52 Oxycodone HCl (Roxicodone, Oxyir) 5 mg Q4HP PRN PO PAIN 11/23/19 17:15 11/29/19 12:28 DC 11/29/19 05:33 Oxycodone HCl (Roxicodone, Oxyir) 5 mg Q4HP PRN PO PAIN 11/30/19 14:45 12/04/19 13:07 Pantoprazole Sodium (Protonix) 40 mg BID PO 11/23/19 21:00 12/04/19 07:44 Polyethylene Glycol (Miralax) 1 pkt DAILY PO 11/28/19 09:00 12/04/19 07:46 Potassium Chloride (Micro-K Extencaps) 10 meq DAILY PO 11/26/19 09:00 12/04/19 07:45 Prednisone (Deltasone) 2.5 mg DAILY PO 11/26/19 09:00 12/04/19 07:43 Senna (Senokot) 1 tab QHS PO 11/23/19 21:00 12/03/19 12:05 DC 12/02/19 20:40 Senna (Senokot) 2 tab QHS PO 12/03/19 21:00 Sodium Biphosphate/ Sodium Phosphate (Fleet Enema) 1 ea DAILYPRN PRN [place] CONSTIPATION 12/03/19 12:15 12/03/19 19:13 CARI KIRBY MD December 04, 2019 17:57
[2019-12-04] MEDS: ASCORBIC ACID 250 MG TAB PO SCH (19:54)
[2019-12-04] MEDS: diltiaZEM **CD** 180 MG CAP PO SCH (19:56)
[2019-12-04] MEDS: **NOTE PATIENT COMMENT** MISC XX SCH (19:57)
[2019-12-04] MEDS: SENNA 8.6 MG TAB (SENOKOT) PO SCH (19:57)
[2019-12-05] MEDS: LevoFLOXacin 250 MG TABLET PO SCH (05:36)
[2019-12-05] MEDS: LEVOTHYROXINE 50MCG TABLET (0.05MG) PO SCH (05:36)
[2019-12-05 06:00] VITALS: BP 129/60
[2019-12-05 06:48] LABS: BASO % 0.4 % (0.0-1.0); EOS % 0.2 % (0.0-3.0); HEMATOCRIT 32.7 % (36.0-47.0); HEMOGLOBIN 10.4 g/dl (12.0-15.5); LYMPH # 0.4 10^3/uL (1.5-5.0); LYMPH % 6.6 % (24.0-44.0); MEAN CORPUSCULAR HEMOGLOBIN 33.4 pg (27.0-33.0); MEAN CORPUSCULAR HGB CONC 31.8 g/dl (32.0-36.5); MEAN CORPUSCULAR VOLUME 105.1 fl (80.0-96.0); MONO # 0.7 10^3/uL (0.0-0.8); MONO % 12.3 % (0.0-5.0); NEUTROPHILS # 4.3 10^3/uL (1.5-8.5); NEUTROPHILS % 78.5 % (36.0-66.0); PLATELET COUNT, AUTOMATED 343 10^3/uL (150-450); RED BLOOD COUNT 3.11 10^6/uL (4.00-5.40); WHITE BLOOD COUNT 5.5 10^3/uL (4.0-10.0)
[2019-12-05 07:08] LABS: BLOOD UREA NITROGEN 19 MG/DL (7-18); CALCIUM LEVEL 8.2 MG/DL (8.8-10.2); CARBON DIOXIDE LEVEL 27 MEQ/L (21-32); CHLORIDE LEVEL 104 MEQ/L (98-107); CREATININE FOR GFR 0.83 MG/DL (0.55-1.30); GLOMERULAR FILTRATION RATE > 60.0 (>32); GLUCOSE, FASTING 98 MG/DL (70-100); POTASSIUM SERUM 3.7 MEQ/L (3.5-5.1); SODIUM LEVEL 138 MEQ/L (136-145)
[2019-12-05] MEDS: MIRALAX *UNIT DOSE* 17GM PACKET PO SCH (09:00)
[2019-12-05] MEDS: REMEDY PHYTOPLEX Z-GUARD PASTE 113GM TUBE (FROM STOREROOM PRODUCT) TOP SCH ×3 (09:00→21:06)
[2019-12-05] MEDS: PANTOPRAZOLE 40MG TAB (PROTONIX) PO SCH ×2 (09:13→21:05)
[2019-12-05] MEDS: APIXABAN 5 MG TAB (ELIQUIS) PO SCH ×2 (09:13→21:03)
[2019-12-05] MEDS: DULoxetine 30 MG CAP (CYMBALTA) PO SCH (09:14)
[2019-12-05] MEDS: POTASSIUM CHLORIDE 10 MEQ SR TABLET PO SCH (09:14)
[2019-12-05] MEDS: GABAPENTIN 300 MG CAP PO SCH ×3 (09:14→21:05)
[2019-12-05] MEDS: FUROSEMIDE 40 MG TAB PO SCH (09:14)
[2019-12-05] MEDS: predniSONE 2.5 MG TAB PO SCH (09:14)
[2019-12-05] MEDS: FERROUS SULFATE 325MG TAB PO SCH (09:14)
[2019-12-05] MEDS: CALCIUM/VITAMIN D 500 MG TAB PO SCH ×2 (09:14→21:05)
[2019-12-05] MEDS: azaTHIOprine 50 MG TAB (J7500) PO SCH (09:14)
[2019-12-05] MEDS: ACETAMINOPHEN 500 MG TAB PO SCH ×3 (09:16→21:05)
[2019-12-05] MEDS: DOCUSATE SODIUM 100 MG CAP PO SCH ×3 (09:16→21:05)
[2019-12-05] MEDS: BISACODYL 5 MG TAB PO SCH (09:16)
[2019-12-05] MEDS: METOPROLOL SUCC *XL* 25MG TAB (TopROL *XL*) PO SCH (09:17)
[2019-12-05] MEDS: HYDROXYCHLOROQUINE 200 MG TAB PO SCH ×2 (09:17→21:04)
[2019-12-05] MEDS: LIDOCAINE 5% (LIDODERM) PATCH TD SCH (09:17)
[2019-12-05] MEDS: AMIODARONE 200 MG TAB (PACERONE) PO SCH ×2 (09:17→21:05)
[2019-12-05 14:00] VITALS: BP 121/60
--- NOTE | 2019-12-05 14:17 | IPNPDOC ---
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 She denies head trauma. REVIEW OF SYSTEMS: The following is a completed review of systems and has been reviewed. Review of systems otherwise unremarkable. PAIN: Patient self reports left hip pain and low back pain EYES: No recent vision changes EARS, NOSE, & THROAT: No throat pain, or dysphagia, or rhinorrhea CARDIOVASCULAR: Denies chest pain or palpitations PULMONARY: Denies shortness of breath GASTROINTESTINAL: +constipation (improving) GENITOURINARY: denies dysuria MUSCULOSKELETAL: left hip fracture NEUROLOGICAL:denies paresthesias or tremor HEMATOLOGICAL: +easy bruising SKIN: left hip incision PSYCHIATRIC: Unremarkable All other review of systems found to be negative. PHYSICAL EXAMINATION: VITAL SIGNS: Please see below. GENERAL: Pleasant and cooperative. No acute distress. HEENT: PERRL. Extraocular movements intact. Clear conjunctiva CARDIOVASCULAR: Regular rate and rhythm. No murmurs, rubs, or gallops LUNGS: Clear to auscultation bilaterally. No wheezes. No rhonchi ABDOMEN: Soft, nontender, nondistended. Positive bowel sounds. Normal active bowel sounds NEUROLOGICAL: Alert and oriented times three. Cranial nerves II through XII grossly intact. Sensation grossly intact to light touch throughout all 4limbs including EXTREMITIES: 5\5 strength bilateral upper extremities. 5\5 strength right lower extremity 5/5 strength in left lower ankle DF/PF/EHL (limited due to recent surgery. + edema bilat TTP of upper lumbar vertebrae , paraspinals non-TTP SKIN: sacrum without erythema, left hip incision with serous drainage and dimitris-incision ecchymosis, no rash noted on back ASSESSMENT:84-year-old F with past medical history of Afib and PE who presents status post left hip fracture PLAN: 1. Rehab- PT/OT advance gait an ADL training, strengthen/stretch/maintain ROM all 4 limbs, ambulating with RW, however will officially begin training at wheelchair level as patient reporting more comfort at wheelchair level due to fear of falling and has sustained two episode of being lowered to the floor 2. Neuro: no known hx 3. Cardiac: chronic diastolic CHF, c/u fluid restriction, Lasix (increased to 40mg daily due to worsening edema on exam), daily weights, monitor for fluid overload -Afib and hx of PE on eliquis, c/u diltiazem, amiodarone, metoprolol- medicine consulted to assist in overall management 4. Resp: encourage incentive spirometry, monitor for infection 5. Rheum: rheumatoid arthritis, c/u Plaquenil, prednisone, and Imuran 6. Heme: post-op anemia s/p 1 transfusion on acute care and received 1 more unit 11/26/19 with Hgb stable around 10 -oral iron 7. Ortho: s/p left hip fracture WBAT, ortho consulted -Oscal for osteoporosis -lumbar XR 11/29/19 no fractures no bowel/bladder loss of function, no saddle region anesthesia- -lowered to floor 12-04-19 and again overnight with nursing again stating her left knee buckled- f/u Xrays of hip and knee ordered, knee extension brace donned, to be worn in therapy to prevent knee buckling 8. Endo: hypothyroidism c/u Synthroid 9. GI ppx: Protonix -miralax added to bowel med regimen, constipation improving 10. DVT ppx: teds and on eliquis 11. : monitor PVRs -s/p 3 day course of Levaquin for +UA, however Ucx no growth 12. Pain: Tylenol, change oxycodone to prn, Lidoderm patch to left hip and low back -c/u gabapentin to 300mg TID -c/u cymbalta 30mg daily 13. Dispo: 12/12/19 to home, slowly progressing towards goals Allergies Coded Allergies: No Known Allergies (Unverified , 03/22/13) Vital Signs Vital Signs Date Time Temp Pulse Resp B/P (MAP) Pulse Ox O2 Delivery O2 Flow Rate FiO2 12/05/19 09:17 72 136/67 12/05/19 06:00 98.2 78 97 Room Air Laboratory Data CBC/BMP Laboratory Tests 12/05/19 06:18 Labs 24H Laboratory Tests 2 12/05/19 06:18: Immature Granulocyte % (Auto) 2.0, Neutrophils (%) (Auto) 78.5H, Lymphocytes (%) (Auto) 6.6L, Monocytes (%) (Auto) 12.3H, Eosinophils (%) (Auto) 0.2, Basophils (%) (Auto) 0.4, Neutrophils # (Auto) 4.3, Lymphocytes # (Auto) 0.4L, Monocytes # (Auto) 0.7, Eosinophils # (Auto) 0.0, Basophils # (Auto) 0.0, Nucleated Red Blood Cells % (auto) 0.0, Anion Gap 7L, Glomerular Filtration Rate > 60.0, Calcium Level 8.2L Microbiology Microbiology 12/02/19 Urine Culture - Final, Complete 11/30/19 Urine Culture - Final, Complete Current Medications Current Medications Current Medications Medications (Trade) Dose Ordered Sig/Hernandez Route PRN Reason Start Time Stop Time Status Last Admin Dose Admin Acetaminophen (Tylenol Tab) 1,000 mg TID PO 11/23/19 21:00 12/05/19 09:16 Amiodarone HCl (Pacerone, Cordarone) 200 mg BID PO 11/23/19 21:00 12/05/19 09:17 Apixaban (Eliquis) 5 mg BID PO 11/23/19 21:00 12/05/19 09:13 Ascorbic Acid (Vitamin C) 250 mg QHS PO 11/23/19 21:00 12/04/19 19:54 Azathioprine (Imuran) 100 mg DAILY PO 11/25/19 09:00 11/25/19 17:37 DC Azathioprine (Imuran) 100 mg DAILY PO 11/26/19 09:00 12/05/19 09:14 Bisacodyl (Dulcolax Suppository) 10 mg DAILYPRN PRN [place] CONSTIPATION 11/23/19 17:15 11/30/19 21:02 Bisacodyl (Dulcolax Tab) 5 mg DAILY PO 12/03/19 09:00 12/05/19 09:16 Calcium/Vitamin D (Oscal D) 500 mg BID PO 11/23/19 21:00 12/05/19 09:14 Diltiazem HCl (Cardizem Cd) 180 mg QHS PO 11/23/19 21:00 12/02/19 20:41 Docusate Sodium (Colace) 100 mg BID PO 11/23/19 21:00 12/03/19 12:05 DC 12/03/19 09:09 Docusate Sodium (Colace) 200 mg TID PO 12/03/19 12:00 12/05/19 09:16 Duloxetine HCl (Cymbalta) 30 mg DAILY PO 11/29/19 13:00 12/05/19 09:14 Ferrous Sulfate (Ferrous Sulfate) 325 mg DAILY PO 11/25/19 09:00 11/25/19 17:38 DC Ferrous Sulfate (Ferrous Sulfate) 325 mg DAILY PO 11/26/19 09:00 12/05/19 09:14 Furosemide (Lasix) 20 mg DAILY PO 11/25/19 09:00 11/25/19 17:38 DC Furosemide (Lasix) 20 mg DAILY PO 11/26/19 09:00 12/03/19 16:59 DC 12/03/19 09:10 Furosemide (Lasix) 40 mg DAILY PO 12/04/19 09:00 12/05/19 09:14 Gabapentin (Neurontin) 200 mg TID PO 11/28/19 21:00 12/03/19 15:50 DC 12/03/19 09:09 Gabapentin (Neurontin) 300 mg TID PO 12/03/19 16:00 12/05/19 09:14 Hydroxychloroquine Sulfate (Plaquenil) 200 mg BID PO 11/25/19 21:00 12/05/19 09:17 Levofloxacin (Levaquin) 250 mg DAILY@0600 PO 12/03/19 06:00 12/05/19 05:36 Levothyroxine Sodium (Synthroid) 50 mcg DAILY@06 PO 11/26/19 06:00 12/05/19 05:36 Lidocaine (Lidoderm Patch) 1 patch DAILY TD 11/26/19 09:00 11/27/19 12:20 DC 11/27/19 09:46 Lidocaine (Lidoderm Patch) 2 patch DAILY TD 11/27/19 12:30 12/05/19 09:17 Magnesium Hydroxide (Milk Of Magnesia) 30 ml DAILYPRN PRN PO CONSTIPATION 11/23/19 17:15 12/03/19 09:08 Metoprolol Succinate (TopROL XL) 25 mg DAILY PO 11/26/19 09:00 12/05/19 09:17 Non-Formulary Medication ( See Comment Field Below ) REMOVE LIDODERM PATCH DAILY@21 XX 11/23/19 21:00 12/04/19 19:57 Ondansetron HCl (Zofran Odt) 4 mg Q4HP PRN PO NAUSEA OR VOMITING 11/26/19 10:30 11/30/19 12:53 Oxycodone HCl (Roxicodone, Oxyir) 5 mg 0800,1200,1600,2100 PO 11/29/19 12:00 11/30/19 14:46 DC 11/30/19 12:52 Oxycodone HCl (Roxicodone, Oxyir) 5 mg Q4HP PRN PO PAIN 11/23/19 17:15 11/29/19 12:28 DC 11/29/19 05:33 Oxycodone HCl (Roxicodone, Oxyir) 5 mg Q4HP PRN PO PAIN 11/30/19 14:45 12/04/19 13:07 Pantoprazole Sodium (Protonix) 40 mg BID PO 11/23/19 21:00 12/05/19 09:13 Polyethylene Glycol (Miralax) 1 pkt DAILY PO 11/28/19 09:00 12/04/19 07:46 Potassium Chloride (Micro-K Extencaps) 10 meq DAILY PO 11/26/19 09:00 12/05/19 09:14 Prednisone (Deltasone) 2.5 mg DAILY PO 11/26/19 09:00 12/05/19 09:14 Senna (Senokot) 1 tab QHS PO 11/23/19 21:00 12/03/19 12:05 DC 12/02/19 20:40 Senna (Senokot) 2 tab QHS PO 12/03/19 21:00 12/04/19 19:57 Sodium Biphosphate/ Sodium Phosphate (Fleet Enema) 1 ea DAILYPRN PRN [place] CONSTIPATION 12/03/19 12:15 12/03/19 19:13 CARI KIRBY MD December 05, 2019 14:17
--- NOTE | 2019-12-05 14:48 | REP ---
LEFT HIP, AP AND LATERAL: AP and lateral views of left hip performed. Intramedullary marge is seen in the left femur, with a metallic anchor in the proximal left femur as well as cerclage wire. Metallic skin jarocho are seen both proximally and distally in the thigh. Separate lesser trochanter fragments are seen. These are slightly displaced medially. Otherwise, there is good alignment of the visualized osseous structures. Electronically Signed by Nba Reed MD 12/05/2019 03:34 P
--- NOTE | 2019-12-05 14:50 | REP ---
LEFT KNEE, AP AND LATERAL: AP and lateral views of left kidney performed. Intramedullary marge is seen in the femoral shaft. There is a metallic screw in the distal femoral shaft. Metallic skin jarocho are seen in the distal thigh laterally. There are moderate degenerative changes at the knee joint with joint space narrowing, subchondral sclerosis, and spurring. Electronically Signed by Nba Reed MD 12/05/2019 03:34 P
--- NOTE | 2019-12-05 16:29 | IPNPDOC ---
Text Note Date of Service The patient was seen on 12/05/19. NOTE Subjective: No negative events overnight. Patient denies fever, chills, nausea, vomiting, diarrhea or dysuria Objective: VITAL SIGNS: Please see below. GENERAL: awake, alert, NAD HEENT: NCAT, anicteric sclera, JOHNATHON NECK: supple, no JVD CARDIOVASCULAR EXAMINATION: NS1S2, regular rate/rhythm RESPIRATORY EXAMINATION: CTA b/l, no wheezes/rales/rhonchi ABDOMINAL EXAMINATION: positive bowel sounds x 4, NT EXTREMITIES: no cyanosis, clubbing, edema SKIN: warm, no rashes. NEUROLOGICAL EXAMINATION: AAO x 3, no motor/sensory deficits PSYCHIATRIC EXAMINATION: calm, normal affect Assessment and plan Patient is an 84-year-old female with PMHx HTN, A. fib (on Eliquis), PE (on Eliquis), RA, Hypothyroidism, Iron deficiency anemia, Hx of gangrenous small bowel / abdominal adhesions, Hx of Nephrolithiasis, Osteoporosis, GERD, who presented to the hospital after sustaining a mechanical fall resulting in a left hip fracture. Patient was admitted to [facility] from 11/19/2019 to 11/25/2019. Patient ultimately went for ORIF on 11/20. Left hip fracture secondary to mechanical fall Pain management Continue PTOT Diastolic CHF Not in acute exacerbation Continue cardioprotective medications Atrial fibrillation Heart rate is under control Continue oral target anticoagulation PE Continue with Eliquis Iron deficiency anemia - c/w Ferrous sulfate VS,Fishbone, I+O VS, Fishbone, I+O Laboratory Tests 12/05/19 06:18 Vital Signs Date Time Temp Pulse Resp B/P (MAP) Pulse Ox O2 Delivery O2 Flow Rate FiO2 12/05/19 14:00 97.9 60 18 121/60 (80) 96 Room Air I&O- Last 24 Hours up to 6 AM 12/05/19 06:00 Intake Total 900 ml Output Total 1 ml Balance 899 ml SOWMYA DAO DO December 05, 2019 16:29
[2019-12-05 20:00] VITALS: BP 116/56
[2019-12-05] MEDS: ASCORBIC ACID 250 MG TAB PO SCH (21:04)
[2019-12-05] MEDS: diltiaZEM **CD** 180 MG CAP PO SCH (21:04)
[2019-12-05] MEDS: SENNA 8.6 MG TAB (SENOKOT) PO SCH (21:05)
[2019-12-05] MEDS: **NOTE PATIENT COMMENT** MISC XX SCH (21:06)
[2019-12-06 05:30] VITALS: BP 116/56
[2019-12-06] MEDS: LevoFLOXacin 250 MG TABLET PO SCH (06:11)
[2019-12-06] MEDS: LEVOTHYROXINE 50MCG TABLET (0.05MG) PO SCH (06:12)
[2019-12-06] MEDS: MIRALAX *UNIT DOSE* 17GM PACKET PO SCH (09:00)
[2019-12-06] MEDS: REMEDY PHYTOPLEX Z-GUARD PASTE 113GM TUBE (FROM STOREROOM PRODUCT) TOP SCH ×3 (09:00→21:13)
[2019-12-06] MEDS: GABAPENTIN 300 MG CAP PO SCH (09:29)
[2019-12-06] MEDS: predniSONE 2.5 MG TAB PO SCH (09:29)
[2019-12-06] MEDS: HYDROXYCHLOROQUINE 200 MG TAB PO SCH ×2 (09:29→21:14)
[2019-12-06] MEDS: FUROSEMIDE 40 MG TAB PO SCH (09:29)
[2019-12-06] MEDS: DOCUSATE SODIUM 100 MG CAP PO SCH ×4 (09:29→21:14)
[2019-12-06] MEDS: LIDOCAINE 5% (LIDODERM) PATCH TD SCH (09:29)
[2019-12-06] MEDS: METOPROLOL SUCC *XL* 25MG TAB (TopROL *XL*) PO SCH (09:30)
[2019-12-06] MEDS: DULoxetine 30 MG CAP (CYMBALTA) PO SCH (09:30)
[2019-12-06] MEDS: PANTOPRAZOLE 40MG TAB (PROTONIX) PO SCH ×2 (09:31→21:14)
[2019-12-06] MEDS: FERROUS SULFATE 325MG TAB PO SCH (09:31)
[2019-12-06] MEDS: AMIODARONE 200 MG TAB (PACERONE) PO SCH ×2 (09:31→21:15)
[2019-12-06] MEDS: CALCIUM/VITAMIN D 500 MG TAB PO SCH ×2 (09:31→21:14)
[2019-12-06] MEDS: POTASSIUM CHLORIDE 10 MEQ SR TABLET PO SCH (09:31)
[2019-12-06] MEDS: APIXABAN 5 MG TAB (ELIQUIS) PO SCH ×2 (09:31→21:14)
[2019-12-06] MEDS: azaTHIOprine 50 MG TAB (J7500) PO SCH (09:31)
[2019-12-06] MEDS: BISACODYL 5 MG TAB PO SCH (09:31)
[2019-12-06] MEDS: ACETAMINOPHEN 500 MG TAB PO SCH ×3 (09:32→21:14)
[2019-12-06 14:00] VITALS: BP 133/60
--- NOTE | 2019-12-06 14:17 | IPNPDOC ---
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 She also feels stronger standing in therapy. REVIEW OF SYSTEMS: The following is a completed review of systems and has been reviewed. Review of systems otherwise unremarkable. PAIN: Patient self reports left hip pain and low back pain EYES: No recent vision changes EARS, NOSE, & THROAT: No throat pain, or dysphagia, or rhinorrhea CARDIOVASCULAR: Denies chest pain or palpitations PULMONARY: Denies shortness of breath GASTROINTESTINAL: +constipation (improving) GENITOURINARY: denies dysuria MUSCULOSKELETAL: left hip fracture NEUROLOGICAL:denies paresthesias or tremor HEMATOLOGICAL: +easy bruising SKIN: left hip incision PSYCHIATRIC: Unremarkable All other review of systems found to be negative. PHYSICAL EXAMINATION: VITAL SIGNS: Please see below. GENERAL: Pleasant and cooperative. No acute distress. HEENT: PERRL. Extraocular movements intact. Clear conjunctiva CARDIOVASCULAR: Regular rate and rhythm. No murmurs, rubs, or gallops LUNGS: Clear to auscultation bilaterally. No wheezes. No rhonchi ABDOMEN: Soft, nontender, nondistended. Positive bowel sounds. Normal active bowel sounds NEUROLOGICAL: Alert and oriented times three. Cranial nerves II through XII grossly intact. Sensation grossly intact to light touch throughout all 4limbs including EXTREMITIES: 5\5 strength bilateral upper extremities. 5\5 strength right lower extremity 5/5 strength in left lower ankle DF/PF/EHL (limited due to recent surgery. + edema bilat TTP of upper lumbar vertebrae , paraspinals non-TTP SKIN: sacrum without erythema, left hip incision with serous drainage and dimitris- incision ecchymosis, no rash noted on back ASSESSMENT:84-year-old F with past medical history of Afib and PE who presents status post left hip fracture PLAN: 1. Rehab- PT/OT advance gait an ADL training, strengthen/stretch/maintain ROM all 4 limbs, ambulating with RW, however will officially begin training at wheelchair level as patient reporting more comfort at wheelchair level due to fear of falling and has sustained two episode of being lowered to the floor 2. Neuro: no known hx 3. Cardiac: chronic diastolic CHF, c/u fluid restriction, Lasix (increased to 40mg daily due to worsening edema on exam), daily weights, monitor for fluid overload -Afib and hx of PE on eliquis, c/u diltiazem, amiodarone, metoprolol- medicine consulted to assist in overall management 4. Resp: encourage incentive spirometry, monitor for infection 5. Rheum: rheumatoid arthritis, c/u Plaquenil, prednisone, and Imuran 6. Heme: post-op anemia s/p 1 transfusion on acute care and received 1 more unit 11/26/19 with Hgb stable around 10 -oral iron 7. Ortho: s/p left hip fracture WBAT, ortho consulted -Oscal for osteoporosis -lumbar XR 11/29/19 no fractures no bowel/bladder loss of function, no saddle region anesthesia- -lowered to floor x2- f/u Xrays of hip and knee within normal limits and reviewed by ortho 8. Endo: hypothyroidism c/u Synthroid 9. GI ppx: Protonix -miralax added to bowel med regimen, constipation improving 10. DVT ppx: acewraps and on eliquis 11. : monitor PVRs -s/p course of Levaquin for +UA, however Ucx no growth 12. Pain: Tylenol, change oxycodone to prn, Lidoderm patch to left hip and low back -c/u gabapentin at lower dose 100mg TID as patient reporting her pain is better controlled and this may be contributing to LE edema and dry mouth -c/u cymbalta 30mg daily 13. Dispo: 12/14/19 to home, slowly progressing towards goals Allergies Coded Allergies: No Known Allergies (Unverified , 03/22/13) Vital Signs Vital Signs Date Time Temp Pulse Resp B/P (MAP) Pulse Ox O2 Delivery O2 Flow Rate FiO2 12/06/19 09:30 128/76 12/06/19 05:30 98.2 61 18 94 Room Air Microbiology Microbiology 12/02/19 Urine Culture - Final, Complete 11/30/19 Urine Culture - Final, Complete Current Medications Current Medications Current Medications Medications (Trade) Dose Ordered Sig/Hernandez Route PRN Reason Start Time Stop Time Status Last Admin Dose Admin Acetaminophen (Tylenol Tab) 1,000 mg TID PO 11/23/19 21:00 12/06/19 09:32 Amiodarone HCl (Pacerone, Cordarone) 200 mg BID PO 11/23/19 21:00 12/06/19 09:31 Apixaban (Eliquis) 5 mg BID PO 11/23/19 21:00 12/06/19 09:31 Ascorbic Acid (Vitamin C) 250 mg QHS PO 11/23/19 21:00 12/05/19 21:04 Azathioprine (Imuran) 100 mg DAILY PO 11/25/19 09:00 11/25/19 17:37 DC Azathioprine (Imuran) 100 mg DAILY PO 11/26/19 09:00 12/06/19 09:31 Bisacodyl (Dulcolax Suppository) 10 mg DAILYPRN PRN [place] CONSTIPATION 11/23/19 17:15 11/30/19 21:02 Bisacodyl (Dulcolax Tab) 5 mg DAILY PO 12/03/19 09:00 12/06/19 09:31 Calcium/Vitamin D (Oscal D) 500 mg BID PO 11/23/19 21:00 12/06/19 09:31 Diltiazem HCl (Cardizem Cd) 180 mg QHS PO 11/23/19 21:00 12/05/19 21:04 Docusate Sodium (Colace) 100 mg BID PO 11/23/19 21:00 12/03/19 12:05 DC 12/03/19 09:09 Docusate Sodium (Colace) 200 mg TID PO 12/03/19 12:00 12/06/19 09:29 Duloxetine HCl (Cymbalta) 30 mg DAILY PO 11/29/19 13:00 12/06/19 09:30 Ferrous Sulfate (Ferrous Sulfate) 325 mg DAILY PO 11/25/19 09:00 11/25/19 17:38 DC Ferrous Sulfate (Ferrous Sulfate) 325 mg DAILY PO 11/26/19 09:00 12/06/19 09:31 Furosemide (Lasix) 20 mg DAILY PO 11/25/19 09:00 11/25/19 17:38 DC Furosemide (Lasix) 20 mg DAILY PO 11/26/19 09:00 12/03/19 16:59 DC 12/03/19 09:10 Furosemide (Lasix) 40 mg DAILY PO 12/04/19 09:00 12/06/19 09:29 Gabapentin (Neurontin) 200 mg TID PO 11/28/19 21:00 12/03/19 15:50 DC 12/03/19 09:09 Gabapentin (Neurontin) 300 mg TID PO 12/03/19 16:00 12/06/19 09:29 Hydroxychloroquine Sulfate (Plaquenil) 200 mg BID PO 11/25/19 21:00 12/06/19 09:29 Levofloxacin (Levaquin) 250 mg DAILY@0600 PO 12/03/19 06:00 12/06/19 06:11 Levothyroxine Sodium (Synthroid) 50 mcg DAILY@06 PO 11/26/19 06:00 12/06/19 06:12 Lidocaine (Lidoderm Patch) 1 patch DAILY TD 11/26/19 09:00 11/27/19 12:20 DC 11/27/19 09:46 Lidocaine (Lidoderm Patch) 2 patch DAILY TD 11/27/19 12:30 12/06/19 09:29 Magnesium Hydroxide (Milk Of Magnesia) 30 ml DAILYPRN PRN PO CONSTIPATION 11/23/19 17:15 12/03/19 09:08 Metoprolol Succinate (TopROL XL) 25 mg DAILY PO 11/26/19 09:00 12/06/19 09:30 Non-Formulary Medication ( See Comment Field Below ) REMOVE LIDODERM PATCH DAILY@21 XX 11/23/19 21:00 12/05/19 21:06 Ondansetron HCl (Zofran Odt) 4 mg Q4HP PRN PO NAUSEA OR VOMITING 11/26/19 10:30 11/30/19 12:53 Oxycodone HCl (Roxicodone, Oxyir) 5 mg 0800,1200,1600,2100 PO 11/29/19 12:00 11/30/19 14:46 DC 11/30/19 12:52 Oxycodone HCl (Roxicodone, Oxyir) 5 mg Q4HP PRN PO PAIN 11/23/19 17:15 11/29/19 12:28 DC 11/29/19 05:33 Oxycodone HCl (Roxicodone, Oxyir) 5 mg Q4HP PRN PO PAIN 11/30/19 14:45 12/04/19 13:07 Pantoprazole Sodium (Protonix) 40 mg BID PO 11/23/19 21:00 12/06/19 09:31 Polyethylene Glycol (Miralax) 1 pkt DAILY PO 11/28/19 09:00 12/04/19 07:46 Potassium Chloride (Micro-K Extencaps) 10 meq DAILY PO 11/26/19 09:00 12/06/19 09:31 Prednisone (Deltasone) 2.5 mg DAILY PO 11/26/19 09:00 12/06/19 09:29 Senna (Senokot) 1 tab QHS PO 11/23/19 21:00 12/03/19 12:05 DC 12/02/19 20:40 Senna (Senokot) 2 tab QHS PO 12/03/19 21:00 12/05/19 21:05 Sodium Biphosphate/ Sodium Phosphate (Fleet Enema) 1 ea DAILYPRN PRN OK CONSTIPATION 12/03/19 12:15 12/03/19 19:13 CARI KIRBY MD December 06, 2019 14:17
[2019-12-06] MEDS: GABAPENTIN 100 MG CAP PO SCH ×2 (17:43→21:15)
[2019-12-06 20:45] VITALS: BP 135/79
[2019-12-06] MEDS: SENNA 8.6 MG TAB (SENOKOT) PO SCH (21:14)
[2019-12-06] MEDS: ASCORBIC ACID 250 MG TAB PO SCH (21:14)
[2019-12-06] MEDS: diltiaZEM **CD** 180 MG CAP PO SCH (21:14)
[2019-12-06] MEDS: **NOTE PATIENT COMMENT** MISC XX SCH (21:15)
[2019-12-07] MEDS: LEVOTHYROXINE 50MCG TABLET (0.05MG) PO SCH (06:11)
[2019-12-07 06:22] VITALS: BP 140/65
[2019-12-07 06:41] LABS: BASO % 0.2 % (0.0-1.0); HEMATOCRIT 34.6 % (36.0-47.0); LYMPH # 0.3 10^3/uL (1.5-5.0); LYMPH % 6.5 % (24.0-44.0); MEAN CORPUSCULAR HEMOGLOBIN 33.5 pg (27.0-33.0); MEAN CORPUSCULAR HGB CONC 31.8 g/dl (32.0-36.5); MEAN CORPUSCULAR VOLUME 105.5 fl (80.0-96.0); MONO # 0.7 10^3/uL (0.0-0.8); MONO % 12.8 % (0.0-5.0); NEUTROPHILS % 79.1 % (36.0-66.0); PLATELET COUNT, AUTOMATED 364 10^3/uL (150-450); RED BLOOD COUNT 3.28 10^6/uL (4.00-5.40); WHITE BLOOD COUNT 5.1 10^3/uL (4.0-10.0)
[2019-12-07 07:08] LABS: ALBUMIN 2.7 GM/DL (3.2-5.2); ALT/SGPT 14 U/L (12-78); BILIRUBIN,TOTAL 1.4 MG/DL (0.2-1.0); BLOOD UREA NITROGEN 17 MG/DL (7-18); CALCIUM LEVEL 7.9 MG/DL (8.8-10.2); CARBON DIOXIDE LEVEL 28 MEQ/L (21-32); CHLORIDE LEVEL 104 MEQ/L (98-107); CREATININE FOR GFR 0.69 MG/DL (0.55-1.30); GLOMERULAR FILTRATION RATE > 60.0 (>32); GLUCOSE, FASTING 97 MG/DL (70-100); POTASSIUM SERUM 3.7 MEQ/L (3.5-5.1); SODIUM LEVEL 139 MEQ/L (136-145); TOTAL PROTEIN 5.3 GM/DL (6.4-8.2)
[2019-12-07] MEDS: LIDOCAINE 5% (LIDODERM) PATCH TD SCH (08:27)
[2019-12-07] MEDS: APIXABAN 5 MG TAB (ELIQUIS) PO SCH ×2 (08:28→21:06)
[2019-12-07] MEDS: FERROUS SULFATE 325MG TAB PO SCH (08:28)
[2019-12-07] MEDS: CALCIUM/VITAMIN D 500 MG TAB PO SCH ×2 (08:28→21:06)
[2019-12-07] MEDS: GABAPENTIN 100 MG CAP PO SCH ×3 (08:28→21:06)
[2019-12-07] MEDS: METOPROLOL SUCC *XL* 25MG TAB (TopROL *XL*) PO SCH (08:28)
[2019-12-07] MEDS: AMIODARONE 200 MG TAB (PACERONE) PO SCH ×2 (08:29→21:05)
[2019-12-07] MEDS: DULoxetine 30 MG CAP (CYMBALTA) PO SCH (08:29)
[2019-12-07] MEDS: PANTOPRAZOLE 40MG TAB (PROTONIX) PO SCH ×2 (08:29→21:05)
[2019-12-07] MEDS: HYDROXYCHLOROQUINE 200 MG TAB PO SCH ×2 (08:29→21:05)
[2019-12-07] MEDS: predniSONE 2.5 MG TAB PO SCH (08:29)
[2019-12-07] MEDS: BISACODYL 5 MG TAB PO SCH (08:29)
[2019-12-07] MEDS: POTASSIUM CHLORIDE 10 MEQ SR TABLET PO SCH (08:29)
[2019-12-07] MEDS: azaTHIOprine 50 MG TAB (J7500) PO SCH (08:30)
[2019-12-07] MEDS: ACETAMINOPHEN 500 MG TAB PO SCH ×3 (08:31→21:06)
[2019-12-07] MEDS: DOCUSATE SODIUM 100 MG CAP PO SCH ×3 (08:31→21:06)
[2019-12-07] MEDS: REMEDY PHYTOPLEX Z-GUARD PASTE 113GM TUBE (FROM STOREROOM PRODUCT) TOP SCH ×3 (08:31→21:06)
[2019-12-07] MEDS: FUROSEMIDE 40 MG TAB PO SCH (08:33)
[2019-12-07] MEDS: MIRALAX *UNIT DOSE* 17GM PACKET PO SCH (08:33)
--- NOTE | 2019-12-07 10:39 | IPNPDOC ---
PM&R Progress Note DATE OF SERVICE: December 07, 2019 Geosciences Professor Progress Note Subjective: Patient reporting she feels her legs are less swollen and that therapy went well today. Her back pain and hip pain is getting better. REVIEW OF SYSTEMS: The following is a completed review of systems and has been reviewed. Review of systems otherwise unremarkable. PAIN: Patient self reports left hip pain and low back pain (improving) EYES: No recent vision changes EARS, NOSE, & THROAT: No throat pain, or dysphagia, or rhinorrhea CARDIOVASCULAR: Denies chest pain or palpitations PULMONARY: Denies shortness of breath GASTROINTESTINAL: +constipation (improving) GENITOURINARY: denies dysuria MUSCULOSKELETAL: left hip fracture NEUROLOGICAL:denies paresthesias or tremor HEMATOLOGICAL: +easy bruising SKIN: left hip incision PSYCHIATRIC: Unremarkable All other review of systems found to be negative. PHYSICAL EXAMINATION: VITAL SIGNS: Please see below. GENERAL: Pleasant and cooperative. No acute distress. HEENT: PERRL. Extraocular movements intact. Clear conjunctiva CARDIOVASCULAR: Regular rate and rhythm. No murmurs, rubs, or gallops LUNGS: Clear to auscultation bilaterally. No wheezes. No rhonchi ABDOMEN: Soft, nontender, nondistended. Positive bowel sounds. Normal active bowel sounds NEUROLOGICAL: Alert and oriented times three. Cranial nerves II through XII grossly intact. Sensation grossly intact to light touch throughout all 4limbs including EXTREMITIES: 5\5 strength bilateral upper extremities. 5\5 strength right lower extremity 5/5 strength in left lower ankle DF/PF/EHL (limited due to recent surgery. + edema bilat (improving) TTP of upper lumbar vertebrae , paraspinals non-TTP SKIN: sacrum without erythema, left hip incision with serous drainage and dimitirs- incision ecchymosis, no rash noted on back ASSESSMENT:84-year-old F with past medical history of Afib and PE who presents status post left hip fracture PLAN: 1. Rehab- PT/OT advance gait an ADL training, strengthen/stretch/maintain ROM all 4 limbs, ambulating with RW, however will officially begin training at wheelchair level as patient reporting more comfort at wheelchair level due to fear of falling and has sustained two episode of being lowered to the floor 2. Neuro: no known hx 3. Cardiac: chronic diastolic CHF, c/u fluid restriction, Lasix (increased to 40mg daily due to worsening edema on exam), daily weights, monitor for fluid overload -Afib and hx of PE on eliquis, c/u diltiazem, amiodarone, metoprolol- medicine consulted to assist in overall management 4. Resp: encourage incentive spirometry, monitor for infection 5. Rheum: rheumatoid arthritis, c/u Plaquenil, prednisone, and Imuran 6. Heme: post-op anemia s/p 1 transfusion on acute care and received 1 more unit 11/26/19 with Hgb stable around 10 -oral iron 7. Ortho: s/p left hip fracture WBAT, ortho consulted -Oscal for osteoporosis -lumbar XR 11/29/19 no fractures no bowel/bladder loss of function, no saddle region anesthesia- -lowered to floor x2- f/u Xrays of hip and knee within normal limits and reviewed by ortho 8. Endo: hypothyroidism c/u Synthroid 9. GI ppx: Protonix -miralax added to bowel med regimen, constipation improving 10. DVT ppx: acewraps and on eliquis 11. : monitor PVRs -s/p course of Levaquin for +UA, however Ucx no growth 12. Pain: Tylenol, change oxycodone to prn, Lidoderm patch to left hip and low back -c/u gabapentin at lower dose 100mg TID as patient reporting her pain is better controlled and this may be contributing to LE edema and dry mouth-last dose Tuesday -increase cymbalta to 40mg daily 13. Dispo: 12/14/19 to home, slowly progressing towards goals DME: patient will require a wheelchair to complete her MRADLs in a timely and safe manner. She is unable to complete her MRADLs with a walker or cane. Her home is accessible, her family is able to assist her, and she is willing to use a wheelchair. Allergies Coded Allergies: No Known Allergies (Unverified , 03/22/13) Vital Signs Vital Signs Date Time Temp Pulse Resp B/P (MAP) Pulse Ox O2 Delivery O2 Flow Rate FiO2 12/07/19 06:22 97.7 59 18 140/65 (90) 95 Room Air Laboratory Data CBC/BMP Laboratory Tests 12/07/19 06:02 Labs 24H Laboratory Tests 2 12/07/19 06:02: Immature Granulocyte % (Auto) 1.4, Neutrophils (%) (Auto) 79.1H, Lymphocytes (%) (Auto) 6.5L, Monocytes (%) (Auto) 12.8H, Eosinophils (%) (Auto) 0.0, Basophils (%) (Auto) 0.2, Neutrophils # (Auto) 4.0, Lymphocytes # (Auto) 0.3L, Monocytes # (Auto) 0.7, Eosinophils # (Auto) 0.0, Basophils # (Auto) 0.0, Nucleated Red Blood Cells % (auto) 0.0, Anion Gap 7L, Glomerular Filtration Rate > 60.0, Calcium Level 7.9L, Total Bilirubin 1.4H, Aspartate Amino Transf (AST/SGOT) 13, Alanine Aminotransferase (ALT/SGPT) 14, Alkaline Phosphatase 122H, Total Protein 5.3L, Albumin 2.7L, Albumin/Globulin Ratio 1.0L Microbiology Microbiology 12/06/19 Stool Occult Blood (LUI) - Final, Complete 12/02/19 Urine Culture - Final, Complete 11/30/19 Urine Culture - Final, Complete Current Medications Current Medications Current Medications Medications (Trade) Dose Ordered Sig/Hernandez Route PRN Reason Start Time Stop Time Status Last Admin Dose Admin Acetaminophen (Tylenol Tab) 1,000 mg TID PO 11/23/19 21:00 12/07/19 08:31 Amiodarone HCl (Pacerone, Cordarone) 200 mg BID PO 11/23/19 21:00 12/07/19 08:29 Apixaban (Eliquis) 5 mg BID PO 11/23/19 21:00 12/07/19 08:28 Ascorbic Acid (Vitamin C) 250 mg QHS PO 11/23/19 21:00 12/06/19 21:14 Azathioprine (Imuran) 100 mg DAILY PO 11/25/19 09:00 11/25/19 17:37 DC Azathioprine (Imuran) 100 mg DAILY PO 11/26/19 09:00 12/07/19 08:30 Bisacodyl (Dulcolax Suppository) [address] CONSTIPATION 11/23/19 17:15 11/30/19 21:02 Bisacodyl (Dulcolax Tab) 5 mg DAILY PO 12/03/19 09:00 12/07/19 08:29 Calcium/Vitamin D (Oscal D) 500 mg BID PO 11/23/19 21:00 12/07/19 08:28 Diltiazem HCl (Cardizem Cd) 180 mg QHS PO 11/23/19 21:00 12/06/19 21:14 Docusate Sodium (Colace) 100 mg BID PO 11/23/19 21:00 12/03/19 12:05 DC 12/03/19 09:09 Docusate Sodium (Colace) 200 mg TID PO 12/03/19 12:00 12/06/19 21:14 Duloxetine HCl (Cymbalta) 30 mg DAILY PO 11/29/19 13:00 12/07/19 08:29 Ferrous Sulfate (Ferrous Sulfate) 325 mg DAILY PO 11/25/19 09:00 11/25/19 17:38 DC Ferrous Sulfate (Ferrous Sulfate) 325 mg DAILY PO 11/26/19 09:00 12/07/19 08:28 Furosemide (Lasix) 20 mg DAILY PO 11/25/19 09:00 11/25/19 17:38 DC Furosemide (Lasix) 20 mg DAILY PO 11/26/19 09:00 12/03/19 16:59 DC 12/03/19 09:10 Furosemide (Lasix) 40 mg DAILY PO 12/04/19 09:00 12/07/19 08:33 Gabapentin (Neurontin) 100 mg TID PO 12/06/19 16:00 12/07/19 08:28 Gabapentin (Neurontin) 200 mg TID PO 11/28/19 21:00 12/03/19 15:50 DC 12/03/19 09:09 Gabapentin (Neurontin) 300 mg TID PO 12/03/19 16:00 12/06/19 14:15 DC 12/06/19 09:29 Hydroxychloroquine Sulfate (Plaquenil) 200 mg BID PO 11/25/19 21:00 12/07/19 08:29 Levofloxacin (Levaquin) 250 mg DAILY@0600 PO 12/03/19 06:00 12/06/19 14:15 DC 12/06/19 06:11 Levothyroxine Sodium (Synthroid) 50 mcg DAILY@06 PO 11/26/19 06:00 12/07/19 06:11 Lidocaine (Lidoderm Patch) 1 patch DAILY TD 11/26/19 09:00 11/27/19 12:20 DC 11/27/19 09:46 Lidocaine (Lidoderm Patch) 2 patch DAILY TD 11/27/19 12:30 12/07/19 08:27 Magnesium Hydroxide (Milk Of Magnesia) 30 ml DAILYPRN PRN PO CONSTIPATION 11/23/19 17:15 12/03/19 09:08 Metoprolol Succinate (TopROL XL) 25 mg DAILY PO 11/26/19 09:00 12/07/19 08:28 Non-Formulary Medication ( See Comment Field Below ) REMOVE LIDODERM PATCH DAILY@21 XX 11/23/19 21:00 12/06/19 21:15 Ondansetron HCl (Zofran Odt) 4 mg Q4HP PRN PO NAUSEA OR VOMITING 11/26/19 10:30 11/30/19 12:53 Oxycodone HCl (Roxicodone, Oxyir) 5 mg 0800,1200,1600,2100 PO 11/29/19 12:00 11/30/19 14:46 DC 11/30/19 12:52 Oxycodone HCl (Roxicodone, Oxyir) 5 mg Q4HP PRN PO PAIN 11/23/19 17:15 11/29/19 12:28 DC 11/29/19 05:33 Oxycodone HCl (Roxicodone, Oxyir) 5 mg Q4HP PRN PO PAIN 11/30/19 14:45 12/04/19 13:07 Pantoprazole Sodium (Protonix) 40 mg BID PO 11/23/19 21:00 12/07/19 08:29 Polyethylene Glycol (Miralax) 1 pkt DAILY PO 11/28/19 09:00 12/04/19 07:46 Potassium Chloride (Micro-K Extencaps) 10 meq DAILY PO 11/26/19 09:00 12/07/19 08:29 Prednisone (Deltasone) 2.5 mg DAILY PO 11/26/19 09:00 12/07/19 08:29 Senna (Senokot) 1 tab QHS PO 11/23/19 21:00 12/03/19 12:05 DC 12/02/19 20:40 Senna (Senokot) 2 tab QHS PO 12/03/19 21:00 12/06/19 21:14 Sodium Biphosphate/ Sodium Phosphate (Fleet Enema) [address] CONSTIPATION 12/03/19 12:15 12/03/19 19:13 CARI KIRBY MD December 07, 2019 10:39
[2019-12-07 20:00] VITALS: BP 126/62
[2019-12-07] MEDS: SENNA 8.6 MG TAB (SENOKOT) PO SCH (21:05)
[2019-12-07] MEDS: diltiaZEM **CD** 180 MG CAP PO SCH (21:05)
[2019-12-07] MEDS: ASCORBIC ACID 250 MG TAB PO SCH (21:06)
[2019-12-07] MEDS: **NOTE PATIENT COMMENT** MISC XX SCH (21:06)
[2019-12-07] MEDS: oxyCODONE 5MG TAB PO PRN (21:33)
[2019-12-08] MEDS: LEVOTHYROXINE 50MCG TABLET (0.05MG) PO SCH (05:59)
[2019-12-08 06:00] VITALS: BP 136/62
[2019-12-08] MEDS: GABAPENTIN 100 MG CAP PO SCH ×3 (08:15→20:05)
[2019-12-08] MEDS: HYDROXYCHLOROQUINE 200 MG TAB PO SCH ×2 (08:15→20:06)
[2019-12-08] MEDS: LIDOCAINE 5% (LIDODERM) PATCH TD SCH (08:15)
[2019-12-08] MEDS: PANTOPRAZOLE 40MG TAB (PROTONIX) PO SCH ×2 (08:15→20:05)
[2019-12-08] MEDS: FUROSEMIDE 40 MG TAB PO SCH (08:16)
[2019-12-08] MEDS: azaTHIOprine 50 MG TAB (J7500) PO SCH (08:16)
[2019-12-08] MEDS: CALCIUM/VITAMIN D 500 MG TAB PO SCH ×2 (08:16→20:07)
[2019-12-08] MEDS: AMIODARONE 200 MG TAB (PACERONE) PO SCH ×2 (08:16→20:06)
[2019-12-08] MEDS: METOPROLOL SUCC *XL* 25MG TAB (TopROL *XL*) PO SCH (08:16)
[2019-12-08] MEDS: APIXABAN 5 MG TAB (ELIQUIS) PO SCH ×2 (08:17→20:05)
[2019-12-08] MEDS: DULoxetine 20 MG CAP (CYMBALTA) PO SCH (08:17)
[2019-12-08] MEDS: ACETAMINOPHEN 500 MG TAB PO SCH ×3 (08:17→20:06)
[2019-12-08] MEDS: POTASSIUM CHLORIDE 10 MEQ SR TABLET PO SCH (08:17)
[2019-12-08] MEDS: FERROUS SULFATE 325MG TAB PO SCH (08:17)
[2019-12-08] MEDS: predniSONE 2.5 MG TAB PO SCH (08:17)
[2019-12-08] MEDS: DOCUSATE SODIUM 100 MG CAP PO SCH ×3 (08:18→19:57)
[2019-12-08] MEDS: MIRALAX *UNIT DOSE* 17GM PACKET PO SCH (08:18)
[2019-12-08] MEDS: REMEDY PHYTOPLEX Z-GUARD PASTE 113GM TUBE (FROM STOREROOM PRODUCT) TOP SCH ×3 (08:18→20:07)
[2019-12-08] MEDS: BISACODYL 5 MG TAB PO SCH (08:18)
[2019-12-08] MEDS: oxyCODONE 5MG TAB PO PRN (10:25)
[2019-12-08] MEDS: ONDANSETRON 4 MG ORAL DISINTEGRATING TAB PO PRN (11:27)
[2019-12-08 14:00] VITALS: BP 133/60
[2019-12-08 19:56] VITALS: BP 137/63
[2019-12-08] MEDS: SENNA 8.6 MG TAB (SENOKOT) PO SCH (19:57)
[2019-12-08] MEDS: **NOTE PATIENT COMMENT** MISC XX SCH (19:57)
[2019-12-08] MEDS: diltiaZEM **CD** 180 MG CAP PO SCH (20:06)
[2019-12-08] MEDS: ASCORBIC ACID 250 MG TAB PO SCH (20:06)
[2019-12-09] MEDS: oxyCODONE 5MG TAB PO PRN ×3 (02:35→17:03)
[2019-12-09 06:00] VITALS: BP 141/63
[2019-12-09] MEDS: LEVOTHYROXINE 50MCG TABLET (0.05MG) PO SCH (06:59)
[2019-12-09] MEDS: LIDOCAINE 5% (LIDODERM) PATCH TD SCH (07:29)
[2019-12-09] MEDS: HYDROXYCHLOROQUINE 200 MG TAB PO SCH ×2 (07:29→21:07)
[2019-12-09] MEDS: azaTHIOprine 50 MG TAB (J7500) PO SCH (07:29)
[2019-12-09] MEDS: METOPROLOL SUCC *XL* 25MG TAB (TopROL *XL*) PO SCH (07:30)
[2019-12-09] MEDS: BISACODYL 5 MG TAB PO SCH (07:30)
[2019-12-09] MEDS: DULoxetine 20 MG CAP (CYMBALTA) PO SCH (07:30)
[2019-12-09] MEDS: CALCIUM/VITAMIN D 500 MG TAB PO SCH ×2 (07:30→21:07)
[2019-12-09] MEDS: FUROSEMIDE 40 MG TAB PO SCH (07:30)
[2019-12-09] MEDS: FERROUS SULFATE 325MG TAB PO SCH (07:30)
[2019-12-09] MEDS: APIXABAN 5 MG TAB (ELIQUIS) PO SCH ×2 (07:30→21:07)
[2019-12-09] MEDS: POTASSIUM CHLORIDE 10 MEQ SR TABLET PO SCH (07:30)
[2019-12-09] MEDS: GABAPENTIN 100 MG CAP PO SCH ×3 (07:30→21:07)
[2019-12-09] MEDS: ACETAMINOPHEN 500 MG TAB PO SCH ×3 (07:30→21:07)
[2019-12-09] MEDS: predniSONE 2.5 MG TAB PO SCH (07:30)
[2019-12-09] MEDS: AMIODARONE 200 MG TAB (PACERONE) PO SCH ×2 (07:31→21:07)
[2019-12-09] MEDS: MIRALAX *UNIT DOSE* 17GM PACKET PO SCH (07:31)
[2019-12-09] MEDS: PANTOPRAZOLE 40MG TAB (PROTONIX) PO SCH ×2 (07:31→21:07)
[2019-12-09] MEDS: DOCUSATE SODIUM 100 MG CAP PO SCH ×3 (07:31→21:07)
[2019-12-09] MEDS: REMEDY PHYTOPLEX Z-GUARD PASTE 113GM TUBE (FROM STOREROOM PRODUCT) TOP SCH ×3 (07:31→21:08)
[2019-12-09 14:00] VITALS: BP 131/60
[2019-12-09 20:00] VITALS: BP 147/67
[2019-12-09] MEDS: diltiaZEM **CD** 180 MG CAP PO SCH (21:06)
[2019-12-09] MEDS: SENNA 8.6 MG TAB (SENOKOT) PO SCH (21:07)
[2019-12-09] MEDS: ASCORBIC ACID 250 MG TAB PO SCH (21:07)
[2019-12-09] MEDS: **NOTE PATIENT COMMENT** MISC XX SCH (21:14)
[2019-12-10 05:18] VITALS: BP 139/62
[2019-12-10] MEDS: LEVOTHYROXINE 50MCG TABLET (0.05MG) PO SCH (06:07)
[2019-12-10 06:13] LABS: BASO % 0.5 % (0.0-1.0); HEMATOCRIT 35.3 % (36.0-47.0); HEMOGLOBIN 10.9 g/dl (12.0-15.5); LYMPH # 0.4 10^3/uL (1.5-5.0); LYMPH % 9.8 % (24.0-44.0); MEAN CORPUSCULAR HEMOGLOBIN 32.6 pg (27.0-33.0); MEAN CORPUSCULAR HGB CONC 30.9 g/dl (32.0-36.5); MEAN CORPUSCULAR VOLUME 105.7 fl (80.0-96.0); MONO # 0.5 10^3/uL (0.0-0.8); MONO % 13.8 % (0.0-5.0); NEUTROPHILS # 2.8 10^3/uL (1.5-8.5); NEUTROPHILS % 74.5 % (36.0-66.0); PLATELET COUNT, AUTOMATED 348 10^3/uL (150-450); RED BLOOD COUNT 3.34 10^6/uL (4.00-5.40); WHITE BLOOD COUNT 3.7 10^3/uL (4.0-10.0)
[2019-12-10 06:41] LABS: BLOOD UREA NITROGEN 19 MG/DL (7-18); CALCIUM LEVEL 7.9 MG/DL (8.8-10.2); CARBON DIOXIDE LEVEL 28 MEQ/L (21-32); CHLORIDE LEVEL 104 MEQ/L (98-107); CREATININE FOR GFR 0.65 MG/DL (0.55-1.30); GLOMERULAR FILTRATION RATE > 60.0 (>32); GLUCOSE, FASTING 95 MG/DL (70-100); POTASSIUM SERUM 3.9 MEQ/L (3.5-5.1); SODIUM LEVEL 139 MEQ/L (136-145)
[2019-12-10] MEDS: HYDROXYCHLOROQUINE 200 MG TAB PO SCH ×2 (08:32→20:56)
[2019-12-10] MEDS: LIDOCAINE 5% (LIDODERM) PATCH TD SCH (08:33)
[2019-12-10] MEDS: POTASSIUM CHLORIDE 10 MEQ SR TABLET PO SCH (08:33)
[2019-12-10] MEDS: APIXABAN 5 MG TAB (ELIQUIS) PO SCH ×2 (08:33→20:53)
[2019-12-10] MEDS: CALCIUM/VITAMIN D 500 MG TAB PO SCH ×2 (08:33→20:52)
[2019-12-10] MEDS: ACETAMINOPHEN 500 MG TAB PO SCH ×3 (08:33→20:52)
[2019-12-10] MEDS: PANTOPRAZOLE 40MG TAB (PROTONIX) PO SCH ×2 (08:33→20:53)
[2019-12-10] MEDS: DULoxetine 20 MG CAP (CYMBALTA) PO SCH (08:34)
[2019-12-10] MEDS: DOCUSATE SODIUM 100 MG CAP PO SCH ×3 (08:34→20:52)
[2019-12-10] MEDS: FERROUS SULFATE 325MG TAB PO SCH (08:34)
[2019-12-10] MEDS: METOPROLOL SUCC *XL* 25MG TAB (TopROL *XL*) PO SCH (08:34)
[2019-12-10] MEDS: azaTHIOprine 50 MG TAB (J7500) PO SCH (08:35)
[2019-12-10] MEDS: AMIODARONE 200 MG TAB (PACERONE) PO SCH ×2 (08:35→20:52)
[2019-12-10] MEDS: MIRALAX *UNIT DOSE* 17GM PACKET PO SCH (08:35)
[2019-12-10] MEDS: predniSONE 2.5 MG TAB PO SCH (08:35)
[2019-12-10] MEDS: BISACODYL 5 MG TAB PO SCH (08:35)
[2019-12-10] MEDS: FUROSEMIDE 40 MG TAB PO SCH (08:35)
[2019-12-10] MEDS: REMEDY PHYTOPLEX Z-GUARD PASTE 113GM TUBE (FROM STOREROOM PRODUCT) TOP SCH ×3 (08:36→21:25)
[2019-12-10 09:00] VITALS: BP 138/64
[2019-12-10] MEDS: ONDANSETRON 4 MG ORAL DISINTEGRATING TAB PO PRN (11:43)
[2019-12-10 14:00] VITALS: BP 122/57
--- NOTE | 2019-12-10 16:03 | IPNPDOC ---
PM&R Progress Note DATE OF SERVICE: December 10, 2019 Outbound Sales Representative Progress Note Subjective: Patient reporting she is not eating very much, but does not want ensure. She thinks her pain is overall getting better. REVIEW OF SYSTEMS: The following is a completed review of systems and has been reviewed. Review of systems otherwise unremarkable. PAIN: Patient self reports left hip pain and low back pain (improving) EYES: No recent vision changes EARS, NOSE, & THROAT: No throat pain, or dysphagia, or rhinorrhea CARDIOVASCULAR: Denies chest pain or palpitations PULMONARY: Denies shortness of breath GASTROINTESTINAL: +constipation (improving) GENITOURINARY: denies dysuria MUSCULOSKELETAL: left hip fracture NEUROLOGICAL:denies paresthesias or tremor HEMATOLOGICAL: +easy bruising SKIN: left hip incision PSYCHIATRIC: Unremarkable All other review of systems found to be negative. PHYSICAL EXAMINATION: VITAL SIGNS: Please see below. GENERAL: Pleasant and cooperative. No acute distress. HEENT: PERRL. Extraocular movements intact. Clear conjunctiva CARDIOVASCULAR: Regular rate and rhythm. No murmurs, rubs, or gallops LUNGS: Clear to auscultation bilaterally. No wheezes. No rhonchi ABDOMEN: Soft, nontender, nondistended. Positive bowel sounds. Normal active bowel sounds NEUROLOGICAL: Alert and oriented times three. Cranial nerves II through XII grossly intact. Sensation grossly intact to light touch throughout all 4limbs including EXTREMITIES: 5\5 strength bilateral upper extremities. 5\5 strength right lower extremity 5/5 strength in left lower ankle DF/PF/EHL (limited due to recent surgery. + edema bilat (improving) SKIN: sacrum without erythema, left hip incision with serous drainage and dimitris- incision ecchymosis, no rash noted on back ASSESSMENT:84-year-old F with past medical history of Afib and PE who presents s tatus post left hip fracture PLAN: 1. Rehab- PT/OT advance gait an ADL training, strengthen/stretch/maintain ROM all 4 limbs, ambulating with RW, c/u training at wheelchair level as patient reporting more comfort at wheelchair level due to fear of falling and has sustained two episode of being lowered to the floor 2. Neuro: no known hx 3. Cardiac: chronic diastolic CHF, c/u fluid restriction, Lasix (increased to 40mg daily due to worsening edema on exam), daily weights, monitor for fluid overload -Afib and hx of PE on eliquis, c/u diltiazem, amiodarone, metoprolol- medicine consulted to assist in overall management 4. Resp: encourage incentive spirometry, monitor for infection 5. Rheum: rheumatoid arthritis, c/u Plaquenil, prednisone, and Imuran 6. Heme: post-op anemia s/p 1 transfusion on acute care and received 1 more unit 11/26/19 with Hgb stable around 10 -oral iron 7. Ortho: s/p left hip fracture WBAT, ortho consulted -Oscal for osteoporosis -lumbar XR 11/29/19 no fractures no bowel/bladder loss of function, no saddle region anesthesia- -lowered to floor x2- f/u Xrays of hip and knee within normal limits and reviewed by ortho 8. Endo: hypothyroidism c/u Synthroid 9. GI ppx: Protonix -miralax added to bowel med regimen, constipation improving 10. DVT ppx: acewraps and on eliquis 11. : monitor PVRs -s/p course of Levaquin for +UA, however Ucx no growth 12. Pain: overall improving- c/u Tylenol, c/u oxycodone to prn, Lidoderm patch to left hip and low back -s/p gabapentin taper (d/c'd) -c/u cymbalta at 40mg daily 13. Dispo: 12/14/19 to home, slowly progressing towards goals DME: patient will require a wheelchair to complete her MRADLs in a timely and safe manner. She is unable to complete her MRADLs with a walker or cane. Her home is accessible, her family is able to assist her, and she is willing to use a wheelchair. Allergies Coded Allergies: No Known Allergies (Unverified , 03/22/13) Vital Signs Vital Signs Date Time Temp Pulse Resp B/P (MAP) Pulse Ox O2 Delivery O2 Flow Rate FiO2 12/10/19 14:00 98.4 61 20 122/57 (78) 98 Room Air Laboratory Data CBC/BMP Laboratory Tests 12/10/19 05:46 Labs 24H Laboratory Tests 2 12/10/19 05:46: Immature Granulocyte % (Auto) 1.4, Neutrophils (%) (Auto) 74.5H, Lymphocytes (%) (Auto) 9.8L, Monocytes (%) (Auto) 13.8H, Eosinophils (%) (Auto) 0.0, Basophils (%) (Auto) 0.5, Neutrophils # (Auto) 2.8, Lymphocytes # (Auto) 0.4L, Monocytes # (Auto) 0.5, Eosinophils # (Auto) 0.0, Basophils # (Auto) 0.0, Nucleated Red Blood Cells % (auto) 0.0, Anion Gap 7L, Glomerular Filtration Rate > 60.0, Calcium Level 7.9L Microbiology Microbiology 12/06/19 Stool Occult Blood (LUI) - Final, Complete 12/02/19 Urine Culture - Final, Complete 11/30/19 Urine Culture - Final, Complete Current Medications Current Medications Current Medications Medications (Trade) Dose Ordered Sig/Hernandez Route PRN Reason Start Time Stop Time Status Last Admin Dose Admin Acetaminophen (Tylenol Tab) 1,000 mg TID PO 11/23/19 21:00 12/10/19 15:25 Amiodarone HCl (Pacerone, Cordarone) 200 mg BID PO 11/23/19 21:00 12/10/19 08:35 Apixaban (Eliquis) 5 mg BID PO 11/23/19 21:00 12/10/19 08:33 Ascorbic Acid (Vitamin C) 250 mg QHS PO 11/23/19 21:00 12/09/19 21:07 Azathioprine (Imuran) 100 mg DAILY PO 11/25/19 09:00 11/25/19 17:37 DC Azathioprine (Imuran) 100 mg DAILY PO 11/26/19 09:00 12/10/19 08:35 Bisacodyl (Dulcolax Suppository) 10 mg DAILYPRN PRN [place] CONSTIPATION 11/23/19 17:15 11/30/19 21:02 Bisacodyl (Dulcolax Tab) 5 mg DAILY PO 12/03/19 09:00 12/10/19 08:35 Calcium/Vitamin D (Oscal D) 500 mg BID PO 11/23/19 21:00 12/10/19 08:33 Diltiazem HCl (Cardizem Cd) 180 mg QHS PO 11/23/19 21:00 12/09/19 21:06 Docusate Sodium (Colace) 100 mg BID PO 11/23/19 21:00 12/03/19 12:05 DC 12/03/19 09:09 Docusate Sodium (Colace) 200 mg TID PO 12/03/19 12:00 12/10/19 15:25 Duloxetine HCl (Cymbalta) 30 mg DAILY PO 11/29/19 13:00 12/07/19 16:07 DC 12/07/19 08:29 Duloxetine HCl (Cymbalta) 40 mg DAILY PO 12/08/19 09:00 12/10/19 08:34 Ferrous Sulfate (Ferrous Sulfate) 325 mg DAILY PO 11/25/19 09:00 11/25/19 17:38 DC Ferrous Sulfate (Ferrous Sulfate) 325 mg DAILY PO 11/26/19 09:00 12/10/19 08:34 Furosemide (Lasix) 20 mg DAILY PO 11/25/19 09:00 11/25/19 17:38 DC Furosemide (Lasix) 20 mg DAILY PO 11/26/19 09:00 12/03/19 16:59 DC 12/03/19 09:10 Furosemide (Lasix) 40 mg DAILY PO 12/04/19 09:00 12/10/19 08:35 Gabapentin (Neurontin) 100 mg TID PO 12/06/19 16:00 12/09/19 22:00 DC 12/09/19 21:07 Gabapentin (Neurontin) 200 mg TID PO 11/28/19 21:00 12/03/19 15:50 DC 12/03/19 09:09 Gabapentin (Neurontin) 300 mg TID PO 12/03/19 16:00 12/06/19 14:15 DC 12/06/19 09:29 Hydroxychloroquine Sulfate (Plaquenil) 200 mg BID PO 11/25/19 21:00 12/10/19 08:32 Levofloxacin (Levaquin) 250 mg DAILY@0600 PO 12/03/19 06:00 12/06/19 14:15 DC 12/06/19 06:11 Levothyroxine Sodium (Synthroid) 50 mcg DAILY@06 PO 11/26/19 06:00 12/10/19 06:07 Lidocaine (Lidoderm Patch) 1 patch DAILY TD 11/26/19 09:00 11/27/19 12:20 DC 11/27/19 09:46 Lidocaine (Lidoderm Patch) 2 patch DAILY TD 11/27/19 12:30 12/10/19 08:33 Magnesium Hydroxide (Milk Of Magnesia) 30 ml DAILYPRN PRN PO CONSTIPATION 11/23/19 17:15 12/03/19 09:08 Metoprolol Succinate (TopROL XL) 25 mg DAILY PO 11/26/19 09:00 12/10/19 08:34 Non-Formulary Medication ( See Comment Field Below ) REMOVE LIDODERM PATCH DAILY@21 XX 11/23/19 21:00 12/09/19 21:14 Ondansetron HCl (Zofran Odt) 4 mg Q4HP PRN PO NAUSEA OR VOMITING 11/26/19 10:30 12/10/19 11:43 Oxycodone HCl (Roxicodone, Oxyir) 5 mg 0800,1200,1600,2100 PO 11/29/19 12:00 11/30/19 14:46 DC 11/30/19 12:52 Oxycodone HCl (Roxicodone, Oxyir) 5 mg Q4HP PRN PO PAIN 11/23/19 17:15 11/29/19 12:28 DC 11/29/19 05:33 Oxycodone HCl (Roxicodone, Oxyir) 5 mg Q4HP PRN PO PAIN 11/30/19 14:45 12/09/19 17:03 Pantoprazole Sodium (Protonix) 40 mg BID PO 11/23/19 21:00 12/10/19 08:33 Polyethylene Glycol (Miralax) 1 pkt DAILY PO 11/28/19 09:00 12/10/19 08:35 Potassium Chloride (Micro-K Extencaps) 10 meq DAILY PO 11/26/19 09:00 12/10/19 08:33 Prednisone (Deltasone) 2.5 mg DAILY PO 11/26/19 09:00 12/10/19 08:35 Senna (Senokot) 1 tab QHS PO 11/23/19 21:00 12/03/19 12:05 DC 12/02/19 20:40 Senna (Senokot) 2 tab QHS PO 12/03/19 21:00 12/09/19 21:07 Sodium Biphosphate/ Sodium Phosphate (Fleet Enema) 1 ea DAILYPRN PRN [place] CONSTIPATION 12/03/19 12:15 12/03/19 19:13 CARI KIRBY MD December 10, 2019 16:03
[2019-12-10 19:54] VITALS: BP 126/65
[2019-12-10] MEDS: SENNA 8.6 MG TAB (SENOKOT) PO SCH (20:52)
[2019-12-10] MEDS: diltiaZEM **CD** 180 MG CAP PO SCH (20:52)
[2019-12-10] MEDS: ASCORBIC ACID 250 MG TAB PO SCH (20:54)
[2019-12-10] MEDS: **NOTE PATIENT COMMENT** MISC XX SCH (21:24)
[2019-12-11] MEDS: oxyCODONE 5MG TAB PO PRN (03:57)
[2019-12-11] MEDS: LEVOTHYROXINE 50MCG TABLET (0.05MG) PO SCH (05:50)
[2019-12-11 06:00] VITALS: BP 141/63
[2019-12-11] MEDS: FERROUS SULFATE 325MG TAB PO SCH (08:44)
[2019-12-11] MEDS: MIRALAX *UNIT DOSE* 17GM PACKET PO SCH (08:44)
[2019-12-11] MEDS: BISACODYL 5 MG TAB PO SCH (08:44)
[2019-12-11] MEDS: LIDOCAINE 5% (LIDODERM) PATCH TD SCH (08:44)
[2019-12-11] MEDS: predniSONE 2.5 MG TAB PO SCH (08:44)
[2019-12-11] MEDS: POTASSIUM CHLORIDE 10 MEQ SR TABLET PO SCH (08:45)
[2019-12-11] MEDS: FUROSEMIDE 40 MG TAB PO SCH (08:45)
[2019-12-11] MEDS: DOCUSATE SODIUM 100 MG CAP PO SCH ×3 (08:45→20:27)
[2019-12-11] MEDS: METOPROLOL SUCC *XL* 25MG TAB (TopROL *XL*) PO SCH (08:45)
[2019-12-11] MEDS: ACETAMINOPHEN 500 MG TAB PO SCH ×3 (08:46→20:27)
[2019-12-11] MEDS: APIXABAN 5 MG TAB (ELIQUIS) PO SCH ×2 (08:46→20:27)
[2019-12-11] MEDS: AMIODARONE 200 MG TAB (PACERONE) PO SCH ×2 (08:46→20:28)
[2019-12-11] MEDS: DULoxetine 20 MG CAP (CYMBALTA) PO SCH (08:46)
[2019-12-11] MEDS: HYDROXYCHLOROQUINE 200 MG TAB PO SCH ×2 (08:46→20:27)
[2019-12-11] MEDS: CALCIUM/VITAMIN D 500 MG TAB PO SCH ×2 (08:46→20:28)
[2019-12-11] MEDS: PANTOPRAZOLE 40MG TAB (PROTONIX) PO SCH ×2 (08:46→20:28)
[2019-12-11] MEDS: azaTHIOprine 50 MG TAB (J7500) PO SCH (08:46)
[2019-12-11] MEDS: REMEDY PHYTOPLEX Z-GUARD PASTE 113GM TUBE (FROM STOREROOM PRODUCT) TOP SCH ×3 (08:51→20:28)
[2019-12-11] MEDS: ONDANSETRON 4 MG ORAL DISINTEGRATING TAB PO PRN (10:06)
--- NOTE | 2019-12-11 10:56 | IPNPDOC ---
PM&R Progress Note DATE OF SERVICE: December 11, 2019 Chief Safety Officer Progress Note Subjective: Patient reporting she slept well and had a bowel movement this morning. She thinks her legs continue to be less swollen. REVIEW OF SYSTEMS: The following is a completed review of systems and has been reviewed. Review of systems otherwise unremarkable. PAIN: Patient self reports left hip pain and low back pain (improving) EYES: No recent vision changes EARS, NOSE, & THROAT: No throat pain, or dysphagia, or rhinorrhea CARDIOVASCULAR: Denies chest pain or palpitations PULMONARY: Denies shortness of breath GASTROINTESTINAL: +constipation (improving) GENITOURINARY: denies dysuria MUSCULOSKELETAL: left hip fracture NEUROLOGICAL:denies paresthesias or tremor HEMATOLOGICAL: +easy bruising SKIN: left hip incision PSYCHIATRIC: Unremarkable All other review of systems found to be negative. PHYSICAL EXAMINATION: VITAL SIGNS: Please see below. GENERAL: Pleasant and cooperative. No acute distress. HEENT: PERRL. Extraocular movements intact. Clear conjunctiva CARDIOVASCULAR: Regular rate and rhythm. No murmurs, rubs, or gallops LUNGS: Clear to auscultation bilaterally. No wheezes. No rhonchi ABDOMEN: Soft, nontender, nondistended. Positive bowel sounds. Normal active bowel sounds NEUROLOGICAL: Alert and oriented times three. Cranial nerves II through XII grossly intact. Sensation grossly intact to light touch throughout all 4limbs including EXTREMITIES: 5\5 strength bilateral upper extremities. 5\5 strength right lower extremity 5/5 strength in left lower ankle DF/PF/EHL (limited due to recent surgery. + edema bilat (improving) SKIN: sacrum without erythema, left hip incision with serous drainage and dimitris- incision ecchymosis, no rash noted on back ASSESSMENT:84-year-old F with past medical history of Afib and PE who presents status post left hip fracture PLAN: 1. Rehab- PT/OT advance gait an ADL training, strengthen/stretch/maintain ROM all 4 limbs, ambulating with RW, c/u training at wheelchair level as patient reporting more comfort at wheelchair level due to fear of falling and has sustained two episode of being lowered to the floor 2. Neuro: no known hx 3. Cardiac: chronic diastolic CHF, c/u fluid restriction, Lasix (increased to 40mg daily due to worsening edema on exam which is better today), daily weights, monitor for fluid overload -Afib and hx of PE on eliquis, c/u diltiazem, amiodarone, metoprolol- medicine consulted to assist in overall management 4. Resp: encourage incentive spirometry, monitor for infection 5. Rheum: rheumatoid arthritis, c/u Plaquenil, prednisone, and Imuran 6. Heme: post-op anemia s/p 1 transfusion on acute care and received 1 more unit 11/26/19 with Hgb stable around 10 -oral iron 7. Ortho: s/p left hip fracture WBAT, ortho consulted -Oscal for osteoporosis -lumbar XR 11/29/19 no fractures no bowel/bladder loss of function, no saddle region anesthesia- -lowered to floor x2- f/u Xrays of hip and knee within normal limits and reviewed by ortho 8. Endo: hypothyroidism c/u Synthroid 9. GI ppx: Protonix -miralax added to bowel med regimen, constipation improving 10. DVT ppx: acewraps and on eliquis 11. : monitor PVRs -s/p course of Levaquin for +UA, however Ucx no growth 12. Pain: overall improving- c/u Tylenol, c/u oxycodone to prn, Lidoderm patch to left hip and low back -s/p gabapentin taper (d/c'd) -c/u cymbalta at 40mg daily 13. Dispo: 12/14/19 to home, slowly progressing towards goals DME: patient will require a wheelchair to complete her MRADLs in a timely and safe manner. She is unable to complete her MRADLs with a walker or cane. Her home is accessible, her family is able to assist her, and she is willing to use a wheelchair. Allergies Coded Allergies: No Known Allergies (Unverified , 03/22/13) Vital Signs Vital Signs Date Time Temp Pulse Resp B/P (MAP) Pulse Ox O2 Delivery O2 Flow Rate FiO2 12/11/19 08:45 65 130/63 12/11/19 06:00 97.2 18 96 Room Air Microbiology Microbiology 12/06/19 Stool Occult Blood (LUI) - Final, Complete 12/02/19 Urine Culture - Final, Complete Current Medications Current Medications Current Medications Medications (Trade) Dose Ordered Sig/Hernandez Route PRN Reason Start Time Stop Time Status Last Admin Dose Admin Acetaminophen (Tylenol Tab) 1,000 mg TID PO 11/23/19 21:00 12/11/19 08:46 Amiodarone HCl (Pacerone, Cordarone) 200 mg BID PO 11/23/19 21:00 12/11/19 08:46 Apixaban (Eliquis) 5 mg BID PO 11/23/19 21:00 12/11/19 08:46 Ascorbic Acid (Vitamin C) 250 mg QHS PO 11/23/19 21:00 12/10/19 20:54 Azathioprine (Imuran) 100 mg DAILY PO 11/25/19 09:00 11/25/19 17:37 DC Azathioprine (Imuran) 100 mg DAILY PO 11/26/19 09:00 12/11/19 08:46 Bisacodyl (Dulcolax Suppository) 10 mg DAILYPRN PRN [place] CONSTIPATION 11/23/19 17:15 11/30/19 21:02 Bisacodyl (Dulcolax Tab) 5 mg DAILY PO 12/03/19 09:00 12/11/19 08:44 Calcium/Vitamin D (Oscal D) 500 mg BID PO 11/23/19 21:00 12/11/19 08:46 Diltiazem HCl (Cardizem Cd) 180 mg QHS PO 11/23/19 21:00 12/10/19 20:52 Docusate Sodium (Colace) 100 mg BID PO 11/23/19 21:00 12/03/19 12:05 DC 12/03/19 09:09 Docusate Sodium (Colace) 200 mg TID PO 12/03/19 12:00 12/11/19 08:45 Duloxetine HCl (Cymbalta) 30 mg DAILY PO 11/29/19 13:00 12/07/19 16:07 DC 12/07/19 08:29 Duloxetine HCl (Cymbalta) 40 mg DAILY PO 12/08/19 09:00 12/11/19 08:46 Ferrous Sulfate (Ferrous Sulfate) 325 mg DAILY PO 11/25/19 09:00 11/25/19 17:38 DC Ferrous Sulfate (Ferrous Sulfate) 325 mg DAILY PO 11/26/19 09:00 12/11/19 08:44 Furosemide (Lasix) 20 mg DAILY PO 11/25/19 09:00 11/25/19 17:38 DC Furosemide (Lasix) 20 mg DAILY PO 11/26/19 09:00 12/03/19 16:59 DC 12/03/19 09:10 Furosemide (Lasix) 40 mg DAILY PO 12/04/19 09:00 12/11/19 08:45 Gabapentin (Neurontin) 100 mg TID PO 12/06/19 16:00 12/09/19 22:00 DC 12/09/19 21:07 Gabapentin (Neurontin) 200 mg TID PO 11/28/19 21:00 12/03/19 15:50 DC 12/03/19 09:09 Gabapentin (Neurontin) 300 mg TID PO 12/03/19 16:00 12/06/19 14:15 DC 12/06/19 09:29 Hydroxychloroquine Sulfate (Plaquenil) 200 mg BID PO 11/25/19 21:00 12/11/19 08:46 Levofloxacin (Levaquin) 250 mg DAILY@0600 PO 12/03/19 06:00 12/06/19 14:15 DC 12/06/19 06:11 Levothyroxine Sodium (Synthroid) 50 mcg DAILY@06 PO 11/26/19 06:00 12/11/19 05:50 Lidocaine (Lidoderm Patch) 1 patch DAILY TD 11/26/19 09:00 11/27/19 12:20 DC 11/27/19 09:46 Lidocaine (Lidoderm Patch) 2 patch DAILY TD 11/27/19 12:30 12/11/19 08:44 Magnesium Hydroxide (Milk Of Magnesia) 30 ml DAILYPRN PRN PO CONSTIPATION 11/23/19 17:15 12/03/19 09:08 Metoprolol Succinate (TopROL XL) 25 mg DAILY PO 11/26/19 09:00 12/11/19 08:45 Non-Formulary Medication ( See Comment Field Below ) REMOVE LIDODERM PATCH DAILY@21 XX 11/23/19 21:00 12/10/19 21:24 Ondansetron HCl (Zofran Odt) 4 mg Q4HP PRN PO NAUSEA OR VOMITING 11/26/19 10:30 12/11/19 10:06 Oxycodone HCl (Roxicodone, Oxyir) 5 mg 0800,1200,1600,2100 PO 11/29/19 12:00 11/30/19 14:46 DC 11/30/19 12:52 Oxycodone HCl (Roxicodone, Oxyir) 5 mg Q4HP PRN PO PAIN 11/23/19 17:15 11/29/19 12:28 DC 11/29/19 05:33 Oxycodone HCl (Roxicodone, Oxyir) 5 mg Q4HP PRN PO PAIN 11/30/19 14:45 12/11/19 03:57 Pantoprazole Sodium (Protonix) 40 mg BID PO 11/23/19 21:00 12/11/19 08:46 Polyethylene Glycol (Miralax) 1 pkt DAILY PO 11/28/19 09:00 12/11/19 08:44 Potassium Chloride (Micro-K Extencaps) 10 meq DAILY PO 11/26/19 09:00 12/11/19 08:45 Prednisone (Deltasone) 2.5 mg DAILY PO 11/26/19 09:00 12/11/19 08:44 Senna (Senokot) 1 tab QHS PO 11/23/19 21:00 12/03/19 12:05 DC 12/02/19 20:40 Senna (Senokot) 2 tab QHS PO 12/03/19 21:00 12/10/19 20:52 Sodium Biphosphate/ Sodium Phosphate (Fleet Enema) 1 ea DAILYPRN PRN [place] CONSTIPATION 12/03/19 12:15 12/03/19 19:13 CARI KIRBY MD December 11, 2019 10:56
[2019-12-11 14:00] VITALS: BP 149/70
[2019-12-11 19:59] VITALS: BP 120/57
[2019-12-11] MEDS: ASCORBIC ACID 250 MG TAB PO SCH (20:27)
[2019-12-11] MEDS: diltiaZEM **CD** 180 MG CAP PO SCH (20:27)
[2019-12-11] MEDS: SENNA 8.6 MG TAB (SENOKOT) PO SCH (20:27)
[2019-12-11] MEDS: **NOTE PATIENT COMMENT** MISC XX SCH (20:33)
[2019-12-12 05:41] VITALS: BP 138/65
[2019-12-12] MEDS: LEVOTHYROXINE 50MCG TABLET (0.05MG) PO SCH (05:43)
[2019-12-12 06:47] LABS: BASO % 0.4 % (0.0-1.0); HEMATOCRIT 36.3 % (36.0-47.0); HEMOGLOBIN 11.3 g/dl (12.0-15.5); LYMPH # 0.4 10^3/uL (1.5-5.0); LYMPH % 7.9 % (24.0-44.0); MEAN CORPUSCULAR HEMOGLOBIN 32.8 pg (27.0-33.0); MEAN CORPUSCULAR HGB CONC 31.1 g/dl (32.0-36.5); MEAN CORPUSCULAR VOLUME 105.2 fl (80.0-96.0); MONO # 0.6 10^3/uL (0.0-0.8); NEUTROPHILS # 3.4 10^3/uL (1.5-8.5); NEUTROPHILS % 77.4 % (36.0-66.0); PLATELET COUNT, AUTOMATED 337 10^3/uL (150-450); RED BLOOD COUNT 3.45 10^6/uL (4.00-5.40); WHITE BLOOD COUNT 4.5 10^3/uL (4.0-10.0)
[2019-12-12 07:18] LABS: BLOOD UREA NITROGEN 17 MG/DL (7-18); CARBON DIOXIDE LEVEL 28 MEQ/L (21-32); CHLORIDE LEVEL 104 MEQ/L (98-107); CREATININE FOR GFR 0.67 MG/DL (0.55-1.30); GLOMERULAR FILTRATION RATE > 60.0 (>32); GLUCOSE, FASTING 92 MG/DL (70-100); SODIUM LEVEL 139 MEQ/L (136-145)
[2019-12-12] MEDS: FUROSEMIDE 40 MG TAB PO SCH (08:35)
[2019-12-12] MEDS: CALCIUM/VITAMIN D 500 MG TAB PO SCH ×2 (08:35→20:07)
[2019-12-12] MEDS: azaTHIOprine 50 MG TAB (J7500) PO SCH (08:35)
[2019-12-12] MEDS: ACETAMINOPHEN 500 MG TAB PO SCH ×3 (08:35→20:08)
[2019-12-12] MEDS: METOPROLOL SUCC *XL* 25MG TAB (TopROL *XL*) PO SCH (08:36)
[2019-12-12] MEDS: DOCUSATE SODIUM 100 MG CAP PO SCH ×3 (08:36→20:07)
[2019-12-12] MEDS: predniSONE 2.5 MG TAB PO SCH (08:36)
[2019-12-12] MEDS: PANTOPRAZOLE 40MG TAB (PROTONIX) PO SCH ×2 (08:36→20:07)
[2019-12-12] MEDS: FERROUS SULFATE 325MG TAB PO SCH (08:36)
[2019-12-12] MEDS: HYDROXYCHLOROQUINE 200 MG TAB PO SCH ×2 (08:36→20:07)
[2019-12-12] MEDS: AMIODARONE 200 MG TAB (PACERONE) PO SCH ×2 (08:36→20:07)
[2019-12-12] MEDS: BISACODYL 5 MG TAB PO SCH (08:36)
[2019-12-12] MEDS: DULoxetine 20 MG CAP (CYMBALTA) PO SCH (08:36)
[2019-12-12] MEDS: POTASSIUM CHLORIDE 10 MEQ SR TABLET PO SCH (08:37)
[2019-12-12] MEDS: MIRALAX *UNIT DOSE* 17GM PACKET PO SCH (08:37)
[2019-12-12] MEDS: LIDOCAINE 5% (LIDODERM) PATCH TD SCH (08:37)
[2019-12-12] MEDS: APIXABAN 5 MG TAB (ELIQUIS) PO SCH ×2 (08:37→20:07)
[2019-12-12] MEDS: REMEDY PHYTOPLEX Z-GUARD PASTE 113GM TUBE (FROM STOREROOM PRODUCT) TOP SCH ×3 (08:37→20:08)
[2019-12-12] MEDS ORDERED: PANT40TA3 PO (09:45)
[2019-12-12] MEDS ORDERED: METO1TAB32 PO (09:45)
[2019-12-12] MEDS ORDERED: AMIO200T PO (09:45)
[2019-12-12] MEDS ORDERED: ELIQ5TAB PO (09:45)
[2019-12-12] MEDS ORDERED: FURO40TA2 PO (09:45)
[2019-12-12] MEDS ORDERED: KLOR10TA76 PO (09:45)
[2019-12-12] MEDS ORDERED: CARD180C4 PO (09:45)
[2019-12-12] MEDS ORDERED: FERR325T18 PO (09:45)
[2019-12-12] MEDS ORDERED: CYMB1CAP4 PO (09:45)
[2019-12-12] MEDS ORDERED: PRED25TA PO (09:45)
[2019-12-12] MEDS ORDERED: VITA1TAB23 PO (09:45)
[2019-12-12] MEDS ORDERED: LEVO50TA5 PO (09:45)
--- NOTE | 2019-12-12 09:47 | IPNPDOC ---
PM&R Progress Note DATE OF SERVICE: December 12, 2019 Awning Erector Progress Note Subjective: PAtient reporting family training went well and that she is happy she will be going home [place]. REVIEW OF SYSTEMS: The following is a completed review of systems and has been reviewed. Review of systems otherwise unremarkable. PAIN: Patient self reports left hip pain and low back pain (improving) EYES: No recent vision changes EARS, NOSE, & THROAT: No throat pain, or dysphagia, or rhinorrhea CARDIOVASCULAR: Denies chest pain or palpitations PULMONARY: Denies shortness of breath GASTROINTESTINAL: +constipation (improving) GENITOURINARY: denies dysuria MUSCULOSKELETAL: left hip fracture NEUROLOGICAL:denies paresthesias or tremor HEMATOLOGICAL: +easy bruising SKIN: left hip incision PSYCHIATRIC: Unremarkable All other review of systems found to be negative. PHYSICAL EXAMINATION: VITAL SIGNS: Please see below. GENERAL: Pleasant and cooperative. No acute distress. HEENT: PERRL. Extraocular movements intact. Clear conjunctiva CARDIOVASCULAR: Regular rate and rhythm. No murmurs, rubs, or gallops LUNGS: Clear to auscultation bilaterally. No wheezes. No rhonchi ABDOMEN: Soft, nontender, nondistended. Positive bowel sounds. Normal active [place] wel sounds NEUROLOGICAL: Alert and oriented times three. Cranial nerves II through XII grossly intact. Sensation grossly intact to light touch throughout all 4limbs including EXTREMITIES: 5\5 strength bilateral upper extremities. 5\5 strength right lower extremity 5/5 strength in left lower ankle DF/PF/EHL (limited due to recent surgery. + edema bilat (improving) SKIN: sacrum without erythema, left hip incision with serous drainage and dimitris- incision ecchymosis, no rash noted on back ASSESSMENT:84-year-old F with past medical history of Afib and PE who presents status post left hip fracture PLAN: 1. Rehab- PT/OT advance gait an ADL training, strengthen/stretch/maintain ROM all 4 limbs, ambulating with RW, c/u training at wheelchair level as patient reporting more comfort at wheelchair level due to fear of falling and has sustained two episode of being lowered to the floor 2. Neuro: no known hx 3. Cardiac: chronic diastolic CHF, c/u fluid restriction, Lasix (increased to 40mg daily due to worsening edema on exam which is better today), daily weights, monitor for fluid overload -Afib and hx of PE on eliquis, c/u diltiazem, amiodarone, metoprolol- medicine consulted to assist in overall management 4. Resp: encourage incentive spirometry, monitor for infection 5. Rheum: rheumatoid arthritis, c/u Plaquenil, prednisone, and Imuran 6. Heme: post-op anemia s/p 1 transfusion on acute care and received 1 more unit 11/26/19 with Hgb stable around 10 -oral iron 7. Ortho: s/p left hip fracture WBAT, ortho consulted -Oscal for osteoporosis -lumbar XR 11/29/19 no fractures no bowel/bladder loss of function, no saddle region anesthesia- overall pain improving -lowered to floor x2- f/u Xrays of hip and knee within normal limits and reviewed by ortho 8. Endo: hypothyroidism c/u Synthroid 9. GI ppx: Protonix -miralax added to bowel med regimen, constipation improving 10. DVT ppx: acewraps and on eliquis 11. : monitor PVRs -s/p course of Levaquin for +UA, however Ucx no growth 12. Pain: overall improving- c/u Tylenol, c/u oxycodone to prn, Lidoderm patch to left hip and low back -s/p gabapentin taper (d/c'd) -c/u cymbalta at 40mg daily 13. Dispo: 12/14/19 to home, slowly progressing towards goals Allergies Coded Allergies: No Known Allergies (Unverified , 03/22/13) Vital Signs Vital Signs Date Time Temp Pulse Resp B/P (MAP) Pulse Ox O2 Delivery O2 Flow Rate FiO2 12/12/19 08:36 62 138/65 12/12/19 05:41 97.3 18 97 Room Air Laboratory Data CBC/BMP Laboratory Tests 12/12/19 06:16 Labs 24H Laboratory Tests 2 12/12/19 06:16: Immature Granulocyte % (Auto) 1.3, Neutrophils (%) (Auto) 77.4H, Lymphocytes (%) (Auto) 7.9L, Monocytes (%) (Auto) 13.0H, Eosinophils (%) (Auto) 0.0, Basophils (%) (Auto) 0.4, Neutrophils # (Auto) 3.4, Lymphocytes # (Auto) 0.4L, Monocytes # (Auto) 0.6, Eosinophils # (Auto) 0.0, Basophils # (Auto) 0.0, Nucleated Red Blood Cells % (auto) 0.0, Anion Gap 7L, Glomerular Filtration Rate > 60.0, Calcium Level 8.0L Microbiology Microbiology 12/06/19 Stool Occult Blood (LUI) - Final, Complete 12/02/19 Urine Culture - Final, Complete Current Medications Current Medications Current Medications Medications (Trade) Dose Ordered Sig/Hernandez Route PRN Reason Start Time Stop Time Status Last Admin Dose Admin Acetaminophen (Tylenol Tab) 1,000 mg TID PO 11/23/19 21:00 12/12/19 08:35 Amiodarone HCl (Pacerone, Cordarone) 200 mg BID PO 11/23/19 21:00 12/12/19 08:36 Apixaban (Eliquis) 5 mg BID PO 11/23/19 21:00 12/12/19 08:37 Ascorbic Acid (Vitamin C) 250 mg QHS PO 11/23/19 21:00 12/11/19 20:27 Azathioprine (Imuran) 100 mg DAILY PO 11/25/19 09:00 11/25/19 17:37 DC Azathioprine (Imuran) 100 mg DAILY PO 11/26/19 09:00 12/12/19 08:35 Bisacodyl (Dulcolax Suppository) 10 mg DAILYPRN PRN [place] CONSTIPATION 11/23/19 17:15 11/30/19 21:02 Bisacodyl (Dulcolax Tab) 5 mg DAILY PO 12/03/19 09:00 12/12/19 08:36 Calcium/Vitamin D (Oscal D) 500 mg BID PO 11/23/19 21:00 12/12/19 08:35 Diltiazem HCl (Cardizem Cd) 180 mg QHS PO 11/23/19 21:00 12/11/19 20:27 Docusate Sodium (Colace) 100 mg BID PO 11/23/19 21:00 12/03/19 12:05 DC 12/03/19 09:09 Docusate Sodium (Colace) 200 mg TID PO 12/03/19 12:00 12/12/19 08:36 Duloxetine HCl (Cymbalta) 30 mg DAILY PO 11/29/19 13:00 12/07/19 16:07 DC 12/07/19 08:29 Duloxetine HCl (Cymbalta) 40 mg DAILY PO 12/08/19 09:00 12/12/19 08:36 Ferrous Sulfate (Ferrous Sulfate) 325 mg DAILY PO 11/25/19 09:00 11/25/19 17:38 DC Ferrous Sulfate (Ferrous Sulfate) 325 mg DAILY PO 11/26/19 09:00 12/12/19 08:36 Furosemide (Lasix) 20 mg DAILY PO 11/25/19 09:00 11/25/19 17:38 DC Furosemide (Lasix) 20 mg DAILY PO 11/26/19 09:00 12/03/19 16:59 DC 12/03/19 09:10 Furosemide (Lasix) 40 mg DAILY PO 12/04/19 09:00 12/12/19 08:35 Gabapentin (Neurontin) 100 mg TID PO 12/06/19 16:00 12/09/19 22:00 DC 12/09/19 21:07 Gabapentin (Neurontin) 200 mg TID PO 11/28/19 21:00 12/03/19 15:50 DC 12/03/19 09:09 Gabapentin (Neurontin) 300 mg TID PO 12/03/19 16:00 12/06/19 14:15 DC 12/06/19 09:29 Hydroxychloroquine Sulfate (Plaquenil) 200 mg BID PO 11/25/19 21:00 12/12/19 08:36 Levofloxacin (Levaquin) 250 mg DAILY@0600 PO 12/03/19 06:00 12/06/19 14:15 DC 12/06/19 06:11 Levothyroxine Sodium (Synthroid) 50 mcg DAILY@06 PO 11/26/19 06:00 12/12/19 05:43 Lidocaine (Lidoderm Patch) 1 patch DAILY TD 11/26/19 09:00 11/27/19 12:20 DC 11/27/19 09:46 Lidocaine (Lidoderm Patch) 2 patch DAILY TD 11/27/19 12:30 12/12/19 08:37 Magnesium Hydroxide (Milk Of Magnesia) 30 ml DAILYPRN PRN PO CONSTIPATION 11/23/19 17:15 12/03/19 09:08 Metoprolol Succinate (TopROL XL) 25 mg DAILY PO 11/26/19 09:00 12/12/19 08:36 Non-Formulary Medication ( See Comment Field Below ) REMOVE LIDODERM PATCH DAILY@21 XX 11/23/19 21:00 12/11/19 20:33 Ondansetron HCl (Zofran Odt) 4 mg Q4HP PRN PO NAUSEA OR VOMITING 11/26/19 10:30 12/11/19 10:06 Oxycodone HCl (Roxicodone, Oxyir) 5 mg 0800,1200,1600,2100 PO 11/29/19 12:00 11/30/19 14:46 DC 11/30/19 12:52 Oxycodone HCl (Roxicodone, Oxyir) 5 mg Q4HP PRN PO PAIN 11/23/19 17:15 11/29/19 12:28 DC 11/29/19 05:33 Oxycodone HCl (Roxicodone, Oxyir) 5 mg Q4HP PRN PO PAIN 11/30/19 14:45 12/11/19 03:57 Pantoprazole Sodium (Protonix) 40 mg BID PO 11/23/19 21:00 12/12/19 08:36 Polyethylene Glycol (Miralax) 1 pkt DAILY PO 11/28/19 09:00 12/11/19 08:44 Potassium Chloride (Micro-K Extencaps) 10 meq DAILY PO 11/26/19 09:00 12/12/19 08:37 Prednisone (Deltasone) 2.5 mg DAILY PO 11/26/19 09:00 12/12/19 08:36 Senna (Senokot) 1 tab QHS PO 11/23/19 21:00 12/03/19 12:05 DC 12/02/19 20:40 Senna (Senokot) 2 tab QHS PO 12/03/19 21:00 12/11/19 20:27 Sodium Biphosphate/ Sodium Phosphate (Fleet Enema) 1 ea DAILYPRN PRN OK CONSTIPATION 12/03/19 12:15 12/03/19 19:13 CARI KIRBY MD December 12, 2019 09:47
[2019-12-12 14:00] VITALS: BP 155/72
[2019-12-12 20:05] VITALS: BP 111/54
[2019-12-12] MEDS: diltiaZEM **CD** 180 MG CAP PO SCH (20:06)
[2019-12-12] MEDS: SENNA 8.6 MG TAB (SENOKOT) PO SCH (20:07)
[2019-12-12] MEDS: ASCORBIC ACID 250 MG TAB PO SCH (20:08)
[2019-12-12] MEDS: **NOTE PATIENT COMMENT** MISC XX SCH (20:09)
[2019-12-13] MEDS: LEVOTHYROXINE 50MCG TABLET (0.05MG) PO SCH (05:58)
[2019-12-13 06:00] VITALS: BP 148/67
[2019-12-13] MEDS: BISACODYL 5 MG TAB PO SCH (09:00)
[2019-12-13] MEDS: REMEDY PHYTOPLEX Z-GUARD PASTE 113GM TUBE (FROM STOREROOM PRODUCT) TOP SCH ×3 (09:00→20:04)
[2019-12-13] MEDS: MIRALAX *UNIT DOSE* 17GM PACKET PO SCH (09:00)
[2019-12-13] MEDS: DOCUSATE SODIUM 100 MG CAP PO SCH ×3 (09:00→20:03)
[2019-12-13] MEDS: POTASSIUM CHLORIDE 10 MEQ SR TABLET PO SCH (09:16)
[2019-12-13] MEDS: METOPROLOL SUCC *XL* 25MG TAB (TopROL *XL*) PO SCH (09:16)
[2019-12-13] MEDS: PANTOPRAZOLE 40MG TAB (PROTONIX) PO SCH ×2 (09:16→20:03)
[2019-12-13] MEDS: CALCIUM/VITAMIN D 500 MG TAB PO SCH ×2 (09:16→20:03)
[2019-12-13] MEDS: ACETAMINOPHEN 500 MG TAB PO SCH ×3 (09:16→20:03)
[2019-12-13] MEDS: DULoxetine 20 MG CAP (CYMBALTA) PO SCH (09:17)
[2019-12-13] MEDS: FUROSEMIDE 40 MG TAB PO SCH (09:17)
[2019-12-13] MEDS: azaTHIOprine 50 MG TAB (J7500) PO SCH (09:17)
[2019-12-13] MEDS: APIXABAN 5 MG TAB (ELIQUIS) PO SCH ×2 (09:17→20:03)
[2019-12-13] MEDS: predniSONE 2.5 MG TAB PO SCH (09:17)
[2019-12-13] MEDS: HYDROXYCHLOROQUINE 200 MG TAB PO SCH ×2 (09:17→20:02)
[2019-12-13] MEDS: FERROUS SULFATE 325MG TAB PO SCH (09:17)
[2019-12-13] MEDS: AMIODARONE 200 MG TAB (PACERONE) PO SCH ×2 (09:17→20:03)
[2019-12-13] MEDS: LIDOCAINE 5% (LIDODERM) PATCH TD SCH (09:18)
--- NOTE | 2019-12-13 09:45 | IPNPDOC ---
PM&R Progress Note DATE OF SERVICE: December 13, 2019 Junior Buyer Progress Note Subjective: REVIEW OF SYSTEMS: The following is a completed review of systems and has been reviewed. Review of systems otherwise unremarkable. PAIN: Patient self reports left hip pain and low back pain (improving) EYES: No recent vision changes EARS, NOSE, & THROAT: No throat pain, or dysphagia, or rhinorrhea CARDIOVASCULAR: Denies chest pain or palpitations PULMONARY: Denies shortness of breath GASTROINTESTINAL: +constipation (improving) GENITOURINARY: denies dysuria MUSCULOSKELETAL: left hip fracture NEUROLOGICAL:denies paresthesias or tremor HEMATOLOGICAL: +easy bruising SKIN: left hip incision PSYCHIATRIC: Unremarkable All other review of systems found to be negative. PHYSICAL EXAMINATION: VITAL SIGNS: Please see below. GENERAL: Pleasant and cooperative. No acute distress. HEENT: PERRL. Extraocular movements intact. Clear conjunctiva CARDIOVASCULAR: Regular rate and rhythm. No murmurs, rubs, or gallops LUNGS: Clear to auscultation bilaterally. No wheezes. No rhonchi ABDOMEN: Soft, nontender, nondistended. Positive bowel sounds. Normal active bowel sounds NEUROLOGICAL: Alert and oriented times three. Cranial nerves II through XII grossly intact. Sensation grossly intact to light touch throughout all 4limbs including EXTREMITIES: 5\5 strength bilateral upper extremities. 5\5 strength right lower extremity 5/5 strength in left lower ankle DF/PF/EHL (limited due to recent s urgery. + edema bilat (improving) SKIN: sacrum without erythema, left hip incision with serous drainage and dimitris- incision ecchymosis, no rash noted on back ASSESSMENT:84-year-old F with past medical history of Afib and PE who presents status post left hip fracture PLAN: 1. Rehab- PT/OT advance gait an ADL training, strengthen/stretch/maintain ROM all 4 limbs, ambulating with RW, c/u training at wheelchair level as patient reporting more comfort at wheelchair level due to fear of falling and has singer stained two episode of being lowered to the floor 2. Neuro: no known hx 3. Cardiac: chronic diastolic CHF, c/u fluid restriction, Lasix (increased to 40mg daily due to worsening edema on exam which is better today), daily weights, monitor for fluid overload -Afib and hx of PE on eliquis, c/u diltiazem, amiodarone, metoprolol- medicine consulted to assist in overall management 4. Resp: encourage incentive spirometry, monitor for infection 5. Rheum: rheumatoid arthritis, c/u Plaquenil, prednisone, and Imuran 6. Heme: post-op anemia s/p 1 transfusion on acute care and received 1 more unit 11/26/19 with Hgb stable around 10 -oral iron 7. Ortho: s/p left hip fracture WBAT, ortho consulted -Oscal for osteoporosis -lumbar XR 11/29/19 no fractures no bowel/bladder loss of function, no saddle region anesthesia- overall pain improving -lowered to floor x2- f/u Xrays of hip and knee within normal limits and reviewed by ortho 8. Endo: hypothyroidism c/u Synthroid 9. GI ppx: Protonix -miralax added to bowel med regimen, constipation improving 10. DVT ppx: acewraps and on eliquis 11. : monitor PVRs -s/p course of Levaquin for +UA, however Ucx no growth 12. Pain: overall improving- c/u Tylenol, c/u oxycodone to prn, Lidoderm patch to left hip and low back -s/p gabapentin taper (d/c'd) -c/u cymbalta at 40mg daily 13. Dispo: 12/14/19 to home, slowly progressing towards goals Allergies Coded Allergies: No Known Allergies (Unverified , 03/22/13) Vital Signs Vital Signs Date Time Temp Pulse Resp B/P (MAP) Pulse Ox O2 Delivery O2 Flow Rate FiO2 12/13/19 09:16 60 148/67 12/13/19 06:00 97.8 18 98 Room Air Microbiology Microbiology 12/06/19 Stool Occult Blood (ULI) - Final, Complete Current Medications Current Medications Current Medications Medications (Trade) Dose Ordered Sig/Hernandez Route PRN Reason Start Time Stop Time Status Last Admin Dose Admin Acetaminophen (Tylenol Tab) 1,000 mg TID PO 11/23/19 21:00 12/13/19 09:16 Amiodarone HCl (Pacerone, Cordarone) 200 mg BID PO 11/23/19 21:00 12/13/19 09:17 Apixaban (Eliquis) 5 mg BID PO 11/23/19 21:00 12/13/19 09:17 Ascorbic Acid (Vitamin C) 250 mg QHS PO 11/23/19 21:00 12/12/19 20:08 Azathioprine (Imuran) 100 mg DAILY PO 11/25/19 09:00 11/25/19 17:37 DC Azathioprine (Imuran) 100 mg DAILY PO 11/26/19 09:00 12/13/19 09:17 Bisacodyl (Dulcolax Suppository) 10 mg DAILYPRN PRN PA CONSTIPATION 11/23/19 17:15 11/30/19 21:02 Bisacodyl (Dulcolax Tab) 5 mg DAILY PO 12/03/19 09:00 12/12/19 08:36 Calcium/Vitamin D (Oscal D) 500 mg BID PO 11/23/19 21:00 12/13/19 09:16 Diltiazem HCl (Cardizem Cd) 180 mg QHS PO 11/23/19 21:00 12/11/19 20:27 Docusate Sodium (Colace) 100 mg BID PO 11/23/19 21:00 12/03/19 12:05 DC 12/03/19 09:09 Docusate Sodium (Colace) 200 mg TID PO 12/03/19 12:00 12/12/19 20:07 Duloxetine HCl (Cymbalta) 30 mg DAILY PO 11/29/19 13:00 12/07/19 16:07 DC 12/07/19 08:29 Duloxetine HCl (Cymbalta) 40 mg DAILY PO 12/08/19 09:00 12/13/19 09:17 Ferrous Sulfate (Ferrous Sulfate) 325 mg DAILY PO 11/25/19 09:00 11/25/19 17:38 DC Ferrous Sulfate (Ferrous Sulfate) 325 mg DAILY PO 11/26/19 09:00 12/13/19 09:17 Furosemide (Lasix) 20 mg DAILY PO 11/25/19 09:00 11/25/19 17:38 DC Furosemide (Lasix) 20 mg DAILY PO 11/26/19 09:00 12/03/19 16:59 DC 12/03/19 09:10 Furosemide (Lasix) 40 mg DAILY PO 12/04/19 09:00 12/13/19 09:17 Gabapentin (Neurontin) 100 mg TID PO 12/06/19 16:00 12/09/19 22:00 DC 12/09/19 21:07 Gabapentin (Neurontin) 200 mg TID PO 11/28/19 21:00 12/03/19 15:50 DC 12/03/19 09:09 Gabapentin (Neurontin) 300 mg TID PO 12/03/19 16:00 12/06/19 14:15 DC 12/06/19 09:29 Hydroxychloroquine Sulfate (Plaquenil) 200 mg BID PO 11/25/19 21:00 12/13/19 09:17 Levofloxacin (Levaquin) 250 mg DAILY@0600 PO 12/03/19 06:00 12/06/19 14:15 DC 12/06/19 06:11 Levothyroxine Sodium (Synthroid) 50 mcg DAILY@06 PO 11/26/19 06:00 12/13/19 05:58 Lidocaine (Lidoderm Patch) 1 patch DAILY TD 11/26/19 09:00 11/27/19 12:20 DC 11/27/19 09:46 Lidocaine (Lidoderm Patch) 2 patch DAILY TD 11/27/19 12:30 12/13/19 09:18 Magnesium Hydroxide (Milk Of Magnesia) 30 ml DAILYPRN PRN PO CONSTIPATION 11/23/19 17:15 12/03/19 09:08 Metoprolol Succinate (TopROL XL) 25 mg DAILY PO 11/26/19 09:00 12/13/19 09:16 Non-Formulary Medication ( See Comment Field Below ) REMOVE LIDODERM PATCH DAILY@21 XX 11/23/19 21:00 12/12/19 20:09 Ondansetron HCl (Zofran Odt) 4 mg Q4HP PRN PO NAUSEA OR VOMITING 11/26/19 10:30 12/11/19 10:06 Oxycodone HCl (Roxicodone, Oxyir) 5 mg 0800,1200,1600,2100 PO 11/29/19 12:00 11/30/19 14:46 DC 11/30/19 12:52 Oxycodone HCl (Roxicodone, Oxyir) 5 mg Q4HP PRN PO PAIN 11/23/19 17:15 11/29/19 12:28 DC 11/29/19 05:33 Oxycodone HCl (Roxicodone, Oxyir) 5 mg Q4HP PRN PO PAIN 11/30/19 14:45 12/12/19 16:26 DC 12/11/19 03:57 Pantoprazole Sodium (Protonix) 40 mg BID PO 11/23/19 21:00 12/13/19 09:16 Polyethylene Glycol (Miralax) 1 pkt DAILY PO 11/28/19 09:00 12/11/19 08:44 Potassium Chloride (Micro-K Extencaps) 10 meq DAILY PO 11/26/19 09:00 12/13/19 09:16 Prednisone (Deltasone) 2.5 mg DAILY PO 11/26/19 09:00 12/13/19 09:17 Senna (Senokot) 1 tab QHS PO 11/23/19 21:00 12/03/19 12:05 DC 12/02/19 20:40 Senna (Senokot) 2 tab QHS PO 12/03/19 21:00 12/12/19 20:07 Sodium Biphosphate/ Sodium Phosphate (Fleet Enema) 1 ea DAILYPRN PRN PA CONSTIPATION 12/03/19 12:15 12/03/19 19:13 CARI KIRBY MD December 13, 2019 09:45
[2019-12-13 14:00] VITALS: BP 146/70
[2019-12-13 20:00] VITALS: BP 122/63
[2019-12-13] MEDS: SENNA 8.6 MG TAB (SENOKOT) PO SCH (20:03)
[2019-12-13] MEDS: ASCORBIC ACID 250 MG TAB PO SCH (20:03)
[2019-12-13] MEDS: **NOTE PATIENT COMMENT** MISC XX SCH (20:04)
[2019-12-13] MEDS: diltiaZEM **CD** 180 MG CAP PO SCH (20:04)
[2019-12-14 06:00] VITALS: BP 128/60
[2019-12-14] MEDS: LEVOTHYROXINE 50MCG TABLET (0.05MG) PO SCH (06:20)
[2019-12-14] MEDS: LIDOCAINE 5% (LIDODERM) PATCH TD SCH (08:24)
[2019-12-14] MEDS: azaTHIOprine 50 MG TAB (J7500) PO SCH (08:24)
[2019-12-14] MEDS: predniSONE 2.5 MG TAB PO SCH (08:25)
[2019-12-14] MEDS: ACETAMINOPHEN 500 MG TAB PO SCH (08:25)
[2019-12-14] MEDS: APIXABAN 5 MG TAB (ELIQUIS) PO SCH (08:25)
[2019-12-14] MEDS: FERROUS SULFATE 325MG TAB PO SCH (08:25)
[2019-12-14 08:26] VITALS: BP 128/60
[2019-12-14] MEDS: DOCUSATE SODIUM 100 MG CAP PO SCH (08:26)
[2019-12-14] MEDS: HYDROXYCHLOROQUINE 200 MG TAB PO SCH (08:26)
[2019-12-14] MEDS: PANTOPRAZOLE 40MG TAB (PROTONIX) PO SCH (08:26)
[2019-12-14] MEDS: FUROSEMIDE 40 MG TAB PO SCH (08:26)
[2019-12-14] MEDS: AMIODARONE 200 MG TAB (PACERONE) PO SCH (08:26)
[2019-12-14] MEDS: POTASSIUM CHLORIDE 10 MEQ SR TABLET PO SCH (08:26)
[2019-12-14] MEDS: METOPROLOL SUCC *XL* 25MG TAB (TopROL *XL*) PO SCH (08:26)
[2019-12-14] MEDS: DULoxetine 20 MG CAP (CYMBALTA) PO SCH (08:26)
[2019-12-14] MEDS: CALCIUM/VITAMIN D 500 MG TAB PO SCH (08:26)
[2019-12-14] MEDS: BISACODYL 5 MG TAB PO SCH (08:27)
[2019-12-14] MEDS: REMEDY PHYTOPLEX Z-GUARD PASTE 113GM TUBE (FROM STOREROOM PRODUCT) TOP SCH (08:27)
[2019-12-14] MEDS: MIRALAX *UNIT DOSE* 17GM PACKET PO SCH (08:27)
== END 2019-12-14 11:10 | disposition home health service (06) | DRG 560 ==
LOC: M PM&R 11-25 16:15
PROVIDERS: ADMIT Physical Medicine & Rehabilitation; ATTEND Physical Medicine & Rehabilitation
PROC: 30233N1 Transfusion of Nonautologous Red Blood Cells into Peripheral Vein, Percutaneous Approach (ICD-10-PCS; principal; 2019-11-26)
DX: S72.112D Displaced fracture of greater trochanter of left femur, subsequent encounter for closed fracture with routine healing (principal); I50.32 Chronic diastolic (congestive) heart failure; E03.9 Hypothyroidism, unspecified; I48.0 Paroxysmal atrial fibrillation; Z79.01 Long term (current) use of anticoagulants; D50.0 Iron deficiency anemia secondary to blood loss (chronic); K21.9 Gastro-esophageal reflux disease without esophagitis; Z86.711 Personal history of pulmonary embolism; M06.9 Rheumatoid arthritis, unspecified; M81.0 Age-related osteoporosis without current pathological fracture; Z79.899 Other long term (current) drug therapy; W18.30XD Fall on same level, unspecified, subsequent encounter; Y92.9 Unspecified place or not applicable

== ENCOUNTER → 2019-12-24 | Outpatient (REF) | payer MEDICARE ==
[~2019-12-24] MED LIST changes: +ACE65ERTAB PO; +CARD180C4 PO; +CYMB1CAP4 PO; +FERR325T18 PO; +LEVO50TA5 PO; +LIDO5TD TD; +MOM30SS2 PO; +OXYC-517 PO; +PEG1POW PO; +PRED25TA PO; +VITA1TAB23 PO
[2019-12-24 17:55] LABS: HEMATOCRIT 44.1 % (36.0-47.0); HEMOGLOBIN 14.2 g/dl (12.0-15.5); MEAN CORPUSCULAR HEMOGLOBIN 33.3 pg (27.0-33.0); MEAN CORPUSCULAR HGB CONC 32.2 g/dl (32.0-36.5); MEAN CORPUSCULAR VOLUME 103.3 fl (80.0-96.0); PLATELET COUNT, AUTOMATED 315 10^3/uL (150-450); RED BLOOD COUNT 4.27 10^6/uL (4.00-5.40)
[2019-12-24 18:02] LABS: ALBUMIN 3.3 GM/DL (3.2-5.2); ALT/SGPT 19 U/L (12-78); AMYLASE 14 U/L (25-115); BILIRUBIN,TOTAL 0.9 MG/DL (0.2-1.0); BLOOD UREA NITROGEN 21 MG/DL (7-18); CARBON DIOXIDE LEVEL 29 MEQ/L (21-32); CHLORIDE LEVEL 102 MEQ/L (98-107); CREATININE FOR GFR 0.85 MG/DL (0.55-1.30); GLOMERULAR FILTRATION RATE > 60.0 (>32); GLUCOSE, FASTING 110 MG/DL (70-100); LIPASE 55 U/L (73-393); POTASSIUM SERUM 3.5 MEQ/L (3.5-5.1); SODIUM LEVEL 139 MEQ/L (136-145); TOTAL PROTEIN 6.2 GM/DL (6.4-8.2)
== END ==
LOC: M LAB REF 17:14
PROVIDERS: ATTEND Family Medicine
DX: K80.20 Calculus of gallbladder without cholecystitis without obstruction (principal)

== ENCOUNTER → 2019-12-27 | Outpatient (REF) | payer MEDICARE ==
[2019-12-27 13:54] LABS: HEMATOCRIT 43.3 % (36.0-47.0); HEMOGLOBIN 14.5 g/dl (12.0-15.5); MEAN CORPUSCULAR HEMOGLOBIN 33.8 pg (27.0-33.0); MEAN CORPUSCULAR HGB CONC 33.5 g/dl (32.0-36.5); MEAN CORPUSCULAR VOLUME 100.9 fl (80.0-96.0); PLATELET COUNT, AUTOMATED 290 10^3/uL (150-450); RED BLOOD COUNT 4.29 10^6/uL (4.00-5.40); WHITE BLOOD COUNT 8.4 10^3/uL (4.0-10.0)
[2019-12-27 14:14] LABS: ALBUMIN 3.3 GM/DL (3.2-5.2); ALT/SGPT 25 U/L (12-78); AMYLASE 13 U/L (25-115); BLOOD UREA NITROGEN 19 MG/DL (7-18); CALCIUM LEVEL 8.9 MG/DL (8.8-10.2); CARBON DIOXIDE LEVEL 28 MEQ/L (21-32); CHLORIDE LEVEL 101 MEQ/L (98-107); CREATININE FOR GFR 0.81 MG/DL (0.55-1.30); GLOMERULAR FILTRATION RATE > 60.0 (>32); GLUCOSE, FASTING 130 MG/DL (70-100); LIPASE 62 U/L (73-393); NT-PRO BNP 741 PG/ML (<450); POTASSIUM SERUM 3.7 MEQ/L (3.5-5.1); SODIUM LEVEL 139 MEQ/L (136-145); TOTAL PROTEIN 6.3 GM/DL (6.4-8.2)
== END ==
LOC: M SHH 13:16
PROVIDERS: ATTEND Family Medicine
DX: I10 Essential (primary) hypertension (principal)

== ENCOUNTER → 2020-01-03 | Outpatient (REF) | payer MEDICARE ==
[2020-01-03 13:53] LABS: APPEARANCE, URINE CLOUDY (CLEAR); BACTERIA, URINE AUTO NEGATIVE (NEGATIVE); BILIRUBIN, URINE AUTO NEGATIVE (NEGATIVE); BLOOD, URINE BLOOD 3+ (NEGATIVE); CALCIUM OXALATE CRYSTALS SMALL; COLOR, URINE AMBER (YELLOW); GLUCOSE, URINE (UA) AUTO NEGATIVE (NEGATIVE); KETONE, URINE AUTO TRACE mg/dL (NEGATIVE); LEUKOCYTE ESTERASE, URINE AUTO NEGATIVE (NEGATIVE); MUCUS, URINE SMALL (NEGATIVE); NITRITE, URINE AUTO NEGATIVE (NEGATIVE); PROTEIN, URINE AUTO 2+ mg/dL (NEGATIVE); RBC, URINE AUTO TNTC /HPF (0-3); SPECIFIC GRAVITY URINE AUTO 1.016 (1.002-1.035); SQUAMOUS EPITHELIAL CELL UR AU 2 /HPF (0-6); UROBILINOGEN, URINE AUTO 0.2 mg/dL (0.0-2.0); WBC, URINE AUTO 2 /HPF (0-3)
[2020-01-03 16:29] LABS: HEMATOCRIT 44.3 % (36.0-47.0); HEMOGLOBIN 14.6 g/dl (12.0-15.5); MEAN CORPUSCULAR HEMOGLOBIN 33.3 pg (27.0-33.0); MEAN CORPUSCULAR VOLUME 101.1 fl (80.0-96.0); PLATELET COUNT, AUTOMATED 272 10^3/uL (150-450); RED BLOOD COUNT 4.38 10^6/uL (4.00-5.40); WHITE BLOOD COUNT 7.8 10^3/uL (4.0-10.0)
[2020-01-03 16:43] LABS: INR 1.97; PROTHROMBIN TIME 22.2 SECONDS (11.8-14.0)
[2020-01-03 16:44] LABS: PARTIAL THROMBOPLASTIN TIME 35.7 SECONDS (25.0-38.4)
== END ==
LOC: M SHH 12:55
PROVIDERS: ATTEND Family Medicine
DX: N18.2 Chronic kidney disease, stage 2 (mild) (principal); Z79.01 Long term (current) use of anticoagulants

== ENCOUNTER 2022-02-05 11:14 | Inpatient (IN) | payer MEDICARE ==
[~2022-02-05] VITALS: Ht 172.7 cm; Wt 66.3 kg
[~2022-02-05 11:14] MED LIST changes: -ALEN70TA74 PO; +ALEN70TA82 PO; -AMIO200T PO; +AMIO200T49 PO; +ASCO250T20 PO; +ASPI-569 PO; -ASPI81TAEC PO; -AZAT50TA2 PO; +AZAT50TA37 PO; +CALC600T63 PO; -CALCTAB6 PO; -DILT180C43 PO; +DILT180C95 PO; -KLOR10TA76 PO; -PANT20TA2 PO; +PANT20TA6 PO; +PANT40TA29 PO; -PANT40TA3 PO; -PEG1POW PO; +POLY17PO18 PO; +POTA-136 PO; -VITA1TAB23 PO
[2022-02-05 12:02] LABS: BASO # 0.1 10^3/uL (0.0-0.2); BASO % 0.8 % (0.0-1.0); HEMATOCRIT 46.5 % (36.0-47.0); HEMOGLOBIN 15.6 g/dl (12.0-15.5); LYMPH # 0.4 10^3/uL (1.5-5.0); MEAN CORPUSCULAR HEMOGLOBIN 33.3 pg (27.0-33.0); MEAN CORPUSCULAR HGB CONC 33.5 g/dl (32.0-36.5); MEAN CORPUSCULAR VOLUME 99.4 fl (80.0-96.0); MONO # 0.7 10^3/uL (0.0-0.8); MONO % 10.1 % (2.0-8.0); NEUTROPHILS # 5.3 10^3/uL (1.5-8.5); NEUTROPHILS % 81.6 % (36.0-66.0); PLATELET COUNT, AUTOMATED 272 10^3/uL (150-450); RED BLOOD COUNT 4.68 10^6/uL (4.00-5.40); WHITE BLOOD COUNT 6.5 10^3/uL (4.0-10.0)
[2022-02-05 12:45] LABS: CK-MB VALUE MASS 4.2 NG/ML (<3.6); MB/CK RELATIVE INDEX 4.04 (< OR =4)
[2022-02-05 12:52] LABS: ALBUMIN 3.9 GM/DL (3.2-5.2); BILIRUBIN,DIRECT 0.3 MG/DL (0.0-0.2); BILIRUBIN,TOTAL 1.4 MG/DL (0.2-1.0); CALCIUM LEVEL 9.7 MG/DL (8.8-10.2); CREATININE FOR GFR 1.33 MG/DL (0.55-1.30); GLOMERULAR FILTRATION RATE 40.1 (>32); POTASSIUM SERUM 3.8 MEQ/L (3.5-5.1); THYROID STIMULATING HORMONE 0.821 uIU/ML (0.358-3.740); TOTAL PROTEIN 6.7 GM/DL (6.4-8.2)
[2022-02-05 14:32] LABS: C REACTIVE PROTEIN QUANTITATIV 0.3 MG/DL (0.00-0.30)
[2022-02-05] MEDS ORDERED: NS 1,000 ML IV ONE (14:50)
[2022-02-05 15:46] LABS: RSV AMPLIFICATION NEGATIVE (NEGATIVE)
[2022-02-05] MEDS ORDERED: DILT120C89 PO (17:26)
[2022-02-05] MEDS ORDERED: PRED25TA PO (17:26)
[2022-02-05] MEDS ORDERED: LEVO125T41 PO (17:26)
[2022-02-05] MEDS ORDERED: PANT-23 PO (17:26)
[2022-02-05] MEDS ORDERED: MUPI2OI TOP (17:26)
[2022-02-05] MEDS ORDERED: FURO40TA2 PO (17:26)
[2022-02-05] MEDS ORDERED: SERT50TA29 PO (17:26)
[2022-02-05] MEDS ORDERED: HOME MED LIST COMPLETE! XX SCH (17:30)
[2022-02-05] MEDS ORDERED: HEPARIN SOD (PORCINE) 5000UNITS/ML 1ML VIAL/SYRINGE IV PRN (18:10)
[2022-02-05] MEDS ORDERED: HEPARIN DRIP 25,000 UNITS in IV 1 EA IV SCH (18:10)
[2022-02-05 18:27] LABS: ALBUMIN 2.9 GM/DL (3.2-5.2); ALT/SGPT 22 U/L (12-78); BILIRUBIN,TOTAL 0.9 MG/DL (0.2-1.0); BLOOD UREA NITROGEN 18 MG/DL (7-18); CALCIUM LEVEL 7.5 MG/DL (8.8-10.2); CARBON DIOXIDE LEVEL 24 MEQ/L (21-32); CHLORIDE LEVEL 107 MEQ/L (98-107); CREATININE FOR GFR 1.05 MG/DL (0.55-1.30); GLOMERULAR FILTRATION RATE 52.7 (>32); GLUCOSE, FASTING 70 MG/DL (70-100); POTASSIUM SERUM 3.2 MEQ/L (3.5-5.1); SODIUM LEVEL 140 MEQ/L (136-145)
[2022-02-05 18:30] LABS: THYROID STIMULATING HORMONE 0.623 uIU/ML (0.358-3.740)
[2022-02-05] MEDS ORDERED: ISOVUE-370 76% 100ML VIAL As Ordered ONE (18:54)
[2022-02-05 19:03] LABS: FOLATE 7.1 NG/ML (>5.4)
[2022-02-05] MEDS ORDERED: POTASSIUM CHLORIDE 10MEQ SR TABLET PO ONE (19:15)
[2022-02-05 19:31] LABS: C REACTIVE PROTEIN QUANTITATIV < 0.30 MG/DL (0.00-0.30)
[2022-02-05 20:13] LABS: ERYTHROCYTE SEDIMENTATION RATE 4 mm/hr (0-30)
[2022-02-05 20:30] VITALS: BP 141/63
[2022-02-05] MEDS ORDERED: APIXABAN 5 MG TAB (ELIQUIS) PO SCH (21:00)
[2022-02-05] MEDS: HYDROXYCHLOROQUINE 200 MG TAB PO SCH (21:27)
[2022-02-05] MEDS: NS 1,000 ML IV SCH (21:27)
[2022-02-05 23:45] VITALS: BP 104/51
[2022-02-06] VITALS: BP_SYST 104; BP_SYST 98; BP_DIAS 51; BP_DIAS 54
[2022-02-06 03:45] VITALS: BP 101/49
[2022-02-06] MEDS: NS 1,000 ML IV SCH (04:50)
[2022-02-06 04:59] LABS: BASO % 0.7 % (0.0-1.0); HEMATOCRIT 38.2 % (36.0-47.0); LYMPH # 0.5 10^3/uL (1.5-5.0); LYMPH % 11.8 % (24.0-44.0); MEAN CORPUSCULAR HEMOGLOBIN 33.9 pg (27.0-33.0); MEAN CORPUSCULAR HGB CONC 33.8 g/dl (32.0-36.5); MEAN CORPUSCULAR VOLUME 100.5 fl (80.0-96.0); MONO # 0.5 10^3/uL (0.0-0.8); MONO % 11.8 % (2.0-8.0); NEUTROPHILS # 3.4 10^3/uL (1.5-8.5); NEUTROPHILS % 73.7 % (36.0-66.0); PLATELET COUNT, AUTOMATED 179 10^3/uL (150-450); WHITE BLOOD COUNT 4.6 10^3/uL (4.0-10.0)
[2022-02-06 05:04] LABS: HEMOGLOBIN 12.9 g/dl (12.0-15.5)
[2022-02-06] MEDS: LEVOTHYROXINE 125MCG TABLET (0.125MG) PO SCH (05:10)
[2022-02-06 05:25] LABS: ALBUMIN 2.8 GM/DL (3.2-5.2); BILIRUBIN,DIRECT 0.2 MG/DL (0.0-0.2); BILIRUBIN,TOTAL 0.8 MG/DL (0.2-1.0); CALCIUM LEVEL 8.3 MG/DL (8.8-10.2); CREATININE FOR GFR 0.94 MG/DL (0.55-1.30); GLOMERULAR FILTRATION RATE 59.8 (>32); PHOSPHORUS LEVEL 2.9 MG/DL (2.5-4.9); POTASSIUM SERUM 3.9 MEQ/L (3.5-5.1); TOTAL PROTEIN 5.2 GM/DL (6.4-8.2)
[2022-02-06 08:00] VITALS: BP 127/61
[2022-02-06] MEDS: SERTRALINE HCL 50 MG TAB PO SCH (09:31)
[2022-02-06] MEDS: HYDROXYCHLOROQUINE 200 MG TAB PO SCH ×2 (09:32→20:22)
[2022-02-06] MEDS: PANTOPRAZOLE 40MG TAB (PROTONIX) PO SCH (09:32)
[2022-02-06] MEDS: predniSONE 2.5 MG TAB PO SCH (09:32)
[2022-02-06] MEDS: ENOXAPARIN 80MG/0.8ML SYRINGE (J1650 PER 10MG) SC SCH ×2 (11:00→22:09)
[2022-02-06 12:00] VITALS: BP 114/56
[2022-02-06 16:00] VITALS: BP 109/52
[2022-02-06 20:00] VITALS: BP 131/60
[2022-02-07] VITALS: BP_SYST 119; BP_SYST 136; BP_DIAS 58; BP_DIAS 65
[2022-02-07 04:00] VITALS: BP 123/56
[2022-02-07] MEDS: LEVOTHYROXINE 125MCG TABLET (0.125MG) PO SCH (05:01)
[2022-02-07 06:31] LABS: HEMATOCRIT 38.5 % (36.0-47.0); HEMOGLOBIN 12.8 g/dl (12.0-15.5); MEAN CORPUSCULAR HEMOGLOBIN 33.2 pg (27.0-33.0); MEAN CORPUSCULAR HGB CONC 33.2 g/dl (32.0-36.5); PLATELET COUNT, AUTOMATED 183 10^3/uL (150-450); RED BLOOD COUNT 3.85 10^6/uL (4.00-5.40); WHITE BLOOD COUNT 4.6 10^3/uL (4.0-10.0)
[2022-02-07 06:50] LABS: BLOOD UREA NITROGEN 13 MG/DL (7-18); CALCIUM LEVEL 8.4 MG/DL (8.8-10.2); CARBON DIOXIDE LEVEL 22 MEQ/L (21-32); CHLORIDE LEVEL 111 MEQ/L (98-107); CREATININE FOR GFR 0.92 MG/DL (0.55-1.30); GLOMERULAR FILTRATION RATE > 60.0 (>32); GLUCOSE, FASTING 81 MG/DL (70-100); MAGNESIUM LEVEL 1.9 MG/DL (1.8-2.4); PHOSPHORUS LEVEL 2.5 MG/DL (2.5-4.9); POTASSIUM SERUM 3.4 MEQ/L (3.5-5.1); SODIUM LEVEL 141 MEQ/L (136-145)
[2022-02-07 08:00] VITALS: BP 114/68
[2022-02-07] MEDS ORDERED: POTASSIUM CHLORIDE 10MEQ SR TABLET PO ONE (08:00)
[2022-02-07] MEDS: HYDROXYCHLOROQUINE 200 MG TAB PO SCH (08:00)
[2022-02-07] MEDS: PANTOPRAZOLE 40MG TAB (PROTONIX) PO SCH (08:00)
[2022-02-07] MEDS: SERTRALINE HCL 50 MG TAB PO SCH (08:00)
[2022-02-07] MEDS: predniSONE 2.5 MG TAB PO SCH (08:00)
[2022-02-07] MEDS: ENOXAPARIN 80MG/0.8ML SYRINGE (J1650 PER 10MG) SC SCH ×2 (11:34→22:03)
[2022-02-07] MEDS: CYPROHEPTADINE 4 MG TAB PO SCH ×2 (15:08→22:03)
[2022-02-07 15:49] LABS: ALBUMIN 3.4 GM/DL (3.2-5.2); BILIRUBIN,DIRECT 0.2 MG/DL (0.0-0.2); TOTAL PROTEIN 5.7 GM/DL (6.4-8.2)
[2022-02-07 16:00] VITALS: BP 130/58
[2022-02-07 19:36] VITALS: BP 113/72
[2022-02-08] VITALS (7 sets, daily range): BP systolic 100–133; BP diastolic 42–64
[2022-02-08] MEDS: LEVOTHYROXINE 125MCG TABLET (0.125MG) PO SCH (05:25)
[2022-02-08] MEDS: CYPROHEPTADINE 4 MG TAB PO SCH ×3 (05:25→21:06)
[2022-02-08 05:55] LABS: HEMATOCRIT 39.4 % (36.0-47.0); MEAN CORPUSCULAR HEMOGLOBIN 33.8 pg (27.0-33.0); MEAN CORPUSCULAR VOLUME 102.3 fl (80.0-96.0); PLATELET COUNT, AUTOMATED 187 10^3/uL (150-450); RED BLOOD COUNT 3.85 10^6/uL (4.00-5.40); WHITE BLOOD COUNT 4.9 10^3/uL (4.0-10.0)
[2022-02-08 06:16] LABS: CALCIUM LEVEL 8.5 MG/DL (8.8-10.2); CREATININE FOR GFR 1.06 MG/DL (0.55-1.30); GLOMERULAR FILTRATION RATE 52.1 (>32); MAGNESIUM LEVEL 1.8 MG/DL (1.8-2.4); PHOSPHORUS LEVEL 2.6 MG/DL (2.5-4.9); POTASSIUM SERUM 3.7 MEQ/L (3.5-5.1)
[2022-02-08 07:35] LABS: PERCENT SATURATION 45.1 % (13.2-45.0)
[2022-02-08] MEDS ORDERED: FLUoxetine 10 MG CAP PO SCH (09:00)
[2022-02-08] MEDS: predniSONE 2.5 MG TAB PO SCH (09:09)
[2022-02-08] MEDS: PANTOPRAZOLE 40MG TAB (PROTONIX) PO SCH (09:10)
[2022-02-08] MEDS: ENOXAPARIN 80MG/0.8ML SYRINGE (J1650 PER 10MG) SC SCH (11:27)
[2022-02-08 12:16] LABS: CORTISOL AM 10.4 UG/DL (4.3-22.4)
[2022-02-08 12:21] LABS: FOLATE 3.8 NG/ML
[2022-02-08] MEDS ORDERED: NS 500 ML IV ONE (17:15)
[2022-02-08] MEDS ORDERED: ELIQ5TAB PO (17:38)
[2022-02-08] MEDS ORDERED: CYPR4TA PO (17:38)
[2022-02-08] MEDS ORDERED: FLUO10CA18 PO (17:38)
[2022-02-08] MEDS ORDERED: APIXABAN 5 MG TAB (ELIQUIS) PO SCH (21:00)
== END 2022-02-08 22:44 | DRG 543 ==
LOC: M ED 11:14 → M ED INP 18:48 → ENRESERV 19:30 → M PCU 20:25
PROVIDERS: ADMIT Internal Medicine; ATTEND Internal Medicine
DX: M48.54XA Collapsed vertebra, not elsewhere classified, thoracic region, initial encounter for fracture (principal); N17.9 Acute kidney failure, unspecified; R33.9 Retention of urine, unspecified; M06.9 Rheumatoid arthritis, unspecified; E03.9 Hypothyroidism, unspecified; D50.9 Iron deficiency anemia, unspecified; I10 Essential (primary) hypertension; K21.9 Gastro-esophageal reflux disease without esophagitis; I48.91 Unspecified atrial fibrillation; M81.0 Age-related osteoporosis without current pathological fracture; Z79.52 Long term (current) use of systemic steroids; R63.4 Abnormal weight loss; R00.1 Bradycardia, unspecified; Z86.711 Personal history of pulmonary embolism; Z96.651 Presence of right artificial knee joint; Z87.442 Personal history of urinary calculi; Z79.899 Other long term (current) drug therapy

== ENCOUNTER 2022-02-08 15:42 | Inpatient (IN) | payer MEDICARE ==
[~2022-02-08] VITALS: Ht 167.6 cm; Wt 71.2 kg
[~2022-02-08 15:42] MED LIST changes: +DILT120C89 PO; +LEVO125T41 PO; +MUPI2OI TOP; +PANT-23 PO; +POTA-150 PO; -POTA10TA17 PO; +SERT50TA29 PO
[2022-02-08] MEDS ORDERED: MIRALAX *UNIT DOSE* 17GM PACKET PO PRN (17:35)
[2022-02-08] MEDS ORDERED: FLUO10CA18 PO (17:38)
[2022-02-08] MEDS ORDERED: CYPR4TA PO (17:38)
[2022-02-08] MEDS ORDERED: ELIQ5TAB PO (17:38)
[2022-02-08] MEDS: DOCUSATE SODIUM 100MG CAPSULE PO SCH (21:00)
[2022-02-08] MEDS: SENNA 8.6 MG TAB (SENOKOT) PO SCH (21:00)
[2022-02-08 22:58] VITALS: BP 118/61
[2022-02-08] MEDS ORDERED: HOME MED LIST COMPLETE! XX SCH (23:40)
[2022-02-09 05:22] VITALS: BP 114/58
[2022-02-09 05:38] VITALS: BP 128/60
[2022-02-09] MEDS: LEVOTHYROXINE 125MCG TABLET (0.125MG) PO SCH (05:52)
[2022-02-09] MEDS: CYPROHEPTADINE 4 MG TAB PO SCH ×3 (05:52→20:23)
[2022-02-09 05:54] LABS: BASO % 0.7 % (0.0-1.0); HEMATOCRIT 38.1 % (36.0-47.0); HEMOGLOBIN 12.4 g/dl (12.0-15.5); LYMPH # 0.6 10^3/uL (1.5-5.0); LYMPH % 13.3 % (24.0-44.0); MEAN CORPUSCULAR HEMOGLOBIN 32.9 pg (27.0-33.0); MEAN CORPUSCULAR HGB CONC 32.5 g/dl (32.0-36.5); MEAN CORPUSCULAR VOLUME 101.1 fl (80.0-96.0); MONO # 0.4 10^3/uL (0.0-0.8); MONO % 9.6 % (2.0-8.0); NEUTROPHILS % 72.3 % (36.0-66.0); PLATELET COUNT, AUTOMATED 181 10^3/uL (150-450); RED BLOOD COUNT 3.77 10^6/uL (4.00-5.40); WHITE BLOOD COUNT 4.2 10^3/uL (4.0-10.0)
[2022-02-09 06:18] LABS: ALBUMIN 2.8 GM/DL (3.2-5.2); BILIRUBIN,TOTAL 0.7 MG/DL (0.2-1.0); CALCIUM LEVEL 8.3 MG/DL (8.8-10.2); CREATININE FOR GFR 0.97 MG/DL (0.55-1.30); GLOMERULAR FILTRATION RATE 57.7 (>32); POTASSIUM SERUM 3.9 MEQ/L (3.5-5.1); TOTAL PROTEIN 4.8 GM/DL (6.4-8.2)
[2022-02-09] MEDS: predniSONE 2.5 MG TAB PO SCH (08:33)
[2022-02-09] MEDS: APIXABAN 5 MG TAB (ELIQUIS) PO SCH ×2 (08:33→20:23)
[2022-02-09] MEDS: FLUoxetine 10 MG CAP PO SCH (08:33)
[2022-02-09] MEDS: PANTOPRAZOLE 40MG TAB (PROTONIX) PO SCH (08:33)
[2022-02-09] MEDS: DOCUSATE SODIUM 100MG CAPSULE PO SCH ×2 (08:33→20:24)
[2022-02-09] MEDS ORDERED: MECLIZINE 12.5 MG TAB PO PRN (12:10)
[2022-02-09 14:40] VITALS: BP 103/63
[2022-02-09 15:00] VITALS: BP_SYST 103; BP_SYST 141; BP_SYST 162; BP_DIAS 63; BP_DIAS 65; BP_DIAS 76
[2022-02-09 20:00] VITALS: BP_SYST 106; BP_SYST 122; BP_SYST 150; BP_DIAS 60; BP_DIAS 68; BP_DIAS 73
[2022-02-09] MEDS: SENNA 8.6 MG TAB (SENOKOT) PO SCH (20:24)
[2022-02-10] MEDS: CYPROHEPTADINE 4 MG TAB PO SCH ×3 (05:42→20:47)
[2022-02-10] MEDS: LEVOTHYROXINE 125MCG TABLET (0.125MG) PO SCH (05:42)
[2022-02-10 06:00] VITALS: BP 99/52
[2022-02-10 07:01] LABS: BASO # 0.1 10^3/uL (0.0-0.2); BASO % 0.8 % (0.0-1.0); HEMATOCRIT 44.4 % (36.0-47.0); LYMPH # 0.8 10^3/uL (1.5-5.0); LYMPH % 12.1 % (24.0-44.0); MEAN CORPUSCULAR HEMOGLOBIN 33.3 pg (27.0-33.0); MEAN CORPUSCULAR HGB CONC 32.4 g/dl (32.0-36.5); MEAN CORPUSCULAR VOLUME 102.5 fl (80.0-96.0); MONO # 0.5 10^3/uL (0.0-0.8); MONO % 7.1 % (2.0-8.0); NEUTROPHILS # 5.1 10^3/uL (1.5-8.5); NEUTROPHILS % 78.3 % (36.0-66.0); PLATELET COUNT, AUTOMATED 225 10^3/uL (150-450); RED BLOOD COUNT 4.33 10^6/uL (4.00-5.40); WHITE BLOOD COUNT 6.5 10^3/uL (4.0-10.0)
[2022-02-10 07:12] LABS: HEMOGLOBIN 14.4 g/dl (12.0-15.5)
[2022-02-10 07:22] LABS: CREATININE FOR GFR 1.34 MG/DL (0.55-1.30); GLOMERULAR FILTRATION RATE 39.7 (>32); POTASSIUM SERUM 3.5 MEQ/L (3.5-5.1)
[2022-02-10] MEDS: DOCUSATE SODIUM 100MG CAPSULE PO SCH ×2 (08:22→20:47)
[2022-02-10] MEDS: PANTOPRAZOLE 40MG TAB (PROTONIX) PO SCH (08:22)
[2022-02-10] MEDS: predniSONE 2.5 MG TAB PO SCH (08:22)
[2022-02-10] MEDS: APIXABAN 5 MG TAB (ELIQUIS) PO SCH ×2 (08:22→20:47)
[2022-02-10] MEDS: FLUoxetine 10 MG CAP PO SCH (08:22)
[2022-02-10] MEDS ORDERED: MIRALAX *UNIT DOSE* 17GM PACKET PO SCH (09:00)
[2022-02-10 14:00] VITALS: BP 115/63
[2022-02-10] MEDS: NS 1,000 ML IV SCH (14:10)
[2022-02-10] MEDS: COMBIVENT RESPIMAT 100-20MCG INHALER 4GM INH SCH ×2 (14:16→19:18)
[2022-02-10 20:00] VITALS: BP 98/55
[2022-02-10] MEDS: SENNA 8.6 MG TAB (SENOKOT) PO SCH (20:47)
[2022-02-11] MEDS: NS 1,000 ML IV SCH (01:42)
[2022-02-11] MEDS: CYPROHEPTADINE 4 MG TAB PO SCH ×3 (05:49→20:42)
[2022-02-11] MEDS: LEVOTHYROXINE 125MCG TABLET (0.125MG) PO SCH (05:49)
[2022-02-11 06:00] VITALS: BP 94/55
[2022-02-11 07:23] LABS: CREATININE FOR GFR 1.16 MG/DL (0.55-1.30); GLOMERULAR FILTRATION RATE 46.9 (>32); POTASSIUM SERUM 3.5 MEQ/L (3.5-5.1)
[2022-02-11] MEDS: DOCUSATE SODIUM 100MG CAPSULE PO SCH ×2 (08:00→20:42)
[2022-02-11] MEDS: predniSONE 2.5 MG TAB PO SCH (08:00)
[2022-02-11] MEDS: PANTOPRAZOLE 40MG TAB (PROTONIX) PO SCH (08:00)
[2022-02-11] MEDS: FLUoxetine 10 MG CAP PO SCH (08:00)
[2022-02-11] MEDS: APIXABAN 5 MG TAB (ELIQUIS) PO SCH ×2 (08:00→20:42)
[2022-02-11] MEDS: COMBIVENT RESPIMAT 100-20MCG INHALER 4GM INH SCH ×3 (08:44→19:38)
[2022-02-11 14:00] VITALS: BP 128/74
[2022-02-11 20:00] VITALS: BP 104/62
[2022-02-11] MEDS: SENNA 8.6 MG TAB (SENOKOT) PO SCH (20:42)
[2022-02-12] MEDS: LEVOTHYROXINE 125MCG TABLET (0.125MG) PO SCH (05:20)
[2022-02-12] MEDS: CYPROHEPTADINE 4 MG TAB PO SCH ×3 (05:20→21:53)
[2022-02-12 06:00] VITALS: BP 109/55
[2022-02-12] MEDS: COMBIVENT RESPIMAT 100-20MCG INHALER 4GM INH SCH ×3 (07:13→20:23)
[2022-02-12 07:24] LABS: BASO % 0.6 % (0.0-1.0); HEMOGLOBIN 12.5 g/dl (12.0-15.5); LYMPH # 0.5 10^3/uL (1.5-5.0); LYMPH % 9.8 % (24.0-44.0); MEAN CORPUSCULAR HEMOGLOBIN 33.7 pg (27.0-33.0); MEAN CORPUSCULAR HGB CONC 32.9 g/dl (32.0-36.5); MEAN CORPUSCULAR VOLUME 102.4 fl (80.0-96.0); MONO # 0.5 10^3/uL (0.0-0.8); MONO % 9.2 % (2.0-8.0); NEUTROPHILS # 4.2 10^3/uL (1.5-8.5); NEUTROPHILS % 78.5 % (36.0-66.0); PLATELET COUNT, AUTOMATED 192 10^3/uL (150-450); RED BLOOD COUNT 3.71 10^6/uL (4.00-5.40); WHITE BLOOD COUNT 5.3 10^3/uL (4.0-10.0)
[2022-02-12 07:58] LABS: CALCIUM LEVEL 8.6 MG/DL (8.8-10.2); CREATININE FOR GFR 1.09 MG/DL (0.55-1.30); GLOMERULAR FILTRATION RATE 50.4 (>32); POTASSIUM SERUM 3.6 MEQ/L (3.5-5.1)
[2022-02-12] MEDS: PANTOPRAZOLE 40MG TAB (PROTONIX) PO SCH (10:07)
[2022-02-12] MEDS: predniSONE 2.5 MG TAB PO SCH (10:07)
[2022-02-12] MEDS: DOCUSATE SODIUM 100MG CAPSULE PO SCH ×2 (10:07→20:57)
[2022-02-12] MEDS: APIXABAN 5 MG TAB (ELIQUIS) PO SCH ×2 (10:08→20:57)
[2022-02-12] MEDS: FLUoxetine 10 MG CAP PO SCH (10:08)
[2022-02-12] MEDS: LevoFLOXacin 250 MG TABLET PO SCH (10:10)
[2022-02-12] MEDS: LACTOBACILLUS ACIDOPHILUS CAP (BACID) PO SCH ×4 (10:10→20:57)
[2022-02-12 14:00] VITALS: BP 106/60
[2022-02-12 19:59] VITALS: BP 110/58
[2022-02-12] MEDS: SENNA 8.6 MG TAB (SENOKOT) PO SCH (20:57)
[2022-02-13 06:00] VITALS: BP_SYST 100; BP_SYST 108; BP_DIAS 53; BP_DIAS 60
[2022-02-13] MEDS: CYPROHEPTADINE 4 MG TAB PO SCH ×3 (06:13→21:13)
[2022-02-13] MEDS: LEVOTHYROXINE 125MCG TABLET (0.125MG) PO SCH (06:13)
[2022-02-13] MEDS: LevoFLOXacin 250 MG TABLET PO SCH (06:13)
[2022-02-13] MEDS: COMBIVENT RESPIMAT 100-20MCG INHALER 4GM INH SCH ×3 (07:10→19:04)
[2022-02-13] MEDS: DOCUSATE SODIUM 100MG CAPSULE PO SCH ×2 (07:37→21:14)
[2022-02-13] MEDS: LACTOBACILLUS ACIDOPHILUS CAP (BACID) PO SCH ×4 (07:37→21:13)
[2022-02-13] MEDS: PANTOPRAZOLE 40MG TAB (PROTONIX) PO SCH (07:38)
[2022-02-13] MEDS: predniSONE 2.5 MG TAB PO SCH (07:38)
[2022-02-13] MEDS: FLUoxetine 10 MG CAP PO SCH (07:38)
[2022-02-13] MEDS: APIXABAN 5 MG TAB (ELIQUIS) PO SCH ×2 (07:38→21:13)
[2022-02-13 14:00] VITALS: BP 102/60
[2022-02-13 19:16] VITALS: BP 101/57
[2022-02-13] MEDS: SENNA 8.6 MG TAB (SENOKOT) PO SCH (21:13)
[2022-02-14 06:00] VITALS: BP 100/60
[2022-02-14] MEDS: CYPROHEPTADINE 4 MG TAB PO SCH ×3 (06:01→21:21)
[2022-02-14] MEDS: LEVOTHYROXINE 125MCG TABLET (0.125MG) PO SCH (06:01)
[2022-02-14] MEDS: LevoFLOXacin 250 MG TABLET PO SCH (06:01)
[2022-02-14] MEDS: COMBIVENT RESPIMAT 100-20MCG INHALER 4GM INH SCH ×2 (07:04→15:10)
[2022-02-14] MEDS: DOCUSATE SODIUM 100MG CAPSULE PO SCH ×2 (08:29→20:44)
[2022-02-14] MEDS: LACTOBACILLUS ACIDOPHILUS CAP (BACID) PO SCH ×4 (08:29→20:44)
[2022-02-14] MEDS: predniSONE 2.5 MG TAB PO SCH (08:29)
[2022-02-14] MEDS: APIXABAN 5 MG TAB (ELIQUIS) PO SCH ×2 (08:29→20:44)
[2022-02-14] MEDS: PANTOPRAZOLE 40MG TAB (PROTONIX) PO SCH (08:30)
[2022-02-14] MEDS: FLUoxetine 10 MG CAP PO SCH (08:30)
[2022-02-14 14:00] VITALS: BP 113/57
[2022-02-14 20:38] VITALS: BP 141/67
[2022-02-14] MEDS: SENNA 8.6 MG TAB (SENOKOT) PO SCH (20:45)
[2022-02-15 04:29] VITALS: BP 131/66
[2022-02-15] MEDS: CYPROHEPTADINE 4 MG TAB PO SCH ×3 (06:19→20:58)
[2022-02-15] MEDS: LevoFLOXacin 250 MG TABLET PO SCH (06:19)
[2022-02-15] MEDS: LEVOTHYROXINE 125MCG TABLET (0.125MG) PO SCH (06:19)
[2022-02-15] MEDS: PANTOPRAZOLE 40MG TAB (PROTONIX) PO SCH (08:20)
[2022-02-15] MEDS: LACTOBACILLUS ACIDOPHILUS CAP (BACID) PO SCH ×4 (08:20→20:58)
[2022-02-15] MEDS: DOCUSATE SODIUM 100MG CAPSULE PO SCH ×2 (08:21→20:58)
[2022-02-15] MEDS: APIXABAN 5 MG TAB (ELIQUIS) PO SCH ×2 (08:21→20:58)
[2022-02-15] MEDS: FLUoxetine 10 MG CAP PO SCH (08:21)
[2022-02-15] MEDS: predniSONE 2.5 MG TAB PO SCH (08:21)
[2022-02-15] MEDS: COMBIVENT RESPIMAT 100-20MCG INHALER 4GM INH SCH ×3 (08:35→19:53)
[2022-02-15 09:57] LABS: BASO % 0.9 % (0.0-1.0); HEMATOCRIT 38.6 % (36.0-47.0); HEMOGLOBIN 12.6 g/dl (12.0-15.5); LYMPH # 0.4 10^3/uL (1.5-5.0); LYMPH % 7.9 % (24.0-44.0); MEAN CORPUSCULAR HEMOGLOBIN 33.2 pg (27.0-33.0); MEAN CORPUSCULAR HGB CONC 32.6 g/dl (32.0-36.5); MEAN CORPUSCULAR VOLUME 101.6 fl (80.0-96.0); MONO # 0.5 10^3/uL (0.0-0.8); MONO % 11.3 % (2.0-8.0); NEUTROPHILS # 3.4 10^3/uL (1.5-8.5); NEUTROPHILS % 78.1 % (36.0-66.0); PLATELET COUNT, AUTOMATED 216 10^3/uL (150-450); WHITE BLOOD COUNT 4.4 10^3/uL (4.0-10.0)
[2022-02-15 10:32] LABS: CALCIUM LEVEL 8.8 MG/DL (8.8-10.2); CREATININE FOR GFR 1.3 MG/DL (0.55-1.30); GLOMERULAR FILTRATION RATE 41.2 (>32); POTASSIUM SERUM 3.6 MEQ/L (3.5-5.1)
[2022-02-15] MEDS: CEFDINIR 300 MG CAP (OMNICEF) PO SCH ×2 (12:20→20:58)
[2022-02-15 14:00] VITALS: BP 124/62
[2022-02-15 20:00] VITALS: BP 124/58
[2022-02-15] MEDS: SENNA 8.6 MG TAB (SENOKOT) PO SCH (20:58)
[2022-02-16] MEDS: CYPROHEPTADINE 4 MG TAB PO SCH ×3 (05:16→20:53)
[2022-02-16] MEDS: LEVOTHYROXINE 125MCG TABLET (0.125MG) PO SCH (05:16)
[2022-02-16 06:00] VITALS: BP 101/57
[2022-02-16 07:46] VITALS: BP 112/55
[2022-02-16] MEDS: DOCUSATE SODIUM 100MG CAPSULE PO SCH ×2 (08:02→20:53)
[2022-02-16] MEDS: CEFDINIR 300 MG CAP (OMNICEF) PO SCH ×2 (08:02→20:53)
[2022-02-16] MEDS: predniSONE 2.5 MG TAB PO SCH (08:02)
[2022-02-16] MEDS: FLUoxetine 10 MG CAP PO SCH (08:02)
[2022-02-16] MEDS: PANTOPRAZOLE 40MG TAB (PROTONIX) PO SCH (08:02)
[2022-02-16] MEDS: APIXABAN 5 MG TAB (ELIQUIS) PO SCH ×2 (08:02→20:53)
[2022-02-16] MEDS: LACTOBACILLUS ACIDOPHILUS CAP (BACID) PO SCH ×4 (08:02→20:53)
[2022-02-16] MEDS: COMBIVENT RESPIMAT 100-20MCG INHALER 4GM INH SCH ×3 (09:15→20:18)
[2022-02-16 14:00] VITALS: BP 118/64
[2022-02-16 20:00] VITALS: BP 117/67
[2022-02-16] MEDS: SENNA 8.6 MG TAB (SENOKOT) PO SCH (20:53)
[2022-02-17] MEDS: CYPROHEPTADINE 4 MG TAB PO SCH ×3 (05:10→22:36)
[2022-02-17] MEDS: LEVOTHYROXINE 125MCG TABLET (0.125MG) PO SCH (05:10)
[2022-02-17 06:00] VITALS: BP 91/50
[2022-02-17 07:00] LABS: BASO # 0.1 10^3/uL (0.0-0.2); BASO % 1.2 % (0.0-1.0); HEMATOCRIT 36.6 % (36.0-47.0); HEMOGLOBIN 11.8 g/dl (12.0-15.5); LYMPH # 0.6 10^3/uL (1.5-5.0); LYMPH % 14.1 % (24.0-44.0); MEAN CORPUSCULAR HEMOGLOBIN 33.7 pg (27.0-33.0); MEAN CORPUSCULAR HGB CONC 32.2 g/dl (32.0-36.5); MEAN CORPUSCULAR VOLUME 104.6 fl (80.0-96.0); MONO # 0.4 10^3/uL (0.0-0.8); MONO % 10.7 % (2.0-8.0); NEUTROPHILS % 71.6 % (36.0-66.0); PLATELET COUNT, AUTOMATED 221 10^3/uL (150-450); WHITE BLOOD COUNT 4.1 10^3/uL (4.0-10.0)
[2022-02-17 07:22] LABS: CALCIUM LEVEL 8.4 MG/DL (8.8-10.2); CREATININE FOR GFR 1.15 MG/DL (0.55-1.30); GLOMERULAR FILTRATION RATE 47.4 (>32); POTASSIUM SERUM 3.5 MEQ/L (3.5-5.1)
[2022-02-17] MEDS: COMBIVENT RESPIMAT 100-20MCG INHALER 4GM INH SCH ×3 (07:28→19:32)
[2022-02-17] MEDS: DOCUSATE SODIUM 100MG CAPSULE PO SCH ×2 (08:52→20:01)
[2022-02-17] MEDS: predniSONE 2.5 MG TAB PO SCH (08:52)
[2022-02-17] MEDS: LACTOBACILLUS ACIDOPHILUS CAP (BACID) PO SCH ×4 (08:52→20:01)
[2022-02-17] MEDS: CEFDINIR 300 MG CAP (OMNICEF) PO SCH ×2 (08:52→20:01)
[2022-02-17] MEDS: FLUoxetine 10 MG CAP PO SCH (08:52)
[2022-02-17] MEDS: PANTOPRAZOLE 40MG TAB (PROTONIX) PO SCH (08:53)
[2022-02-17] MEDS: APIXABAN 5 MG TAB (ELIQUIS) PO SCH ×2 (08:53→20:01)
[2022-02-17 13:46] VITALS: BP 111/55
[2022-02-17 20:00] VITALS: BP 108/57
[2022-02-17] MEDS: SENNA 8.6 MG TAB (SENOKOT) PO SCH (20:01)
[2022-02-18] MEDS: CYPROHEPTADINE 4 MG TAB PO SCH ×3 (05:20→21:12)
[2022-02-18] MEDS: LEVOTHYROXINE 125MCG TABLET (0.125MG) PO SCH (05:20)
[2022-02-18 05:40] VITALS: BP 97/52
[2022-02-18] MEDS: COMBIVENT RESPIMAT 100-20MCG INHALER 4GM INH SCH ×3 (07:38→19:22)
[2022-02-18] MEDS: FLUoxetine 10 MG CAP PO SCH (09:51)
[2022-02-18] MEDS: DOCUSATE SODIUM 100MG CAPSULE PO SCH ×2 (09:51→21:12)
[2022-02-18] MEDS: PANTOPRAZOLE 40MG TAB (PROTONIX) PO SCH (09:52)
[2022-02-18] MEDS: APIXABAN 5 MG TAB (ELIQUIS) PO SCH ×2 (09:52→21:12)
[2022-02-18] MEDS: LACTOBACILLUS ACIDOPHILUS CAP (BACID) PO SCH ×4 (09:52→21:12)
[2022-02-18] MEDS: predniSONE 2.5 MG TAB PO SCH (09:52)
[2022-02-18] MEDS: FUROSEMIDE 20 MG TAB PO SCH (09:55)
[2022-02-18] MEDS: POTASSIUM CHLORIDE 10MEQ SR TABLET PO SCH (09:56)
[2022-02-18 14:00] VITALS: BP 112/56
[2022-02-18 20:00] VITALS: BP 113/65
[2022-02-18] MEDS: SENNA 8.6 MG TAB (SENOKOT) PO SCH (21:12)
[2022-02-18] MEDS: ACETAMINOPHEN TAB 650MG DOSE (2X325MG) PO PRN (21:12)
[2022-02-19] MEDS: CYPROHEPTADINE 4 MG TAB PO SCH ×3 (05:28→21:12)
[2022-02-19] MEDS: LEVOTHYROXINE 125MCG TABLET (0.125MG) PO SCH (05:28)
[2022-02-19 06:09] VITALS: BP 107/56
[2022-02-19] MEDS: COMBIVENT RESPIMAT 100-20MCG INHALER 4GM INH SCH ×3 (06:24→20:51)
[2022-02-19 07:29] LABS: BASO % 1.1 % (0.0-1.0); HEMATOCRIT 34.9 % (36.0-47.0); HEMOGLOBIN 10.8 g/dl (12.0-15.5); LYMPH # 0.5 10^3/uL (1.5-5.0); LYMPH % 12.6 % (24.0-44.0); MEAN CORPUSCULAR HEMOGLOBIN 32.2 pg (27.0-33.0); MEAN CORPUSCULAR HGB CONC 30.9 g/dl (32.0-36.5); MEAN CORPUSCULAR VOLUME 104.2 fl (80.0-96.0); MONO # 0.5 10^3/uL (0.0-0.8); MONO % 13.9 % (2.0-8.0); NEUTROPHILS # 2.6 10^3/uL (1.5-8.5); NEUTROPHILS % 69.9 % (36.0-66.0); PLATELET COUNT, AUTOMATED 214 10^3/uL (150-450); RED BLOOD COUNT 3.35 10^6/uL (4.00-5.40); WHITE BLOOD COUNT 3.7 10^3/uL (4.0-10.0)
[2022-02-19 07:51] LABS: CALCIUM LEVEL 8.2 MG/DL (8.8-10.2); GLOMERULAR FILTRATION RATE 55.7 (>32); POTASSIUM SERUM 3.8 MEQ/L (3.5-5.1)
[2022-02-19] MEDS: LACTOBACILLUS ACIDOPHILUS CAP (BACID) PO SCH ×4 (08:41→21:12)
[2022-02-19] MEDS: predniSONE 2.5 MG TAB PO SCH (08:41)
[2022-02-19] MEDS: DOCUSATE SODIUM 100MG CAPSULE PO SCH ×2 (08:41→21:00)
[2022-02-19] MEDS: APIXABAN 5 MG TAB (ELIQUIS) PO SCH ×2 (08:41→21:12)
[2022-02-19] MEDS: POTASSIUM CHLORIDE 10MEQ SR TABLET PO SCH (08:42)
[2022-02-19] MEDS: FUROSEMIDE 20 MG TAB PO SCH (08:42)
[2022-02-19] MEDS: FLUoxetine 10 MG CAP PO SCH (08:42)
[2022-02-19] MEDS: PANTOPRAZOLE 40MG TAB (PROTONIX) PO SCH (08:42)
[2022-02-19 14:00] VITALS: BP 109/59
[2022-02-19 20:00] VITALS: BP 101/58
[2022-02-19] MEDS: SENNA 8.6 MG TAB (SENOKOT) PO SCH (21:00)
[2022-02-20 06:00] VITALS: BP 93/51
[2022-02-20] MEDS: LEVOTHYROXINE 125MCG TABLET (0.125MG) PO SCH (06:02)
[2022-02-20] MEDS: CYPROHEPTADINE 4 MG TAB PO SCH ×3 (06:02→20:46)
[2022-02-20] MEDS: COMBIVENT RESPIMAT 100-20MCG INHALER 4GM INH SCH ×3 (07:27→18:54)
[2022-02-20] MEDS: DOCUSATE SODIUM 100MG CAPSULE PO SCH ×2 (08:52→19:15)
[2022-02-20] MEDS: PANTOPRAZOLE 40MG TAB (PROTONIX) PO SCH (08:52)
[2022-02-20] MEDS: FUROSEMIDE 20 MG TAB PO SCH (08:52)
[2022-02-20] MEDS: APIXABAN 5 MG TAB (ELIQUIS) PO SCH ×2 (08:52→20:46)
[2022-02-20] MEDS: POTASSIUM CHLORIDE 10MEQ SR TABLET PO SCH (08:52)
[2022-02-20] MEDS: LACTOBACILLUS ACIDOPHILUS CAP (BACID) PO SCH ×4 (08:52→20:46)
[2022-02-20] MEDS: predniSONE 2.5 MG TAB PO SCH (08:52)
[2022-02-20] MEDS: FLUoxetine 10 MG CAP PO SCH (08:53)
[2022-02-20 14:00] VITALS: BP 121/59
[2022-02-20] MEDS: SENNA 8.6 MG TAB (SENOKOT) PO SCH (19:15)
[2022-02-20 20:00] VITALS: BP 107/60
[2022-02-21] MEDS: CYPROHEPTADINE 4 MG TAB PO SCH ×3 (05:08→20:34)
[2022-02-21] MEDS: LEVOTHYROXINE 125MCG TABLET (0.125MG) PO SCH (05:08)
[2022-02-21 06:00] VITALS: BP 102/54
[2022-02-21] MEDS: COMBIVENT RESPIMAT 100-20MCG INHALER 4GM INH SCH ×3 (07:20→19:10)
[2022-02-21] MEDS: PANTOPRAZOLE 40MG TAB (PROTONIX) PO SCH (07:33)
[2022-02-21] MEDS: LACTOBACILLUS ACIDOPHILUS CAP (BACID) PO SCH ×4 (07:33→20:34)
[2022-02-21] MEDS: FUROSEMIDE 20 MG TAB PO SCH (07:34)
[2022-02-21] MEDS: POTASSIUM CHLORIDE 10MEQ SR TABLET PO SCH (07:34)
[2022-02-21] MEDS: APIXABAN 5 MG TAB (ELIQUIS) PO SCH ×2 (07:34→20:34)
[2022-02-21] MEDS: DOCUSATE SODIUM 100MG CAPSULE PO SCH ×2 (07:34→20:35)
[2022-02-21] MEDS: predniSONE 2.5 MG TAB PO SCH (07:34)
[2022-02-21] MEDS: FLUoxetine 10 MG CAP PO SCH (07:34)
[2022-02-21 14:00] VITALS: BP 121/60
[2022-02-21 19:48] VITALS: BP 124/62
[2022-02-21] MEDS: SENNA 8.6 MG TAB (SENOKOT) PO SCH (20:35)
[2022-02-22 05:19] VITALS: BP 108/55
[2022-02-22] MEDS: CYPROHEPTADINE 4 MG TAB PO SCH ×3 (05:28→21:59)
[2022-02-22] MEDS: LEVOTHYROXINE 125MCG TABLET (0.125MG) PO SCH (05:28)
[2022-02-22 07:07] LABS: BASO % 0.8 % (0.0-1.0); HEMATOCRIT 36.4 % (36.0-47.0); HEMOGLOBIN 11.5 g/dl (12.0-15.5); LYMPH # 0.4 10^3/uL (1.5-5.0); LYMPH % 10.8 % (24.0-44.0); MEAN CORPUSCULAR HEMOGLOBIN 32.7 pg (27.0-33.0); MEAN CORPUSCULAR HGB CONC 31.6 g/dl (32.0-36.5); MEAN CORPUSCULAR VOLUME 103.4 fl (80.0-96.0); MONO # 0.3 10^3/uL (0.0-0.8); MONO % 8.9 % (2.0-8.0); NEUTROPHILS # 2.9 10^3/uL (1.5-8.5); NEUTROPHILS % 78.2 % (36.0-66.0); PLATELET COUNT, AUTOMATED 229 10^3/uL (150-450); RED BLOOD COUNT 3.52 10^6/uL (4.00-5.40); WHITE BLOOD COUNT 3.7 10^3/uL (4.0-10.0)
[2022-02-22 07:22] LABS: CALCIUM LEVEL 8.2 MG/DL (8.8-10.2); CREATININE FOR GFR 1.13 MG/DL (0.55-1.30); GLOMERULAR FILTRATION RATE 48.4 (>32); POTASSIUM SERUM 3.8 MEQ/L (3.5-5.1)
[2022-02-22] MEDS: COMBIVENT RESPIMAT 100-20MCG INHALER 4GM INH SCH ×3 (07:48→19:35)
[2022-02-22] MEDS: DOCUSATE SODIUM 100MG CAPSULE PO SCH ×2 (08:20→21:59)
[2022-02-22] MEDS: FUROSEMIDE 20 MG TAB PO SCH (08:20)
[2022-02-22] MEDS: predniSONE 2.5 MG TAB PO SCH (08:20)
[2022-02-22] MEDS: PANTOPRAZOLE 40MG TAB (PROTONIX) PO SCH (08:20)
[2022-02-22] MEDS: FLUoxetine 10 MG CAP PO SCH (08:20)
[2022-02-22] MEDS: POTASSIUM CHLORIDE 10MEQ SR TABLET PO SCH (08:21)
[2022-02-22] MEDS: LACTOBACILLUS ACIDOPHILUS CAP (BACID) PO SCH ×4 (08:21→21:59)
[2022-02-22] MEDS: APIXABAN 5 MG TAB (ELIQUIS) PO SCH ×2 (08:21→21:59)
[2022-02-22 15:30] VITALS: BP 117/53
[2022-02-22 19:17] VITALS: BP 110/57
[2022-02-22] MEDS: SENNA 8.6 MG TAB (SENOKOT) PO SCH (21:58)
[2022-02-22] MEDS: ACETAMINOPHEN TAB 650MG DOSE (2X325MG) PO PRN (21:59)
[2022-02-23 05:42] VITALS: BP 106/58
[2022-02-23] MEDS: LEVOTHYROXINE 125MCG TABLET (0.125MG) PO SCH (06:06)
[2022-02-23] MEDS: CYPROHEPTADINE 4 MG TAB PO SCH (06:06)
[2022-02-23] MEDS: COMBIVENT RESPIMAT 100-20MCG INHALER 4GM INH SCH (07:23)
[2022-02-23] MEDS: DOCUSATE SODIUM 100MG CAPSULE PO SCH (09:08)
[2022-02-23] MEDS: LACTOBACILLUS ACIDOPHILUS CAP (BACID) PO SCH (09:08)
[2022-02-23] MEDS: POTASSIUM CHLORIDE 10MEQ SR TABLET PO SCH (09:08)
[2022-02-23] MEDS: PANTOPRAZOLE 40MG TAB (PROTONIX) PO SCH (09:09)
[2022-02-23] MEDS: FUROSEMIDE 20 MG TAB PO SCH (09:09)
[2022-02-23] MEDS: FLUoxetine 10 MG CAP PO SCH (09:09)
[2022-02-23] MEDS: APIXABAN 5 MG TAB (ELIQUIS) PO SCH (09:09)
[2022-02-23] MEDS: predniSONE 2.5 MG TAB PO SCH (09:09)
[2022-02-23] MEDS ORDERED: FLUO10CA18 PO (09:22)
[2022-02-23] MEDS ORDERED: PANT-23 PO (09:22)
[2022-02-23] MEDS ORDERED: ELIQ5TAB PO (09:22)
[2022-02-23] MEDS ORDERED: FURO20TA2 PO (09:22)
[2022-02-23] MEDS ORDERED: AZAT50TA37 PO (09:22)
[2022-02-23] MEDS ORDERED: POTA-150 PO (09:22)
[2022-02-23] MEDS ORDERED: PRED25TA PO (09:22)
[2022-02-23] MEDS ORDERED: LEVO125T41 PO (09:22)
[2022-02-23] MEDS ORDERED: CYPR4TA PO (09:22)
== END 2022-02-23 11:45 | disposition home health service (06) | DRG 92 ==
LOC: M PM&R 23:00
PROVIDERS: ADMIT Physical Medicine & Rehabilitation; ATTEND Physical Medicine & Rehabilitation
DX: G72.0 Drug-induced myopathy (principal); N39.0 Urinary tract infection, site not specified; I50.32 Chronic diastolic (congestive) heart failure; I11.0 Hypertensive heart disease with heart failure; I48.91 Unspecified atrial fibrillation; M19.90 Unspecified osteoarthritis, unspecified site; M06.9 Rheumatoid arthritis, unspecified; E03.9 Hypothyroidism, unspecified; D50.9 Iron deficiency anemia, unspecified; M81.0 Age-related osteoporosis without current pathological fracture; K21.9 Gastro-esophageal reflux disease without esophagitis; Z87.442 Personal history of urinary calculi; Z87.81 Personal history of (healed) traumatic fracture; M48.54XD Collapsed vertebra, not elsewhere classified, thoracic region, subsequent encounter for fracture with routine healing; M48.061 Spinal stenosis, lumbar region without neurogenic claudication; M51.26 Other intervertebral disc displacement, lumbar region; M43.16 Spondylolisthesis, lumbar region; Z74.09 Other reduced mobility; Z74.1 Need for assistance with personal care; R13.10 Dysphagia, unspecified; R53.1 Weakness; Z96.651 Presence of right artificial knee joint; Z79.52 Long term (current) use of systemic steroids; R00.1 Bradycardia, unspecified; Z79.01 Long term (current) use of anticoagulants; Z79.899 Other long term (current) drug therapy; R63.4 Abnormal weight loss; L98.499 Non-pressure chronic ulcer of skin of other sites with unspecified severity; B96.29 Other Escherichia coli [E. coli] as the cause of diseases classified elsewhere

== ENCOUNTER 2022-04-09 14:39 | Emergency (ER) | payer MEDICARE ==
[~2022-04-09] VITALS: Ht 172.7 cm; Wt 71.4 kg
[~2022-04-09 14:39] MED LIST changes: +CYPR4TA PO; +FLUO10CA18 PO
[2022-04-09 16:53] LABS: BASO % 0.8 % (0.0-1.0); EOS % 0.8 % (0.0-3.0); HEMATOCRIT 40.6 % (36.0-47.0); HEMOGLOBIN 12.9 g/dl (12.0-15.5); LYMPH # 0.4 10^3/uL (1.5-5.0); MEAN CORPUSCULAR HEMOGLOBIN 33.2 pg (27.0-33.0); MEAN CORPUSCULAR HGB CONC 31.8 g/dl (32.0-36.5); MEAN CORPUSCULAR VOLUME 104.4 fl (80.0-96.0); MONO # 0.3 10^3/uL (0.0-0.8); MONO % 6.4 % (2.0-8.0); NEUTROPHILS # 4.3 10^3/uL (1.5-8.5); PLATELET COUNT, AUTOMATED 231 10^3/uL (150-450); RED BLOOD COUNT 3.89 10^6/uL (4.00-5.40); WHITE BLOOD COUNT 5.2 10^3/uL (4.0-10.0)
[2022-04-09 17:19] LABS: INR 1.02; PROTHROMBIN TIME 13.8 SECONDS (12.7-14.5)
[2022-04-09 17:20] LABS: PARTIAL THROMBOPLASTIN TIME 24.4 SECONDS (25.9-37.0)
[2022-04-09 17:28] LABS: CK-MB VALUE MASS 2.2 NG/ML (<3.6); MB/CK RELATIVE INDEX 4.89 (< OR =4)
[2022-04-09 17:34] LABS: ALBUMIN 3.3 GM/DL (3.2-5.2); BILIRUBIN,DIRECT 0.2 MG/DL (0.0-0.2); BILIRUBIN,TOTAL 0.8 MG/DL (0.2-1.0); CALCIUM LEVEL 8.6 MG/DL (8.8-10.2); CREATININE FOR GFR 0.99 MG/DL (0.55-1.30); FREE T4 2.08 NG/DL (0.76-1.46); GLOMERULAR FILTRATION RATE 56.4 (>32); POTASSIUM SERUM 4.1 MEQ/L (3.5-5.1); THYROID STIMULATING HORMONE 0.223 uIU/ML (0.358-3.740); TOTAL PROTEIN 5.7 GM/DL (6.4-8.2)
[2022-04-09] MEDS ORDERED: ISOVUE-370 76% 100ML VIAL As Ordered ONE (20:35)
[2022-04-09] MEDS ORDERED: RIVAROXABAN 20MG TAB (XARELTO) PO ONE (21:05)
[2022-04-09 21:15] VITALS: BP 138/63
== END 2022-04-09 21:41 | disposition home or self-care (01) ==
LOC: M ED 14:39
DX: I48.0 Paroxysmal atrial fibrillation (principal); R00.1 Bradycardia, unspecified; I10 Essential (primary) hypertension; Z87.442 Personal history of urinary calculi; Z79.811 Long term (current) use of aromatase inhibitors; Z79.899 Other long term (current) drug therapy

== ENCOUNTER → 2022-07-08 | Outpatient (REF) ==
[2022-07-08 15:31] LABS: HEMATOCRIT 36.9 % (36.0-47.0); HEMOGLOBIN 11.9 g/dl (12.0-15.5); MEAN CORPUSCULAR HEMOGLOBIN 29.6 pg (27.0-33.0); MEAN CORPUSCULAR HGB CONC 32.2 g/dl (32.0-36.5); MEAN CORPUSCULAR VOLUME 91.8 fl (80.0-96.0); PLATELET COUNT, AUTOMATED 210 10^3/uL (150-450); RED BLOOD COUNT 4.02 10^6/uL (4.00-5.40); WHITE BLOOD COUNT 8.6 10^3/uL (4.0-10.0)
[2022-07-08 16:05] LABS: BLOOD UREA NITROGEN 25 MG/DL (9-23); CALCIUM LEVEL 7.6 MG/DL (8.3-10.6); CARBON DIOXIDE LEVEL 24 MMOL/L (20-31); CHLORIDE LEVEL 100 MMOL/L (98-107); CREATININE FOR GFR 0.72 MG/DL (0.55-1.30); GLOMERULAR FILTRATION RATE > 60.0 (>32); GLUCOSE, FASTING 106 MG/DL (74-106); POTASSIUM SERUM 4.5 MMOL/L (3.5-5.1); SODIUM LEVEL 132 MMOL/L (136-145)
== END ==
PROVIDERS: ATTEND Internal Medicine
DX: R09.02 Hypoxemia (principal)

== ENCOUNTER → 2022-07-08 | Outpatient (REF) | payer MEDICARE | PROVIDERS: ATTEND Internal Medicine | DX: R09.02 Hypoxemia (principal) ==

== ENCOUNTER → 2022-07-10 | Outpatient (REF) | payer MEDICARE | PROVIDERS: ATTEND Internal Medicine | DX: I50.9 Heart failure, unspecified (principal); Z53.8 Procedure and treatment not carried out for other reasons ==

== ENCOUNTER → 2022-07-10 | Outpatient (REF) | payer MEDICARE | PROVIDERS: ATTEND Internal Medicine | DX: I50.9 Heart failure, unspecified (principal); Z53.8 Procedure and treatment not carried out for other reasons ==